=== PATIENT | female | born 1975 | race Caucasian/White ===

== ENCOUNTER 2023-07-29 07:52 | Outpatient (CLI) | payer BC, SELFPAY ==
[2023-08-09 22:24] LABS: PRA 4.77 ng/mL/h (0.25-5.82)
== END 2023-07-29 07:53 | disposition home or self-care (01) ==
LOC: CHSLAB 08:01
DX: I10 Essential (primary) hypertension (principal)
CPT/HCPCS: 36415; 82088; 84244

== ENCOUNTER 2024-01-10 08:45 | Outpatient (CLI) | payer BC, SELFPAY ==
[2024-01-10 09:07] LABS: Immature Reticulocyte Fraction 7.5 % (2.0-16.52); Reticulocyte Hemoglobin Conten 33.1 pg (28.0-35.0); Reticulocyte Percent 1.32 % (0.50-1.50); Reticulocytes Absolute 0.06 M/mm3 (0.02-0.10)
[2024-01-10 10:18] LABS: Ferritin 34 ng/mL (8-252); Iron 173 ug/dL (50-170); Percent Iron Saturation 52 % (12-57)
[2024-01-12 03:44] LABS: Ceruloplasmin 23 mg/dL (14-48)
[2024-01-12 15:28] LABS: Zinc 80 mcg/dL (60-130)
== END 2024-01-10 08:46 | disposition home or self-care (01) ==
LOC: CHSLAB 08:50
DX: R53.82 Chronic fatigue, unspecified (principal); R74.8 Abnormal levels of other serum enzymes; E06.3 Autoimmune thyroiditis
CPT/HCPCS: 36415; 82390; 82525; 82728; 83540; 83550; 84630; 85046

== ENCOUNTER 2024-01-22 10:50 | Outpatient (CLI) | payer BC, SELFPAY ==
[2024-01-22 11:27] LABS: Occult Blood Negative (Negative)
[2024-01-22 11:27] LABS: Occult Blood Negative (Negative)
[2024-01-22 11:27] LABS: Occult Blood Negative (Negative)
--- OUTSIDE RECORDS SUMMARY | 2024-01-26 06:41 | XMS_ITS | Encounter Summary ---
Author Organization [facility] Address [address] [place] [address] Care Team Providers Care Analyst Competitive Intelligence Name Role Phone Bowen Field MD Primary Care Provider Unavail able Reason for Referral * Radiology Services (Routine) - Closed Specialty Diagnoses / Procedures Referred By Franko menjivar Referred To Contact Diagnoses Breast cancer screening Procedures JESSICA SCREENING DIGITAL IMAGE BILATERAL [id number] Juana Gabriel MD RETIRED Referral ID Status Reason Start Date Expiration Date Visits Re quested Visits Authorized [id number] Closed 06/14/2017 12/11/2017 1 1 Reason for Visit * Radiology Services (Routine) - Closed Specialty Diagnoses / Procedures Referred By Franko menjivar Referred To Contact Diagnoses Breast cancer screening Procedures JESSICA SCREENING DIGITAL IMAGE BILATERAL [id number] Juana Gabriel MD RETIRED Referral ID Status Reason Start Date Expiration Date Visits Re quested Visits Authorized [id number] Closed 06/14/2017 12/11/2017 1 1 Encounter Details Date Type Department Care Team (Latest Contact Info) Description 06/14/2017 11:06 AM CDT - 06/14/2017 11:59 PM CDT Hospital Encounter [facility] [address] [place] [address] Juana Gabriel MD RETIRED Discharge Disposition: Home or Self Care Social History Tobacco Use Types Packs/Day Years Used Date Smoking Tobacco: Never Smokeless Tobacco: Never Alcohol Use Standard Drinks/Week Comments No 0 (1 standard drink = 0.6 oz pur e alcohol) Sex and Gender Information Value Date Recorded Sex Assigned at Not on file Gender Identity Not on file Sexual Orientation Not on file documented as of this encounter Functional Status Functional Status Response Date of Assess ment Is person deaf or have serious hearing difficult y? No 05/24/2015 Is person blind or have serious difficulty seein g? No 05/24/2015 Does person have serious dif ficulty walking/climbing stairs? No 05/24/2015 Does person have difficulty dressing/bathing? No 05/24/2015 Does person have difficulty doing errands alone? No 05/24/2015 Cognitive Status Response Date of Assessm ent Does person have difficulty concentrating/remembering/making decisions? No 05/24/2015 documented as of this encounter Medications at Time of Discharge Medication Sig Dispensed Refills Start Date End Date docusate sodium (COLACE) 100 MG capsule Take 1 Cap by mouth 2 times daily 60 Cap 3 05/25/2015 enoxaparin (LOVENOX) injection Inject 40 mg subcutaneously once daily. Continue for at least six weeks 30 Syringe 2 05/12/2014 ibuprofen (MOTRIN) 600 MG tablet Take 1 Tab by mouth every 6 hours as needed for Pain 40 Tab 0 05/25/2015 iron polysaccharides (NIFEREX 150) 150 MG capsule Take 1 Cap by mouth once daily. 30 Cap 3 05/12/2014 lansoprazole (PREVACID) 15 MG capsuleIndications:Gas troesophageal Reflux Disease Take 15 mg by mouth daily before breakfast. Indications: Gastroesophageal Reflux Disease methyldopa (ALDOMET) 500 MG tabletIndications:Hype rtension Take 1 Tab by mouth 2 times daily. Indications: High Blood Pressure 60 Tab 3 05/12/2014 oxyCODONE-acetaminophe n (PERCOCET) 5-325 MG tablet Take 1 Tab by mouth every 6 hours as needed for Pain 50 Tab 0 05/25/2015 Vit-Fe Fumarate-FA ( VITAMIN) 28-0.8 MG tabletIndications:Preg leslie Take 1 Tab by mouth once daily. Indications: documented as of this encounter Plan of Treatment Not on file documented as of this encounter Procedures Procedure Name Priority Date/Time Associated Diagnosis Comments MAMMO BILAT SCREENING Routine 06/14/2017 11:26 AM CDT Breast cancer screening documented in this encounter Results * JESSICA SCREENING DIGITAL IMAGE BILATERAL G0202 (06/14/2017 11:26 AM CDT) Anatomical Region Laterality Modality Breast Bilateral Mammography 06/14/2017 2:33 PM CDT Impressions 06/14/2017 3:17 PM CDT No mammographic evidence of malignancy in either breast. ASSESSMENT: BIRADS Category 1: Negative mammogram. RECOMMENDATION: Annual screening mammography. Thank you for allowing us to participate in the care of your patient. [facility] Breast [facility] utilizes [employer] as a reminder system to notify patients of their next recommended mammogram. Dictated by Anirudh Bartlett M.D. (president celebrity acquistion) I, Alyx Mendy, have personally reviewed the images and I agree with this report. Narrative 06/14/2017 3:17 PM CDT EXAMINATION: Digital screening mammogram on 06/14/2017. Low-dose full-field digital breast tomosynthesis examination was performed with synthetic 2D images and 3D acquisitions. Computer assisted detection was utilized. PRIOR: Previous screening mammogram from 06/08/2016. BREAST PARENCHYMAL DENSITY: There are scattered areas of fibroglandular density. RISK ASSESSMENT CALCULATION: Based on the information provided by your patient, her lifetime risk of breast cancer is intermediate (15-20%). Additional quantitative risk model data and patient history details have been scanned as a document/letter in [facility] electronic medical record (media tab). Please note this information is only as accurate as the data entered by the patient. FINDINGS: No suspicious masses, areas of architectural distortion or microcalcifications are evident on synthetic 2D mammogram or tomosynthesis images. ??There has been no significant interval change since the prior examination. Juana Gabriel MD MAMMO ORDERABLES documented in this encounter Visit Diagnoses Diagnosis Breast cancer screening Breast screening, unspecified documented in this encounter Care Teams Analyst Competitive Intelligence Relationship Specialty Start Date End Date Bowen Field MD PCP - General Internal Medicine 12/22/13 documented as of this encounter
--- OUTSIDE RECORDS SUMMARY | 2024-01-26 06:41 | XMS_ITS | Referral Summary ---
Author Organization [facility] Address [address] [place] [place] [address] Care Team Providers Care Proof Machine Operator Supervisor Name Role Phone Bowen Field MD Primary Care Provider Unavail able Source Comments [facility] and Associated Physician Practices is amultiple site organization consisting of ambulatory clinics and hospital sitesin [place], [place], [place] and [place]. This disclosure is being madepursuant to the Care Everywhere program and may not contain all information available regarding this patient. Last updated 17.[facility] [email or web address] Allergies Active Allergy Reactions Criticality Noted Date Comments Latex Itching,Swelling 12/22/2013 Sulfa Drugs 12/22/2013 Mouth sores Medications * Be aware that medications may not be up to date on this document. Alwaysverify current medications with the patient. Medication Sig Dispensed Refills Start Date End Date Status Vit-Fe Fumarate-FA ( VITAMIN) 28-0.8 MG tabletIndications:Pr egnancy Take 1 Tab by mouth once daily. Indications: Active lansoprazole (PREVACID) 15 MG capsuleIndications:G astroesophageal Reflux Disease Take 15 mg by mouth daily before breakfast. Indications: Gastroesophageal Reflux Disease Active enoxaparin (LOVENOX) injection Inject 40 mg subcutaneously once daily. Continue for at least six weeks 30 Syringe 2 5 Active methyldopa (ALDOMET) 500 MG tabletIndications:Hy pertension Take 1 Tab by mouth 2 times daily. Indications: High Blood Pressure 60 Tab 3 5 Active iron polysaccharides (NIFEREX 150) 150 MG capsule Take 1 Cap by mouth once daily. 30 Cap 3 5 Active oxyCODONE-acetaminop hen (PERCOCET) 5-325 MG tablet Take 1 Tab by mouth every 6 hours as needed for Pain 50 Tab 0 6 Active docusate sodium (COLACE) 100 MG capsule Take 1 Cap by mouth 2 times daily 60 Cap 3 6 Active ibuprofen (MOTRIN) 600 MG tablet Take 1 Tab by mouth every 6 hours as needed for Pain 40 Tab 0 6 Active Active Problems Patient Care Coordination No te Formatting of this note migh t be different from the original. [facility] 2014 Please see care plan in problem list. Problem Noted Date Diagnosed Date Current affected with Down syndrome Prothrombin gene mutation 02/20/2014 Overview (02/20/2014): Heterozygote for prothrombin gene mutation Chronic Hypertension 02/19/2014 Overview (02/19/2014): Patient has been on BP medications since delivery of her first child Has been on Methyldopa, Diovan before Has been on Methyldopa 500 mg BID for G2 H/O Pre-Eclampsia 02/19/2014 Overview (02/19/2014): In G1 with placental abruption and delivery at 34 weeks, was on Magnesium H/O Placental abruption 02/19/2014 Overview (02/19/2014): G1 when she had pre-eclampsia H/O Anxiety 02/19/2014 Overview (02/19/2014): Previously on Zoloft, has been off for several years Factor V Leiden mutation complicating 12/23/2013 Overview (02/20/2014): Currently on Lovenox 40 mg daily No personal history of blood clots Strong family history of blood clots Heterozygote Previous delivery affecting 1 02/22/2013 Family history of autism Abnormal genetic test during Overview (05/13/2015): Borderline value on NIPT ([employer])- suspected T21 Confirmed by amniocentesis Obesity affecting Resolved Problems Problem Noted Date Diagnosed Date Resolved Date abnormality in - Trisomy 21 05/13/2015 05/24/2015 Overview (05/13/2015): Images from the original note were not included. CUSTODIAL PATIENT--PLEASE CALL [phone] IF TRIAGED OR ADMITTED Care Provider: Dr. Bagley- OB; referred from [facility] consultants involved: Maria Victoria KRAUS Diagnosis: Trisomy 21 care needed at : Planned care after delivery: Fence Supervisor: Planned surveillance: Planned delivery location: Planned [place] at delivery: Planned mode of delivery: Placenta Instructions: Autopsy indicated: Genetics note: Medical Oncology Physician Concerns: This care plan is based on evaluation and is subject to change based on assessment. Please see Images or Cardiac under Chart Review for US/ ECHO/ MRI reports. GBS (group B streptococcus) UTI complicating 02/21/2014 05/18/2014 Elevated blood pressure read ing without diagnosis of hypertension 02/20/2014 05/18/2014 Overview (05/09/2016): 24 hour urine on 02/13/14 was 342 mg IMO Update 05/09/2016 Supervision of normal 02/19/2014 05/18/2014 Overview (02/23/2014): Patient of Dr. Gabriel L = 6 wk US (undocumented) A+/I/-/-, HIV NR Pap: normal 09/14/13 GC/CT: neg/neg GCT: 102 GBS: positive Advanced maternal age (AMA) in 02/19/2014 05/18/2014 Overview (02/19/2014): NIPT negative Normal anatomy US Abdominal cramping complicating 12/22/2013 02/19/2014 Clotting disorder 02/19/2014 Overview (02/19/2014): factor 5 Immunizations Name Administration Dates Next Due TDAP (7yrs+) 04/23/2014 Social History Tobacco Use Types Packs/Day Years Used Date Smoking Tobacco: Never Smokeless Tobacco: Never Alcohol Use Standard Drinks/Week Comments No 0 (1 standard drink = 0.6 oz pur e alcohol) Sex and Gender Information Value Date Recorded Sex Assigned at Not on file Gender Identity Not on file Sexual Orientation Not on file Last Filed Vital Signs Vital Sign Reading Time Taken Comments Blood Pressure 136/93 05/25/2015 2:00 PM CDT Pulse 88 05/25/2015 2:00 PM CDT Temperature 36.6 ??C (97.8 ??F) 05/25/2015 2:00 PM CD T Respiratory Rate 18 05/25/2015 2:00 PM CDT Oxygen Saturation 100% 05/12/2014 12:00 AM CDT Inhaled Oxygen Concentration 99% 02/19/2014 8 :11 PM SHUTTLE FITTING SUPERVISOR Weight 99.3 kg (219 lb) 05/24/2015 1:03 PM CDT Height 160 cm (5' 3 ) 05/24/2015 1:03 PM CDT Body Mass Index 38.79 05/24/2015 1:03 PM CDT Functional Status Functional Status Response Date of [...] person have difficulty concentrating/remembering/making decisions? No 05/24/2015 Plan of Treatment Not on file Procedures Procedure Name Priority Date/Time Associated Diagnosis Comments MAMMO BILAT SCREENING Routine 06/14/2017 11:26 AM CDT Breast cancer screening from Last 3 Months or Most Recently Relevant to Health Maintenance Results * JESSICA SCREENING DIGITAL IMAGE BILATERAL G0202 (06/14/2017 11:26 AM CDT) Anatomical Region Laterality Modality Breast Bilateral Mammography 06/14/2017 2:33 PM CDT Impressions 06/14/2017 3:17 PM CDT No mammographic evidence of malignancy in either breast. ASSESSMENT: BIRADS Category 1: Negative mammogram. RECOMMENDATION: Annual screening mammography. Thank you for allowing us to participate in the care of your patient. [facility] Breast Care utilizes [employer] as a reminder system to notify patients of their next recommended mammogram. Dictated by Anirudh Bartlett M.D. (residential support specialist) I, Alyx Brooke, have personally reviewed the images and I [...] have been scanned as a document/letter in [employer] electronic medical record (media tab). Please note this information is only as accurate as the data entered by the patient. FINDINGS: No suspicious masses, areas of architectural distortion or microcalcifications are evident on synthetic 2D mammogram or tomosynthesis images. ??There has been no significant interval change since the prior examination. Juana Gabriel MD MAMMO ORDERABLES from Last 3 Months or Most Recently Relevant to Health Maintenance Advance Directives * Full Code (Latest Code Status on File) Date Activated Date Inactivated Comments 05/24/2015 12:32 PM 05/25/2015 7:05 PM * Full Code Date Activated Date Inactivated Comments 05/09/2014 2:28 PM 05/12/2014 5:52 PM * Full Code Date Activated Date Inactivated Comments 02/19/2014 3:53 PM 02/21/2014 1:23 PM * Full Code Date Activated Date Inactivated Comments 12/22/2013 11:09 PM 12/23/2013 3:54 PM Care Teams Proof Machine Operator Supervisor Relationship Specialty Start Date End Date Bowen Field MD PCP - General Internal Medicine 12/22/13
--- OUTSIDE RECORDS SUMMARY | 2024-01-26 06:41 | XMS_ITS | Clinical Summary ---
Author Organization [facility] Address [address] [place] [address] Care Team Providers Care Obstetric Anaesthetist Name Role Phone Bowen Field MD Primary Care Provider Unavail able Source Comments [facility],non-[facility] Affiliates and Associated Physician Practices is amultiple site organization consisting of ambulatory clinics and hospital sitesin [place], [place], [place] and [place]. This disclosure is being madepursuant to the Care Everywhere program and may not contain all information available regarding this patient. Last updated 17.[facility] [employer] Allergies Active Allergy Reactions Criticality Noted Date [...] migh t be different from the original. [facility] [place] Please see care plan in problem [...] during Overview (05/13/2015): Borderline value on NIPT ([employer])- suspected T21 Confirmed by amniocentesis Obesity affecting Resolved Problems Problem Noted Date Diagnosed Date Resolved Date abnormality in - Trisomy 21 05/13/2015 05/24/2015 Overview (05/13/2015): Images from the original note were not included. ALF PATIENT--PLEASE CALL [phone] IF TRIAGED OR ADMITTED Care Provider: Dr. Bagley- OB; referred from [facility] consultants involved: Maria Victoria KRAUS Diagnosis: Trisomy 21 care needed at : Planned care after delivery: Corridor Redevelopment Manager: Planned surveillance: Planned delivery location: Planned [place] at delivery: Planned mode of delivery: Placenta Instructions: Autopsy indicated: Genetics note: Safety Attendant Concerns: This care plan is based on [...] Administration Dates Next Due TDAP (7yrs+) 04/23/2014 Family History Medical History Relation Name Comments DVT - Deep Vein Thrombosis Brother a fter surgery Diabetes Father Hypertension Father Thyroid Disease Father needed a thy roidectomy Stroke Maternal Grandfather Leukemia Maternal Grandmother DVT - Deep Vein Thrombosis Mother a fter surgery Hypertension Mother Pulmonary Embolism Mother Cancer - Breast Other Great Aunt Cancer - Breast Paternal Aunt Thyroid Disease Paternal Aunt Cancer Paternal Grandmother Some ty pe of blood cancer Heart Failure Paternal Grandmother Relation Name Status Comments Brother Father Maternal Grandfather Maternal Grandmother Mother From PE Other Paternal Aunt Paternal Grandmother Social History Tobacco Use Types Packs/Day Years [...] Oxygen Concentration 99% 02/19/2014 8 :11 PM DOCK BOSS Weight 99.3 kg (219 lb) 05/24/2015 1:03 PM CDT Height 160 cm (5' 3 ) 05/24/2015 1:03 PM CDT Body Mass Index 38.79 05/24/2015 1:03 PM CDT Plan of Treatment Health Maintenance Due Date Last Done Comments COLOGUARD (AGES 45-75) - COL ON CA SCREENING 1976 COLON MONITORING 1976 COLONOSCOPY - COLON CA SCREENING 1976 CT COLONOGRAPHY - COLON CA SCREENING 1976 Colorectal Cancer Screening 1976 FIT - COLON CA SCREENING 1976 FLEX SIG - COLON CA SCREENING 1976 LIPID TESTING 1976 PAP SMEAR 1976 HIV SCREENING 08/09/1991 HEPATITIS C SCREENING 08/04/1994 HEPATITIS B VACCINE (1 of 3 - 19+ 3-dose series) 08/09/1995 MAMMOGRAM 06/15/2019 06/14/2017, 06/08/2016 DEPRESSION SCREENING 02/08/2023 COVID-19 VACCINE (2023-2 5 season) 2023 INFLUENZA VACCINE (#1) 2023 DTAP/TDAP/TD VACCINES (2 - T d or Tdap) 04/23/2024 04/23/2014 ZOSTER VACCINE (1 of 2) 2026 HIB VACCINE Aged Out No longer eligi ble based on patient's age to complete this topic HPV VACCINE Aged Out No longer eligi ble based on patient's age to complete this topic MENINGOCOCCAL VACCINE Aged Out No truong cristóbal eligible based on patient's age to complete this topic PNEUMOCOCCAL VACCINE Aged Out No long er eligible based on patient's age to complete this topic Procedures Procedure Name Priority Date/Time Associated Diagnosis [...] participate in the care of your patient. [facility] Breast Care utilizes [employer] as a reminder system to notify patients of their next recommended mammogram. Dictated by Anirudh Bartlett M.D. (cmo & president) I, Alyx Brooke, have personally reviewed the [...] have been scanned as a document/letter in [employer] electronic medical record (media tab). Please note [...] 11:09 PM 12/23/2013 3:54 PM Care Teams Obstetric Anaesthetist Relationship Specialty Start Date End Date Bowen Field MD PCP - General Internal Medicine 12/22/13
--- OUTSIDE RECORDS SUMMARY | 2024-01-26 06:41 | XMS_ITS | Patient Health Summary ---
Author Organization [facility] Address [address] [place] [address] Care Team Providers Care Project Administrator Name Role Phone Bowen Field MD Primary Care Provider Unavail able Note from [facility],non-owned Affiliates and Associated Physician Practices is amultiple site organization consisting of ambulatory clinics and hospital sitesin [place] and [place]. This disclosure is being madepursuant to the Care Everywhere program and may not contain all information available regarding this patient. Last updated 17.[facility] RateItAll Allergies * Latex(Itching,Swelling) * Sulfa Drugs(Mouth sores) Medications * Be aware that medications may not be up to date on this document. Alwaysverify current medications with the patient. * Vit-Fe Fumarate-FA ( VITAMIN) 28-0.8 MG tablet Take 1 Tab by mouth once daily. Indications: * lansoprazole (PREVACID) 15 MG capsule Take 15 mg by mouth daily before breakfast. Indications: Gastroesophageal Reflux Disease * enoxaparin (LOVENOX) injection(Started 05/12/2014) Inject 40 mg subcutaneously once daily. Continue for at least six weeks 2 refills left * methyldopa (ALDOMET) 500 MG tablet(Started 05/12/2014) Take 1 Tab by mouth 2 times daily. Indications: High Blood Pressure 3 refills left * iron polysaccharides (NIFEREX 150) 150 MG capsule(Started 05/12/2014) Take 1 Cap by mouth once daily. 3 refills left * oxyCODONE-acetaminophen (PERCOCET) 5-325 MG tablet(Started 05/25/2015) Take 1 Tab by mouth every 6 hours as needed for Pain * docusate sodium (COLACE) 100 MG capsule(Started 05/25/2015) Take 1 Cap by mouth 2 times daily 3 refills left * ibuprofen (MOTRIN) 600 MG tablet(Started 05/25/2015) Take 1 Tab by mouth every 6 hours as needed for Pain Active Problems Problem Noted Date Diagnosed Date Current affected with Down syndrome Prothrombin gene mutation 02/20/2014 Chronic Hypertension 02/19/2014 H/O Pre-Eclampsia 02/19/2014 H/O Placental abruption 02/19/2014 H/O Anxiety 02/19/2014 Factor V Leiden mutation complicating 12/23/2013 Previous delivery affecting 1 02/22/2013 Family history of autism Abnormal genetic test during Obesity affecting Resolved Problems Problem Noted Date Diagnosed Date Resolved Date abnormality in - Trisomy 21 05/13/2015 05/24/2015 GBS (group B streptococcus) UTI complicating 02/21/2014 05/18/2014 Elevated blood pressure read ing without diagnosis of hypertension 02/20/2014 05/18/2014 Supervision of normal 02/19/2014 05/18/2014 Advanced maternal age (AMA) in 02/19/2014 05/18/2014 Abdominal cramping complicating 12/22/2013 02/19/2014 Clotting disorder 02/19/2014 Immunizations * TDAP (7yrs+)(Given 04/23/2014) Social History Tobacco Use Types Packs/Day Years [...] Oxygen Concentration 99% 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 Weight 99.3 kg (219 lb) 05/24/2015 1:03 PM CDT Height 160 cm (5' 3 ) 05/24/2015 1:03 PM CDT Body Mass Index 38.79 05/24/2015 1:03 PM CDT Procedures * MAMMO BILAT SCREENING(Performed 06/14/2017) Performed for Breast cancer screening * MAMMO BILAT SCREENING(Performed 06/08/2016) Performed for Visit for screening mammogram * IMAGING/RADIOLOGY/XRAY RESULTS ORDER(Performed 08/19/2015) * LAB RESULTS ORDER(Performed 05/27/2015) * IMAGING/RADIOLOGY/XRAY RESULTS ORDER(Performed 05/27/2015) * PATHOLOGY TISSUE EXAM (STL)(Performed 05/25/2015) * TYPE + SCREEN PANEL(Performed 05/24/2015) Performed for abnormality in , not applicable or unspecified fetus ([facility]) * CBC W AUTO DIFFERENTIAL(Performed 05/24/2015) Performed for abnormality in , not applicable or unspecified fetus ([facility]) * CYTOGENETICS PANEL(Performed 05/07/2015) * ALPHA FETOPROTEIN AMNIO(Performed 05/07/2015) * SONOGRAM - COMPLETE(Performed 05/07/2015) * DNA FRAGILE X PANEL(Performed 04/16/2015) Performed for Family history of autism * SONOGRAM - COMPLETE(Performed 04/16/2015) * LAB RESULTS ORDER(Performed 05/15/2014) * IMAGING/RADIOLOGY/XRAY RESULTS ORDER(Performed 05/14/2014) * CBC W AUTO DIFFERENTIAL(Performed 05/10/2014) * SECTION (EMERGENCY)(Performed 05/09/2014) * PATHOLOGY TISSUE EXAM (STL)(Performed 05/09/2014) Performed for state, incidental [V22.2] * BLOOD GASES CORD ROEL (ISTAT)(Performed 05/09/2014) * BLOOD GASES CORD ART (ISTAT)(Performed 05/09/2014) * NEURAXIAL BLOCK(Performed 05/09/2014) * PT PTT PANEL(Performed 05/09/2014) Performed for Factor V Leiden mutation complicating ([facility]) * TYPE + SCREEN PANEL(Performed 05/09/2014) * CBC W AUTO DIFFERENTIAL(Performed 05/09/2014) Performed for Previous delivery affecting ([facility]) * AMNISURE(Performed 05/09/2014) Performed for Supervision of normal , third trimester * GLUCOSE PROTEIN KETONE URINE - POINT OF CAR(Performed 05/09/2014) * BIOPHYSICAL PROFILE W NST(Performed 05/07/2014) Performed for Factor V Leiden mutation complicating (HCC), Previous delivery affecting (HCC), Supervision of normal , third trimester, Chronic Hypertension, Advanced maternal age (AMA) in , third trimester, Preeclampsia, third trimester (HCC), Placental abruption, third trimester (HCC), H/O Anxiety, Elevated blood pressure, R/O Pre-eclampsia, Prothrombin gene mutation (HCC), GBS (group B streptococcus) UTI complicating , third trimester (HCC) * GLUCOSE PROTEIN KETONE URINE - POINT OF CAR(Performed 05/07/2014) * BIOPHYSICAL PROFILE W NST(Performed 04/30/2014) Performed for Factor V Leiden mutation complicating (HCC), Previous delivery affecting (HCC), Supervision of normal , third trimester, Chronic Hypertension, Advanced maternal age (AMA) in , third trimester, Preeclampsia, third trimester (HCC), Placental abruption, third trimester (HCC), H/O Anxiety, Elevated blood pressure, R/O Pre-eclampsia, Prothrombin gene mutation (HCC), GBS (group B streptococcus) UTI complicating , third trimester (HCC) * DIFFERENTIAL MANUAL(Performed 04/30/2014) * CBC W AUTO DIFFERENTIAL(Performed 04/30/2014) * CULTURE URINE(Performed 04/30/2014) * GLUCOSE PROTEIN KETONE URINE - POINT OF CAR(Performed 04/30/2014) * CBC W AUTO DIFFERENTIAL(Performed 04/26/2014) Performed for Chronic Hypertension * GLUCOSE PROTEIN KETONE URINE - POINT OF CAR(Performed 04/26/2014) * LAB HISTORICAL RESULTS-ONBASE(Performed 04/26/2014) * BIOPHYSICAL PROFILE W NST(Performed 04/23/2014) Performed for Factor V Leiden mutation complicating (HCC), Previous delivery affecting (HCC), Supervision of normal , third trimester, Chronic Hypertension, Advanced maternal age (AMA) in , third trimester, Preeclampsia, third trimester (HCC), Placental abruption, third trimester (HCC), H/O Anxiety, Elevated blood pressure, R/O Pre-eclampsia, Prothrombin gene mutation (HCC), GBS (group B streptococcus) UTI complicating , third trimester (HCC) * GLUCOSE PROTEIN KETONE URINE - POINT OF CAR(Performed 04/23/2014) * BIOPHYSICAL PROFILE W NST(Performed 04/16/2014) Performed for Factor V Leiden mutation complicating ([facility]), Previous delivery affecting ([facility]), Supervision of normal , third trimester, Chronic Hypertension, Advanced maternal age (AMA) in , third trimester, Preeclampsia, third trimester ([facility]), Placental abruption, third trimester ([facility]), H/O Anxiety, Elevated blood pressure, R/O Pre-eclampsia, Prothrombin gene mutation ([facility]), GBS (group B streptococcus) UTI complicating , third trimester ([facility]) * GLUCOSE PROTEIN KETONE URINE - POINT OF CAR(Performed 04/16/2014) * BIOPHYSICAL PROFILE W NST(Performed 04/09/2014) * BIOPHYSICAL PROFILE W NST(Performed 04/02/2014) * SONOGRAM - COMPLETE(Performed 03/21/2014) * LAB RESULTS ORDER(Performed 02/22/2014) * PROTEIN URINE TIMED QUANTITATIVE(Performed 02/20/2014) Performed for Hypertension * PROTEIN CREATININE RATIO URINE TIMED PNL(Performed 02/20/2014) Performed for Hypertension * CREATININE URINE TIMED(Performed 02/20/2014) Performed for Hypertension * CREATININE CLEARANCE URINE TIMED + BLOOD(Performed 02/20/2014) Performed for Hypertension * SONOGRAM - COMPLETE(Performed 02/20/2014) Performed for Hypertension * EKG 12-LEAD(Performed 02/20/2014) Performed for Hypertension * ECHOCARDIOGRAM 2D WITH DOPPLER(Performed 02/20/2014) Performed for Chronic Hypertension, Factor V Leiden mutation complicating ([facility]) * EKG 12-LEAD(Performed 02/19/2014) Performed for Chronic Hypertension * DRUG ABUSE URINE PANEL(Performed 02/19/2014) Performed for Hypertension * URINALYSIS REFLEX MICROSCOPIC REFLEX CULTURE(Performed 02/19/2014) Performed for Hypertension * CULTURE URINE(Performed 02/19/2014) Performed for Hypertension * CULTURE STREP B(Performed 02/19/2014) Performed for Hypertension * TYPE + SCREEN PANEL(Performed 02/19/2014) * PT PTT PANEL(Performed 02/19/2014) * T4 FREE(Performed 02/19/2014) Performed for Fatigue * TSH(Performed 02/19/2014) Performed for Fatigue * URIC ACID BLOOD(Performed 02/19/2014) Performed for Hypertension * LDH BLOOD(Performed 02/19/2014) Performed for Hypertension * COMPREHENSIVE METABOLIC PANEL(Performed 02/19/2014) Performed for Hypertension * CBC W AUTO DIFFERENTIAL(Performed 02/19/2014) Performed for Hypertension * BLOOD TYPE VERIFICATION(Performed 12/23/2013) * TYPE + SCREEN PANEL(Performed 12/22/2013) Performed for Supervision of normal first , second trimester, Abdominal cramping complicating (HCC) * COMPREHENSIVE METABOLIC PANEL(Performed 12/22/2013) Performed for Supervision of normal first , second trimester, Abdominal cramping complicating (HCC) * CBC W AUTO DIFFERENTIAL(Performed 12/22/2013) Performed for Supervision of normal first , second trimester, Abdominal cramping complicating (HCC) * URINALYSIS REFLEX MICROSCOPIC REFLEX CULTURE(Performed 12/22/2013) Performed for Supervision of normal first , second trimester * GROSS + MICRO EXAM(Performed 06/22/2007) Results * JESSICA SCREENING DIGITAL IMAGE BILATERAL G0202 (06/14/2017 11:26 AM CDT) Only the most recent of2 resultswithin the time period is included. Anatomical Region Laterality Modality Breast Bilateral Mammography 06/14/2017 2:33 PM CDT Impressions 06/14/2017 3:17 PM CDT No mammographic evidence of malignancy in either breast. ASSESSMENT: BIRADS Category 1: Negative mammogram. RECOMMENDATION: Annual screening mammography. Thank you for allowing us to participate in the care of your patient. [facility] Breast Care utilizes [employer] as a reminder system to notify patients of their next recommended mammogram. Dictated by Anirudh Bartlett M.D. (residential team leader) I, Alyx Brooke, have personally reviewed the [...] have been scanned as a document/letter in [facility] electronic medical record (media tab). Please note this information is only as accurate as the data entered by the patient. FINDINGS: No suspicious masses, areas of architectural distortion or microcalcifications are evident on synthetic 2D mammogram or tomosynthesis images. ??There has been no significant interval change since the prior examination. Juana Gabriel MD MAMMO ORDERABLES * IMAGING/RADIOLOGY/XRAY RESULTS ORDER (08/19/2015 10:36 PM CDT) Only the most recent of3 resultswithin the time period is included. 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 Scanned Document IMAGING * LAB RESULTS ORDER (05/27/2015 11:28 PM CDT) Only the most recent of3 resultswithin the time period is included. Narrative 05/27/2015 11:28 PM CDT Ordered by an unspecified provider. Scanned Document LAB - THERAPEUTIC DR LÓPEZ MONITORING ORDERABLES * GROSS + MICRO EXAM (STL) (05/25/2015 7:30 AM CDT) Only the most recent of2 resultswithin the time period is included. Case Report Surgical Pathology Report ? Case: [id number] ? Authorizing Provider: ??Juana Gabriel MD ? Collected: ? 05/25/2015 07:30 AM ? Ordering Location: ? [facility] 5 LDR ? Received: ?05/28/2015 06:40 AM ? Pathologist: ? Armani Arce MD ? Specimen: ?Placenta Non 3rd Trimester ? 05/29/2015 3:48 PM CDT [facility] Final Diagnosis 1. Placenta: -- Second trimester placenta, 150 grams -- 3-vessel umbilical cord with acute funisitis and myonecrosis -- Acute chorioamnionitis with increased fibrin deposition -- ?Diffuse acute decidualitis with fibrin deposition CARLOTA/BALWINDER/tere 05/29/2015 3:48 PM CDT [facility] Clinical History The patient is a 39-year-old woman with a history of preeclampsia and placental abruption in her first . She has a history of chronic hypertension, as well as factor V Leiden deficiency. The current was an intrauterine dated by first trimester ultrasound and was a gestational age of 18 weeks and 5 days. The patient experienced an intrauterine demise and had a vaginal delivery with scores of 0/0. The fetus was positive for Down syndrome. 05/29/2015 3:48 PM CDT [facility] Gross Description The specimen is received fixed in formalin in one container, labeled with the patient's name Ama Clayton, and placenta un tri, and contains a tan placenta with an attached portion of umbilical cord and two other fragments of placental tissue. The placenta measures 7.5 x 7.5 and has an average thickness of 1.5 cm. The placental weight with the additional fragments has an aggregate weight of 150 gm. The white-green umbilical cord inserts eccentrically 2 cm from the disc margin. The white-green umbilical cord measures 11 cm in length and averages 0.3 cm in diameter. Cut section reveals a tri vascular cord with no areas of thromboses or other irregularities. The membranes are green and semi-opaque. They insert at the disc margins. The surface is green-knowles and has an unremarkable configuration. The maternal surface is intact. Serial section reveals a pink-green spongy parenchyma. An infarct measuring 1.1 x 0.5 x 0.3 cm is identified. The separate fragments of tissue have a surface that is white-green and nodular. The opposing surface is dark brown-green and smooth. The usual packaging sales representative sections are submitted in cassette A1 to A3. A4 contains packaging sales representative sections of the separate fragments of nodular placental tissue. DH/lv 05/29/2015 3:48 PM CDT [facility] Microscopic Description Microscopic examination of the placenta reviews a three-vessel umbilical cord with acute funisitis and myonecrosis. There is acute chorioamnionitis. The chorionic villi are immature and fibrotic. There is diffuse acute decidualitis with fibrinoid material. 05/29/2015 3:48 PM CDT [facility] Pathology/Cytolo gy ENTIRE PLACENTA / Unknown 05/25/2015 7:30 AM CDT 05/28/2015 6:40 AM CDT Juana Gabriel MD LAB - PATHOLOGY/CYTO LOGY ORDERABLES Performing Organization Address [facility] Co de Phone Number [facility] [address] [place] [address] * TYPE + SCREEN PANEL (05/24/2015 1:26 PM CDT) Only the most recent of4 resultswithin the time period is included. ABO A 05/24/2015 2:11 PM CDT [facility] Rh Type Positive 05/24/2015 2:11 PM CDT [facility] Comment:History check perfor med. No retype required. Antibody Screen Negative 05/24/2015 2:11 PM CDT [facility] B[facility] Miscellaneous samples (specimen) BLOOD SPECIMEN / Unknown Venipuncture / Unknown 05/24/2015 1:26 PM CDT 05/24/2015 1:32 PM CDT Yelitza Herrera MD LAB - BLOOD BANK ORD ERABLES Performing Organization Address [facility] de Phone Number [facility] [address] * (ABNORMAL) CBC W AUTO DIFFERENTIAL (05/24/2015 1:26 PM CDT) Only the most recent of7 resultswithin the time period is included. WBC 8.3 4.4 - 10.7 x10E9/L 05/24/2015 2:01 PM CDT [facility] WBC Corrected x10E9/L 05/24/2015 2:01 PM CDT [facility] RBC 4.95 3.80 - 5.20 x10E12/L 05/24/2015 2:01 PM CDT [facility] Hemoglobin 13.6 12.0 - 15.6 gm/dL 05/24/2015 2:01 PM CDT [facility] Hematocrit 38.5 35.9 - 45.5 % 05/24/2015 [facility] MCV 77.8(L) 80.7 - 98.3 fl 05/24/2015 2:01 PM CDT [facility] MCH 27.5 26.7 - 34.0 pg 05/24/2015 2:01 PM CDT [facility] MCHC 35.3 30.8 - 35.9 gm/dL 05/24/2015 2:01 PM CDT [facility] Platelet Count 303 153 - 416 x10E9/L 05/24/2015 2:01 PM CDT [facility] RDW-CV 13.5 12.1 - 14.9 % 05/24/2015 2:01 PM CDT [facility] MPV 10.2 9.4 - 12.9 fl 05/24/2015 2:01 PM CDT [facility] Neutrophils % 65.6 44.0 - 73.0 % 05/24/2015 2:01 PM CDT [facility] Lymphocytes % 22.7 20.0 - 43.0 % 05/24/2015 2:01 PM CDT [facility] Monocytes % 6.9 5.0 - 13.0 % 05/24/2015 2:01 PM CDT [facility] Eosinophils % 3.7 0.0 - 6.0 % 05/24/2015 2:01 PM CDT [facility] Basophils % 0.5 0.0 - 2.0 % 05/24/2015 2:01 PM CDT [facility] Immature Granulocytes 0.6 0 - 1 % 05/24/2015 2:01 PM CDT [facility] Neutrophil Absolute 5.45 2.01 - 7.14 x10E9/L 05/24/2015 2:01 PM CDT [facility] Lymphocytes Absolute 1.89 1.07 - 3.94 x10E9/L 05/24/2015 2:01 PM CDT [facility] Monocytes Absolute 0.57 0.26 - 1.07 x10E9/L 05/24/2015 2:01 PM CDT [facility] Eosinophils Absolute 0.31 0 - 0.47 x10E9/L 05/24/2015 2:01 PM CDT [facility] Basophils Absolute 0.04 0 - 0.08 x10E9/L 05/24/2015 2:01 PM CDT [facility] Immature Granulocytes Absolute 0.05 0.00 - 0.06 x10E9/L 05/24/2015 2:01 PM CDT [facility] nRBC Auto 0 /100 WBC 05/24/2015 2:01 PM CDT [facility] Blood BLOOD SPECIMEN / Unknown Venipuncture / Unknown 05/24/2015 1:26 PM CDT 05/24/2015 1:32 PM CDT Yelitza Herrera MD LAB - HEMATOLOGY ORD ERABLES Performing Organization Address City/State/[facility] Co de Phone Number [facility] [address] [place] [address] * CYTOGENETICS PANEL (05/07/2015 12:45 PM CDT) Indication for Study Risk of Trisomy 21 FISH ANEUVYSION requested by physician 05/15/2015 8:09 AM CDT [facility]TO[facility]OM[facility] Results Cytogenetics Fluorescence In-Situ Hybridization (FISH): ??Analysis of 50 interphase cells hybridized to X,Y and 18 specific fluorescent labeled probes* and 50 interphase cells hybridized to 13 and 21 specific fluorescent labeled probes* showed the following results: nuc hetal(DXZ1x1,DYZ3x1 ,S51S2s0),(RB1x2, L89I894r2) Abnormal male trisomy 21 === Analysis and count of 5 cells (2 cells karyotyped, GTL-banding) from 2 primaries of amniotic fluid cultures showed the following chromosome pattern: 47,XY,+21 05/15/2015 8:09 AM CDT [facility] CYTOGENOMIC [facility] Interpretation FISH was positive for trisomy 21 showing 3 signals of 21q22.13-q22.2 loci whereas 13q and 18q loci had 2 signals and one signal for each of X and Y probes*. Results implied that there were 3 copies of chromosome 21 in the majority of cells. FISH results should be confirmed by chromosome study which will show if the extra signal of 21 is caused by a numerical gain or by a derivative chromosome, of which recurrence risks vary significantly. Chromosome analysis is in progress. Abnormal male chromosome analysis showing trisomy 21 in all cells examined at 550 band resolution. Results confirmed the FISH findings. Results were called to the genetic counselors on 05/15/2015. 05/15/2015 8:09 AM T [facility] CYTOGENOMIC [facility] Preliminary result electronically signed by Paula García, PhD ABMG on 05/09/2015 at 6:59 AM Disclaimer *This test was developed, and its performance characteristics determined by [facility] as required by CLIA '88 Regulations. It has not been cleared or approved for specific uses by the U.S. Food and Drug Administration. The FDA has determined that such clearance or approval is not necessary. This test is used for clinical purposes. It should not be reported as investigational or for research. 05/15/2015 8:09 AM CDT [facility] CYTOGENOMIC [facility] Client Information [facility] - 05/15/2015 8:09 AM CDT [facility] CYTOGENOMIC [facility] Other AMNIOTIC FLUID SPECIMEN / Unknown 05/07/2015 12:45 PM CDT 05/07/2015 2:55 PM CDT Arielle Harper MD LAB - PATHOLOG Y/CYTOLOGY ORDERABLES [facility] CYTOGENOMIC [facility] [place] [address] * ALPHA FETOPROTEIN AMNIO (05/07/2015 12:45 PM CDT) Alpha-Fetoprotein Amniotic Fluid Comment 05/13/2015 12:10 PM CDT [facility] ([facility]) Alpha-Fetoprotein Value 9.4 ug/mL 05/13/2015 12:10 PM CDT [facility] ([facility]) AFP MoM 0.72 05/13/2015 12:10 PM CDT [facility] ([facility]) Gestational Age 16 05/13/2015 12:10 PM CDT [facility] ([facility]) Interpretation Comment 05/13/2015 12:10 PM CDT [facility] ([facility]) Comment: The amniotic fluid AFP value is NOT ELEVATED for the gestational age provided. Director Comment 05/13/2015 12:10 PM CDT [facility] ([facility]) Comment: Kelsy Benton, Ph.D., [facility] Principal Genetics Bee Tender Fluid specimen (specimen) AMNIOTIC FLUID SPECIMEN / Unknown Collection / Unknown 05/07/2015 12:45 PM CDT 05/07/2015 2:54 PM CDT Narrative [facility] ([facility]) - 05/13/2015 12:10 PM CDT Performed at: ??01 - [facility] [address] [place], [place] ??[id number] Regional Engineer: Lizzie Curry MD, Phone: ??[phone] Arielle Harper MD LAB - BODY FLU ID ORDERABLES [facility] ([facility]) * SONOGRAM - COMPLETE (05/07/2015 12:29 PM CDT) Only the most recent of4 resultswithin the time period is included. Anatomical Region Laterality Modality Other 05/07/2015 12:2 9 PM CDT Narrative 05/07/2015 3:14 PM CDT ? [facility] ? [facility] ?PHONE: ??FAX: Pat. Name: ?AMA CLAYTON. No: ?[id number] Study Date: ?? 05/07/2015 ??12:29pm , Age: ? 1975, 39 Pregnancies: ?? 2, Para 1 Height: ? 63 in Weight: ? 210 lb LMP: ?01/14/2015 GA by LMP: ?16w1d GA by [facility]: ?16w1d GA by US: ? 15w6d GA Selected: ??16w1d (LMP) ALYCE: ?10/21/2015 Referring MD: JUANA GABRIEL MD Signal Integrity Engineer: ??Rylie Ortega [facility] CPT4: ? 43505 Hist/Ind: ? Advanced Maternal Age ?Chronic Hypertension ?Factor V Leiden ?Hx Preeclampsia, Abruption, ? x 2 ?Borderline NIPT risk for Trisomy 21 MEASUREMENTS & AGE ? GROWTH EVALUATION Measurement ??GA ? Range ? Srce %for GA Ratios ----- ---- ------- BPD ??3.3 cm 16w2d (26h9g-56t8i) Hadl BPD 57% FL/BPD 0.59 HC ??11.9 cm 15w6d (85q6c-84i1t) Hadl HC ??43% FL/AC ??0.19 AC ??10.0 cm 16w0d (92l2m-35j6p) Hadl AC ??48% HC/AC ??1.19 (1.09 - 1.28) FL ?? 1.9 cm 15w5d (89v7b-83a2h) Hadl FL ??39% CI ? 0.79 (0.70 - 0.86) HL ?? 1.8 cm 15w1d (72m7o-67h8v) Claus HL ??33% GA for sonogram 15w6d (03o2h-13n2c) ?? Weight Estimate: based on (HL,BPD,HC,AC,FL) Avg ? Weight: 139 gm (119-159) [place] ? : 0lbs, 4oz ? Normal: 150 gm (113-187) Hadlock ? Wt% ? 36% for 16w1d Heart Rate: 145 bpm CLINICAL SUMMARY Study Number: 1 A single fetus is identified in breech presentation. ??The measurements today are consistent with menstrual dates. ??The ALYCE selected is based on her LMP and a prior ultrasound examination. ?? The amniotic fluid volume is within normal limits. ??The placenta is anterior. ??The anatomy was not well visualized due to gestational age and maternal body habitus. ??Moderately echogenic bowel was noted around the bladder. ??No other markers for aneuploidy or major malformations are seen. ??The patient was advised that ultrasound does not allow detection of all structural or chromosomal abnormalities. PROCEDURE: ?? Amniocentesis was performed by Dr Granados under direct ultrasound guidance without complications. ??Two needle insertions were made. ?? The placenta was not traversed, 34cc's of clear fluid were obtained and sent for karyotype determination and FISH for 13,18,21,X,Y studies. ??The heart rate was within normal limits post procedure. ??The maternal Blood type is A+. ??Rhogam was not given. IMPRESSION: Single, live, IUP at 16w1d size consistent with established ALYCE. Moderately echogenic bowel No other sonographic signs of abnormality Incomplete anatomic survey S/P amniocentesis RECOMMEND: ?? Follow up ultrasound in 4 weeks for anatomic survey Thank you for allowing us the opportunity to care for your patient. Arielle Harper MD <Electronic Signature> ??05/07/2015 03:13pm Juana Gabriel MD 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 This result is not associated with fragile X syndrome. COMMENTS: Southern blot analysis is not indicated when PCR results are negative or intermediate and there is no family history of unexplained intellectual disability, ovarian dysfunction or ataxia tremor. ??Routine chromosome analysis is recommended in the diagnostic work-up for other causes of mental retardation. Fragile X syndrome is caused by an expansion of CGG repeat sequences in the FMR1 gene in 99% of cases. ??There are rare FMR1 mutations including missense mutations and gene deletions which cause fragile X syndrome. ??The interpretation is based on the following ranges of repeat sequences: ? Negative: ?? less than 45 repeats ? Intermediate: ?? 45-54 repeats ?Premutation: ?? 55-200 repeats with normal ? methylation pattern ?Full Mutation: ?? greater than 200 repeats with ? abnormal methylation pattern Reported CGG repeat sizes may vary as follows: +/- one for repeats less than 60, and +/- two to four for repeats in the 60-120 range respectively. ??For repeats greater than 120, the accuracy is +/- 10%. This interpretation is based on the clinical and family relationship information provided and the current understanding of the molecular genetics of this condition. Genetic counseling is recommended for any individual seeking additional information regarding interpretation of genetic test results. METHODS/LIMITATIONS: Isolated DNA is tested by the polymerase chain reaction (PCR) to determine the size of the CGG repeats within the FMR1 gene. ??PCR products are generated using a fluorescence labeled primer and sized by capillary gel electrophoresis. If indicated, Southern blot analysis is performed by hybridizing the probe StB12.3 to EcoRI- and Eagl-digested DNA. ??The analytical sensitivity of both Southern blot and PCR analyses is 99% for expansion mutations in the FMR1 gene. False positive or negative results may occur for reasons that include somatic or tissue-specific mosaicism, rare genetic variants, blood transfusions, bone marrow transplantation, or erroneous representation of family history. REFERENCES: 1. ??Eliana Ceballos et al. Eur J Hum Day 2008;166:666-72. 2. ??Jamie S et al. Day Med 2005;7:584-87. 3. ??Chavez MD et al. Fertil Steril 2007;87:456-65. 4. ??Nay Jauregui et al. Eur J Hum Day 2009;1-4. Results Released By: Jewell Dent MS, PhD, Plane Runner Released By: Radha Dent,Director Comment Comment 04/22/2015 3:23 PM CDT [facility] ([facility]) Comment: This test was developed and its performance characteristics determined by [facility]. ??It has not been cleared or approved by the Food and Drug Administration. ??The FDA has determined that such clearance or approval is not necessary. Blood specimen (specimen) BLOOD SPECIMEN / Unknown Venipuncture / Unknown 04/16/2015 12:05 PM VOTING MACHINE REPAIRER 04/16/2015 12:38 PM VOTING MACHINE REPAIRER Narrative [facility] ([facility]) - 04/22/2015 3:23 PM CDT Performed at: ??01 - [address] ??[id number] Regional Engineer: Lizzie Curry MD, Phone: ??[phone] Alyx Eldridge MD LAB - HEMATOLOGY ORD ERABLES [facility] ([facility]) * (ABNORMAL) BLOOD GASES CORD ROEL (ISTAT) (05/09/2014 5:35 PM CDT) pH Cord Venous POCT 7.25(L) 7.28 - 7.40 pH 05/10/2014 4:02 AM CDT [facility] pCO2 Cord Venous POCT 57(H) 35 - 45 mmHg 05/10/2014 4:02 AM CDT [facility] pO2 Cord Venous POCT 18(L) 22 - 33 mmHg 05/10/2014 4:02 AM CDT [facility] HCO3 Cord Arterial POCT 25(H) 22 - 24 mmol/L 05/10/2014 4:02 AM CDT [facility] BE Cord Venous POCT Calc -4 -6 - 2 mmol/L 05/10/2014 4:02 AM [facility] TCO2 Cord Venous POCT 27 22 - 30 mmol/L 05/10/2014 4:02 AM T [facility] O2 Saturation % Cord Venous Calc POCT 20 % 05/10/2014 4:02 AM CDT [facility] Site CORD ROEL 05/10/2014 4:02 AM CDT [facility] Sample iSTAT CORD V 05/10/2014 4:02 AM [facility] Blood CORD BLOOD SPECIMEN / Unknown 05/09/2014 5:35 PM CDT 05/10/2014 4:02 AM CDT Alberto Colindres MD LAB - POINT OF CARE ORDERABLES Performing Organization Address [facility] de Phone Number [facility] [address], [place] [id number] * (ABNORMAL) BLOOD GASES CORD ART (ISTAT) (05/09/2014 5:31 PM CDT) pH Cord Arterial POCT 7.20 7.20 - 7.34 pH 05/10/2014 4:02 AM [facility] pCO2 Cord Arterial POCT 67.5(H) 45 - 55 mmHg 05/10/2014 4:02 AM [facility] pO2 Cord Arterial POCT 9(L) 12 - 25 mmHg 05/10/2014 4:02 AM [facility] HCO3 Cord Arterial POCT 26.6 15 - 29 mmol/L 05/10/2014 4:02 AM [facility] BE Cord Arterial POCT -4(L) -2.9 - 8.3 mmol/L 05/10/2014 4:02 AM [facility] TCO2 Cord Arterial POCT 29 mmol/L 05/10/2014 4:02 AM [facility] O2 Saturation Cord Art % Calc POCT 6 % 05/10/2014 4:02 AM [facility] Site CORD ART 05/10/2014 4:02 AM [facility] Sample iSTAT CORD A 05/10/2014 4:02 AM [facility] Blood CORD BLOOD SPECIMEN / Unknown 05/09/2014 5:31 PM CDT 05/10/2014 4:02 AM CDT Alberto Colindres MD LAB - POINT OF CARE ORDERABLES Performing Organization Address [facility] Co de Phone Number [facility] [address] [place] [phone] * NEURAXIAL BLOCK (05/09/2014 5:08 PM CDT) Narrative Kaushik Micaela AMANAS - 05/09/2014 5:08 PM CDT Micaela FaulknerMANAS ? 05/09/2014 ??5:08 PM NEURAXIAL BLOCK Patient Location: ??OB Pre Procedure Indication: ??surgical anesthesia Anticoagulation /Antithrombosis Status Confirmed: Yes Preanesthetic Checklist: ??patient identified, IV checked, site marked, risks and benefits discussed, surgical consent verified, monitors and equipment checked, pre-op evaluation done, timeout performed, informed consent obtained and questions answered / anesthesia plan accepted Monitors: ??BP and Pulse Ox Patient Condition: ??awake Patient Position: ??sitting Procedure Block Performed: ??spinal Prep: ??Betadine Sterile Field: ??mask, cap/hat, sterile field established and sterile gloves Approach: ??midline Skin Numbed with: ??lidocaine 1% Spinal Needle Type: ??pencil-point Needle Gauge: ??25 G Needle Length: ??3.5 in Placement Site: ??L3-4 Number of Attempts: ??1 CSF: ??free flow, aspiration before injection, aspiration during injection and aspiration after injection Local Anesthetic: ??bupivacaine 0.75% in dextrose 13.5 mg Spinal Additive: ??0.2 mg ?10 mcg ? Events CSF return injection not painful no paresthesia no other event Degree of Difficulty: ??none Position Post Procedure: ??left uterine displacement Vital signs monitored and stable throughout. ??See Anesthesia Intraop record for details. Block Start Time: ??05/09/2014 4:58 PM Block End Time: ??05/09/2014 4:58 PM Block Performed by: ??Whitley faulkner CRNA Notes: ??To OR Monitors applied SB x1 atempt ??Free flow CSF all 4 quadrants Alberto Colindres MD GENERAL ANESTHESIA O [place] * PT PTT PANEL (05/09/2014 2:53 PM CDT) Only the most recent of2 resultswithin the time period is included. PT 9.8 9.5 - 11.6 sec 05/09/2014 3:36 PM CDT [facility] INR 0.9 0.9 - 1.1 05/09/2014 3:36 PM CDT [facility] PTT 22.9 21.0 - 32.0 sec 05/09/2014 3:36 PM CDT [facility] Blood BLOOD SPECIMEN / Unknown Venipuncture / Unknown 05/09/2014 2:53 PM CDT 05/09/2014 3:02 PM CDT Narrative [facility] - 05/09/2014 3:36 PM CDT Conventional Warfarin Anticoagulant Therapy INR Reference Range: ??2.0-3.0 Intensive Warfarin Anticoagulant Therapy INR Reference Range: ? 2.5-3.5 Heparin Therapeutic Range for PTT: 44.4 - 78.3 seconds. Dot Nicholas MD LAB - COAGULATION OR DERABLES Performing Organization Address City/[facility] Co de Phone Number [facility] [address] [place] [address] * (ABNORMAL) AMNISURE (05/09/2014 10:20 AM CDT) Amnisure (PAMG-1) Positive(A ) Negative 05/09/2014 10:37 AM CDT [facility] Amniotic fluid AMNIOTIC FLUID SPECIMEN / Unknown 05/09/2014 10:20 AM CDT 05/09/2014 10:28 AM CDT Narrative [facility] - 05/09/2014 10:37 AM CDT The performance of AmniSure has not been established in the presence of the following contaminants: meconium, anti-fungal creams or suppositories, K-Y Jelly, Monistat, baby powder (starch or talc), replens, or baby oil. In the presence of a significant amount of blood, the test can malfunction and is not recommended. Interrupted leakage with minimal residual fluid can lead to false negative result. Results should be used in conjunction with other clinical information. Test performance in patients without signs of ROM is unknown. Placenta previa and performing digital exams prior to sample collection can lead to inaccurate test results. Failure to detect membrane rupture does not assure the absence of membrane rupture. Ping Sams BOARD TURNER-LINE MAINTAINER LAB - BODY FL UID ORDERABLES Performing Organization Address [facility] Co de Phone Number [facility] [address] [place] [phone] * GLUCOSE PROTEIN KETONE URINE - POINT OF CAR (05/09/2014 8:40 AM CDT) Only the most recent of6 resultswithin the time period is included. Glucose UA neg Negative [facility] Protein UA neg Negative [facility] Ketone UA neg Negative [facility] QC Verified Yes Yes [facility] POC T TESTING Urine specimen (specimen) URINE / Unknown 05/09/2014 8:40 AM CDT Dot Nicholas MD LAB - POINT OF CARE ORDERABLES Performing Organization Address [facility] de Phone Number [facility] [address] [place] [address] * BIOPHYSICAL PROFILE W NST (05/07/2014 10:53 AM CDT) Only the most recent of6 resultswithin the time period is included. Anatomical Region Laterality Modality Other 05/07/2014 10:5 3 AM CDT Narrative 05/07/2014 11:50 AM CDT ? [facility] ?PHONE: ??FAX: Pat. Name: ?AMA CLAYTON. No: ?[id number] Study Date: ?? 05/07/2014 ??10:53am , Age: ? 1975, 38 Pregnancies: ?? 2, Para 1 Height: ? 63 in Weight: ? 202 lb LMP: ?08/13/2013 GA by LMP: ?38w1d GA by 1st: ?38w1d GA by US: ? 37w2d GA Selected: ??38w1d (LMP) ALYCE: ?05/20/2014 Referring MD: JUANA GABRIEL MD Signal Integrity Engineer: ??Sarah Amin BMI: ?35.78 Hist/Ind: ? Advanced Maternal Age ?Chronic Hypertension ?Factor V Leiden ?Hx Preeclampsia, Abruption, ? MEASUREMENTS & AGE ? GROWTH EVALUATION Measurement ??GA ? Range ? Srce %for GA Ratios ----- ---- ------- BPD ??9.0 cm 36w3d (14e6r-99s8w) Hadl BPD 26% FL/BPD 0.77 (0.71 - 0.87) HC ??33.8 cm 38w5d (60s0d-92l7s) Hadl HC ??60% FL/AC ??0.20 (0.20 - 0.24* AC ??34.7 cm 38w4d (49k8e-89v6r) Hadl AC ??58% HC/AC ??0.97 (0.90 - 1.09) FL ?? 6.9 cm 35w2d (31k5w-07y2r) Hadl FL ??8% CI ? 0.73 (0.70 - 0.86) HL ?? 6.1 cm 35w2d (83m2l-75h9a) Claus HL ??<05 GA for sonogram 37w2d (38x6d-34j2q) ?? Weight Estimate: based on (BPD,HC,AC,FL) Avg ?Weight: 3255 gm (1185-5786) Hadlo ? : 7lbs, 2oz ? Normal: 3256 gm (2442- 4070) Hadlo ? Wt% ? 50% for 38w1d Heart Rate: 144 bpm Amniotic Fluid Index: 23.4cm (07.3-23.8) Q1: 3.0cm ??Q2: 6.9cm ??Q3: 6.5cm ??Q4: 7.1cm ?? Biophysical Profile: 11/17 Breathin ?? Tone: 2 ?? NST: 2 Movement: ??2 ?? AFV: ??2 DOPPLER Umbilical - Mid Cord S/D ??2.68(1.55 - 3.35) ? PI ?? 0.98 (0.55 - 1.12) ? CLINICAL SUMMARY Study Number: 8 A single fetus is identified cephalic presentation. ??The measurements today are consistent with appropriate interval growth. The amniotic fluid volume is within normal limits. ??The placenta is posterior. ??No major malformations are seen. ?? IMPRESSION: Single, live, IUP 38w1d, normal growth/LLUVIA Reassuring BPP Normal UA doppler RECOMMEND: ?? Follow up ultrasound as clinically indicated Thank you for allowing us the opportunity to care for your patient. Rani Partida MD <Electronic Signature> ??05/07/2014 11:50am Juana Gabriel MD [facility] ORDERABLES * CULTURE URINE (04/30/2014 9:26 AM CDT) Only the most recent of2 resultswithin the time period is included. Culture <10,000 CFU/mL normal urogenital adair SIXTO 05/02/2014 11:54 AM CDT [facility] Urine URINE SPECIMEN OBTAINED BY CLEAN CATCH PROCEDURE / Unknown Collection / Unknown 04/30/2014 9:26 AM CDT 04/30/2014 10:37 AM CDT Alyx Jay MD LAB - MICROBIO LOGY ORDERABLES [facility] [address] [place] [address], [facility] * (ABNORMAL) DIFFERENTIAL MANUAL (04/30/2014 9:26 AM CDT) WBC Auto 11.2 x10^9/L 04/30/2014 5:15 PM CDT [facility] Neutrophil % Manual 70 44 - 73 % 04/30/2014 5:15 PM CDT [facility] Lymphocytes % Manual 23 20 - 43 % 04/30/2014 5:15 PM CDT [facility] Monocytes % Manual 4(L) 5 - 13 % 04/30/2014 5:15 PM CDT [facility] Basophils % Manual 1 0 - 2 % 04/30/2014 5:15 PM CDT [facility] Band % Manual 2 0 - 11 % 04/30/2014 5:15 PM CDT [facility] Cells Counted 100 # cells 04/30/2014 5:15 PM CDT [facility] Platelet Estimation Normal Normal, Adequate platelets 04/30/2014 5:15 PM CDT [facility] RBC Morphology Normal 04/30/2014 5:15 PM CDT [facility] WBC Morph Normal 04/30/2014 5:15 PM CDT [facility] Blood BLOOD SPECIMEN / Unknown Venipuncture / Unknown 04/30/2014 9:26 AM CDT 04/30/2014 9:29 AM CDT Alyx Acosta MD LAB - HEMATO LOGY ORDERABLES Performing Organization Address City/[facility]/ZIP Co de Phone Number [facility] [address] [place] [address] * LAB HISTORICAL RESULTS-ONBASE (04/26/2014) 04/26/2014 Narrative [facility] - 04/27/2014 9:02 AM CDT Historical Provider LAB - CHEMISTRY O RDERABLES Performing Organization Address City/[facility]/ZIP Co de Phone Number [facility] [address] * PROTEIN CREATININE RATIO URINE TIMED PNL (02/20/2014 4:36 PM VOTING MACHINE REPAIRER) Volume 24 Hour Urine 2,190 mL 02/20/2014 5:38 PM VOTING MACHINE REPAIRER [facility] Collection Time Hours 24 hrs 02/20/2014 5:38 PM VOTING MACHINE REPAIRER [facility] Protein Urine 7.1 mg/dL 02/20/2014 5:38 PM VOTING MACHINE REPAIRER [facility] Creatinine Urine 65.27 mg/dL 02/20/2014 5:38 PM VOTING MACHINE REPAIRER [facility] Protein/Creatin ine Ratio Urine 0.11 02/20/2014 5:38 PM [facility] Urine TIMED URINE SPECIMEN / Unknown Collection / Unknown 02/20/2014 4:36 PM VOTING MACHINE REPAIRER 02/20/2014 5:27 PM VOTING MACHINE REPAIRER Celena Vann MD LAB - URINE CHEMISTR Y ORDERABLES Performing Organization Address [facility] Co de Phone Number [facility] [address] [place] [phone] * PROTEIN URINE TIMED QUANTITATIVE (02/20/2014 4:36 PM VOTING MACHINE REPAIRER) Volume 24 Hour Urine 2,190 mL 02/20/2014 5:38 PM VOTING MACHINE REPAIRER [facility] Collection Time Hours 24 hrs 02/20/2014 5:38 PM VOTING MACHINE REPAIRER [facility] Protein 24 Hour Urine 155 42 - 225 mg/24hr 02/20/2014 5:38 PM VOTING MACHINE REPAIRER [facility] Protein Urine 7.1 mg/dL 02/20/2014 5:38 PM VOTING MACHINE REPAIRER [facility] Urine TIMED URINE SPECIMEN / Unknown Collection / Unknown 02/20/2014 4:36 PM VOTING MACHINE REPAIRER 02/20/2014 5:27 PM VOTING MACHINE REPAIRER Celena Vann MD LAB - URINE CHEMISTR Y ORDERABLES Performing Organization Address [facility] de Phone Number [facility] [address] [place] [phone] * CREATININE URINE TIMED (02/20/2014 4:36 PM VOTING MACHINE REPAIRER) Volume 24 Hour Urine 2,190 mL 02/20/2014 5:38 PM VOTING MACHINE REPAIRER [facility] Collection Time Hours 24 hrs 02/20/2014 5:38 PM [facility] Creatinine Urine 65.27 mg/dL 02/20/2014 5:38 PM VOTING MACHINE REPAIRER [facility] Creatinine 24 Hour Urine 1,429 800 - 1,800 mg/24hr 02/20/2014 5:38 PM [facility] Urine TIMED URINE SPECIMEN / Unknown Collection / Unknown 02/20/2014 4:36 PM VOTING MACHINE REPAIRER 02/20/2014 5:27 PM VOTING MACHINE REPAIRER Celena Vann MD LAB - URINE CHEMISTR Y ORDERABLES Performing Organization Address City/[facility]/ZIP Co de Phone Number [facility] [address] [place] [address] * (ABNORMAL) CREATININE CLEARANCE URINE TIMED (02/20/2014 4:36 PM [facility]) Volume 24 Hour Urine 2,190 mL 02/20/2014 5:38 PM [facility] Collection Time Hours 24 hrs 02/20/2014 5:38 PM [facility] Height Inches 63 inches 02/20/2014 5:38 PM [facility] Weight in Pounds 210 pounds 02/20/2014 5:38 PM [facility] Surface Area 1.98 02/20/2014 5:38 PM [facility] Creatinine 0.25(L) 0.50 - 1.30 mg/dL 02/20/2014 5:38 PM [facility] Creatinine Urine 65.27 mg/dL 02/20/2014 5:38 PM [facility] Creatinine 24 Hour Urine 1,429 800 - 1,800 mg/24hr 02/20/2014 5:38 PM [facility] Creatinine Clearance 347(H) 87 - 107 mL/min/1.73 m2 02/20/2014 5:38 PM [facility] Urine TIMED URINE SPECIMEN / Unknown Collection / Unknown 02/20/2014 4:36 PM VOTING MACHINE REPAIRER 02/20/2014 5:27 PM [facility] Celena Vann MD LAB - URINE CHEMISTR Y ORDERABLES [facility] [address] [place] [address] * EKG 12-LEAD (02/20/2014 9:37 AM [facility]) Only the most recent of2 resultswithin the time period is included. Ventricular Rate 87 BPM [facility] Atrial Rate 87 BPM [facility] P-R Interval 170 ms [facility] QRS Duration ms 92 ms [facility] Q-T Interval ms 368 ms [facility] MUSE QTC Calculation (Bezet) 442 ms [facility] Calculated P [place] 46 degrees [facility] Calculated R [place] 14 degrees [facility] Calculated T [place] 41 degrees [facility] Interpretation EKG NORMAL SINUS RHYTHM WITH SINUS ARRHYTHMIA LEFT VENTRICULAR HYPERTROPHY ABNORMAL ECG Confirmed by MD Herbert, Praveen ([id number]) on 02/21/2014 8:38:29 AM [facility] 02/20/2014 9:37 AM VOTING MACHINE REPAIRER 02/21/2014 8:38 AM VOTING MACHINE REPAIRER Celena Vann MD ECG ORDERABLES [facility] * ECHOCARDIOGRAM 2D WITH DOPPLER (02/20/2014 9:16 AM VOTING MACHINE REPAIRER) 02/20/2014 9:16 AM VOTING MACHINE REPAIRER Narrative [facility] - 02/21/2014 9:19 AM VOTING MACHINE REPAIRER [address] [address] Transthoracic Echocardiogram 2D, M-mode, Doppler, and Color Doppler Patient: AMA JERONIMO MR number: [id number] Height: 63 in Weight: 213.6 lb BSA: 1.99 m?? Study date: 20-Feb-2014 : 1975 Age: 38 years Gender: Female Race: Allergies: LATEX, SULFA DRUGS Referring Physician: ??Juana Gabriel MD Signal Integrity Engineer: ??Maximo Bui [facility] Reading Physician: ??Praveen Godinez MD Summary: - ??Clinical question: - ??CHRONIC HYPERTENSION, - ??Left ventricle: - ??Size was normal. - ??Systolic function was normal. Ejection fraction was estimated to be 65 %. - ??There were no regional wall motion abnormalities. - ??Wall thickness was normal. - ??Left ventricular diastolic function parameters were normal. - ??Pulmonary arteries: - ??Systolic pressure was within the normal range. - ??Right atrium: - ??Estimated central venous pressure: 10 mmHg. Indications: CHRONIC HYPERTENSION, Procedure: The procedure was performed in the echo lab. This was a routine study. The transthoracic approach was used. The study included complete 2D imaging, M-mode, complete spectral Doppler, and color Doppler. Systolic blood pressure was 131 mmHg. Diastolic blood pressure was 86 mmHg. Left ventricle: Size was normal. Systolic function was normal. Ejection fraction was estimated to be 65 %. There were no regional wall motion abnormalities. Wall thickness was normal. Doppler: Left ventricular diastolic function parameters were normal. Aortic valve: The valve was trileaflet. Leaflets exhibited normal thickness and normal cuspal separation. Doppler: There was no stenosis. There was no regurgitation. Aorta: The root exhibited normal size. Mitral valve: Valve structure was normal. There was normal leaflet separation. Doppler: The transmitral velocity was within the normal range. There was no evidence for stenosis. There was no regurgitation. Left atrium: Size was normal. Right ventricle: The size was normal. Systolic function was normal. Wall thickness was normal. Pulmonic valve: Leaflets exhibited normal thickness, no calcification, and normal cuspal separation. Doppler: There was no regurgitation. Pulmonary artery: Doppler: Systolic pressure was within the normal range. Tricuspid valve: There was normal leaflet separation. Doppler: The transtricuspid velocity was within the normal range. There was no evidence for tricuspid stenosis. There was no regurgitation. Right atrium: Size was normal. Pericardium: The pericardium was normal in appearance. Measurement tables Other echo measurements (Reference normals) Estimated CVP ?? 10 mmHg ?? (--) System measurement tables 2D Ao Diam: 2.6 cm LVOT Diam: 2.3 cm LA Diam: 3.1 cm LAAs A2C: 16.6 cm2 LAAs A4C: 17.7 cm2 LAESV A-L A2C: 45.5 ml LAESV A-L A4C: 51.4 ml LAESV Index (A-L): 24.3 ml/m2 LAESV MOD A2C: 43.5 ml LAESV MOD A4C: 49.3 ml LAESV(A-L): 48.4 ml LALs A2C: 5.2 cm IVSd: 0.9 cm LVIDd: 4.9 cm LVIDs: 3 cm LVPWd: 1 cm CW AV VTI: 29.4 cm AV Vmax: 1.6 m/s AV Vmean: 1.2 m/s AV maxP.8 mmHg AV meanP.3 mmHg PV Vmax: 1.1 m/s PV maxP.1 mmHg TR Vmax: 1.8 m/s MM TAPSE: 2.6 cm PW MIKE (VTI): 3.5 cm2 MIKE Vmax: 3.6 cm2 LVOT VTI: 24 cm LVOT Vmax: 1.4 m/s LVOT Vmean: 0.8 m/s LVOT maxP.6 mmHg LVOT meanP.4 mmHg MV E/A Ratio: 1.3 MV PHT: 41.9 ms LATERAL E': 0.1 m/s LATERAL E/E': 6.8 SEPTAL E': 0.1 m/s SEPTAL E/E': 7.7 Prepared and signed by Praveen Godinez MD Signed 21-Feb-2014 09:19:27 Procedure Note Praveen Godinez MD - 02/21/2014 [place] [address] Transthoracic Echocardiogram 2D, M-mode, Doppler, and Color Doppler Patient: AMA JERONIMO MR number: [id number] Height: 63 in Weight: 213.6 lb BSA: 1.99 m?? Study date: 20-Feb-2014 : 1975 Age: 38 years Gender: Female Race: Allergies: LATEX, SULFA DRUGS Referring Physician: Juana Gabriel MD Signal Integrity Engineer: Maximo Bui RDCS Reading Physician: Praveen Godinez MD Summary: - Clinical question: - CHRONIC HYPERTENSION, - Left ventricle: - Size was normal. - Systolic function was normal. Ejection fraction was estimated to be 65 %. - There were no regional wall motion abnormalities. - Wall thickness was normal. - Left ventricular diastolic function parameters were normal. - Pulmonary arteries: - Systolic pressure was within the normal range. - Right atrium: - Estimated central venous pressure: 10 mmHg. Indications: CHRONIC HYPERTENSION, Procedure: The procedure was performed in the echo lab. This was a routine study. The transthoracic approach was used. The study included complete 2D imaging, M-mode, complete spectral Doppler, and color Doppler. Systolic blood pressure was 131 mmHg. Diastolic blood pressure was 86 mmHg. Left ventricle: Size was normal. Systolic function was normal. Ejection fraction was estimated to be 65 %. There were no regional wall motion abnormalities. Wall thickness was normal. Doppler: Left ventricular diastolic function parameters were normal. Aortic valve: The valve was trileaflet. Leaflets exhibited normal thickness and normal cuspal separation. Doppler: There was no stenosis. There was no regurgitation. Aorta: The root exhibited normal size. Mitral valve: Valve structure was normal. There was normal leaflet separation. Doppler: The transmitral velocity was within the normal range. There was no evidence for stenosis. There was no regurgitation. Left atrium: Size was normal. Right ventricle: The size was normal. Systolic function was normal. Wall thickness was normal. Pulmonic valve: Leaflets exhibited normal thickness, no calcification, and normal cuspal separation. Doppler: There was no regurgitation. Pulmonary artery: Doppler: Systolic pressure was within the normal range. Tricuspid valve: There was normal leaflet separation. Doppler: The transtricuspid velocity was within the normal range. There was no evidence for tricuspid stenosis. There was no regurgitation. Right atrium: Size was normal. Pericardium: The pericardium was normal in appearance. Measurement tables Other echo measurements (Reference normals) Estimated CVP 10 mmHg (--) System measurement tables 2D Ao Diam: 2.6 cm LVOT Diam: 2.3 cm LA Diam: 3.1 cm LAAs A2C: 16.6 cm2 LAAs A4C: 17.7 cm2 LAESV A-L A2C: 45.5 ml LAESV A-L A4C: 51.4 ml LAESV Index (A-L): 24.3 ml/m2 LAESV MOD A2C: 43.5 ml LAESV MOD A4C: 49.3 ml LAESV(A-L): 48.4 ml LALs A2C: 5.2 cm IVSd: 0.9 cm LVIDd: 4.9 cm LVIDs: 3 cm LVPWd: 1 cm CW AV VTI: 29.4 cm AV Vmax: 1.6 m/s AV Vmean: 1.2 m/s AV maxP.8 mmHg AV meanP.3 mmHg PV Vmax: 1.1 m/s PV maxP.1 mmHg TR Vmax: 1.8 m/s MM TAPSE: 2.6 cm PW MIKE (VTI): 3.5 cm2 MIKE Vmax: 3.6 cm2 LVOT VTI: 24 cm LVOT Vmax: 1.4 m/s LVOT Vmean: 0.8 m/s LVOT maxP.6 mmHg LVOT meanP.4 mmHg MV E/A Ratio: 1.3 MV PHT: 41.9 ms LATERAL E': 0.1 m/s LATERAL E/E': 6.8 SEPTAL E': 0.1 m/s SEPTAL E/E': 7.7 Prepared and signed by Praveen Godinez MD Signed 21-Feb-2014 09:19:27 Juana Gabriel MD ECHO ORDERABLES [facility] [address] [place] [address] * (ABNORMAL) URINALYSIS ROUTINE W/REFLEX TO CULTURE (02/19/2014 5:13 PM VOTING MACHINE REPAIRER) Only the most recent of2 resultswithin the time period is included. Color UA Yellow Straw, Yellow, Dark Yellow 02/19/2014 5:41 PM [facility] Clarity UA Clear 02/19/2014 5:41 PM [facility] Specific [place] UA <=1.005 1.005 - 1.030 02/19/2014 5:41 PM [facility] pH UA 6.5 5.0 - 8.0 pH 02/19/2014 5:41 PM [facility] Protein UA Negative Negative 02/19/2014 5:41 PM [facility] Blood UA Negative Negative 02/19/2014 5:41 PM [facility] Leukocyte UA Trace(A) Negative 02/19/2014 5:41 PM [facility] Nitrite UA Negative Negative 02/19/2014 5:41 PM [facility] Glucose UA Negative Negative 02/19/2014 5:41 PM [facility] Ketone UA Negative Negative 02/19/2014 5:41 PM [facility] Bilirubin UA Negative Negative 02/19/2014 5:41 PM [facility] Urobilinogen UA 0.2 0.1 - 1.0 EU/dL 02/19/2014 5:41 PM [facility] WBC UA Auto 2-5 0-2, 2-5 #/hpf 02/19/2014 5:41 PM [facility] RBC UA Auto 0-2 0-2, 2-5 #/hpf 02/19/2014 5:41 PM [facility] Epithelial Cell UA Auto 0-2 0-2, 2-5 #/hpf 02/19/2014 5:41 PM [facility] Reflex Status Culture to follow 02/19/2014 5:41 PM [facility] Urine URINE SPECIMEN OBTAINED BY CLEAN CATCH PROCEDURE / Unknown Collection / Unknown 02/19/2014 5:13 PM VOTING MACHINE REPAIRER 02/19/2014 5:26 PM VOTING MACHINE REPAIRER Celena Vann MD LAB - URINALYSIS ORD ERABLES Performing Organization Address [facility] Co de Phone Number [facility] [address] [place] [address] * DRUG ABUSE URINE PANEL (02/19/2014 5:13 PM VOTING MACHINE REPAIRER) [facility] Amphetamines Screen Urine Not Detected Not Detected 02/19/2014 5:58 PM VOTING MACHINE REPAIRER [facility] Barbiturates Screen Urine Not Detected Not Detected 02/19/2014 5:58 PM VOTING MACHINE REPAIRER [facility] Benzodiazepines Screen Urine Not Detected Not Detected 02/19/2014 5:58 PM VOTING MACHINE REPAIRER [facility] Cannabinoids Screen Urine Not Detected Not Detected 02/19/2014 5:58 PM VOTING MACHINE REPAIRER [facility] Cocaine Screen Urine Not Detected Not Detected 02/19/2014 5:58 PM VOTING MACHINE REPAIRER [facility] Opiate Screen Urine Not Detected Not Detected 02/19/2014 5:58 PM [facility] Phencyclidine Screen Urine Not Detected Not Detected 02/19/2014 5:58 PM VOTING MACHINE REPAIRER [facility] Urine URINE / Unknown 02/19/2014 5 :13 PM VOTING MACHINE REPAIRER 02/19/2014 5:26 PM VOTING MACHINE REPAIRER Narrative [facility] - 02/19/2014 5:58 PM VOTING MACHINE REPAIRER This drug screen is designed for MEDICAL purposes only. It is not to be used for legal purposes, including but not limited to worker's comp, police investigations, occupational issues, child custody, etc. ??Any positive result is only presumptive and must be confirmed with a separate confirmatory test ordered by the physician. Drug Screening Test Cutoff Values: AMPHETAMINES ?1000 ng/ml BARBITURATES ? 200 ng/ml BENZODIAZEPINES ??200 ng/ml CANNABINOIDS(THC) 50 ng/ml COCAINE ?300 ng/ml OPIATES ?300 ng/ml PHENCYCLIDINE(PCP)25 ng/ml Celena Vann MD LAB - URINE CHEMISTR Y ORDERABLES [facility] [address] [place], [place] [id number] * (ABNORMAL) CULTURE STREP B (02/19/2014 5:11 PM VOTING MACHINE REPAIRER) [facility] Culture Growth of Streptococcus agalactiae (Group B)(AA) SIXTO 02/22/2014 3:26 PM VOTING MACHINE REPAIRER [facility] Microbiology MISCELLANEOUS SAMPLES / Unknown Collection / Unknown 02/19/2014 5:11 PM VOTING MACHINE REPAIRER 02/19/2014 5:30 PM VOTING MACHINE REPAIRER Narrative [facility] - 02/22/2014 3:26 PM VOTING MACHINE REPAIRER Susceptibility testing of penicillin, other beta-lactam antibiotics, and vancomycin is not necessary for beta-hemolytic streptococci groups A,B,C and G because resistant strains have not been recognized. 02/22/2014 3:25 PM ?? Ekaterina Myrick RN notified. ??Read back and acknowledged and faxed results.Danita Sharma Celena Vann MD LAB - MICROBIOLOGY O RDERABLES Performing Organization Address City/[facility] Co de Phone Number [facility] [address] * URIC ACID BLOOD (02/19/2014 5:05 PM VOTING MACHINE REPAIRER) [facility] Uric Acid 3.0 2.5 - 6.2 mg/dL 02/19/2014 6:14 PM VOTING MACHINE REPAIRER [facility] Comment: Blood BLOOD SPECIMEN / Unknown Venipuncture / Unknown 02/19/2014 5:05 PM VOTING MACHINE REPAIRER 02/19/2014 5:33 PM VOTING MACHINE REPAIRER Celena Vann MD LAB - CHEMISTRY MANAV MORRISON Performing Organization Address City/[facility] Co de Phone Number [facility] [address] [place], [place] [id number] * (ABNORMAL) COMPREHENSIVE METABOLIC PANEL (02/19/2014 5:05 PM VOTING MACHINE REPAIRER) Only the most recent of2 resultswithin the time period is included. [facility] Glucose 89 74 - 106 mg/dL 02/19/2014 6:15 PM VOTING MACHINE REPAIRER [facility] Sodium 135(L) 136 - 145 mmol/L 02/19/2014 6:15 PM [facility] Potassium 3.9 3.5 - 5.1 mmol/L 02/19/2014 6:15 PM [facility] Chloride 103 98 - 107 mmol/L 02/19/2014 6:15 PM [facility] CO2 20(L) 22 - 31 mmol/L 02/19/2014 6:15 PM [facility] Calcium 9.1 8.5 - 10.1 mg/dL 02/19/2014 6:15 PM [facility] Anion Gap 12 5 - 15 mmol/L 02/19/2014 6:15 PM [facility] BUN 6(L) 7 - 21 mg/dL 02/19/2014 6:15 PM [facility] Creatinine 0.25(L) 0.50 - 1.30 mg/dL 02/19/2014 6:15 PM [facility] eGFR by MDRD >60 >60 mL/min/1.7 3m2 02/19/2014 6:15 PM [facility] eGFR by MDRD >60 >60 mL/min/1.7 3m2 02/19/2014 6:15 PM [facility] Alkaline Phosphatase 91 38 - 126 U/L 02/19/2014 6:15 PM [facility] ALT 39 12 - 78 U/L 02/19/2014 6:15 PM [facility] AST 21 5 - 40 U/L 02/19/2014 6:15 PM [facility] Protein Total 6.8 6.4 - 8.2 gm/dL 02/19/2014 6:15 PM [facility] Albumin 3.0(L) 3.4 - 5.0 gm/dL 02/19/2014 6:15 PM [facility] Bilirubin Total 0.6 0.2 - 1.0 mg/dL 02/19/2014 6:15 PM [facility] Blood BLOOD SPECIMEN / Unknown Venipuncture / Unknown 02/19/2014 5:05 PM VOTING MACHINE REPAIRER 02/19/2014 5:33 PM [facility] Celena Vann MD LAB - CHEMISTRY MANAV MORRISON [facility] Organization Address City/State/ZIP Co de Phone Number [facility] [address] [place] [address] * LDH BLOOD (02/19/2014 5:05 PM VOTING MACHINE REPAIRER) [facility] LDH 176 100 - 200 U/L 02/19/2014 6:14 PM VOTING MACHINE REPAIRER [facility] Comment: Blood BLOOD SPECIMEN / Unknown Venipuncture / Unknown 02/19/2014 5:05 PM VOTING MACHINE REPAIRER 02/19/2014 5:33 PM VOTING MACHINE REPAIRER Celena Vann MD LAB - CHEMISTRY MANAV MORRISON Performing Organization Address City/[facility]/ZIP Co de Phone Number [facility] [address] [place], [place] [phone] * TSH (02/19/2014 5:05 PM VOTING MACHINE REPAIRER) [facility] TSH 0.831 0.358 - 3.740 uIU/mL 02/19/2014 6:21 PM VOTING MACHINE REPAIRER [facility] Comment: Blood BLOOD SPECIMEN / Unknown Venipuncture / Unknown 02/19/2014 5:05 PM VOTING MACHINE REPAIRER 02/19/2014 5:32 PM VOTING MACHINE REPAIRER Celena Vann MD LAB - CHEMISTRY MANAV MORRISON Performing Organization Address City/[facility] Co de Phone Number [facility] [address] [place], [place] [phone] * T4 FREE (02/19/2014 5:05 PM VOTING MACHINE REPAIRER) [facility] T4 Free 0.89 0.65 - 1.34 ng/dL 02/19/2014 6:17 PM VOTING MACHINE REPAIRER [facility] Comment: Blood BLOOD SPECIMEN / Unknown Venipuncture / Unknown 02/19/2014 5:05 PM VOTING MACHINE REPAIRER 02/19/2014 5:32 PM VOTING MACHINE REPAIRER Celena Vann MD LAB - CHEMISTRY MANAV MORRISON Performing Organization Address [facility] Co de Phone Number [facility] [address] [place] [phone] * BLOOD TYPE VERIFICATION (12/23/2013 5:38 AM VOTING MACHINE REPAIRER) Pathologist [facility] ABO A 12/23/2013 6:27 AM VOTING MACHINE REPAIRER [facility] Rh Type Positive 12/23/2013 6:27 AM VOTING MACHINE REPAIRER [facility] Miscellaneous samples (specimen) BLOOD SPECIMEN / Unknown Lab Venipuncture / Unknown 12/23/2013 5:38 AM VOTING MACHINE REPAIRER 12/23/2013 5:42 AM VOTING MACHINE REPAIRER Juana Gabriel MD LAB - BLOOD BANK ORD ERABLES [facility] [address] * GROSS + MICRO EXAM (06/22/2007 11:30 AM CDT) Result CASE NUMBER [id number] Comment: ORDERING PHYSICIAN ??JUANA GABRIEL SPECIMEN TYPE ?Placenta Date ? 06/23/2007 Physician ?Janine Gabriel Gross Description ? The specimen is received in Formalin labeled with the patient's name, Ama Agustin, and placenta. ??It consists of a discoid placenta weighing 390 grams, and measuring 14 x 12.5 x 2.3 cm with an eccentrically attached umbilical cord measuring 8.5 cm in length x 1 cm in diameter, and fragments of membranes wrapped around the umbilical cord, which measure 5 x 5 x 2 cm in aggregate. ??The umbilical cord attaches at the margin, has three vessels, and is white opaque. The membranes are thin pink green and transparent. ??The surface of the placenta is blue and shiny. ??The maternal surface of the placenta is intact and red. ??The cut surface of the placenta is uniformly red and soft without focal lesion. ??Cupola Hoist Operator sections of the specimen are taken and submitted as follows Cassette A ?? Umbilical cord and membranes. Cassettes B and C ?? Placenta. DC navarrete Microscopic Exam ? Sections of the placenta reveal a three vessel umbilical cord with no evidence of funisitis or thrombosis. The chorioamniotic membranes reveal no acute inflammation. The chorionic villi are small, well vascularized and mature with foci of progressive maturation and intervillous fibrin deposition. There is no evidence of villitis or infarction. MM/na Diagnosis ? I. ?Placenta -- ?Mature placenta, 390 grams -- ?Three vessel umbilical cord ?with eccentric attachment ?([place] placenta) -- ?Chorioamniotic membranes with ?no pathologic diagnosis -- ?Chorionic villi with progressive ?maturation -- ?Intervillous fibrin deposition, ?focal MM/na Carpentry Teacher ? na Pathologist ?Yoana Breaux M.D. [place]. ?06/24/2007 1206 <1> CPT code ? 77759 MISCELLANEOUS SAMPLES / Unknown 06/22/2007 11:30 AM CDT 06/23/2007 8:22 AM CDT Historical Provider LAB - PATHOLOGY/C YTOLOGY ORDERABLES Care Teams Project Administrator Relationship Specialty Start Date End Date Bowen Field MD PCP - General Internal Medicine 12/22/13
--- OUTSIDE RECORDS SUMMARY | 2024-01-26 06:42 | XMS_ITS | Encounter Summary ---
Author Organization [facility] Address [address] [place] [address] [place] [address] Care Team Providers Care Half Backer Name Role Phone Bowen Field MD Primary Care Provider Unavail able Encounter Details Date Type Department Care Team (Latest Contact Info) Description 03/21/2014 10:01 AM FIELD RESEARCH ASSISTANT - 03/21/2014 11:59 PM FIELD RESEARCH ASSISTANT Hospital Encounter [facility] MATERNAL/ EVALUATION UNIT [facility] [place] [address] Juana Gabriel MD RETIRED Discharge Disposition: Home or Self Care Social History Tobacco Use Types Packs/Day Years Used Date Smoking Tobacco: Never Smokeless Tobacco: Never Alcohol Use Standard Drinks/Week Comments No 0 (1 standard drink = 0.6 oz pur e alcohol) Comments Yes Sex and Gender Information Value Date Recorded Sex Assigned at Not on file Gender Identity Not on file Sexual Orientation Not on file documented as of this encounter Last Filed Vital Signs Vital Sign Reading Time Taken Comments Blood Pressure 112/75 03/21/2014 11:20 AM FIELD RESEARCH ASSISTANT Pulse - - Temperature - - Respiratory Rate - - Oxygen Saturation - - Inhaled Oxygen Concentration - - Weight - - Height - - Body Mass Index - - documented in this encounter Functional Status Functional Status Response Date of Assess ment Is person deaf or have serious hearing difficult y? No 02/19/2014 Is person blind or have serious difficulty seein g? No 02/19/2014 Does person have serious dif ficulty walking/climbing stairs? No 02/19/2014 Does person have difficulty dressing/bathing? No 02/19/2014 Does person have difficulty doing errands alone? No 02/19/2014 Cognitive Status Response Date of Assessm ent Does person have difficulty concentrating/remembering/making decisions? No 02/19/2014 documented as of this encounter Medications at Time of Discharge Medication Sig Dispensed Refills Start Date End Date lansoprazole (PREVACID) 15 MG capsuleIndications:G astroesophageal Reflux Disease Take 15 mg by mouth daily before breakfast. Indications: Gastroesophageal Reflux Disease Vit-Fe Fumarate-FA ( VITAMIN) 28-0.8 MG tabletIndications:Pr egnancy Take 1 Tab by mouth once daily. Indications: amoxicillin (AMOXIL) 500 MG capsule Take 1 Cap by mouth 3 times daily. 21 Cap 0 02/21/2014 04/23/2014 Enoxaparin Sodium (LOVENOX SC) Inject 40 mg subcutaneously once daily. 05/24/2015 methyldopa (ALDOMET) 250 MG tabletIndications:Hy pertension Take 500 mg by mouth 2 times daily. Indications: High Blood Pressure 05/24/2015 documented as of this encounter Plan of Treatment Not on file documented as of this encounter Visit Diagnoses Not on filedocumented in this encounter Care Teams Half Backer Relationship Specialty Start Date End Date Bowen Field MD PCP - General Internal Medicine 12/22/13 documented as of this encounter
--- OUTSIDE RECORDS SUMMARY | 2024-01-26 06:42 | XMS_ITS | Encounter Summary ---
Author Organization [facility] Address [address] [place] [address] [place] [address] Care Team Providers Care Photonics Technician Name Role Phone Bowen Field MD Primary Care Provider Unavail able Encounter Details Date Type Department Care Team (Latest Contact Info) Description 04/02/2014 9:11 AM BUILDING ENGINEER - 04/02/2014 11:59 PM BUILDING ENGINEER Hospital Encounter [facility] MATERNAL/ EVALUATION UNIT [facility]. [address] [place] [address] Juana Gabriel MD RETIRED Discharge Disposition: Home [...] Sign Reading Time Taken Comments Blood Pressure 113/75 04/02/2014 11:25 AM BUILDING ENGINEER Pulse - - Temperature - - Respiratory [...] on filedocumented in this encounter Care Teams Photonics Technician Relationship Specialty Start Date End Date Bowen Field MD PCP - General Internal Medicine 12/22/13 documented as of this encounter
--- OUTSIDE RECORDS SUMMARY | 2024-01-26 06:42 | XMS_ITS | Encounter Summary ---
Author Organization [facility] Health Address [facility] [place] [address] Care Team Providers Care Host/Hostess Head Name Role Phone Bowen Field MD Primary Care Provider Unavail able Reason for Visit * Reason Comments Contractions Diarrhea PROBLEM * Auth/Cert - Closed Specialty Diagnoses / Procedures Referred By Contac t Referred To Contact Referral ID Status Reason Start Date Expiration Date Visits Re quested Visits Authorized [id number] Closed 1 1 Encounter Details Date Type Department Care Team (Latest Contact Info) Description 04/26/2014 9:21 AM CDT - 04/26/2014 11:35 AM CDT Hospital Encounter [facility] [address] [place] [address] [place] [address] [place] [address] [address] [place] [address] Obstetrics Discharge Disposition: Home or Self Care Social [...] Sign Reading Time Taken Comments Blood Pressure 139/79 04/26/2014 11:24 AM CDT Pulse 105 04/26/2014 9:25 AM CDT Temperature 36.6 ??C (97.8 ??F) 04/26/2014 9:25 AM CD T Respiratory Rate 18 04/26/2014 9:25 AM CDT Oxygen Saturation - - Inhaled Oxygen Concentration - - Weight 99.6 kg (219 lb 9.6 oz) 04/26/2014 9:25 A M CDT Height 160 cm (5' 3 ) 04/26/2014 9:25 AM CDT Body Mass Index 38.9 04/26/2014 9:25 AM CDT documented in this encounter Functional Status Functional [...] No 02/19/2014 documented as of this encounter Discharge Instructions * Discharge Instructions* Yue Bajwa RN - 04/26/2014 11:32 AM CDT UNDELIVERED PATIENT DISCHARGE INSTRUCTIONS CALL YOUR DOCTOR (SEE NUMBER BELOW) ?? If you are less than 37 weeks and have move than 5 contractions an hour. ?? Blurring ofvision or spots before your eyes. ?? Ruptured membranes or leakage of vaginal fluid. ?? May be a steady trickle or large gush ?? May be clear, yellow, pink or green ?? Decreased movement--if your baby has stopped movingor is moving less than it normally does. Do Kick Counts as instructed. ?? Vaginal bleeding--bright red bleeding and/or clots needs medical care immediately. ?? Any temperature above 100 degrees. ?? Headache ?? Any burning or painful urination. ?? Increased swelling in your face, hands, or feet. ?? Stomach pains, cramps, nausea,or diarrhea. Important Telephone Number: [facility] [phone] documented in this encounter Medications at Time of Discharge Medication Sig Dispensed Refills Start Date End Date enoxaparin (LOVENOX) injection Inject 40 mg subcutaneously once daily. Continue for at least six weeks 30 Syringe 2 05/12/2014 iron polysaccharides (NIFEREX 150) 150 MG capsule Take 1 Cap by mouth once daily. 30 Cap 3 05/12/2014 lansoprazole (PREVACID) 15 MG capsuleIndications:Ga stroesophageal Reflux Disease Take 15 mg by mouth daily before breakfast. Indications: Gastroesophageal Reflux Disease methyldopa (ALDOMET) 500 MG tabletIndications:Hyp ertension Take 1 Tab by mouth 2 times daily. Indications: High Blood Pressure 60 Tab 3 05/12/2014 Vit-Fe Fumarate-FA ( VITAMIN) 28-0.8 MG tabletIndications:Pre gnancy Take 1 Tab by mouth once daily. Indications: Alcohol Swabs 70 % PADS Use 1 Applicator 2 times daily. 100 Each 1 04/23/2014 05/24/2015 docusate sodium (COLACE) 100 MG capsule Take 1 Cap by mouth 2 times daily. 60 Cap 2 05/12/2014 05/24/2015 Enoxaparin Sodium (LOVENOX SC) Inject 40 mg subcutaneously once daily. 05/24/2015 heparin [id number] UNIT/ML injection Inject 1 mL subcutaneously 2 times daily. 60 Vial 1 04/23/2014 05/24/2015 ibuprofen (MOTRIN) 600 MG tabletIndications:Inf lammation Take 1 Tab by mouth every 6 hours as needed. Indications: Inflammation 60 Tab 2 05/12/2014 05/24/2015 methyldopa (ALDOMET) 250 MG tabletIndications:Hyp ertension Take 500 mg by mouth 2 times daily. Indications: High Blood Pressure 05/24/2015 oxyCODONE-acetaminoph en (PERCOCET) 5-325 MG tablet Take 1-2 Tabs by mouth every 4 hours as needed. 40 Tab 2 05/12/2014 05/24/2015 sertraline (ZOLOFT) 50 MG tablet Take 1 Tab by mouth once daily. 30 Tab 5 05/12/2014 05/24/2015 support hose knee high closed toe (TEDS) support hose Apply 1 Each to affected area as directed. 2 Each 0 04/16/2014 05/24/2015 documented as of this encounter Progress Notes * Phoebe Calvert APRN-CNM - 04/26/2014 12:18 PM CDT Non-Stress Test (NST) Ama Monzon [id number] 04/26/2014 12:18 PM Indication: Threatened PTL at 36w4d Interpretation: Fetus A: Baseline: 120's beats/minute, mod variability, Contractions: irregular, q 3 min Decelerations: none reactive Impression: reassuring well being Recommendation: testing as indicated BETTY Guerrier 04/26/2014 12:18 PM documented in this encounter H&P Notes * Henrik Carrillo MD - 04/26/2014 9:41 AM CDT [facility] Note CC: Sent from [facility] for threatened PTL HPI: 38 y.o. at 36w4d weeks gestation. Dating by: LMP: 08/13/13 c/w 27 week confirmed ultrasound. Estimated Date of Delivery: 05/20/14 care: is with high risk [facility] Patient's is complicated by: Patient Active Problem List Diagnosis Date Noted ??? GBS (group B streptococcus) UTI complicating 02/21/2014 ??? Elevated blood pressure, R/O Pre-eclampsia 02/20/2014 24 hour urine on 02/13/14 was 342 mg ??? Prothrombin gene mutation 02/20/2014 Heterozygote for prothrombin gene mutation ??? Supervision of normal 02/19/[address] Gabriel L = 6 wk US (undocumented) A+/I/-/-, HIV NR Pap: normal 09/14/13 GC/CT: neg/neg GCT: 102 GBS: positive ??? Chronic Hypertension 02/19/2014 Patient has been on BP medications since delivery of her first child Has been on Methyldopa, Diovan before Has been on Methyldopa 500 mg BID for G2 ??? Advanced maternal age (AMA) in 02/19/2014 NIPT negative Normal anatomy US ??? H/O Pre-Eclampsia 02/19/2014 In G1 with placental abruption and delivery at 34 weeks, was on Magnesium ??? H/O Placental abruption 02/19/2014 G1 when she had pre-eclampsia ??? H/O Anxiety 02/19/2014 Previously on Zoloft, has been off for several years ??? Factor V Leiden mutation complicating 12/23/2013 Currently on Lovenox 40 mg daily No personal history of blood clots Strong family history of blood clots Heterozygote ??? Previous delivery affecting 12/23/2013 Patient presents to [facility] per instruction of high risk clinic after telephoning them this morning with concerns as to whether she is in early labor. Contractions started last evening, noted while in the car. Contractions continued throughout the evening accompanied by diarrhea. Denies LOF, Vag bleeding. Appreciates activity and contractions this am. Also w/ periods of vomitting, only able to keep sips of Sprite down at this time. Pt on Lovenox, and antihypertensives and does not wish to take meds if labor is imminent. positive Ctx. negative LOF. negative VB. Movement positive. Obstetrical History: OB History Para Term AB SAB TAB Ectopic Multiple Living 2 1 0 1 0 0 0 0 1 1 # Outcome Date GA Lbr Esdras/2nd Weight Sex Delivery Anes PTL Lv 2A 2B Current 1 06/22/07 34w0d 1928 g (4 lb 4 oz) M , E Spinal N Y Obstetric Comments G1- Pre-eclampsia with placental abruption, was on Magnesium No h/o STDs No abnormal paps Gynecologic History: Pap smears: denies history of abnormal pap smears Cervical procedures: none STIs: denies history of chlamydia/gonorrhea/trichimonas/HSV/HIV/syphillis/hepatitis Medical History: Past Medical History Diagnosis Date ??? Chronic Hypertension 02/19/2014 Patient has been on BP medications since delivery of her first child Has been on Methyldopa, Diovanbefore Has been on Methyldopa 500 mg BID for G2 ??? H/O Pre-Eclampsia 02/19/2014 In G1 with placental abruption and delivery at 34 weeks, was on Magnesium ??? H/O Placental abruption 02/19/2014 G1 when she had pre-eclampsia ??? Factor V Leiden ??? H/O Anxiety 02/19/2014 ??? Prothrombin gene mutation 02/20/2014 She denies history of hypertension, diabetes, asthma or bleeding disorders. Psych History: Denies h/o Depression/ Anxiety/ Bipolar D/O/ Schizophrenia Surgeries: Past Surgical History Procedure Laterality Date ??? section 2007 At 34 weeks, [place] Medications: No current facility-administered medications for this encounter. Allergies: Allergies Allergen Reactions ??? Sulfa Drugs Mouth sores ??? Latex Itching and Swelling No latex allergy Social History: Social History Smoking Status: Never Smoker Smokeless Status: Never Used Alcohol Use: No Drug Use: No Sexual Activity: Not on file Family History: Family History Problem Relation Age of Onset ??? Diabetes Father ??? Hypertension Father ??? Hypertension Mother ??? Stroke Maternal Grandfather ??? Leukemia Maternal Grandmother ??? Cancer Paternal Grandmother Some type of blood cancer ??? Pulmonary Embolism Mother ??? Heart Failure Paternal Grandmother ??? DVT - Deep Vein Thrombosis Brother after surgery ??? DVT - Deep Vein Thrombosis Mother after surgery ??? Thyroid Disease Father needed a thyroidectomy ??? Thyroid Disease Paternal Aunt No history of infants born with defects No history of family members with bleeding disorders or history of blood clots. No history of breast, ovarian, or uterine cancer Review of Symptoms: Denies fevers/chills/nausea/vomitting/diarrhea Denies SOB/CP/calf tenderness Denies SHAIKH/vision changes/RUQ pain Denies dysuria/hematuria/urgency Objective: Vitals: 04/26/14 0925 BP: 135/91 Pulse: 105 Temp: 97.8 ??F Resp: 18 Weight: 219 lb 9.6 oz (99.61 kg) FHT: 120's, mod naina, + accels, no decels, reactive TOCO: q 3 min mild, irregular Physical Exam: General: alert, cooperative, no distress Lungs: clear to auscultation bilaterally Heart: regular rate and rhythm Abdomen: Gravid, NT, Extremities: normal, non-tender bilaterally. Edema Neg B Sterile speculum exam: Bright light exam: Negative Exam for ROM: Pooling: negative, Nitrizine: negative, Fern: negative Wet Prep: Neg Cervical Exam C/25/-3 Unchanged after one hour Current Lab Rewiew: No results found for this visit on 04/26/14. labs reviewed Blood type: A+ Rubella: immune Hep B surface antigen:non-reactive RPR: non-reactive HIV:Negative GCT: 102 GBS: urea Assessment/Plan: 38 y.o. @ 36w4d Threatened labor Cervix unchanged. Labor instructions reviewed Planning repeat c/s scheduled at 39 wks 05/14/14 Next appt on 04/30 < 24 hour n/v: Viral vs food related Resolved at present Feeling better CBC neg for infection Increase fluids, small frequent meals S/P Flu vaccine Chronic Hypertension 1. H/O Pre-eclampsia in G1 2. Currently on Methyldopa 500 mg BID 3. 24 hour urine in 02/20/14 was 155mg 4. Current BPs mild range 5. Asymptomatic 6. EFW 2667gm and 54%ile on 04/16 7. Continue testing with weekly BPP and NST Factor V Leiden and Prothrombin mutation 8. FVL heterozgote, Prothrombin mutation heterozygote 9. Heparin 10,000 units BID, to start today 10. No personal history of blood clots 11. Strong family history of clots- Mother with DVT and PE, brother with DVT, grandfather with clotsH/O Pre-eclampsia and placental abruption 10. G1, delivered at 34 weeks 11. Continue testing 12. BPP 04/23/14 1010 H/O section 13. G1- here at [facility] at 34 weeks- 14. Desires repeat CS at 39 weeks 15. Scheduled today for 05/14 Advanced maternal age 16. Normal NIPT and anatomy US FWB reassuring Discussed with Dr. Carrillo. D/C home with labor precautions, kick counts. Next appt Wednesday, 04/30. Phoebe Calvert APRN-ALBINA 04/26/2014 9:41 AM Maternal- Medicine Note I have reviewed the patient's chart. Furthermore, I agree with the assessment and plan noted. This has been discussed with the resident and/or nurse practitioner and/or fellow. MD Henrik Chandler MD documented in this encounter Plan of Treatment Not on file documented as of this encounter Procedures Procedure Name Priority Date/Time Associated Diagnosis Comments CBC W AUTO DIFFERENTIAL STAT 04/26/2014 10:26 AM CDT Chronic Hypertension GLUCOSE PROTEIN KETONE URINE - POINT OF CAR STAT 04/26/2014 9:30 AM CDT documented in this encounter Results * (ABNORMAL) CBC W AUTO DIFFERENTIAL (04/26/2014 10:26 AM CDT) WBC 12.7(H) 4.4 - 10.7 x10^9/L 04/26/2014 10:50 AM CDT [facility] RBC 4.13 3.80 - 5.20 x10^12/L 04/26/2014 10:[facility] Hemoglobin 11.5(L) 12.0 - 15.6 gm/dL 04/26/2014 10:50 AM [facility] Hematocrit 32.8(L) 35.9 - 45.5 % 04/26/2014 10:50 AM CDT [facility] MCV 79.4(L) 80.7 - 98.3 fl 04/26/2014 10:50 AM CDT [facility] MCH 27.8 26.7 - 34.0 pg 04/26/2014 10:50 AM CDT [facility] MCHC 35.1 30.8 - 35.9 gm/dL 04/26/2014 10:50 AM [facility] Platelet Count 242 153 - 416 x10^9/L 04/26/2014 10:50 AM [facility] RDW-CV 13.1 12.1 - 14.9 % 04/26/2014 10:50 AM CDT [facility] MPV 9.5 9.4 - 12.9 fl 04/26/2014 10:50 AM [facility] Neutrophils % 79.2(H) 44.0 - 73.0 % 04/26/2014 10:50 AM [facility] Lymphocytes % 11.5(L) 20.0 - 43.0 % 04/26/2014 10:50 AM CDT [facility] Monocytes % 6.0 5.0 - 13.0 % 04/26/2014 10:50 AM CDT [facility] Eosinophils % 1.4 0.0 - 6.0 % 04/26/2014 10:50 AM CDT [facility] Basophils % 0.2 0.0 - 2.0 % 04/26/2014 10:50 AM CDT [facility] Immature Granulocytes 1.7(H) 0 - 1 % 04/26/2014 10:50 AM [facility] Neutrophil Absolute 10.07(H) 2.01 - 7.14 x10^9/L 04/26/2014 10:50 AM CDT [facility] Lymphocytes Absolute 1.46 1.07 - 3.94 x10^9/L 04/26/2014 10:50 AM CDT [facility] Monocytes Absolute 0.76 0.26 - 1.07 x10^9/L 04/26/2014 10:50 AM CDT [facility] Eosinophils Absolute 0.18 0 - 0.47 x10^9/L 04/26/2014 10:50 AM CDT [facility] Basophils Absolute 0.02 0 - 0.08 x10^9/L 04/26/2014 10:50 AM CDT [facility] Immature Granulocytes Absolute 0.21(H) 0.00 - 0.06 x10^9/L 04/26/2014 10:50 AM CDT [facility] Blood BLOOD SPECIMEN / Unknown Venipuncture / Unknown 04/26/2014 10:26 AM CDT 04/26/2014 10:30 AM CDT Phoebe [facility] - HEMATOLOG Y ORDERABLES Performing Organization Address City/[facility]/ZIP Co de Phone Number [facility] [address] [place] [address] * GLUCOSE PROTEIN KETONE URINE - POINT OF CAR (04/26/2014 9:30 AM CDT) Glucose UA Negative [facility] Protein UA Negative [facility] Ketone UA Negative [facility] QC Verified Yes [facility] POC T TEST[facility] Urine specimen (specimen) URINE / Unknown 04/26/2014 9:30 AM CDT Phoebe [facility] - POINT OF CARE ORDERABLES Performing Organization Address City/[facility] Co de Phone Number [facility] [address] [place] [address] documented in this encounter Visit Diagnoses Diagnosis Nausea & vomiting- Primary Nausea with vomiting Chronic Hypertension Unspecified essential hypertension documented in this encounter Care Teams Host/Hostess Head Relationship Specialty Start Date End Date Bowen Field MD PCP - General Internal Medicine 12/22/13 documented as of this encounter
--- OUTSIDE RECORDS SUMMARY | 2024-01-26 06:42 | XMS_ITS | Encounter Summary ---
Author Organization [facility] Address [facility] [place] [address] Care Team Providers Care Stud Beef Cattle Farmer Name Role Phone Bowen Field MD Primary Care Provider Unavail able Encounter Details Date Type Department Care Team (Latest Contact Info) Description 04/30/2014 8:17 AM CDT - 04/30/2014 11:59 PM CDT Hospital Encounter [facility] MATERNAL/ EVALUATION UNIT [address] [facility] [place] [address] Juana Gabriel MD RETIRED Discharge Disposition: Home [...] 40 mg subcutaneously once daily. 05/24/2015 heparin [id number] UNIT/ML injection Inject 1 mL subcutaneously 2 [...] 04/16/2014 05/24/2015 documented as of this encounter Plan of Treatment Not on file documented as of this encounter Procedures Procedure Name Priority Date/Time Associated Diagnosis Comments BIOPHYSICAL PROFILE W NST Routine 04/30/2014 11:24 AM CDT Factor V Leiden mutation complicating (HCC) Previous delivery affecting (HCC) Supervision of normal , third trimester Chronic Hypertension Advanced maternal age (AMA) in , third trimester Preeclampsia, third trimester (HCC) Placental abruption, third trimester (HCC) H/O Anxiety Elevated blood pressure, R/O Pre-eclampsia Prothrombin gene mutation (HCC) GBS (group B streptococcus) UTI complicating , third trimester (HCC) documented in this encounter Results * BIOPHYSICAL PROFILE W NST (04/30/2014 11:24 AM CDT) Anatomical Region Laterality Modality Other 04/30/2014 11:2 4 AM CDT Narrative 05/01/2014 8:34 PM CDT ? [facility] ? [facility] ?PHONE: ??FAX: Pat. Name: ?ZA CLAYTON. No: ?[id number] Study Date: ?? 04/30/2014 ??11:24am , Age: ? 1975, 38 Pregnancies: ?? 2, Para 1 Height: ? 63 in Weight: ? 202 lb LMP: ?08/13/2013 GA by LMP: ?37w1d GA by 1st: ?37w1d GA Selected: ??37w1d (From First S) ALYCE: ?05/20/2014 Referring MD: JUANA GABRIEL MD Tumbler Operator: ??Tiesha Marinelli RDMS BMI: ?35.78 Hist/Ind: ? Advanced Maternal Age ?Chronic Hypertension ?Factor V Sheryl ?Hx Preeclampsia, Abruption, ? Heart Rate: 125 bpm Amniotic Fluid Index: 17.9cm (07.5-24.3) Q1: 3.7cm ??Q2: 4.3cm ??Q3: 5.3cm ??Q4: 4.6cm ?? Biophysical Profile: 11/17 Breathin ?? Tone: 2 ?? NST: 2 Movement: ??2 ?? AFV: ??2 DOPPLER Umbilical - Mid Cord S/D ??2.43(1.58 - 3.42) ? PI ?? 0.89 (0.56 - 1.14) ? CLINICAL SUMMARY Study Number: 7 A tan fetus is identified in cephalic presentation. ??The placenta is posterior. ??The amniotic fluid volume is within normal limits. ?? IMPRESSION: ?? Single, live, IUP at 37w1d, normal LLUVIA Reassuring BPP Normal umbilical artery doppler RECOMMEND: ?? Follow up ultrasound continue weekly testing. Thank you for allowing us the opportunity to care for your patient Rani Partida MD <Electronic Signature> ??05/01/2014 08:34pm Juana Gabriel MD [facility] ORDERABLES documented in this encounter Visit Diagnoses Diagnosis Factor V Leiden mutation complicating (HCC) Other current maternal conditions classifiable elsewhere, complicating , childbirth, or the puerperium, unspecified as to episode of care Previous delivery affecting (HCC) Previous delivery, unspecified as to episode of care or not applicable Supervision of normal , third trimester (HCC) Chronic Hypertension Unspecified essential hypertension Advanced maternal age (AMA) in , third trimester (HCC) Preeclampsia, third trimester (HCC) Placental abruption, third trimester (HCC) H/O Anxiety Anxiety state, unspecified Elevated blood pressure, R/O Pre-eclampsia Elevated blood pressure reading without diagnosis of hypertension Prothrombin gene mutation (HCC) Primary hypercoagulable state GBS (group b Streptococcus) UTI complicating , third trimester (HCC) documented in this encounter Care Teams Stud Beef Cattle Farmer Relationship Specialty Start Date End Date Bowen Field MD PCP - General Internal Medicine 12/22/13 documented as of this encounter
--- OUTSIDE RECORDS SUMMARY | 2024-01-26 06:42 | XMS_ITS | Encounter Summary ---
Author Organization [facility] Address [facility] [place] [address] Care Team Providers Care Septic Technician Name Role Phone Bowen Field MD Primary Care Provider Unavail able Encounter Details Date Type Department Care Team (Latest Contact Info) Description 04/16/2014 9:35 AM CDT - 04/16/2014 11:59 PM CDT Hospital Encounter [facility] MATERNAL/ EVALUATION UNIT [address] [facility] [place] [address] Juana Gabriel MD RETIRED Discharge Disposition: Home [...] times daily. Indications: High Blood Pressure 05/24/2015 support hose knee high closed toe (TEDS) support hose Apply 1 Each to affected area as directed. 2 Each 0 04/16/2014 05/24/2015 documented as of this encounter Plan of Treatment Not on file documented as of this encounter Visit Diagnoses Not on filedocumented in this encounter Care Teams Septic Technician Relationship Specialty Start Date End Date Bowen Field MD PCP - General Internal Medicine 12/22/13 documented as of this encounter
--- OUTSIDE RECORDS SUMMARY | 2024-01-26 06:42 | XMS_ITS | Encounter Summary ---
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 02/21/2014 6:22 AM STER RESPONSE DIRECTOR * Celena Osorio MD - 02/20/2014 11:14 AM CSTProcedure(s): NON-STRESS TEST NST: 02/20/14 Start: 1032 End: 1104 Non-Stress Test (NST) Ama Jeronimo [id number] 02/20/2014 2:54 PM Indications: Chronic hypertension, R/O Pre-eclampsia Interpretation: Fetus A: Baseline: 130 beats/minute mod variability reactive Contractions: none Decelerations: none Impression: Reassuring Recommend: continue testing as scheduled Celena Osorio MD 02/20/2014 2:54 PM ' STER RESPONSE DIRECTOR * Xenia Bryant RDMS - 02/20/2014 10:40 AM CST Ultrasound completed-02/20/2014 Position- Breech LLUVIA- 15.3 cm EFW- 1071 g UMB- 3.1 S/D 1.1 PI Heart rate- 137 bpm Comments- Ultrasound Completed by as STER RESPONSE DIRECTOR * Aristeo Ayala MD - 02/19/2014 10:49 PM CST R4 Bedside Obstetric Ultrasound Report Ama Jeronimo [id number] 02/19/2014 10:49 PM Patient's last menstrual period was 08/13/2013. Estimated Date of Delivery: 05/20/14 by: last menstrual period (LMP) and ultrasound (US) 27w1d Indications: Elevated BPs Method: abdominal ?? Number: 1 of 1 ?? Position: cephalic ?? Placental Location: fundal, posterior ?? Amniotic Fluid: normal LLUVIA: 9.9 ?? Cardiac activity: Present ?? Comments: Good FM noted, S/D 4.1 Recommendations: Formal u/s in the AM Primary Real Estate Lawyer: Dr. Gabriel. Aristeo Ayala MD STER RESPONSE DIRECTOR * Celena Osorio MD - 02/19/2014 6:58 PM CSTProcedure(s): NONSTRESS TEST Non-Stress Test Date: 02/19/14 Start: 1643 Stop: 1826 Non-Stress Test (NST) Ama Jeronimo [id number] 02/20/2014 6:21 AM Indications: CHTN, R/P siPreE Interpretation: Fetus A: Baseline: 130 beats/minute mod variability reactive Contractions: none Decelerations: none Impression: Reassuring Recommend: continue testing as scheduled Celena Osorio MD 02/20/2014 6:21 AM STER RESPONSE DIRECTOR documented in this encounter Consult Notes * Aristeo Ayala MD - 02/19/2014 9:41 PM CSTAssociated Order(s): IP CONSULT TO MATERNAL MEDICINE R4 History and Physical No chief complaint on file. Ama Jeronimo is a 38 y.o. , at 27w1d weeks gestation for an EDC of Estimated Date of Delivery: 05/20/14 by LMP c/w 6wk u/s. PNC with Dr. Gabriel. Her current is significant for: Patient Active Problem List Diagnosis ??? Factor V Leiden mutation complicating ??? Previous delivery affecting ??? Supervision of normal ??? Chronic Hypertension ??? Advanced maternal age (AMA) in ??? H/O Pre-Eclampsia ??? H/O Placental abruption ??? H/O Anxiety Patient presents as a direct admit for elevated BPs. She has had BPs in the 150s/90s recently and in the office. She had normal labs prior. She currently is asymptomatic with no KANG, vision changes, RUQ pain. Does have occassional SOB and feeling of tachycardia that is different from her anxiety. She also has FVL and is on lovenox. positive FM. negative Ctx. negative LOF. negative VB. Obstetrical history: OB History Para Term AB SAB TAB [...] Magnesium No h/o STDs No abnormal paps Gynelogical history: STDs: No history of Chlamydia/ Gonorrhea/ Hepatitis/ Trichomonas/ Syphillis/ HIV/ HSV Paps: No history of of abnormal paps. Normal this . Medical History: Past Medical History Diagnosis Date [...] Factor V Leiden ??? H/O Anxiety 02/19/2014 No history of diabetes, hypertension, asthma, migraines, sickle cell disease Surgeries: Past Surgical History Procedure Laterality Date ??? section 2007 At 34 weeks, [place]'s Allergies: Allergies Allergen Reactions ??? Sulfa Drugs Mouth sores ??? Latex Itching and Swelling No latex allergy Curent Medications: No current facility-administered medications on file prior to encounter. Current Outpatient Prescriptions on File Prior to Encounter Medication Sig Dispense Refill ??? Enoxaparin Sodium (LOVENOX SC) Inject 40 mg subcutaneously once daily. ??? methyldopa (ALDOMET) 250 MG tablet Take 500 mg by mouth 2 times daily. Indications: High Blood Pressure Family History: Family History Problem Relation Age [...] history of family members with bleeding disorders No history of breast, ovarian, or uterine cancer Social History: Social History Smoking Status: Never Smoker Smokeless Status: Never Used Alcohol Use: No Drug Use: No Sexual Activity: Not on file Psych History: No history of Depression/ Bipolar D/O/ Schizophrenia Review of Systems: No KANG/vision change/RUQ pain No SOB/CP/CT No nausea/ vomitting/ fevers/ chills/ diarrhea No dysuria/ hematuria/ urinary urgency/ irritation Physical Exam: BP 131/86 Pulse 91 Temp(Src) 97.6 ??F Resp 20 Wt 210 lb 12.8 oz (95.618 kg) BMI 37.35 kg/m2 General: alert, cooperative, no distress Lungs: clear to auscultation bilaterally Heart: regular rate and rhythm, S1, S2 normal, Extremities: normal, non-tender bilaterally Abdomen: gravid, soft, NT, ND, BS+ evaluation: Baseline FHR: 130 per minute. moderate, 10x10s and some Reactive Decelerations None [place]: No contractions Ultrasound at Bedside: LLUVIA: 9.9 Vtx S/D 4.1 Formal u/s pending Results for orders placed during the hospital encounter of 02/19/14 URINALYSIS ROUTINE W/REFLEX TO CULTURE Result Value Range Color UA Yellow Straw, Yellow, Dark Yellow Clarity UA Clear Specific [place] UA <=1.005 1.005-1.030 pH UA 6.5 5.0-8.0 pH Protein UA Negative Negative Blood UA Negative Negative Leukocyte UA Trace (*) Negative Nitrite UA Negative Negative Glucose UA Negative Negative Ketone UA Negative Negative Bili UA Negative Negative Urobilinogen UA 0.2 0.1-1.0 EU/dL WBC UA Auto 2-5 0-2, 2-5 #/hpf RBC UA Auto 0-2 0-2, 2-5 #/hpf Epithelial Cell UA Auto 0-2 0-2, 2-5 #/hpf Reflex Status Culture to follow CBC W AUTO DIFFERENTIAL Result Value Range WBC 12.3 (*) 4.4-10.7 x10^9/L RBC 4.16 3.80-5.20 x10^12/L Hgb 12.2 12.0-15.6 gm/dL HCT 33.8 (*) 35.9-45.5 % MCV 81.3 80.7-98.3 fl MCH 29.3 26.7-34.0 pg MCHC 36.1 (*) 30.8-35.9 gm/dL Plt Ct 250 153-416 x10^9/L RDW-CV 12.9 12.1-14.9 % MPV 9.5 9.4-12.9 fl Neutro 74.8 (*) 44.0-73.0 % Lymph 16.3 (*) 20.0-43.0 % [place] 6.0 5.0-13.0 % Eos 1.0 0.0-6.0 % Baso 0.2 0.0-2.0 % Immature Grans 1.7 (*) 0-1 % Neutro Abs 9.22 (*) 2.01-7.14 x10^9/L Lymph Abs 2.01 1.07-3.94 x10^9/L [place] Abs 0.74 0.26-1.07 x10^9/L Eosin Abs 0.12 0-0.47 x10^9/L Baso Abs 0.02 0-0.08 x10^9/L Immature Grans Abs 0.21 (*) 0.00-0.06 x10^9/L COMPREHENSIVE METABOLIC PANEL Result Value Range Glucose 89 74-106 mg/dL Sodium 135 (*) 136-145 mmol/L Potassium 3.9 3.5-5.1 mmol/L Chloride 103 98-107 mmol/L CO2 20 (*) 22-31 mmol/L Calcium 9.1 8.5-10.1 mg/dL Anion Gap 12 5-15 mmol/L BUN 6 (*) 7-21 mg/dL Creatinine 0.25 (*) 0.50-1.30 mg/dL eGFR MDRD >60 >60 mL/min/1.73m2 eGFR MDRD AFR AMR >60 >60 mL/min/1.73m2 Alk Phos 91 38-126 U/L ALT/SGPT 39 12-78 U/L AST/SGOT 21 5-40 U/L Protein Total 6.8 6.4-8.2 gm/dL Albumin 3.0 (*) 3.4-5.0 gm/dL Bili Total 0.6 0.2-1.0 mg/dL DRUG ABUSE URINE PANEL Result Value Range Amphetamines Screen Urine Not Detected Not Detected Barbiturates Screen Urine Not Detected Not Detected Benzodiazepines Screen Urine Not Detected Not Detected Cannabinoids Screen Urine Not Detected Not Detected Cocaine Screen Urine Not Detected Not Detected Opiates Screen Urine Not Detected Not Detected Phencyclidine Screen Urine Not Detected Not Detected LDH BLOOD Result Value Range LDH 176 100-200 U/L URIC ACID BLOOD Result Value Range Uric Acid 3.0 2.5-6.2 mg/dL TSH Result Value Range TSH 0.831 0.358-3.740 uIU/mL T4 FREE Result Value Range T4 Free 0.89 0.65-1.34 ng/dL PT PTT PANEL Result Value Range PT 9.9 9.5-11.6 sec INR 0.92 0.9-1.1 PTT 23.1 21.0-32.0 sec TYPE + SCREEN PANEL Result Value Range ABO Patient Type A Rh Patient Type Positive Antibody Screen Negative Assessment/Plan: 38 y.o. G 2 P 1 A 0 at 27w1d weeks gestation by L/6wk u/s. Patient Active Problem List Diagnosis Date Noted ??? Supervision of normal 02/19/[address] Gabriel L = 6 wk US (undocumented) A+/I/-/-, HIV NR Pap: normal 09/14/13 GC/CT: neg/neg GCT: 102 GBS: pend ??? Chronic Hypertension 02/19/2014 Patient has been [...] clots Strong family history of blood clots ??? Previous delivery affecting 12/23/2013 1. cHTN with SI preE 1. With worsening BPs but none >160/110 1. [address] Gabriel's office 2. During admission of 130s/80s-90s 3. Asymptomatic 4. Can consider outpatient management after steroids and 24 hour urine 2. Continue Aldomet 500mg BID 3. Agree with repeat 24 hour urine 4. Obtain prior records 5. Due to diagnosis of preE <34wk would administer ANCS (ordered) 6. Does not need Mag as no evidence of severe features 7. Due to history of preE <34 would offer 81mg ASA in late first trimester/early 2nd 8. S/D of 4.1 which is WNL 9. LLUVIA normal 2. SOB/tachy 1. Echo ordered by Dr. Gabriel 2. EKG formal read pending, appears normal 3. Thyroid WNL 4. UDS negative 5. Likely related and possibly some anxiety component 3. FVL 1. Continue with lovenox 40mg daily for ppx 2. Strong family history of clotting 3. No history of DVTs and no evidence on exam 4. AMA 1. NIPT WNL 5. Anxiety 1. Reports stable 2. Previously on Zoloft 6. History of C/S 1. Would request op note 7. FWB- Reassuring Will discuss with Drs. Jens Ayala MD 02/19/2014 9:41 PM STER RESPONSE DIRECTOR documented in this encounter Plan of Treatment Not on file documented as of this encounter Procedures Procedure Name Priority Date/Time Associated Diagnosis Comments IMAGING/RADIOLOGY/XRAY RESULTS ORDER 08/19/2015 10:36 PM CDT LAB RESULTS ORDER 02/22/2014 8:2 9 PM DISASTER RESPONSE DIRECTOR PROTEIN CREATININE RATIO URINE TIMED PNL STAT 02/20/2014 4:36 PM DISASTER RESPONSE DIRECTOR Hypertension PROTEIN URINE TIMED QUANTITATIVE Routine 02/20/2014 4:36 PM DISASTER RESPONSE DIRECTOR Hypertension CREATININE URINE TIMED Routine 5 4:36 PM DISASTER RESPONSE DIRECTOR Hypertension CREATININE CLEARANCE URINE TIMED + BLOOD Routine 02/20/2014 4:36 PM DISASTER RESPONSE DIRECTOR Hypertension SONOGRAM - COMPLETE Routine 02/20/2014 1 0:02 AM DISASTER RESPONSE DIRECTOR Hypertension EKG 12-LEAD Routine 02/20/2014 9:37 AM DISASTER RESPONSE DIRECTOR Hypertension ECHOCARDIOGRAM 2D WITH DOPPLER Routine 02/20/2014 9:16 AM DISASTER RESPONSE DIRECTOR Chronic Hypertension Factor V Leiden mutation complicating (HCC) EKG 12-LEAD STAT 02/19/2014 5:13 PM DISASTER RESPONSE DIRECTOR Chronic Hypertension URINALYSIS REFLEX MICROSCOPIC REFLEX CULTURE STAT 02/19/2014 5:13 PM DISASTER RESPONSE DIRECTOR Hypertension CULTURE URINE Routine 02/19/2014 5:13 PM DISASTER RESPONSE DIRECTOR Hypertension DRUG ABUSE URINE PANEL STAT 5 5:13 PM DISASTER RESPONSE DIRECTOR Hypertension CULTURE STREP B STAT 02/19/2014 5:11 PM DISASTER RESPONSE DIRECTOR Hypertension URIC ACID BLOOD Routine 02/19/2014 5:05 PM DISASTER RESPONSE DIRECTOR Hypertension TYPE + SCREEN PANEL Routine 02/19/2014 5 :05 PM DISASTER RESPONSE DIRECTOR PT PTT PANEL Routine 02/19/2014 5:05 PM DISASTER RESPONSE DIRECTOR CBC W AUTO DIFFERENTIAL STAT 02/19/2014 5:05 PM DISASTER RESPONSE DIRECTOR Hypertension COMPREHENSIVE METABOLIC PANEL STAT 02/19/2014 5:05 PM DISASTER RESPONSE DIRECTOR Hypertension LDH BLOOD Routine 02/19/2014 5:05 PM DISASTER RESPONSE DIRECTOR Hypertension TSH Routine 02/19/2014 5:05 PM DISASTER RESPONSE DIRECTOR Fatigue T4 FREE Routine 02/19/2014 5:05 PM DISASTER RESPONSE DIRECTOR Fatigue documented in this encounter Results * IMAGING/RADIOLOGY/XRAY RESULTS ORDER (08/19/2015 10:36 PM CDT) Anatomical Region Laterality Modality Other Narrative 02/22/2014 8:29 PM DISASTER RESPONSE DIRECTOR Ordered by an unspecified provider. Scanned Document IMAGING * LAB RESULTS ORDER (02/22/2014 8:29 PM DISASTER RESPONSE DIRECTOR) Narrative 02/22/2014 8:29 PM DISASTER RESPONSE DIRECTOR Ordered by an unspecified provider. Scanned Document LAB - THERAPEUTIC DR MARIBEL MONITORING ORDERABLES * PROTEIN URINE TIMED QUANTITATIVE (02/20/2014 4:36 PM DISASTER RESPONSE DIRECTOR) Volume 24 Hour Urine 2,190 mL 02/20/2014 5:38 PM DISASTER RESPONSE DIRECTOR [facility] Collection Time Hours 24 hrs 02/20/2014 5:38 PM DISASTER RESPONSE DIRECTOR [facility] Protein 24 Hour Urine 155 42 - 225 mg/24hr 02/20/2014 5:38 PM DISASTER RESPONSE DIRECTOR [facility] Protein Urine 7.1 mg/dL 02/20/2014 5:38 PM DISASTER RESPONSE DIRECTOR [facility] Urine TIMED URINE SPECIMEN / Unknown Collection / Unknown 02/20/2014 4:36 PM DISASTER RESPONSE DIRECTOR 02/20/2014 5:27 PM DISASTER RESPONSE DIRECTOR Celena Vann MD LAB - URINE CHEMISTR Y ORDERABLES [facility] [address] [place] [address] * PROTEIN CREATININE RATIO URINE TIMED PNL (02/20/2014 4:36 PM DISASTER RESPONSE DIRECTOR) Volume 24 Hour Urine 2,190 mL 02/20/2014 5:38 PM [facility] Collection Time Hours 24 hrs 02/20/2014 5:38 PM [facility] Protein Urine 7.1 mg/dL 02/20/2014 5:38 PM [facility] Creatinine Urine 65.27 mg/dL 02/20/2014 5:38 PM [facility] Protein/Creatin ine Ratio Urine 0.11 02/20/2014 5:38 PM [facility] Urine TIMED URINE SPECIMEN / Unknown Collection / Unknown 02/20/2014 4:36 PM DISASTER RESPONSE DIRECTOR 02/20/2014 5:27 PM DISASTER RESPONSE DIRECTOR Celena Vann MD LAB - URINE CHEMISTR Y ORDERABLES Performing Organization Address City/[facility] Co de Phone Number [facility] [address] [place] [phone] * CREATININE URINE TIMED (02/20/2014 4:36 PM [facility]) Volume 24 Hour Urine 2,190 mL 02/20/2014 5:38 PM [facility] Collection Time Hours 24 hrs 02/20/2014 5:38 PM [facility] Creatinine Urine 65.27 mg/dL 02/20/2014 5:38 PM [facility] Creatinine 24 Hour Urine 1,429 800 - 1,800 mg/24hr 02/20/2014 5:38 PM [facility] Urine TIMED URINE SPECIMEN / Unknown Collection / Unknown 02/20/2014 4:36 PM DISASTER RESPONSE DIRECTOR 02/20/2014 5:27 PM DISASTER RESPONSE DIRECTOR Celena Vann MD LAB - URINE CHEMISTR Y ORDERABLES Performing Organization Address City/[facility] Co de Phone Number [facility] [address] [place] [phone] * (ABNORMAL) CREATININE CLEARANCE URINE TIMED (02/20/2014 4:36 PM DISASTER RESPONSE DIRECTOR) Volume 24 Hour Urine 2,190 mL 02/20/2014 5:38 PM [facility] Collection Time Hours 24 hrs 02/20/2014 5:38 PM [facility] Height Inches 63 inches 02/20/2014 5:38 PM [facility] Weight in Pounds 210 pounds 02/20/2014 5:38 PM [facility] Surface Area 1.98 02/20/2014 5:38 PM [facility] Creatinine 0.25(L) 0.50 - 1.30 mg/dL 02/20/2014 5:38 PM [facility] Creatinine Urine 65.27 mg/dL 02/20/2014 5:38 PM [facility] Creatinine 24 Hour Urine 1,429 800 - 1,800 mg/24hr 02/20/2014 5:38 PM [facility] Creatinine Clearance 347(H) 87 - 107 mL/min/1.73 m2 02/20/2014 5:38 PM [facility] Urine TIMED URINE SPECIMEN / Unknown Collection / Unknown 02/20/2014 4:36 PM DISASTER RESPONSE DIRECTOR 02/20/2014 5:27 PM DISASTER RESPONSE DIRECTOR Celena Vann MD LAB - URINE CHEMISTR Y ORDERABLES Performing Organization Address City/State/[facility] Co de Phone Number [facility] [address], [place] [phone] * SONOGRAM - COMPLETE (02/20/2014 10:02 AM DISASTER RESPONSE DIRECTOR) Anatomical Region Laterality Modality Other 02/20/2014 10:0 2 AM DISASTER RESPONSE DIRECTOR Narrative 02/20/2014 1:23 PM DISASTER RESPONSE DIRECTOR ? [facility] ? [facility] ?PHONE: ??FAX: Pat. Name: ?BEST, AMA Echevarria No: ?[id number] Study Date: ?? 02/20/2014 ??10:02am , Age: ? 1975, 38 Pregnancies: ?? 2, Para 1 Height: ? 63 in Weight: ? 202 lb LMP: ?08/13/2013 GA by LMP: ?27w2d GA by US: ? 27w0d GA Selected: ??27w2d (LMP) ALYCE: ?05/20/2014 Referring MD: JUANA GABRIEL MD Plate Preparer: ??Xenia Bryant [facility] CPT4: ? 85275 BMI: ?35.78 Hist/Ind: ? Advanced Maternal Age ?Chronic Hypertension ?Factor V Leiden ?Hx Preeclampsia, Abruption, ? MEASUREMENTS & AGE ? GROWTH EVALUATION Measurement ??GA ? Range ? Srce %for GA Ratios ----- ---- ------- BPD ??6.6 cm 26w5d (05e1q-01c5r) Hadl BPD 39% FL/BPD 0.75 (0.71 - 0.87) HC ??24.4 cm 26w4d (51h5o-39s9y) Hadl HC ??34% FL/AC ??0.21 (0.20 - 0.24) AC ??23.6 cm 27w6d (87l3b-71k7i) Hadl AC ??62% HC/AC ??1.04 (1.00 - 1.18) FL ?? 5.0 cm 26w6d (88g8d-98f7i) Hadl FL ??40% CI ? 0.75 (0.70 - 0.86) GA for sonogram 27w0d (19o9m-65n9r) ?? Weight Estimate: based on (BPD,HC,AC,FL) Avg ?Weight: 1058 gm (903-1212) [place] ? : 2lbs, 5oz ? Normal: 1102 gm (826-1377) [place] ? Wt% ? 42% for 27w2d Heart Rate: 137 bpm Amniotic Fluid Index: 15.3cm (09.5-22.7) Q1: 5.0cm ??Q2: 3.4cm ??Q3: 4.2cm ??Q4: 2.9cm ?? DOPPLER Umbilical - Mid Cord S/D ??3.10 PI ?? 1.10 CLINICAL SUMMARY Study Number: 1 A single fetus is identified breech presentation. ??The measurements today are consistent with menstrual dates. ?? The amniotic fluid volume is within normal limits. ??The placenta is posterior. ??The anatomic survey is incomplete due to position however no major malformations are demonstrated. DOPPLER STUDIES: ?? The umbilical artery Doppler S/D ratio is 3.1, which is within normal limits for gestational age. ?? The umbilical artery PI ratio is 1.1 , which is within normal limits for gestational age. IMPRESSION: Single, live, IUP 27w2d, AGA fetus, normal AFV Limited anatomic survey is unremarkable Normal umbilical artery dopplers RECOMMEND: ?? Follow up ultrasound as clinically indicated. Thank you for allowing us the opportunity to care for your patient. cc: ??Inpatient at time of study ? Rani Partida MD ?<Electronic Signature> ??02/20/2014 01:23pm Celena Vann MD [facility] ORDERABLES * EKG 12-LEAD (02/20/2014 9:37 AM DISASTER RESPONSE DIRECTOR) Ventricular Rate 87 BPM [facility] Atrial Rate 87 BPM [facility] P-R Interval 170 ms [facility] QRS Duration ms 92 ms [facility] Q-T Interval ms 368 ms [facility] QTC Calculation (Bezet) 442 ms [facility] Calculated P [place] 46 degrees [facility] Calculated R [place] 14 degrees [facility] Calculated T [place] 41 degrees [facility] Interpretation EKG NORMAL SINUS RHYTHM WITH SINUS ARRHYTHMIA LEFT VENTRICULAR HYPERTROPHY ABNORMAL ECG Confirmed by MD Herbert, Praveen ([id number]) on 02/21/2014 8:38:29 AM [facility]USE 02/20/2014 9:37 AM DISASTER RESPONSE DIRECTOR 02/21/2014 8:38 AM DISASTER RESPONSE DIRECTOR Celena Vann MD ECG ORDERABLES [facility] * ECHOCARDIOGRAM 2D WITH DOPPLER (02/20/2014 9:16 AM DISASTER RESPONSE DIRECTOR) 02/20/2014 9:16 AM DISASTER RESPONSE DIRECTOR Narrative [facility] - 02/21/2014 9:19 AM DISASTER RESPONSE DIRECTOR [address] [address] Transthoracic Echocardiogram 2D, M-mode, Doppler, and Color Doppler Patient: AMA JERONIMO MR number: [id number] Height: 63 in Weight: 213.6 lb BSA: 1.99 m?? Study date: 20-Feb-2014 : 1975 Age: 38 years Gender: Female Race: Allergies: LATEX, SULFA DRUGS Referring Physician: ??Juana Gabriel MD Plate Preparer: ??Maximo Bui RDCS Reading Physician: ??Praveen Godinez MD Summary: - [...] Procedure Note Praveen Godinez MD - 02/21/2014 [place] [id number] Transthoracic Echocardiogram 2D, M-mode, Doppler, and Color Doppler Patient: AMA JERONIMO MR number: [id number] Height: 63 in Weight: 213.6 lb BSA: 1.99 m?? Study date: 20-Feb-2014 : 1975 Age: 38 years Gender: Female Race: Allergies: LATEX, SULFA DRUGS Referring Physician: Juana Gabriel MD Plate Preparer: Maximo Bui RDCS Reading Physician: Praveen Godinez [...] 21-Feb-2014 09:19:27 Juana Gabriel MD ECHO ORDERABLES Performing Organization Address [facility] Co de Phone Number [facility] [address] [place] [address] * EKG 12-LEAD (02/19/2014 5:13 PM DISASTER RESPONSE DIRECTOR) Ventricular Rate 91 BPM [facility] Atrial Rate 91 BPM [facility] MUSE P-R Interval 196 ms [facility] QRS Duration ms 86 ms [facility] Q-T Interval ms 370 ms [facility]USE QTC Calculation (Bezet) 455 ms [facility]USE Calculated P [place] 52 degrees [facility] Calculated R [place] -3 degrees [facility] Calculated T [place] 18 degrees [facility] MUSE Interpretation EKG NORMAL SINUS RHYTHM VOLTAGE CRITERIA FOR LEFT VENTRICULAR HYPERTROPHY ABNORMAL ECG NO PREVIOUS ECGS AVAILABLE Confirmed by Gisela Rubi ([id number]) on 02/22/2014 8:40:21 AM [facility] 02/19/2014 5:13 PM DISASTER RESPONSE DIRECTOR 02/22/2014 8:40 AM DISASTER RESPONSE DIRECTOR Celena Vann MD ECG ORDERABLES Performing Organization Address [facility] de Phone Number [facility] * (ABNORMAL) CULTURE URINE (02/19/2014 5:13 PM DISASTER RESPONSE DIRECTOR) Pathologist [facility] Culture 10,000-50,000 CFU/mL Streptococcus agalactiae (Group B)(A) SIXTO 02/21/2014 4:23 AM DISASTER RESPONSE DIRECTOR [facility] Urine URINE SPECIMEN OBTAINED BY CLEAN CATCH PROCEDURE / Unknown Collection / Unknown 02/19/2014 5:13 PM DISASTER RESPONSE DIRECTOR 02/19/2014 5:26 PM DISASTER RESPONSE DIRECTOR Narrative [facility] - 02/21/2014 4:23 AM DISASTER RESPONSE DIRECTOR Susceptibility testing of penicillin, other beta-lactam antibiotics, and vancomycin is not necessary for beta-hemolytic streptococci groups A,B,C and G because resistant strains have not been recognized. Celena Vann MD LAB - MICROBIOLOGY O RDERABLES Performing Organization Address [facility] Co de Phone Number [facility] [address] [place] [address] * DRUG ABUSE URINE PANEL (02/19/2014 5:13 PM DISASTER RESPONSE DIRECTOR) Pathologist [facility] Amphetamines Screen Urine Not Detected Not Detected 02/19/2014 5:58 PM [facility] Barbiturates Screen Urine Not Detected Not Detected 02/19/2014 5:58 PM [facility] Benzodiazepines Screen Urine Not Detected Not Detected 02/19/2014 5:58 PM [facility] Cannabinoids Screen Urine Not Detected Not Detected 02/19/2014 5:58 PM [facility] Cocaine Screen Urine Not Detected Not Detected 02/19/2014 5:58 PM [facility] Opiate Screen Urine Not Detected Not Detected 02/19/2014 5:58 PM [facility] Phencyclidine Screen Urine Not Detected Not Detected 02/19/2014 5:58 PM [facility] Urine URINE / Unknown 02/19/2014 5 :13 PM DISASTER RESPONSE DIRECTOR 02/19/2014 5:26 PM [facility] - 02/19/2014 5:58 PM [facility] This drug screen is designed for MEDICAL [...] MD LAB - URINE CHEMISTR Y ORDERABLES [facility] [address] [place] [address] * (ABNORMAL) URINALYSIS ROUTINE W/REFLEX TO CULTURE (02/19/2014 5:13 PM [facility]) Pathologist [facility] Color UA Yellow Straw, Yellow, Dark Yellow 02/19/2014 5:41 PM [facility] Clarity UA Clear 02/19/2014 5:41 PM [facility] Specific [place] UA <=1.005 1.005 - 1.030 02/19/2014 5:41 PM [facility] pH UA 6.5 5.0 - 8.0 pH 02/19/2014 5:41 PM [facility] Protein UA Negative Negative 02/19/2014 5:41 PM [facility] Blood UA Negative Negative 02/19/2014 5:41 PM [facility] [facility] Leukocyte UA Trace(A) Negative 02/19/2014 5:41 PM [facility] Nitrite UA Negative Negative 02/19/2014 5:41 PM [facility] Glucose UA Negative Negative 02/19/2014 5:41 PM [facility] Ketone UA Negative Negative 02/19/2014 5:41 PM [facility] Bilirubin UA Negative Negative 02/19/2014 5:41 PM [facility] Urobilinogen UA 0.2 0.1 - 1.0 EU/dL 02/19/2014 5:41 PM [facility] WBC UA Auto 2-5 0-2, 2-5 #/hpf 02/19/2014 5:41 PM [facility] RBC UA Auto 0-2 0-2, 2-5 #/hpf 02/19/2014 5:41 PM [facility] Epithelial Cell UA Auto 0-2 0-2, 2-5 #/hpf 02/19/2014 5:41 PM [facility] Reflex Status Culture to follow 02/19/2014 5:41 PM [facility] Urine URINE SPECIMEN OBTAINED BY CLEAN CATCH PROCEDURE / Unknown Collection / Unknown 02/19/2014 5:13 PM DISASTER RESPONSE DIRECTOR 02/19/2014 5:26 PM [facility] Celena Vann MD LAB - URINALYSIS ORD ERABLES [facility] [address] [place] [address] * (ABNORMAL) CULTURE STREP B (02/19/2014 5:11 PM DISASTER RESPONSE DIRECTOR) Culture Growth of Streptococcus agalactiae (Group B)(AA) SIXTO 02/22/2014 3:26 PM DISASTER RESPONSE DIRECTOR [facility] MICROBIOLOGY Microbiology MISCELLANEOUS SAMPLES / Unknown Collection / Unknown 02/19/2014 5:11 PM DISASTER RESPONSE DIRECTOR 02/19/2014 5:30 PM DISASTER RESPONSE DIRECTOR Narrative [facility] MICROBIOLOGY - 02/22/2014 3:26 PM DISASTER RESPONSE DIRECTOR Susceptibility testing of penicillin, other beta-lactam antibiotics, and vancomycin is not necessary for beta-hemolytic streptococci groups A,B,C and G because resistant strains have not been recognized. 02/22/2014 3:25 PM ?? Ekaterina Myrick RN notified. ??Read back and acknowledged and faxed results.Danita Sharma Celena Vann MD LAB - MICROBIOLOGY O RDERABLES Performing Organization Address [facility] Co de Phone Number [facility] MICROBIOLOGY [address] [place] [address], [facility] * PT PTT PANEL (02/19/2014 5:05 PM DISASTER RESPONSE DIRECTOR) PT 9.9 9.5 - 11.6 sec 02/19/2014 6:00 PM [facility] INR 0.92 0.9 - 1.1 02/19/2014 6:00 PM [facility] PTT 23.1 21.0 - 32.0 sec 02/19/2014 6:00 PM [facility] Blood BLOOD SPECIMEN / Unknown Venipuncture / Unknown 02/19/2014 5:05 PM DISASTER RESPONSE DIRECTOR 02/19/2014 5:30 PM DISASTER RESPONSE DIRECTOR Narrative [facility] - 02/19/2014 6:00 PM DISASTER RESPONSE DIRECTOR Conventional Anticoagulant Therapy INR Reference Ranges: ??2.0-3.0 Intensive Anticoagulant Therapy INR Reference Ranges: ? 2.5-3.5 Therapeutic Range for PTT: ??44.4 - 78.3 seconds. Celena Vann MD LAB - COAGULATION OR DERABLES Performing Organization Address [facility] Co de Phone Number [facility] [address] [place] [address] * TYPE + SCREEN PANEL (02/19/2014 5:05 PM DISASTER RESPONSE DIRECTOR) ABO A 02/19/2014 6:05 PM [facility] Rh Type Positive 02/19/2014 6:05 PM [facility] Comment:History check perfor med. No retype required. Antibody Screen Negative 02/19/2014 6:05 PM DISASTER RESPONSE DIRECTOR [facility] Miscellaneous samples (specimen) BLOOD SPECIMEN / Unknown Venipuncture / Unknown 02/19/2014 5:05 PM DISASTER RESPONSE DIRECTOR 02/19/2014 5:32 PM DISASTER RESPONSE DIRECTOR Celena Vann MD LAB - BLOOD BANK ORD ERABLES Performing Organization Address City/[facility]/ZIP Co de Phone Number [facility] [address] [place] [address] * T4 FREE (02/19/2014 5:05 PM DISASTER RESPONSE DIRECTOR) T4 Free 0.89 0.65 - 1.34 ng/dL 02/19/2014 6:17 PM DISASTER RESPONSE DIRECTOR [facility] Comment: Blood BLOOD SPECIMEN / Unknown Venipuncture / Unknown 02/19/2014 5:05 PM DISASTER RESPONSE DIRECTOR 02/19/2014 5:32 PM DISASTER RESPONSE DIRECTOR Celena Vann MD LAB - CHEMISTRY MANAV MORRISON Performing Organization Address [facility] Co de Phone Number [facility] [address] [place] [address] * TSH (02/19/2014 5:05 PM DISASTER RESPONSE DIRECTOR) Pathologist [facility] TSH 0.831 0.358 - 3.740 uIU/mL 02/19/2014 6:21 PM DISASTER RESPONSE DIRECTOR [facility] Comment: Blood BLOOD SPECIMEN / Unknown Venipuncture / Unknown 02/19/2014 5:05 PM DISASTER RESPONSE DIRECTOR 02/19/2014 5:32 PM DISASTER RESPONSE DIRECTOR Celena Vann MD LAB - CHEMISTRY MANAV MORRISON Performing Organization Address City/[facility] Co de Phone Number [facility] [address] [place] [address] * URIC ACID BLOOD (02/19/2014 5:05 PM DISASTER RESPONSE DIRECTOR) Pathologist [facility] Uric Acid 3.0 2.5 - 6.2 mg/dL 02/19/2014 6:14 PM DISASTER RESPONSE DIRECTOR [facility] Comment: Blood BLOOD SPECIMEN / Unknown Venipuncture / Unknown 02/19/2014 5:05 PM DISASTER RESPONSE DIRECTOR 02/19/2014 5:33 PM DISASTER RESPONSE DIRECTOR Celena Vann MD LAB - CHEMISTRY ORDArline BOORASHAD Performing Organization Address City/[facility]/ZIP Co de Phone Number [facility] [address] [place] [address] [phone] * LDH BLOOD (02/19/2014 5:05 PM DISASTER RESPONSE DIRECTOR) LDH 176 100 - 200 U/L 02/19/2014 6:14 PM [facility] Comment: Blood BLOOD SPECIMEN / Unknown Venipuncture / Unknown 02/19/2014 5:05 PM DISASTER RESPONSE DIRECTOR 02/19/2014 5:33 PM DISASTER RESPONSE DIRECTOR Celena Vann MD LAB - CHEMISTRY ORDArline BOORASHAD Performing Organization Address [facility] Co de Phone Number [facility] [address] [place] [phone] * (ABNORMAL) COMPREHENSIVE METABOLIC PANEL (02/19/2014 5:05 PM DISASTER RESPONSE DIRECTOR) Pathologist [facility] Glucose 89 74 - 106 mg/dL 02/19/2014 6:15 PM [facility] Sodium 135(L) 136 - 145 mmol/L 02/19/2014 6:15 PM [facility] Potassium 3.9 3.5 - 5.1 mmol/L 02/19/2014 6:15 PM [facility] Chloride 103 98 - 107 mmol/L 02/19/2014 6:15 PM [facility] CO2 20(L) 22 - 31 mmol/L 02/19/2014 6:15 PM [facility] Calcium 9.1 8.5 - 10.1 mg/dL 02/19/2014 6:15 PM [facility] Anion Gap 12 5 - 15 mmol/L 02/19/2014 6:15 PM [facility] BUN 6(L) 7 - 21 mg/dL 02/19/2014 6:15 PM [facility] Creatinine 0.25(L) 0.50 - 1.30 mg/dL 02/19/2014 6:15 PM [facility] eGFR by MDRD >60 >60 mL/min/1.7 3m2 02/19/2014 6:15 PM [facility] eGFR by MDRD >60 >60 mL/min/1.7 3m2 02/19/2014 6:15 PM [facility] Alkaline Phosphatase 91 38 - 126 U/L 02/19/2014 6:15 PM [facility] ALT 39 12 - 78 U/L 02/19/2014 6:15 PM [facility] AST 21 5 - 40 U/L 02/19/2014 6:15 PM [facility] Protein Total 6.8 6.4 - 8.2 gm/dL 02/19/2014 6:15 PM [facility] Albumin 3.0(L) 3.4 - 5.0 gm/dL 02/19/2014 6:15 PM [facility] Bilirubin Total 0.6 0.2 - 1.0 mg/dL 02/19/2014 6:15 PM [facility] Blood BLOOD SPECIMEN / Unknown Venipuncture / Unknown 02/19/2014 5:05 PM DISASTER RESPONSE DIRECTOR 02/19/2014 5:33 PM [facility] Celena Vann MD LAB - CHEMISTRY MANAV [facility] Organization Address City/State/ZIP Co de Phone Number [facility] [address] [place] [address] * (ABNORMAL) CBC W AUTO DIFFERENTIAL (02/19/2014 5:05 PM DISASTER RESPONSE DIRECTOR) WBC 12.3(H) 4.4 - 10.7 x10^9/L 02/19/2014 5:49 PM [facility] RBC 4.16 3.80 - 5.20 x10^12/L 02/19/2014 5:49 PM [facility] Hemoglobin 12.2 12.0 - 15.6 gm/dL 02/19/2014 5:49 PM [facility] Hematocrit 33.8(L) 35.9 - 45.5 % 02/19/2014 5:49 PM [facility] MCV 81.3 80.7 - 98.3 fl 02/19/2014 5:49 PM [facility] MCH 29.3 26.7 - 34.0 pg 02/19/2014 5:49 PM [facility] MCHC 36.1(H) 30.8 - 35.9 gm/dL 02/19/2014 5:49 PM [facility] Platelet Count 250 153 - 416 x10^9/L 02/19/2014 5:49 PM [facility] RDW-CV 12.9 12.1 - 14.9 % 02/19/2014 5:49 PM [facility] MPV 9.5 9.4 - 12.9 fl 02/19/2014 5:49 PM [facility] Neutrophils % 74.8(H) 44.0 - 73.0 % 02/19/2014 5:49 PM [facility] Lymphocytes % 16.3(L) 20.0 - 43.0 % 02/19/2014 5:49 PM [facility] Monocytes % 6.0 5.0 - 13.0 % 02/19/2014 5:49 PM [facility] Eosinophils % 1.0 0.0 - 6.0 % 02/19/2014 5:49 PM [facility] Basophils % 0.2 0.0 - 2.0 % 02/19/2014 5:49 PM [facility] Immature Granulocytes 1.7(H) 0 - 1 % 02/19/2014 5:49 PM [facility] Neutrophil Absolute 9.22(H) 2.01 - 7.14 x10^9/L 02/19/2014 5:49 PM [facility] Lymphocytes Absolute 2.01 1.07 - 3.94 x10^9/L 02/19/2014 5:49 PM [facility] Monocytes Absolute 0.74 0.26 - 1.07 x10^9/L 02/19/2014 5:49 PM [facility] Eosinophils Absolute 0.12 0 - 0.47 x10^9/L 02/19/2014 5:49 PM [facility] Basophils Absolute 0.02 0 - 0.08 x10^9/L 02/19/2014 5:49 PM [facility] Immature Granulocytes Absolute 0.21(H) 0.00 - 0.06 x10^9/L 02/19/2014 5:49 PM [facility] Blood BLOOD SPECIMEN / Unknown Venipuncture / Unknown 02/19/2014 5:05 PM DISASTER RESPONSE DIRECTOR 02/19/2014 5:33 PM DISASTER RESPONSE DIRECTOR Celena Vann MD LAB - HEMATOLOGY ORD ERABLES [facility] [address] [place] [address] documented in this encounter Visit Diagnoses Diagnosis Chronic Hypertension- Primary Unspecified essential hypertension Chronic Hypertension Unspecified essential hypertension Fatigue Other malaise and fatigue Factor V Leiden mutation complicating (HCC) Other current maternal conditions classifiable elsewhere, complicating , childbirth, or the puerperium, unspecified as to episode of care Clotting disorder ([facility]) Other and unspecified coagulation defects Supervision of normal (HCC) Supervision of other normal Advanced maternal age (AMA) in H/O Pre-Eclampsia Mild or unspecified pre-eclampsia, unspecified as to episode of care H/O Placental abruption Premature separation of placenta, unspecified as to episode of care H/O Anxiety Anxiety state, unspecified Elevated blood pressure, R/O Pre-eclampsia Elevated blood pressure reading without diagnosis of hypertension Prothrombin gene mutation ([facility]) Primary hypercoagulable state GBS (group B streptococcus) UTI complicating ([facility]) Infections of genitourinary tract in , unspecified as to episode of care documented in this encounter Administered Medications Inactive Administered Medications - up to 3 most recent administrations Medication Order MAR Action Action Date Dose Rate Site 0.9% NaCl injection 10 mL 10 mL, Intracatheter, EVERY 8 HOURS, First dose on Wed02/19/14 at 1630, Until Discontinued, LATEX FREE PRODUCT $ Given 02/21/2014 5:39 AM DISASTER RESPONSE DIRECTOR 10 mL $ Given 02/20/2014 8:55 PM DISASTER RESPONSE DIRECTOR 10 mL $ Given 02/20/2014 4:11 PM DISASTER RESPONSE DIRECTOR 10 mL amoxicillin (AMOXIL) capsule 500 mg 500 mg, Oral, 3 TIMES DAILY, 7 doses, First dose on Wed02/21/14 at 0715, Last dose on Wed02/23/14 at 0900 $ Given 02/21/2014 8:33 AM DISASTER RESPONSE DIRECTOR 500 mg betamethasone acet & sod phos (CELESTONE) injection 12 mg 12 mg, Intramuscular, EVERY 24 HOURS, 2 doses, First dose on Wed02/19/14 at 2330, Last dose on Wed02/20/14 at 2330, Protect from light. LATEX FREE PRODUCT $ Given 02/21/2014 12:33 AM DISASTER RESPONSE DIRECTOR 12 mg Right Dorsogluteal $ Given 02/20/2014 12:45 AM DISASTER RESPONSE DIRECTOR 12 mg L eft Dorsogluteal docusate sodium (COLACE) capsule 100 mg 100 mg, Oral, 2 TIMES DAILY, First dose on Wed02/19/14 at 2100, Until Discontinued $ Given 02/21/2014 8:33 AM DISASTER RESPONSE DIRECTOR 100 mg $ Given 02/20/2014 8:53 PM DISASTER RESPONSE DIRECTOR 100 mg $ Given 02/20/2014 8:39 AM DISASTER RESPONSE DIRECTOR 100 mg enoxaparin (LOVENOX) injection 40 mg 40 mg, Subcutaneous, DAILY, First dose on Wed02/20/14 at 0900, Until Discontinued, LATEX FREE PRODUCT ; (for prefilled syringes) do not expel air bubble from the syringe prior to the injection Remind Patient to not rub injection site. Could cause hematoma. $ Patient/Family Admin 02/21/2014 8:33 AM DISASTER RESPONSE DIRECTOR 40 mg Abdominal Tissue $ Given 02/20/2014 8:39 AM DISASTER RESPONSE DIRECTOR 40 mg Ab dominal Tissue famotidine (PEPCID) tablet 20 mg 20 mg, Oral, 2 TIMES DAILY, First dose on Wed02/20/14 at 1315, Until Discontinued $ Given 02/21/2014 8:33 AM DISASTER RESPONSE DIRECTOR 20 m g $ Given 02/20/2014 8:53 PM DISASTER RESPONSE DIRECTOR 20 mg $ Given 02/20/2014 12:50 PM DISASTER RESPONSE DIRECTOR 20 mg methyldopa (ALDOMET) tablet 500 mg 500 mg, Oral, 2 TIMES DAILY, First dose on Wed02/19/14 at 2100, Until Discontinued $ Given 02/21/2014 8:33 AM DISASTER RESPONSE DIRECTOR 500 mg $ Given 02/20/2014 8:54 PM DISASTER RESPONSE DIRECTOR 500 mg $ Given 02/20/2014 8:39 AM DISASTER RESPONSE DIRECTOR 500 mg vitamin with iron tablet 1 Tab 1 tablet, Oral, DAILY, First dose on Wed02/19/14 at 1630, Until Discontinued $ Given 02/21/2014 8:33 AM DISASTER RESPONSE DIRECTOR 1 tablet $ Given 02/20/2014 8:39 AM DISASTER RESPONSE DIRECTOR 1 tablet documented in this encounter Active and Recently Administered Medications Times are shown in DISASTER RESPONSE DIRECTOR. Scheduled Medication Order 02/19/2014 02/20/2014 02/21/2014 0.9% NaCl injection 10 mL (CANCELED)(Linked Group 1) 10 mL, Intracatheter, EVERY 8 HOURS, First dose on Wed02/19/14 at 1630, Until Discontinued, LATEX FREE PRODUCT 191 ($ Given - Provider: Jesse Fraire RN)2200 (Not Administered - Provider: Nolan Santiago RN - Reason: Documented on duplicate row) 0548 ($ Given - Provider: Nolan Santiago RN)161 ($ Given - Provider: Otilia Nolan, EFRA)2054 ($ Given - Provider: Rani Kc, RN) 0539 ($ Given - Provider: Rani Kc, RN) amoxicillin (AMOXIL) capsule 500 mg 500 mg, Oral, 3 TIMES DAILY, 7 doses, First dose on Wed02/21/14 at 0715, Last dose on Wed02/23/14 at 0900 0833 ($ Given - Provider: Arlette Barraza, EFRA) betamethasone acet & sod phos (CELESTONE) injection 12 mg (COMPLETED) 12 mg, Intramuscular, EVERY 24 HOURS, 2 doses, First dose on Wed02/19/14 at 2330, Last dose on Wed02/20/14 at 2330, Protect from light. LATEX FREE PRODUCT 0045 ($ Given - Provider: Nolan Santiago RN - Comment: med not available) 0033 ($ Given - Provider: Rani Kc, RN) docusate sodium (COLACE) capsule 100 mg (CANCELED) 100 mg, Oral, 2 TIMES DAILY, First dose on Wed02/19/14 at 2100, Until Discontinued 2010 ($ Given - Provider: Nolan Santiago RN) 0839 ($ Given - Provider: Otilia Nolan, EFRA)2052 ($ Given - Provider: Rani cK, RN) 0833 ($ Given - Provider: Arlette Barraza, EFRA) enoxaparin (LOVENOX) injection 40 mg (CANCELED) 40 mg, Subcutaneous, DAILY, First dose on Wed02/20/14 at 0900, Until Discontinued, LATEX FREE PRODUCT ; (for prefilled syringes) do not expel air bubble from the syringe prior to the injection Remind Patient to not rub injection site. Could cause hematoma. 0839 ($ Given - Provider: Otilia Nolan RN) 0833 ($ Patient/Family Admin - Provider: Arlette Barraza, EFRA) famotidine (PEPCID) tablet 20 mg (CANCELED) 20 mg, Oral, 2 TIMES DAILY, First dose on Wed02/20/14 at 1315, Until Discontinued 1250 ($ Given - Provider: Otilia Nolan, RN)2052 ($ Given - Provider: Rani Kc, RN) 0833 ($ Given - Provider: Arlette Barraza, RN) methyldopa (ALDOMET) tablet 500 mg (CANCELED) 500 mg, Oral, 2 TIMES DAILY, First dose on Wed02/19/14 at 2100, Until Discontinued 2010 ($ Given - Provider: Nolan Santiago RN) 0839 ($ Given - Provider: Otilia Nolan, EFRA)2053 ($ Given - Provider: Rani Kc, RN) 0833 ($ Given - Provider: Arlette Barraza, RN) vitamin with iron tablet 1 Tab (CANCELED) 1 tablet, Oral, DAILY, First dose on Wed02/19/14 at 1630, Until Discontinued 1630 (Not Administered - Provider: Jesse Fraire RN - Reason: Refused-Patient - Comment: pt took hers this am.) 0839 ($ Given - Provider: Otilia Nolan RN) 0833 ($ Given - Provider: Arlette Barraza, RN) Linked Groups Order Group 1: SALINE LOCK, INSERT AND MAINTAIN (CANCELED) Routine, CONTINUOUS, Starting on Wed02/19/14 at 1600, Until Specified, New collection And 0.9% NaCl injection 10 mL (CANCELED)Jump to med 10 mL, Intracatheter, EVERY 8 HOURS, First dose on Wed02/19/14 at 1630, Until Discontinued, LATEX FREE PRODUCT And 0.9% NaCl injection 10 mL (CANCELED) 10 mL, Intracatheter, PRN, Other, peripheral line flush, Starting on Wed02/19/14 at 1546, Until Wed02/21/14 at 1323, Flush after each use and blood draws. LATEX FREE PRODUCT documented in this encounter Care Teams Color Finisher Relationship Specialty Start Date End Date Bowen Field MD PCP - General Internal Medicine 12/22/13 documented as of this encounter
--- OUTSIDE RECORDS SUMMARY | 2024-01-26 06:42 | XMS_ITS | Encounter Summary ---
Author Organization [facility] Health Address [facility] [place] [address] Care Team Providers Care Shrimp Peeling Machine Operator Name Role Phone Bowen Field MD Primary Care Provider Unavail able Reason for Visit * Reason Onset Date Comments Concerns 04/26/2014 Encounter Details Date Type Department Care Team (Late st Contact Info) Description 04/26/2014 Telephone [facility] MATERNAL/ EVALUATION UNIT [facility] [facility] [place] [address] Vanessa Lara MD [address] [place] [address] Concerns Social History Tobacco Use Types Packs/Day Years [...] No 02/19/2014 documented as of this encounter Miscellaneous Notes * Telephone Encounter - Otilia Gan RN - 04/26/2014 7:56 AM CDT 04/26/14 Received a call from Ms Monzon with concerns as to whether she is in early labor. Contractions started last evening, noted while in the car. Contractions continued throughout the evening accompanied by diarrhea. Denies LOF, Vag bleeding. Appreciates activity and contractions this am. Also w/ periods of vomitting, only able to keep sips of Sprite down at this time.Pt on Lovenox, and antihypertensives and does not wish to take meds if labor is imminent. Pt advised that safest plan would be to have an evaluation in [facility] to determine whether labor or perhaps viral illness, dehydration. Pt is agreeable with this plan. documented in this encounter Plan of Treatment Not on file documented as of this encounter Visit Diagnoses Not on filedocumented in this encounter Care Teams Shrimp Peeling Machine Operator Relationship Specialty Start Date End Date Bowen Field MD PCP - General Internal Medicine 12/22/13 documented as of this encounter
--- OUTSIDE RECORDS SUMMARY | 2024-01-26 06:42 | XMS_ITS | Encounter Summary ---
Author Organization [facility] Health Address [facility] [place] [address] Care Team Providers Care Circus Laborer Name Role Phone Bowen Field MD Primary Care Provider Unavail able Reason for Visit * Reason Onset Date Comments Reschedule Appointment 05/16/2014 provider unavailable Encounter Details Date Type Department Care Team (Late st Contact Info) Description 05/16/2014 Telephone [facility] MATERNAL/ EVALUATION UNIT [address] [place] [address] Xenia Gomez, INSIDE ACCOUNT EXECUTIVE-ELECTRIC MOTORS SALESPERSON [address] [place] [address] Reschedule Appointment (provider unavailable) Social History Tobacco Use Types Packs/Day Years [...] or have serious hearing difficult y? No 05/09/2014 Is person blind or have serious difficulty seein g? No 05/09/2014 Does person have serious dif ficulty walking/climbing stairs? No 05/09/2014 Does person have difficulty dressing/bathing? No 05/09/2014 Does person have difficulty doing errands alone? No 05/09/2014 Cognitive Status Response Date of Assessm ent Does person have difficulty concentrating/remembering/making decisions? No 05/09/2014 documented as of this encounter Miscellaneous Notes * Telephone Encounter - Daja Jones - 05/16/2014 11:51 AM CDT I spoke with this patient and she wanted an appointment on the day her is off. We have her down for 05/21/2014 at 815am documented in this encounter Plan of Treatment Not on file documented as of this encounter Visit Diagnoses Not on filedocumented in this encounter Care Teams Circus Laborer Relationship Specialty Start Date End Date Bowen Field MD PCP - General Internal Medicine 12/22/13 documented as of this encounter
--- OUTSIDE RECORDS SUMMARY | 2024-01-26 06:42 | XMS_ITS | Encounter Summary ---
Author Organization [facility] Address [facility] [place] [address] Care Team Providers Care Fundraising Manager Name Role Phone Bowen Field MD Primary Care Provider Unavail able Reason for Visit * Reason Comments Rupture of Membranes * Auth/Cert - Closed Specialty Diagnoses / Procedures Referred By Contac t Referred To Contact Procedures SECTION Referral ID Status Reason Start Date Expiration Date Visits Re quested Visits Authorized [id number] Closed 1 1 Encounter Details Date Type Department Care Team (Latest Contact Info) Description 05/09/2014 8:35 AM CDT - 05/12/2014 4:52 PM CDT Hospital Encounter [facility] 6W MOTHER/BABY [address] [place] [address] Alberto Colindres MD [address] [place] [address] Obstetrics Discharge Disposition: Home or Self Care [...] Sign Reading Time Taken Comments Blood Pressure 150/90 05/12/2014 3:55 PM CDT Pulse 93 05/12/2014 3:55 PM CDT Temperature 36.4 ??C (97.6 ??F) 05/12/2014 9:40 AM CD T Respiratory Rate 20 05/12/2014 9:40 AM CDT Oxygen Saturation 100% 05/12/2014 12:00 AM CDT Inhaled Oxygen Concentration - - Weight 101.6 kg (224 lb) 05/09/2014 9:02 AM CDT Height 160 cm (5' 3 ) 05/09/2014 9:02 AM CDT Body Mass Index 39.68 05/09/2014 9:02 AM CDT documented in this encounter Functional [...] No 05/09/2014 documented as of this encounter Discharge Summaries * Yelitza Herrera MD - 05/28/2014 4:14 PM CDT combination presser Discharge Summary 05/28/2014, 4:15 PM Date of Admission: 05/09/2014 Date of Discharge: 05/12/2014 Admission Diagnosis: 38 y.o. at 38 weeks 3 days gestation with prior section, cHTN, AMA, Factor V Leiden and prothrombin mutation Discharge Diagnosis: s/p Section Service: Maternal Medicine Consults: HPI: Ama Monzon is a 38 y.o. at 38 weeks 3 days was admitted with Estimated Date of Delivery:05/20/14. Her Care was with [employer]. She presented for membrane rupture. was complicated by: Patient Active Problem List Diagnosis Date Noted ??? Prothrombin gene mutation 02/20/2014 Heterozygote for prothrombin gene mutation ??? Chronic Hypertension 02/19/2014 Patient has been [...] clots Heterozygote ??? Previous delivery affecting 12/23/2013 Hospital Course: Ms. Monzon presented on 05/09 with the complaint of ruptured membranes. She was found to be ruptured at 38w3d. She had had a prior delivery and she desired to have a repeat delivery. She had been on heparin for factor V leiden deficiency, and had taken it last the night before. Her blood pressure was stable on methyldopa. Delivery: For full details of delivery, please refer to operative note or delivery summary. Delivery Type: Section Estimated Blood Loss: 200 mL Anesthesia/Analgesia: spinal with duramorph Information for the patient's : Rosalie Monzon [[id number]] Date of 05/09/2014 Time of : 5:27 PM Sex: Female Weight: 3230 g (7 lb 1.9 oz) (1 min): 8 (5 min): 9 (10 min): Course: Her course was uncomplicated except for asymptomatic anemia. Patient is breast feeding. She desires natural family planning for contraception. Results: No results for input(s): ABORH in the last 43140 hours. Recent Labs Component Name 05/10/14 0521 05/09/14 1217 04/30/14 0926 WBC 15.9* 11.4* 11.2* HGB 9.9* 10.9* 11.3* HCT 28.3* 31.4* 32.4* PLTCOUNT 189 256 248 Discharge Vitals: BP 150/90 Pulse 93 Temp(Src) 97.6 ??F Resp 20 Wt 224 lb (101.606 kg) BMI 39.69 kg/m2 Discharge Diagnosis: Term delivery. Dispostion: Home on day # 3. Followup: with high risk [facility]. Continue these medications at home: Discharge Medication List As of 05/14/2014 5:52 AM START taking these medications Instructions Authorizing Provider docusate sodium 100 MG capsule Commonly known as: COLACE Take 1 Cap by mouth 2 times daily. Yelitza Abramsanchi ibuprofen 600 MG tablet Commonly known as: MOTRIN Take 1 Tab by mouth every 6 hours as needed. Indications: Inflammation Yelitza Gannoni iron polysaccharides 150 MG capsule Commonly known as: NIFEREX 150 Take 1 Cap by mouth once daily. Yelitza Abramsanchi oxyCODONE-acetaminophen 5-325 MG tablet Commonly known as: PERCOCET Take 1-2 Tabs by mouth every 4 hours as needed. Yelitza Abramsanchi sertraline 50 MG tablet Commonly known as: ZOLOFT Take 1 Tab by mouth once daily. Yolis Padilla CHANGE how you take these medications Instructions Authorizing Provider * LOVENOX SC What changed: Another medication with the same name was added. Make sure you understand how and when to take each. Inject 40 mg subcutaneously once daily. * enoxaparin injection What changed: You were already taking a medication with the same name, and this prescription was added. Make sure you understand how and when to take each. Commonly known as: LOVENOX Inject 40 mg subcutaneously once daily. Continue for at least six weeks Yelitza Gannoni * methyldopa 250 MG tablet What changed: Another medication with the same name was added. Make sure you understand how and when to take each. Commonly known as: ALDOMET Take 500 mg by mouth 2 times daily. Indications: High Blood Pressure * methyldopa 500 MG tablet What changed: You were already taking a medication with the same name, and this prescription was added. Make sure you understand how and when to take each. Commonly known as: ALDOMET Take 1 Tab by mouth 2 times daily. Indications: High Blood Pressure Yelitza Herrera * Notice: This list has 4 medication(s) that are the same as other medications prescribed for you. Read the directions carefully, and ask your doctor or other care provider to review them with you. CONTINUE taking these medications Instructions Authorizing Provider Alcohol Swabs 70 % Pads Use 1 Applicator 2 times daily. Vanessa Lara heparin [id number] UNIT/ML injection Inject 1 mL subcutaneously 2 times daily. Vanessa Lara lansoprazole 15 MG capsule Commonly known as: PREVACID Take 15 mg by mouth daily before breakfast. Indications: Gastroesophageal Reflux Disease vitamin 28-0.8 MG tablet Take 1 Tab by mouth once daily. Indications: support hose knee high closed toe support hose Commonly known as: TEDS Apply 1 Each to affected area as directed. Vanessa Lara Discharge Instructions: Discharge Procedure Orders Why you were hospitalized Order Specific Question Answer Comments Your discharge diagnosis is delivery delivered [[id number]] No special diet needed Resume your normal home diet as tolerated. Eat well-balanced meals that include foods from all of the food groups. Drink plenty of fluids It is important that you stay well hydrated. You should drink at least eight to ten 8-ounce glassesof water per day. Nothing per vagina For six week(s) Light activity For 6 week(s) Do not drive For 2 week(s) and while taking percocet No heavy lifting Do not lift anything over 10 pounds For 6 week(s). Do not carry anything up the stairs, just yourself. Contact your provider Call your Asbestos Removal Worker if you have questions or concerns, or for any of the following issues: -- for a temperature higher than 100.4 F -- for pain that gets worse or does not get better after taking your pain medication(s) as directed -- if you see a lot of bleeding from your incision -- if your incision looks infected (red, swollen, warm to the touch, or non- clear, foul-smelling drainage) -- if you have severe cramping or increased vaginal bleeding Shower and bathing instructions May shower now. May bathe 2 weeks from today. Follow up with provider Order Specific Question Answer Comments Follow Up Instructions: follow up with [facility] in one week and again in six weeks Yelitza Herrera MD 05/28/2014 4:15 PM documented in this encounter Discharge Instructions * Discharge Instructions* Arlette Armstrong RN - 05/12/2014 2:47 PM CDT DELIVERED MOTHER DISCHARGE INSTRUCTIONS Refer to the Booklet given during your stay for more information. Please contact your commercial airplane pilot for the followin. Any burning or itching when urinating. . 2. Any significant increase or change in color or odor of vaginal discharge and/or any pus drainingfrom your abdominal incision (). 3. Any significant increase in pain, tenderness, or redness in your abdominal incision (). 4. Any increased vaginal bleeding that may contain clots. 5. Temperature greater than 101 degrees or as instructed by your care provider. 6. Any pus or blood draining from nipples. Remember to collect all your belongings kept at the bedside, for example: your cell phone and cell phone freight booker. PLEASE REMEMBER: 1. Always place your on his/her back to sleep. 2. Always use a car safety seat when transporting your child. documented in this encounter Medications at Time [...] 40 mg subcutaneously once daily. 05/24/2015 heparin [id number] UNIT/ML injection Inject 1 mL subcutaneously 2 [...] of this encounter Progress Notes * Arlette Armstrong RN - 05/12/2014 4:22 PM CDT Vss, afebrile, pain well controlled. Pt verbalized understanding of all meds, dc instructions and follow up appointments. * Yolis Padilla MD - 05/12/2014 2:23 PM CDT TC from 6W nurse with concerns re mother. Weepy, tearful frequently today. Having issues with infant latching and flat nipples which automotive service consultant has tried to address. Requested that I come talk to patient about above issues. Met with patient and . Patient sitting up eating. Normal affect and behavior, mildly tearfulwhen discussing issues but able to control easily. Reports does have h/o anxiety/situational depression following divorce in grad school. 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 Did have some mild depression after 8 year old born. Was and in NICU for 1 week, had /latching issues with him also and breastfed from [place] August then. She does report that she feels weepy, emotional now. Unsure how much related to fatigue, milk coming in/engorgement, etc but is open to trial of SSRI. Patient was paying self-pay for care with Dr. Gabriel and is hoping to f/u with her but has not arranged or checked with her yet. Lengthy discussion re issues. Patient has been resistant to using the nipple martinez.Advised that if latching not going well, will be worse as she gets more engorged. May need to use hand pump, then electric pump once able to obtain after the hol. May also need to use formula-filled syringes. seems supportive and helpful. Advised adequate resting/not overdoing it once home. Agree tocall or come in if struggling emotionally. Patient agreeable. Aware I will call her Wednesday 05/17 to checkin and see about f/u plans. Yolis Padilla MD * Yelitza Herrera MD - 05/12/2014 7:50 AM CDT R1 OB Post- Note Subjective: No acute events overnight. Patient is doing well. Pain controlled. Lochia is small amount. She reports taking full diet without nausea or vomiting. She denies headache, fever, chest pain, shortness of breath, and leg pain. She has ambulated and denies lightheadedness. Frias is absent, patient is voiding without difficulty. She is breast feeding. Objective: Temp (36hrs) Max:98.4 ??F Vitals: 05/11/14 0825 05/11/14 1600 05/11/14 2050 05/12/14 0000 BP: 134/90 125/80 135/90 133/93 Pulse: 97 90 94 Temp: 98.1 ??F 98.4 ??F 98 ??F Resp: 18 18 18 Weight: SpO2: 98% 100% No intake or output data in the 24 hours ending 05/12/14 0750 No data found. PE: General: alert, cooperative in no acute distress Lungs: Clear to auscultation bilaterally Heart: regular rate and rhythm Abdomen: Soft/ appropriately tender; fundus firm below umbilicus Incision: clean/dry/intact Extremities: no calf tenderness Data: Recent Labs Component Name 05/10/14 0521 05/09/14 1217 04/30/14 0926 WBC 15.9* 11.4* 11.2* HGB 9.9* 10.9* 11.3* HCT 28.3* 31.4* 32.4* PLTCOUNT 189 256 248 Assessment/Plan: 38 y.o. , s/p without labor, PPD# 3 1. Problems: 1. None acute, is doing well. 2. FVL heterozygote, prothrombin heterozygote: lovenox for ppx, continue until 6 wks PP. No hx of blood clots 3. cHTN: BPs wnl, continue aldomet 2. AFVSS 3. : voiding spontaneously 4. GI: hai reg diet 5. Br/Nomi/Contraception: The patient is breast feeding and desires NFP for contraception. 6. Hematologic-9.9 Asymptomatic anemia, cont iron supplementation 7. A+/I/-/-. HIV NR 8. Baby girl doing well. 9. Anticipate discharge today Yelitza Herrera MD 05/12/2014 7:50 AM Associated attestation - Alberto Colindres MD - 05/12/2014 9:07 AM CDT MFM Attending I have seen, evaluated and examined the patient. I agree with the above assessment, exams and plans. Exam: BP 133/93 Pulse 94 Temp(Src) 98 ??F Resp 18 Wt 224 lb (101.606 kg) BMI 39.69 kg/m2 Gen - NAD Abd - NT Ext - NT, no edema I have the following to add to the plan: concur with above. Stable for DC home. Cont lovenox as above, pt understands Reviewed DC and F/U instructions. Alberto Colindres MD [facility] * Richelle Blancas RN - 05/12/2014 5:47 AM CDT Shift summary: VSS. Pain controlled with motrin and percocet. Up ad khurram. Walks halls. Voiding without difficulty. Incision WDL. Breast feeding independently, encouraged to call for assistance as needed. Bonding well with baby. Richelle Blancas RN 05/12/2014 5:47 AM * Roxi Mendes MD - 05/11/2014 4:01 PM CDT R2 OB Post- Note 05/11/2014, 4:01 PM Subjective: No acute events overnight. Patient is doing well. Pain controlled. Lochia is small amount. She reports taking regular diet without nausea or vomiting. She denies headache, fever, chest pain, shortness of breath, and leg pain. She has ambulated and denies lightheadedness. Frias isabsent, patient is voiding without difficulty. She is breast feeding. Objective: Temp (36hrs) Max:98.1 ??F Vitals: 05/10/14 2100 05/11/14 0020 05/11/14 0400 05/11/14 0825 BP: 123/67 115/78 112/76 134/90 Pulse: 108 103 97 Temp: 98 ??F 97.9 ??F 98 ??F 98.1 ??F Resp: 18 18 16 18 Weight: SpO2: 98% Intake/Output Summary (Last 24 hours) at 05/11/14 1601 Last data filed at 05/11/14 0729 Gross per 24 hour Intake 780 ml Output 2000 ml Net -1220 ml No data found. PE: General: alert, cooperative in no acute distress Lungs: Clear to auscultation bilaterally Heart: regular rate and rhythm Abdomen:BS+/ Soft/ appropriately tender; fundus firm below umbilicus, Incision: clean/dry/intact Extremities: no calf tenderness Data: Recent Labs Component Name 05/10/14 0521 05/09/14 1217 04/30/14 0926 WBC 15.9* 11.4* 11.2* HGB 9.9* 10.9* 11.3* HCT 28.3* 31.4* 32.4* PLTCOUNT 189 256 248 Assessment/Plan: 38 y.o.yo , s/p repeat section for SROM, PPD# 1 1. Problems 1. Prothrombin heterozygote 2. FVL heterozygote 1. No PHx of clots, but strong FHx 2. Started on heparin 10,000U BID 04/26-now on lovenox 40 daily 3. cHTN 1. BPs 110-130s/70-90s 2. Asymptomatic 3. Cont methyldopa 500 BID (held overnight) 4. Anxiety-stable, no issues. S/p zoloft 2. AFVSS 3. : Urinary output is adequate. 4. GI: hai CL diet, positive flatus. 5. Br/Nomi/Contraception: The patient is breast feeding and desires nothing for contraception. 6. Hematologic-9.9 Asymptomatic anemia. 7. A+/I/-/-. HIV NR 8. Baby girl doing well. 9. Anticipate discharge POD#3-4. CPM Roxi Mendes MD 05/11/2014 4:01 PM * Minnie Freeman RN - 05/10/2014 10:16 PM CDT Problem: Potential for Infection Goal: Infection of urinary catheter avoided. Outcome: Goal Met Date Met: 05/10/14 * Otilia Gan RN - 05/10/2014 10:34 AM CDT 05/10/14 Spoke w/Dr Gabriel's office with an update on Ms Monzon whose care had been transferred to [facility]. Pt underwent a repeat c.section on 05/09/14 after SROM. Baby Girl weighed 3230 gm,s with 's of 8/9 and is residing in the Nursery @ [facility]. VSS, BP wnl therefore aldomet is currently being held. Continue present management. Will forward records at the time of discharge. * Seema Ma RN - 05/10/2014 7:29 AM CDT Vss. Blood pressures on the lower side, aldomet held per orders. Patient has been up to dangle. Frias/pericare complete. Frias draining bartolome colored urine. Lochia small, no clots. Passed flatus. D51/2ns infusing. Pain controlled with toradol and morphine. Breast feeding . * Roxi Mendes MD - 05/10/2014 6:13 AM CDT R2 OB Post- Note 05/10/2014, 6:13 AM Subjective: No acute events overnight. Patient is doing well. Pain controlled. Lochia is small amount. She reports taking liquids without nausea or vomiting. She denies headache, fever, chest pain, shortness of breath, and leg pain. She has not yet ambulated and denies lightheadedness. Firas is present, patient is voiding without difficulty. She is breast feeding. Objective: Temp (36hrs) Max:98.1 ??F Vitals: 05/09/14 2019 05/09/14 2040 05/09/14 2150 05/10/14 0130 BP: 121/80 118/78 117/79 Pulse: 92 91 90 92 Temp: 97.3 ??F 97.1 ??F 98.1 ??F Resp: 14 20 20 20 Weight: SpO2: 96% Intake/Output Summary (Last 24 hours) at 05/10/14 0613 Last data filed at 05/10/14 0440 Gross per 24 hour Intake 2174.54 ml Output 1150 ml Net 1024.54 ml No data found. PE: General: alert, cooperative in no acute distress Lungs: Clear to auscultation bilaterally Heart: regular rate and rhythm Abdomen:BS+/ Soft/ appropriately tender; fundus firm below umbilicus, Incision: clean/dry/intact Extremities: no calf tenderness Data: Recent Labs Component Name 05/10/14 0521 05/09/14 1217 04/30/14 0926 WBC 15.9* 11.4* 11.2* HGB 9.9* 10.9* 11.3* HCT 28.3* 31.4* 32.4* PLTCOUNT 189 256 248 Assessment/Plan: 38 y.o.yo , s/p repeat section for SROM, PPD# 1 1. Problems 1. Prothrombin heterozygote 2. FVL heterozygote 1. No PHx of clots, but strong FHx 2. Started on heparin 10,000U BID 04/26-now on lovenox 40 daily 3. cHTN 1. BPs 90-120s/50-80s 2. Asymptomatic 3. Cont methyldopa 500 BID (held overnight) 4. Anxiety-stable, no issues. S/p zoloft 2. AFVSS 3. : Urinary output is adequate. 4. GI: hai CL diet, positive flatus. 5. Br/Nomi/Contraception: The patient is breast feeding and desires nothing for contraception. 6. Hematologic-9.9 Asymptomatic anemia. 7. A+/I/-/-. HIV NR 8. Baby girl doing well. 9. Anticipate discharge POD#3-4. CPM Roxi Mendes MD 05/10/2014 6:13 AM Associated attestation - Alberto Colindres MD - 05/10/2014 6:36 PM CDT MFM I have reviewed Ama Noe Monzon with Dr. Mendes. I agree with the above assessment, findings, and plans. I have the following additions: No additions Alberto Colindres MD * Cristina Gutierrez RN - 05/09/2014 8:47 PM CDT Patient transferred via bed to 635 s/p c/s with delivery of a viable baby girl at 1727. Patient resting, at bedside. VSS, afebrile. Fundus firm at U-1, lochia moderate. Dressing clean, dry and intact. Frias draining clear yellow urine. Patient tolerating ice chips. Medications per MAR. Report given to Eric Ma RN, all questions answered, care relinquished at this time. * Saima Giraldo RN - 05/09/2014 6:29 PM CDT Problem: Recovery Phase Goal: Tolerates PO fluids Outcome: Ongoing Ama will try ice chips in recovery and will continue to advance her diet as tolerated. Discussed the need for anitemetics as needed Goal: Incision with dressing intact, dry and without oozing/bleeding Outcome: Ongoing Discussed the importance of frequent fundal and dressing checks during the first hours . Ama reports her pain level is adequate at this time documented in this encounter H&P Notes * Dot Nicholas MD - 05/09/2014 10:20 AM CDT PGY-1 Obstetric H&P CC: Leakage of fluid HPI: 38 y.o. at 38w3d weeks gestation. Dating by:by Last Menstrual Period and confirmatory scan at 27 weeks.. Ultrasound confirmed Estimated Date of Delivery: 05/20/14 care: is with. high risk [facility] Patient's is complicated by: Patient Active [...] clots Heterozygote ??? Previous delivery affecting 12/23/2013 Currently, patient presents with leakage of fluid at 6:30 am this morning. positive Ctx. positive LOF. negative VB. Movement positive. Review of Symptoms: No SHAIKH/vision change/RUQ pain No SOB/CP/CT No nausea/ vomitting/ [...] Gynecologic History: Abnormal pap smears: No Cervical procedures no STDs: No Denies history of gonorrhea, chlamydia, trichomonas, herpes, [...] Anxiety 02/19/2014 ??? Prothrombin gene mutation 02/20/2014 ??? Clotting disorder ??? History of hypertension ??? History of UTI Psych History: Denies Surgeries: Past Surgical History Procedure [facility] Date ?[facility]: Prior to Admission medications Medication Sig Start Date End Date Taking? Authorizing Provider heparin [id number] UNIT/ML injection Inject 1 mL subcutaneously 2 times daily. 04/23/14 Yes Vanessa Lara MD Vit-Fe Fumarate-FA ( VITAMIN) 28-0.8 MG tablet Take 1 Tab by mouth once daily. Indications: Yes Historical Provider, lansoprazole (PREVACID) 15 MG capsule Take 15 mg by mouth daily before breakfast. Indications: Gastroesophageal Reflux Disease Yes Historical Provider, methyldopa (ALDOMET) 250 MG tablet Take 500 mg by mouth 2 times daily. Indications: High Blood Pressure Yes Historical Provider, Alcohol Swabs 70 % PADS Use 1 Applicator 2 times daily. 04/23/14 Vanessa Lara MD support hose knee high closed toe (TEDS) support hose Apply 1 Each to affected area as directed. 04/16/14 Vanessa Lara MD Enoxaparin Sodium (LOVENOX SC) Inject 40 mg subcutaneously once daily. Historical Provider, Allergies: Allergies Allergen Reactions ??? [...] history of breast, ovarian, or uterine cancer Objective: Vitals: 05/09/14 0846 05/09/14 0856 05/09/14 0902 BP: 130/89 130/89 Pulse: 102 Temp: 98.1 ??F Resp: 18 18 Weight: 224 lb (101.606 kg) 224 lb (101.606 kg) non-stress test (tan): baseline rate 135, deceleration none, reactive, reassuring [place]: irregular contractions Physical Exam: General: alert, cooperative, no distress Lungs: clear to auscultation bilaterally Heart: regular rate and rhythm Abdomen: Gravid. soft without mass, non-tender, with normal bowel sounds Female Genitalia: external genitalia and intoitus normal; vagina and cervix normal by visualization Extremities: normal, non-tender bilaterally. Edema absent Leopolds: # Sterile speculum exam: Exam for ROM: Pooling: negative, Nitrizine: positive, Fern: negative Cervical Exam 0.5/0/-3 Pelvimetry: Diagonal conjugate reached: No Ischial Spines prominent: No Suprapubic arch, narrow: NoPelvic sidewalls divergent: Yes Gynecoid pelvis: Yes Bedside ultrasound: Presentation: vertex Placenta: anterior Amniotic fluid index 12.69, Current Lab Rewiew: Results for orders placed during the hospital encounter of 05/09/14 GLUCOSE PROTEIN KETONE URINE - POINT OF CAR Result Value Ref Range Glucose UA neg Negative Protein UA neg Negative Ketone UA neg Negative QC Verified Yes Yes labs reviewed Blood type: A+ Rh status: Positive Ab screen:Negative Rubella: immune Hep B surface antigen:Negative RPR: Negative HIV:Negative GCT: 102 GBS: Positive Assessment/Plan: 38 y.o. @ 38w3d 1. SROM 1. At 6:30 AM 2. Prior Delivery 1. Patient desires repeat 2. Will admit to L&D for repeat section The section has been fully reviewed with the patient/family and written informed consent has been obtained. Risks including, but not limited to, hemorrhage, need for blood transfusion (and its inherent risks of acquiring HIV, Hep B/C, CMV and other infections), failure of the procedure, infection, injury to surrounding structures(bowel/bladder/ureters), risk of injury to pt/fetus have been explained. The patient wishes to proceed. All questions were answered. 3. Factor V Leiden Deficiency 1. Last took heparin at 10:30 last night 2. Will resume lovenox after delivery 4. Hypertension 1. On methyldopa 2. Pressures currently stable 5. FWB reassuring 6. Dispo Admit to L&D for repeat delivery Discussed with Dr. Dave Nicholas MD 05/09/2014 10:21 AM Associated attestation - Alyx Acosta MD - 05/09/2014 2:18 PM CDT R3 Obstetric H&P 05/09/2014, 2:13 PM I have discussed this patient's case with Dr. Nicholas. Please see her note for details. CC: my water broke HPI: 38 y.o. at 38w3d weeks gestation. Presents for SROM this morning at approximately 0630. Occasional contractions, no change from her baseline; no VB and normal FM. Dating by: LMP=27w Estimated Date of Delivery: 05/20/14 care: is with high risk [facility] Patient's is complicated by: Patient Active [...] clots Heterozygote ??? Previous delivery affecting 12/23/2013 Obstetrical History: OB History Para Term AB [...] history of abnormal pap smears Cervical procedures: no STIs: denies history of chlamydia/gonorrhea/trichomonas/HSV/HIV/syphilis/hepatitis Medical History: Past Medical History Diagnosis Date [...] Anxiety 02/19/2014 ??? Prothrombin gene mutation 02/20/2014 ??? Clotting disorder ??? History of hypertension ??? History of UTI She denies history of diabetes, asthma or bleeding disorders. Surgeries: Past Surgical History Procedure Laterality Date ??? section 2007 At 34 weeks, [place]' Current Medications: No current facility-administered medications for this encounter. Home Meds: heparin last 2229; methyldopa Allergies: Allergies Allergen Reactions ??? Sulfa Drugs [...] a thyroidectomy ??? Thyroid Disease Paternal Aunt Review of Symptoms: Denies fevers/chills/nausea/vomiting/diarrhea Denies SOB/CP/calf tenderness Denies SHAIKH/vision changes/RUQ pain Denies dysuria/hematuria/urgency Objective: Vitals: 05/09/14 0846 05/09/14 0856 05/09/14 0902 BP: 130/89 130/89 Pulse: 102 Temp: 98.1 ??F Resp: 18 18 Weight: 224 lb (101.606 kg) 224 lb (101.606 kg) FHT: 130 bpm, mod, reactive, no decels TOCO: irregular Physical Exam: General: alert, cooperative, no distress Lungs: clear to auscultation bilaterally Heart: regular rate and rhythm Abdomen: Gravid, NT, +BS, Deng's: 7#4oz Extremities: normal, non-tender bilaterally. Edema trace Current Lab Review: Results for orders placed during the hospital encounter of 05/09/14 AMNISURE Result Value Ref Range Amnisure (PAMG-1) Positive (*) Negative CBC W AUTO DIFFERENTIAL Result Value Ref Range WBC 11.4 (*) 4.4-10.7 x10^9/L RBC 3.98 3.80-5.20 x10^12/L Hgb 10.9 (*) 12.0-15.6 gm/dL HCT 31.4 (*) 35.9-45.5 % MCV 78.9 (*) 80.7-98.3 fl MCH 27.4 26.7-34.0 pg MCHC 34.7 30.8-35.9 gm/dL Plt Ct 256 153-416 x10^9/L RDW-CV 13.3 12.1-14.9 % MPV 9.6 9.4-12.9 fl Neutro 73.9 (*) 44.0-73.0 % Lymph 15.2 (*) 20.0-43.0 % Clarke 6.7 5.0-13.0 % Eos 1.5 0.0-6.0 % Baso 0.4 0.0-2.0 % Immature Grans 2.3 (*) 0-1 % Neutro Abs 8.42 (*) 2.01-7.14 x10^9/L Lymph Abs 1.73 1.07-3.94 x10^9/L Clarke Abs 0.76 0.26-1.07 x10^9/L Eosin Abs 0.17 0-0.47 x10^9/L Baso Abs 0.04 0-0.08 x10^9/L Immature Grans Abs 0.26 (*) 0.00-0.06 x10^9/L GLUCOSE PROTEIN KETONE URINE - POINT OF CAR Result Value Ref Range Glucose UA neg Negative Protein UA neg Negative Ketone UA neg Negative QC Verified Yes Yes TYPE + SCREEN PANEL Result Value Ref Range ABO Patient Type A Rh Patient Type Positive Antibody Screen Negative Blood type: A+ Rh status: Positive Ab screen:Negative Rubella: immune Hep B surface antigen:Negative RPR: Negative HIV:Negative GCT: 102 GBS: Positive Assessment/Plan: 38 y.o. @ 38w3d 1. SROM 1. At 6:30 AM 2. Prior Delivery 1. Patient desires repeat 2. Will admit to L&D for repeat section 2. Consented on admission 3. Factor V Leiden Deficiency 1. Last took heparin at 10:30 last night 2. Will resume lovenox after delivery 3. Per chart review also prothrombin gene heterozygote however patient denies this 4. No personal history of blood clot 4. Hypertension 1. On methyldopa 2. Pressures currently stable 5. AMA - NIPT no increased risk, normal anatomy scan 6. H/o pre-eclampsia in G1 delivered 34 weeks by after placental abruption 1. BPs stable currently without symptoms 7. FWB reassuring 8. Dispo: admit to L&D for repeat delivery Discussed with Dr. Jens Acosta MD 05/09/2014 2:13 PM documented in this encounter Nursing Notes * Yuliana Woodruff RN - 05/12/2014 3:36 PM CDT Ama has continued to exclusively breastmilk feed baby, but has had trouble getting her to latch today. States she has been expressing colostrum and putting in baby's mouth. She is tearful about thedifficulty she is having with the . Reassured her that she has done everything right, and has put in maximum effort at the . Discussed options of pumping to establish her supply, as she did with her last child. She no longer has a breastpump at home, but knows she can get one from her WIC office on Wednesday. Informed her that she may be able to get a personal breastpump through her insurance. She will look into this option. Gave her a manual breastpump to use until she can get an electric one. Reviewed how to establish a milk supply with a breastpump, and the importance of pumping at least 8 times every 24 hours, including at least one time at night. Also discussed continuing to attempt . Gave her breast shells to wear in her bra, to help displace edema and pull nipples out. Discussed using the manual pump to help laurie her nipples just before a feeding, and encouraged to use nipple shield if needed. Discussed that her milk volume will be increasing soon, and baby may respond to the flow by nursing more effectively once latched. Gave her a diaperdiary and reviewed expected/necessary feeding frequency and duration, as well as expected/necessaryurine and stool output from baby in the first week. She verbalizes understanding of all and denies any further questions. She has phone number for office to call for questionsor assistance as needed. Yuliana Woodruff RN, MSN, IBCLC * Ryan Borrego RN - 05/11/2014 4:06 PM CDT Consult. Ama has improved with latching baby over night. Her breasts are heavy/large and nipples are short and right side is flat. . Her left side is easier for him to grasp, and I did observe him feeding well after about 10 minutes of trying-swallows noted. I set her up with a pump to use on her right nipple for a few minutes before latching. Encouraged to put a bra on for the edema in her breast. Has my number to call for assistance. Ryan Borrego RN, IBCLC * Yuilana Woodruff RN - 05/10/2014 3:45 PM CDT This is Ama's second baby. Her first was born early and started out in NICU. She pumped milk for him but never breastfed. She states this baby has been latching on, but now she is having difficulty. She has large breasts with flat nipples, and inelastic areola. During my visit baby was rooting vigorously, but was not able to maintain a latch. Digital suck assessment reveals baby keeping tongue humped in back and frequently thrusting tongue forward, but not extending beyond the bottom gum line. We tried both medium and small nipple shield, but baby was not able to draw either deeply enough in her mouth to maintain a latch. Attempted some suck training, but baby just gagged. After nearly thirty minutes, we stopped due to baby's frustration. Encouraged mom to hold her skin to skin and willtry again later. Yuliana Woodruff RN, MSN, IBCLC documented in this encounter OR Notes * Operative - Roxi Mendes MD - 05/09/2014 6:06 PM CDT 05/09/2014 6:06 PM Section Procedure Note Indications: spontaneous rupture of membranes with a history of previous section Pre-operative Diagnosis: intrauterine at 38w3d, chronic hypertension, GBSuria, prothrombin gene mutation, Factor V Leiden mutation, advanced maternal age, anxiety, previous section Post-operative Diagnosis: same Procedure: repeat low transverse section Surgeon: Dr. Stephan Harris Assistants: Alyx Acosta MD and Roxi Mendes MD Anesthesia: Spinal with Duramorph Complications:none Findings: Information for the patient's : Roderick Monzon Girl Ama [[id number]] Date of 05/09/2014 Time of : 5:27 PM Sex: Female Weight: 3230 g (7 lb 1.9 oz) (1 min): 8 (5 min): 9 (10 min): Normal appearing gravid uterus, tubes and ovaries. No significant adhesive disease Estimated Blood Loss: 200mls Drains: Frias catheter Total IV Fluids: 1000mls UOP: 150mls Ancef 2g IV given prior to procedure. Procedure: The patient was taken to the operating room after informed consent was given. heart tones were doppled prior to the procedure. The patient was identified as Ama Monzon and the procedure verified as Delivery. A Time Out was held and the above information confirmed. After induction of spinal anesthesia, the patient was prepped and draped in the usual sterile manner. Adequacy of anesthesia was confirmed. A Pfannenstiel incision was made and carried down through the subcutaneous tissue to the fascia. Fascial incision was made and extended transversely with the Sutherland scissors. Kochers were used to grasp the anterior aspect of the incision which was tented upwardand the underlying rectus muscles dissected off sharply. Attention was then turned to the inferior aspect of the incision which in a similar fashion was tented upward and the underlying rectus muscles dissected off sharply. Midline of the rectus muscles were identified and the peritoneum entered bluntly and the muscles laterally manually. The peritoneum was identified and entered. Peritoneal incision was extended longitudinally. The bladder blade was inserted and the lower uterine segment identified. Peon clamp used to grasp the vesicouterine peritoneum which was incised with Metzembaum scissors and the bladder flap bluntly freed from the lower uterine segment. Bladder blade was then reinserted. A low transverse uterine incision was made. A 3230 gram delivered from a vertex presentation with scores of 8 at one minute and 9 at five minutes. After the umbilical cordwas clamped and cut cord blood was obtained for evaluation. The placenta was removed intact and appe ared normal. The uterus was exteriorized and cleaned of all clots and debris. The uterine outline, tubes and ovaries appeared normal. The uterine incision was closed with running locked sutures of 0-monocryl. The uterus was internalized. Hemostasis was observed. The fascia was then reapproximated with running sutures of looped 0-PDS. The subcutaneous layer was closed with 2-0 plain gut. Irrigation performed. The skin was reapproximated with 4-0 vicryl on a Dimas. Instrument, sponge, and needle counts were correct prior the abdominal closure and at the conclusion of the case. The patient's fundus was expressed of remaining clots after the procedure. Patient was taken to the recovery room in a stable condition. Roxi Mendes MD 05/09/2014 6:06 PM Associated attestation - Stephan Harris MD - 05/09/2014 9:57 PM CDT I was present and scrubbed for the entire procedure. Stephan Harris MD 05/09/2014 9:57 PM documented in this encounter Miscellaneous Notes * Delivery Summary - Saima Giraldo RN - 05/09/2014 6:21 PM CDT Delivery Summary Post Delivery /Para: OB History Para Term AB TAB SAB Ectopic Multiple Living 2 2 1 1 0 0 0 0 1 2 Obstetric Comments G1- Pre-eclampsia with placental abruption, was on Magnesium No h/o STDs No abnormal paps Estimated Due Date: Estimated Date of Delivery: 05/20/14 Estimated Gestational Age: 38w3d Conditions: Hypertension Chronic Other (See History) GBS: Unknown Number of Antibiotic Doses: 1 Transcribed Labs: Blood Type (Manually Reproduced): A RH (Manually Reproduced): Positive Syphilis Serology (Manually Reproduced): Negative HIV (Manually Reproduced): Negative Hepatitis B Surface Antigen (Manually Reproduced): Negative Rubella Status ( Manually Reproduced): Immune Steroids Received: Delivery Data Mother: Labor Events Augmentation Method: None Induction Method: None Intrapartum Events Anesthesia/Analgesia: Spinal Labor Complications: None Prior Uterine Surgery: Time of Decision for C/S: Indications: Repeat Delivery Episiotomy: None Lacerations: None Repair Suture: None Estimated Blood Loss: Delivery Data: Information for the patient's : Roderick Monzon [[id number]] Estimated Gestational Age: Gestational Age: 38w3d Delivery Details Date of 05/09/2014 Time of : 5:27 PM Delivery Type: , Repeat Delivering Clinician: STEPHAN HARRIS Presentation Delivery Presentation: Vertex Membranes Membrane Status: Spontaneous Rupture Date: 05/09/2014 Rupture Time: 6:30 AM Fluid Description: Clear Placenta Data Placenta Delivery Date and Time: 05/09/2014 5:26 PM Placenta Appearance/Removal: Intact Sent to Pathology Cord Data Cord Vessels: 3 Vessels Cord Complications: Nuchal x1 Cord Blood Disposition: Discard Gases Sent: Yes Venous Arterial Stabilization Suction Method: Bulb Suction Trap Secretions: Airway Support: Intubation: Tube Size Performed by: Placement Validated by: , Tube Secured by: Tube Secured at: Number of Attempts: Tolerance: Thermoregulation Support: Cap Overhead Warmer More Interventions Needed: No Description of Baby: Assessment (1 min): 8 (5 min): 9 Delivery Outcome Living: Yes Labor? Steroids Given: Sex: Female Measurements Weight: 3230 g (7 lb 1.9 oz) Length: 19.29 inches Head Circumference: 13.78 inches Mother's Initial Feeding Choice Human Milk [16] Present at Delivery: Pt's was present for delivery. documented in this encounter Plan of Treatment Scheduled Orders Name Type Priority Associated Diagnoses Orde r Schedule GLUCOSE PROTEIN KETONE URINE - POINT OF CAR Point of Care Testing Routine ONCE for 1 Occurrences starting 05/09/2014 until 05/09/2014 documented as of this encounter Procedures Procedure Name Priority Date/Time Associated Diagnosis Comments LAB RESULTS ORDER 05/15/2014 5:1 7 AM CDT IMAGING/RADIOLOGY/XRA Y RESULTS ORDER 05/14/2014 6:06 PM CDT CBC W AUTO DIFFERENTIAL AM Draw 05/10/2014 5:21 AM CDT SECTION (EMERGENCY) 05/09/2014 8:18 PM CDT PATHOLOGY TISSUE EXAM (STL) Routine 05/09/2014 5:38 PM CDT state, incidental [V22.2] BLOOD GASES CORD ROEL (ISTAT) Routine 05/09/2014 5:35 PM CDT BLOOD GASES CORD ART (ISTAT) Routine 05/09/2014 5:31 PM CDT PT PTT PANEL STAT 05/09/2014 2:53 PM CDT Factor V Leiden mutation complicating (HCC) TYPE + SCREEN PANEL STAT 05/09/2014 1 2:17 PM CDT CBC W AUTO DIFFERENTIAL STAT 05/09/2014 12:17 PM CDT Previous delivery affecting (HCC) AMNISURE STAT 05/09/2014 10:20 AM CDT Supervision of normal , third trimester GLUCOSE PROTEIN KETONE URINE - POINT OF CAR STAT 05/09/2014 8:40 AM CDT documented in this encounter Results * LAB RESULTS ORDER (05/15/2014 5:17 AM CDT) Narrative 05/15/2014 5:17 AM CDT Ordered by an unspecified provider. Scanned Document LAB - THERAPEUTIC DR LÓPEZ MONITORING ORDERABLES * IMAGING/RADIOLOGY/XRAY RESULTS ORDER (05/14/2014 6:06 PM CDT) Anatomical Region Laterality Modality Other Narrative 05/14/2014 6:06 PM CDT Ordered by an unspecified provider. Scanned Document IMAGING * (ABNORMAL) CBC W AUTO DIFFERENTIAL (05/10/2014 5:21 AM CDT) WBC 15.9(H) 4.4 - 10.7 x10^9/L 05/10/2014 5:[address] [facility] RBC 3.58(L) 3.80 - 5.20 x10^12/L 05/10/2014 5:[address] [facility] Hemoglobin 9.9(L) 12.0 - 15.6 gm/dL 05/10/2014 5:[address] [facility] Hematocrit 28.3(L) 35.9 - 45.5 % 05/10/2014 5:[address] [facility] MCV 79.1(L) 80.7 - 98.3 fl 05/10/2014 5:[address] [facility] MCH 27.7 26.7 - 34.0 pg 05/10/2014 5:[address] [facility] MCHC 35.0 30.8 - 35.9 gm/dL 05/10/2014 5:[address] [facility] Platelet Count 189 153 - 416 x10^9/L 05/10/2014 5:[address] [facility] RDW-CV 13.3 12.1 - 14.9 % 05/10/2014 5:[address] [facility] MPV 9.7 9.4 - 12.9 fl 05/10/2014 5:[address] [facility] Neutrophils % 84.4(H) 44.0 - 73.0 % 05/10/2014 5:[address] [facility] Lymphocytes % 7.2(L) 20.0 - 43.0 % 05/10/2014 5:[address] [facility] Monocytes % 6.4 5.0 - 13.0 % 05/10/2014 5:[address] [facility] Eosinophils % 1.0 0.0 - 6.0 % 05/10/2014 5:[address] [facility] Basophils % 0.1 0.0 - 2.0 % 05/10/2014 5:[address] [facility] Immature Granulocytes 0.9 0 - 1 % 05/10/2014 5:[address] [facility] Neutrophil Absolute 13.44(H) 2.01 - 7.14 x10^9/L 05/10/2014 5:[address] [facility] Lymphocytes Absolute 1.14 1.07 - 3.94 x10^9/L 05/10/2014 5:[address] [facility] Monocytes Absolute 1.02 0.26 - 1.07 x10^9/L 05/10/2014 5:[address] [facility] Eosinophils Absolute 0.16 0 - 0.47 x10^9/L 05/10/2014 5:[address] [facility] Basophils Absolute 0.02 0 - 0.08 x10^9/L 05/10/2014 5:[address] [facility] Immature Granulocytes Absolute 0.14(H) 0.00 - 0.06 x10^9/L 05/10/2014 5:[address] [facility] Blood BLOOD SPECIMEN / Unknown Lab Venipuncture / Unknown 05/10/2014 5:21 AM CDT 05/10/2014 5:40 AM CDT Alyx Acosta MD LAB - HEMATO LOGY ORDERABLES Performing Organization Address [facility]/State/[facility] Co de Phone Number [facility] [address] [place] [address] * GROSS + MICRO EXAM (STL) (05/09/2014 5:38 PM CDT) Case Report Surgical Pathology Report ? Case: [id number] ? Authorizing Provider: ??Stephan Harris MD ?Collected: ? 05/09/2014 05:38 PM ? Ordering Location: ? [facility] ? Received: ?05/10/2014 09:26 AM ? Pathologist: ? Laquita Breaux MD ? Specimen: ?Placenta ? 05/11/2014 3:53 PM CDT [facility] Final Diagnosis 1. ??Placenta: -- ??Third trimester placenta, 805 grams -- ??Three-vessel umbilical cord with no pathologic diagnosis -- ??Chorioamniotic membranes with no pathologic diagnosis MM/vr 05/11/2014 3:53 PM CDT [facility] Gross Description Received in formalin in a container labeled Ama Monzon, placenta. ??The container holds an 805 gram, 16.3 x 15.5 x 4.6 cm tan disc placenta with attached membranes and umbilical cord. The membranes rupture marginally and are green, semitransparent. ??The umbilical cord inserts eccentrically 5 cm from the placental disc margin and measures 16.5 cm in length and up to 1.5 cm in diameter. ??The umbilical cord contains three vessels. ??The surface is purple-green. The vessels arise in a normal pattern and are unremarkable. The maternal surface has well developed intact lobular cotyledons. Serial sections show red-brown parenchyma. There are no lesions or masses grossly identified. Dump Attendant sections are submitted as follows: A1 - Membranes and umbilical cord A2 - surface A3 - Maternal surface DYT/dak 05/11/2014 3:[address] [facility] Microscopic Description Sections of the placenta reveal a three-vessel umbilical cord with no evidence of funisitis or thrombosis. The chorioamniotic membranes reveal no acute inflammation. The chorionic villi are small, well vascularized and mature with no evidence of villitis or infarction. MM/vr 05/11/2014 3:[address] [facility] Pathology/Cytolo gy ENTIRE PLACENTA / Unknown 05/09/2014 5:38 PM CDT 05/10/2014 9:26 AM CDT Comment:[id number] Stephan Harris MD LAB - PATHOLOGY/CYT OLOGY ORDERABLES [facility] [address] [place] [address] * (ABNORMAL) BLOOD GASES CORD ROEL (ISTAT) (05/09/2014 5:35 PM CDT) pH Cord Venous POCT 7.25(L) 7.28 - 7.40 pH 05/10/2014 4:02 AM [facility] pCO2 Cord Venous POCT 57(H) 35 - 45 mmHg 05/10/2014 4:02 AM [facility] pO2 Cord Venous POCT 18(L) 22 - 33 mmHg 05/10/2014 4:02 AM [facility] HCO3 Cord Arterial POCT 25(H) 22 - 24 mmol/L 05/10/2014 4:02 AM [facility] BE Cord Venous POCT Calc -4 -6 - 2 mmol/L 05/10/2014 4:02 AM [facility] TCO2 Cord Venous POCT 27 22 - 30 mmol/L 05/10/2014 4:02 AM [facility] O2 Saturation % Cord Venous Calc POCT 20 % 05/10/2014 4:02 AM [facility] Site CORD ROEL 05/10/2014 4:02 AM [facility] Sample iSTAT CORD V 05/10/2014 4:02 AM [facility] Blood CORD BLOOD SPECIMEN / Unknown 05/09/2014 5:35 PM CDT 05/10/2014 4:02 AM CDT Alberto Colindres MD LAB - POINT OF CARE ORDERABLES Performing Organization Address [facility] Co de Phone Number [facility] [address] [place], [place] [id number] * (ABNORMAL) BLOOD GASES CORD ART (ISTAT) (05/09/2014 5:31 PM CDT) pH Cord Arterial POCT 7.20 7.20 - 7.34 pH 05/10/2014 4:[address] [facility] pCO2 Cord Arterial POCT 67.5(H) 45 - 55 mmHg 05/10/2014 4:[address] [facility] pO2 Cord Arterial POCT 9(L) 12 - 25 mmHg 05/10/2014 4:[address] [facility] HCO3 Cord Arterial POCT 26.6 15 - 29 mmol/L 05/10/2014 4:[address] [facility] BE Cord Arterial POCT -4(L) -2.9 - 8.3 mmol/L 05/10/2014 4:[address] [facility] TCO2 Cord Arterial POCT 29 mmol/L 05/10/2014 4:02 AM [facility] O2 Saturation Cord Art % Calc POCT 6 % 05/10/2014 4:[address] [facility] Site CORD ART 05/10/2014 4:[address] [facility] Sample iSTAT CORD A 05/10/2014 4:[address] [facility] Blood CORD BLOOD SPECIMEN / Unknown 05/09/2014 5:31 PM CDT 05/10/2014 4:02 AM CDT Alberto Colindres MD LAB - POINT OF CARE ORDERABLES [facility] [address] [place] [phone] * PT PTT PANEL (05/09/2014 2:53 PM CDT) PT 9.8 9.5 - 11.6 sec 05/09/2014 3:[address] [facility] INR 0.9 0.9 - 1.1 05/09/2014 3:[address] [facility] PTT 22.9 21.0 - 32.0 sec 05/09/2014 3:[address] [facility] Blood BLOOD SPECIMEN / Unknown Venipuncture / Unknown 05/09/2014 2:53 PM CDT 05/09/2014 3:[address] [facility] - 05/09/2014 3:36 PM CDT Conventional Warfarin Anticoagulant Therapy INR Reference Range: ??2.0-3.0 Intensive Warfarin Anticoagulant Therapy INR Reference Range: ? 2.5-3.5 Heparin Therapeutic Range for PTT: 44.4 - 78.3 seconds. Dot Nicholas MD LAB - COAGULATION OR DERABLES Performing Organization Address [facility] Co de Phone Number [facility] [address] [place] [address] * TYPE + SCREEN PANEL (05/09/2014 12:17 PM CDT) Pathologist [facility] ABO A 05/09/2014 1:[address] [facility] Rh Type Positive 05/09/2014 1:[address] [facility] Comment:History check perfor med. No retype required. Antibody Screen Negative 05/09/2014 1:[address] [facility] Miscellaneous samples (specimen) BLOOD SPECIMEN / Unknown Venipuncture / Unknown 05/09/2014 12:17 PM CDT 05/09/2014 12:23 PM CDT Dot Nicholas MD LAB - BLOOD BANK ORD ERABLES Performing Organization Address City/State/[facility] Co de Phone Number [facility] [address] [place] [address] * (ABNORMAL) CBC W AUTO DIFFERENTIAL (05/09/2014 12:17 PM CDT) Pathologist [facility] WBC 11.4(H) 4.4 - 10.7 x10^9/L 05/09/2014 12:[address] [facility] RBC 3.98 3.80 - 5.20 x10^12/L 05/09/2014 12:[address] [facility] Hemoglobin 10.9(L) 12.0 - 15.6 gm/dL 05/09/2014 12:38 PM [facility] Hematocrit 31.4(L) 35.9 - 45.5 % 05/09/2014 12:38 PM [facility] MCV 78.9(L) 80.7 - 98.3 fl 05/09/2014 12:38 PM [facility] MCH 27.4 26.7 - 34.0 pg 05/09/2014 12:38 PM [facility] MCHC 34.7 30.8 - 35.9 gm/dL 05/09/2014 12:38 PM [facility] Platelet Count 256 153 - 416 x10^9/L 05/09/2014 12:38 PM [facility] RDW-CV 13.3 12.1 - 14.9 % 05/09/2014 12:38 PM [facility] MPV 9.6 9.4 - 12.9 fl 05/09/2014 12:38 PM [facility] Neutrophils % 73.9(H) 44.0 - 73.0 % 05/09/2014 12:38 PM [facility] Lymphocytes % 15.2(L) 20.0 - 43.0 % 05/09/2014 12:38 PM [facility] Monocytes % 6.7 5.0 - 13.0 % 05/09/2014 12:38 PM [facility] LABORATORY Eosinophils % 1.5 0.0 - 6.0 % 05/09/2014 12:38 PM [facility] Basophils % 0.4 0.0 - 2.0 % 05/09/2014 12:38 PM [facility] Immature Granulocytes 2.3(H) 0 - 1 % 05/09/2014 12:38 PM [facility] Neutrophil Absolute 8.42(H) 2.01 - 7.14 x10^9/L 05/09/2014 12:38 PM [facility] Lymphocytes Absolute 1.73 1.07 - 3.94 x10^9/L 05/09/2014 12:38 PM [facility] Monocytes Absolute 0.76 0.26 - 1.07 x10^9/L 05/09/2014 12:38 PM [facility] Eosinophils Absolute 0.17 0 - 0.47 x10^9/L 05/09/2014 12:[address] [facility] Basophils Absolute 0.04 0 - 0.08 x10^9/L 05/09/2014 12:[address] [facility] Immature Granulocytes Absolute 0.26(H) 0.00 - 0.06 x10^9/L 05/09/2014 12:[address] [facility] Blood BLOOD SPECIMEN / Unknown Venipuncture / Unknown 05/09/2014 12:17 PM CDT 05/09/2014 12:23 PM CDT Dot Nicholas MD LAB - HEMATOLOGY ORD ERABLES Performing Organization Address [facility] de Phone Number [facility] [address] [place] [address] [phone] * (ABNORMAL) AMNISURE (05/09/2014 10:20 AM CDT) Amnisure (PAMG-1) Positive(A ) Negative 05/09/2014 10:[address] [facility] Amniotic fluid AMNIOTIC FLUID SPECIMEN / Unknown 05/09/2014 10:20 AM CDT 05/09/2014 10:[address] [facility] - 05/09/2014 10:37 AM CDT [...] the absence of membrane rupture. Ping Sams KNOCKOUT MACHINE OPERATOR-LACE WEAVER LAB - BODY FL UID ORDERABLES Performing Organization Address [facility] Co de Phone Number [facility] [address] [place] [phone] * GLUCOSE PROTEIN KETONE URINE - POINT OF CAR (05/09/2014 8:40 AM CDT) Glucose UA neg Negative [facility] Protein UA neg Negative [facility] Ketone UA neg Negative [facility] QC Verified Yes Yes [facility] POC T TESTING Urine specimen (specimen) URINE / Unknown 05/09/2014 8:40 AM CDT Dot Nicholas MD LAB - POINT OF CARE ORDERABLES [facility] [address] [phone] documented in this encounter Visit Diagnoses Diagnosis Supervision of normal , third trimester (HCC) Previous delivery affecting (HCC) Previous delivery, unspecified as to episode of care or not applicable Factor V Leiden mutation complicating (HCC) Other current maternal conditions classifiable elsewhere, complicating , childbirth, or the puerperium, unspecified as to episode of care state, incidental [V22.2] state, incidental documented in this encounter Administered Medications Inactive Administered Medications - up to 3 most recent administrations Medication Order MAR Action Action Date Dose Rate Site ceFAZolin (ANCEF) IVPB 2 g 2 g, at 100 mL/hr, Intravenous, INTRA-OP ONCE, 1 dose, On Wed05/09/14 at 1428, Initiate within 60 minutes prior to surgical incision., Intra-op $ Given 05/09/2014 4:46 PM CDT 2 g 100 mL/hr citric acid-sodium citrate (BICITRA) solution 30 mL 30 mL, Oral, PRE-OP ONCE, 1 dose, On Wed05/09/14 at 1428, 10 minutes prior to transfer to OR or at the time decision is made for section., Pre-op $ Given 05/09/2014 3:53 PM CDT 30 mL dextrose 5 % and 0.45% NaCl infusion at 125 mL/hr, Intravenous, CONTINUOUS, Starting on Wed05/09/14 at 1845, Until 05/12/14 at 1752, May discontinue IV when taking PO and afebrile. LATEX FREE PRODUCT, $ New Bag/Syringe 05/10/2014 4:39 AM CDT 125 mL/hr $ New Bag/Syringe 05/09/2014 8:04 PM CDT 125 mL /hr docusate sodium (COLACE) capsule 100 mg 100 mg, Oral, 2 TIMES DAILY, First dose on Wed05/09/14 at 2100, Until Discontinued, $ Given 05/12/2014 9:42 AM CDT 100 mg $ Given 05/11/2014 8:51 PM CDT 100 mg $ Given 05/11/2014 8:35 AM CDT 100 mg enoxaparin (LOVENOX) injection 40 mg 40 mg, Subcutaneous, DAILY AT 0600, First dose on Wed05/10/14 at 0600, Until Discontinued, LATEX FREE PRODUCT Remind Patient to not rub injection site. Could cause hematoma. $ Given 05/12/2014 5:42 AM CDT 40 mg Ab dominal Tissue $ Given 05/11/2014 7:27 AM CDT 40 mg Ab dominal Tissue $ Given 05/10/2014 6:08 AM CDT 40 mg Ab dominal Tissue ibuprofen (MOTRIN) tablet 600 mg 600 mg, Oral, EVERY 6 HOURS PRN, Mild Pain, Starting on Wed05/11/14 at 1400, Until 05/12/14 at 1752, Maximum allowable amount = 3200 mg / 24 hours. $ Given 05/12/2014 3:56 PM CDT 600 mg $ Given 05/12/2014 9:42 AM CDT 600 mg $ Given 05/12/2014 5:42 AM CDT 600 mg iron polysaccharides (NIFEREX 150) capsule 150 mg 150 mg, Oral, DAILY, First dose on Wed05/09/14 at 2100, Until Discontinued, $ Given 05/12/2014 3:56 PM CDT 150 mg $ Given 05/11/2014 8:36 AM CDT 150 mg ketorolac (TORADOL) injection 30 mg 30 mg, Intravenous, EVERY 6 HOURS, 4 doses, First dose on Wed05/09/14 at 1900, Last dose on Wed05/10/14 at 1300, LATEX FREE PRODUCT, $ Given 05/10/2014 12:52 PM CDT 30 mg $ Given 05/10/2014 7:37 AM CDT 30 mg $ Given 05/10/2014 1:25 AM CDT 30 mg lactated ringers infusion ADS Med 1 dose, Starting on Wed05/09/14 at 1437, Until Wed05/09/14 at 1506, Saima Giraldo : cabinet override $ Bolus New Bag 05/09/2014 3:06 PM CDT 1,000 mL lanolin (LANOLIN) ointment Topical, PRN, Sore or cracked nipples., Starting on Wed05/09/14 at 2048, Until 05/12/14 at 1752, Apply purified Lanolin to sore or cracked nipples, if needed. May keep at bedside., $ Given 05/11/2014 1:33 PM CDT methyldopa (ALDOMET) tablet 500 mg 500 mg, Oral, 2 TIMES DAILY, First dose on Wed05/09/14 at 2100, Until Discontinued, Please hold for BP <130 systolic or <70 diastolic $ Given 05/12/2014 4:00 PM CDT 500 mg $ Given 05/11/2014 8:51 PM CDT 500 mg $ Given 05/11/2014 8:35 AM CDT 500 mg metoclopramide (REGLAN) injection 10 mg 10 mg, Intravenous, PRE-OP ONCE, 1 dose, On Wed05/09/14 at 1428, Slow IV push over 10 minutes prior to transfer to OR or at the time decision is made for section. Do not give metoclopramide if allergy or previous adverse reaction., Pre-op $ Given 05/09/2014 4:43 PM CDT 10 mg morphine injection 2 mg 2 mg, Intravenous, EVERY 4 HOURS PRN, Severe Pain, Starting on Wed05/09/14 at 2048, Until 05/12/14 at 1752, LATEX FREE PRODUCT, $ Given 05/09/2014 9:13 PM CDT 2 mg oxyCODONE-acetaminophen (PERCOCET) 5-325 MG tablet 1-2 Tab 1-2 tablet, Oral, EVERY 4 HOURS PRN, Moderate Pain, Starting on Wed05/09/14 at 2048, Until 05/12/14 at 1752, $ Given 05/12/2014 4:01 PM CDT 2 tablets $ Given 05/12/2014 9:43 AM CDT 2 tablets $ Given 05/11/2014 6:10 PM CDT 1 tablet vitamin with iron tablet 1 Tab 1 tablet, Oral, DAILY, First dose on Wed05/09/14 at 2100, Until Discontinued, $ Given 05/12/2014 3:56 PM CDT 1 tablet $ Given 05/11/2014 8:35 AM CDT 1 tablet documented in this encounter Active and Recently Administered Medications Times are shown in CDT. Scheduled Medication Order 05/10/2014 05/11/2014 05/12/2014 docusate sodium (COLACE) capsule 100 mg 100 mg, Oral, 2 TIMES DAILY, First dose on Wed05/09/14 at 2100, Until Discontinued, 1200 (Not Administered - Provider: Genesis Rasmussen RN - Reason: See Comments - Comment: not on solids)2221 ($ Given - Provider: Minnie Freeman RN) 0835 ($ Given - Provider: Jolly Patel RN)2051 ($ Given - Provider: Richelle Blancas, RN) 0942 ($ Given - Provider: Arlette Armstrong, EFRA) enoxaparin (LOVENOX) injection 40 mg 40 mg, Subcutaneous, DAILY AT 0600, First dose on Wed05/10/14 at 0600, Until Discontinued, LATEX FREE PRODUCT Remind Patient to not rub injection site. Could cause hematoma. 0608 ($ Given - Provider: Seema Ma RN) 0727 ($ Given - Provider: Minnie Freeman RN) 0542 ($ Given - Provider: Richelle Blancas, EFRA) iron polysaccharides (NIFEREX 150) capsule 150 mg 150 mg, Oral, DAILY, First dose on Wed05/09/14 at 2100, Until Discontinued, 1200 (Not Administered - Provider: Genesis Rasmussen RN - Reason: See Comments - Comment: pt not on solids) 0836 ($ Given - Provider: Jolly Patel, EFRA) 1556 ($ Given - Provider: Arlette Armstrong, EFRA) ketorolac (TORADOL) injection 30 mg (COMPLETED) 30 mg, Intravenous, EVERY 6 HOURS, 4 doses, First dose on Wed05/09/14 at 1900, Last dose on Wed05/10/14 at 1300, LATEX FREE PRODUCT, 0125 ($ Given - Provider: Seema Ma RN)0737 ($ Given - Provider: Genesis Rasmussen RN)1252 ($ Given - Provider: Genesis Rasmussen RN) methyldopa (ALDOMET) tablet 500 mg 500 mg, Oral, 2 TIMES DAILY, First dose on Wed05/09/14 at 2100, Until Discontinued, Please hold for BP <130 systolic or <70 diastolic 0927 ($ Given - Provider: Genesis Rasmussen RN)2100 (Due) 0835 ($ Given - Provider: Jolly Patel, EFRA)2051 ($ Given - Provider: Richelle Blancas, EFRA) 1600 ($ Given - Provider: Arlette Armstrong, EFRA) vitamin with iron tablet 1 Tab (CANCELED) 1 tablet, Oral, DAILY, First dose on Wed05/09/14 at 2100, Until Discontinued, 1200 (Not Administered - Provider: Genesis Rasmussen RN - Reason: See Comments - Comment: pt not on solids) 0835 ($ Given - Provider: Jolly Patel RN) 1556 ($ Given - Provider: Arlette Armstrong RN) Continuous Medication Order 05/10/2014 05/11/2014 05/12/2014 dextrose 5 % and 0.45% NaCl infusion (CANCELED) at 125 mL/hr, Intravenous, CONTINUOUS, Starting on Wed05/09/14 at 1845, Until 05/12/14 at 1752, May discontinue IV when taking PO and afebrile. LATEX FREE PRODUCT, 0439 ($ New Bag/Syringe - Provider: Seema Ma RN) PRN Medication Order 05/10/2014 05/11/2014 05/12/2014 ibuprofen (MOTRIN) tablet 600 mg 600 mg, Oral, EVERY 6 HOURS PRN, Mild Pain, Starting on Wed05/11/14 at 1400, Until 05/12/14 at 1752, Maximum allowable amount = 3200 mg / 24 hours. 1809 ($ Given - Provider: Farzaneh Jarquin RN) 0002 ($ Given - Provider: Richelle Blancas, RN)0542 ($ Given - Provider: Richelle Blancas, RN)0942 ($ Given - Provider: Arlette Armstrong, EFRA)1556 ($ Given - Provider: Arlette Armstrong, EFRA) lanolin (LANOLIN) ointment (CANCELED) Topical, PRN, Sore or cracked nipples., Starting on Wed05/09/14 at 204, Until 05/12/14 at 1752, Apply purified Lanolin to sore or cracked nipples, if needed. May keep at bedside., 1333 ($ Given - Provider: Jolly Patel, EFRA) oxyCODONE-acetaminophe n (PERCOCET) 5-325 MG tablet 1-2 Tab 1-2 tablet, Oral, EVERY 4 HOURS PRN, Moderate Pain, Starting on Wed05/09/14 at 2048, Until 05/12/14 at 1752, 1853 ($ Given - Provider: Karolina Burris RN) 0018 ($ Given - Provider: Minnie Freeman RN)0803 ($ Given - Provider: Jolly Patel RN)0809 ($ Given - Provider: Jolly Patel RN)1333 ($ Given - Provider: Jolly Patel RN)1810 ($ Given - Provider: Farzaneh Jarquin RN) 0943 ($ Given - Provider: Arlette Armstrong, EFRA)1601 ($ Given - Provider: Arlette Armstrong, EFRA) documented in this encounter Care Teams Fundraising Manager Relationship Specialty Start Date End Date Bowen Field MD PCP - General Internal Medicine 12/22/13 documented as of this encounter
--- OUTSIDE RECORDS SUMMARY | 2024-01-26 06:42 | XMS_ITS | Encounter Summary ---
Author Organization [facility] Health Address [address] [place] [address] Care Team Providers Care Sausage Stuffer Name Role Phone Bowen Field MD Primary Care Provider Unavail able Encounter Details Date Type Department Care Team (Latest Contact Info) Description 05/07/2014 8:45 AM CDT Hospital Encounter [facility] [address] [place] [address] Alberto Colindres MD [address] [place] [address] Xenia Gomez, NIGHT CLERK [facility] [address] [place] [address] Discharge Disposition: Home or Self Care Social [...] 40 mg subcutaneously once daily. 05/24/2015 heparin 80249 UNIT/ML injection Inject 1 mL subcutaneously 2 [...] as of this encounter Progress Notes * Xenia Gomez, NIGHT CLERK AUDITOR-LOOM WINDER TENDER - 05/07/2014 9:[address] [facility] High Risk Clinic Return Visit 05/07/2014 S: Ama Monzon is a 38 y.o. @ 38w1d Today she notes she is doing okay. Continues to have [place] contractions. She has no s/s of preeclampsia. She endorses good movement. She denies chest pain, visual changes, RUQ pain orheadaches. She is taking the heparin without complications. Continues Methyldopa 500mg PO BID. Denies LOF, VB; +FM. She verbalized understanding of on 05/14/14 at 1030. She will continues testing as scheduled. Her is c/b: Patient Active Problem List Diagnosis Date Noted [...] clots Heterozygote ??? Previous delivery affecting 12/23/2013 O: Vitals: 05/07/14 0910 BP: 122/84 Pulse: 118 Resp: 20 Weight: 225 lb (102.059 kg) FHT per NST/US today Extremities; WNL, equal size and shape bilaterally SVE: /-3 Recent Labs Component Name 05/07/14 0904 PROTEINUA neg GLUCOSEUA neg KETONEUA neg A/P: Ama Monzon is a 38 y.o. at 38w1d 1. Chronic Hypertension 1. H/O Pre-eclampsia in G1 2. Currently on Methyldopa 500 mg BID 3. 24 hour urine in 02/20/14 was 155mg 4. Current BP 122/84 5. Asymptomatic 6. EFW 2667gm and 54%ile on 04/16 7. Continue testing with weekly BPP and NST 2. 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 Heparin 10,000 units BID started Wednesday, CBC WNL: 11.3/32.4/248 3. No personal history of blood clots 4. Strong family history of clots- Mother with DVT and PE, brother with DVT, grandfather with clots 3. H/o preeclampsia and placental abruption 1. In G1, delivered at 34 weeks 2. Continue testing 3. Precautions given to patient 4. H/O section 1. G1- here at [facility] at 34 weeks- could not find operative note 2. Desires repeat CS at 39 weeks 3. Scheduled for 05/14 @ 1030, needs hibiclens at next appt 5. Advanced maternal age- Normal NIPT and anatomy US 6. H/O Anxiety 1. Was previously on Zoloft, but has been off for several years 2. Mood currently stable and no SI/HI 7. GBS UTI early in 1. Urine culture positive from 02/19/14, negative on 04/30/14 8. Supervision of 1. Dating: L = 18 wk US 2. A+/I/-/-, HIV NR 3. GCT: 102 4. S/P Flu vaccine 5. GBS + 6. SVE: /-3 9. FWB reassuring 10. Discussed PreE precautions,labor precautions and kick counts again today 11. RTC: Scheduled on 05/14/14, continue testing as scheduled MICAH Fischer 05/07/2014 9:46 AM documented in this encounter Plan of Treatment Not on file documented as of this encounter Procedures Procedure Name Priority Date/Time Associated Diagnosis Comments GLUCOSE PROTEIN KETONE URINE - POINT OF CAR Routine 05/07/2014 9:04 AM CDT documented in this encounter Results * GLUCOSE PROTEIN KETONE URINE - POINT OF CAR (05/07/2014 9:04 AM CDT) Glucose UA neg Negative [facility] Protein UA neg Negative [facility] Ketone UA neg Negative [facility] QC Verified Yes Yes [facility] POC T TESTING Urine specimen (specimen) URINE / Unknown 05/07/2014 9:04 AM CDT Xenia OBRIEN LAB - POINT O F CARE ORDERABLES [facility] [address] [phone] documented in this encounter Visit Diagnoses Diagnosis GBS (group b Streptococcus) UTI complicating , third trimester (HCC)- Primary Elevated blood pressure (not hypertension) Elevated blood pressure reading without diagnosis of hypertension Supervision of normal , third trimester (HCC) Advanced maternal age (AMA) in , third trimester (HCC) Supervision of other high-risk , third trimester (HCC) Other pre-existing hypertension, antepartum (HCC) Other pre-existing hypertension, antepartum Previous delivery, antepartum condition or complication (HCC) Previous delivery, antepartum condition or complication Elderly multigravida with antepartum condition or complication, third trimester (HCC) documented in this encounter Care Teams Sausage Stuffer Relationship Specialty Start Date End Date Bowen Field MD PCP - General Internal Medicine 12/22/13 documented as of this encounter
--- OUTSIDE RECORDS SUMMARY | 2024-01-26 06:42 | XMS_ITS | Encounter Summary ---
Author Organization [facility] Address [address] [place] [address] Care Team Providers Care Extruder Tender Name Role Phone Bowen Field MD Primary Care Provider Unavail able Reason for Referral * Radiology Services (Routine) - Closed Specialty Diagnoses / Procedures Referred By Contac t Referred To Contact Diagnoses Visit for screening mammogram Procedures JESSICA SCREENING DIGITAL IMAGE BILATERAL [id number] Juana Gabriel MD RETIRED Referral ID Status Reason Start Date Expiration Date Visits Re quested Visits Authorized [id number] Closed 06/08/2016 12/05/2016 1 1 Reason for Visit * Radiology Services (Routine) - Closed Specialty Diagnoses / Procedures Referred By Contac t Referred To Contact Diagnoses Visit for screening mammogram Procedures JESSICA SCREENING DIGITAL IMAGE BILATERAL [id number] Juana Gabriel MD RETIRED Referral ID Status Reason Start Date Expiration Date Visits Re quested Visits Authorized [id number] Closed 06/08/2016 12/05/2016 1 1 Encounter Details Date Type Department Care Team (Latest Contact Info) Description 06/08/2016 11:45 AM CDT - 06/08/2016 11:59 PM CDT Hospital Encounter [facility] [address] [place] [id number] Juana Gabriel MD RETIRED Discharge Disposition: Home [...] Associated Diagnosis Comments MAMMO BILAT SCREENING Routine 06/08/2016 12:18 PM CDT Visit for screening mammogram documented in this encounter Results * JESSICA SCREENING DIGITAL IMAGE BILATERAL [id number] (06/08/2016 12:18 PM CDT) Anatomical Region Laterality Modality Breast Bilateral Mammography 06/08/2016 1:41 PM CDT Impressions 06/08/2016 3:45 PM CDT No mammographic evidence of malignancy in either breast. ASSESSMENT: BIRADS Category 1: Negative mammogram. RECOMMENDATION: Bilateral screening mammogram in one year. Thank you for allowing us to participate in the care of your patient. [facility] [place] utilizes [employer] as a reminder system to notify patients of their next recommended mammogram. I, Letitia Olivares, have personally reviewed the images and I agree with this report. Narrative 06/08/2016 3:45 PM CDT EXAMINATION: Digital screening mammogram on 06/08/2016. Low-dose full-field digital breast tomosynthesis examination was performed with 3D acquisitions. Computer assisted detection was utilized. PRIOR: This is the patient's baseline mammogram. ??No previous breast imaging studies are available for comparison.. HISTORY: Screening mammogram. BREAST PARENCHYMAL DENSITY: There are scattered areas of fibroglandular density. RISK ASSESSMENT CALCULATION: Based on the information provided by your patient, her lifetime risk of breast cancer is intermediate (15-20%) (calculated at 12% by the BRCAPRO model, 16% by the Tyrer-Cuzick v6 model, and 15% by the Ivelisse model). Please note this information is only as accurate as the data entered by the patient. FINDINGS: No suspicious masses, areas of architectural distortion or microcalcifications are evident on tomosynthesis images. Juana Gabriel MD MAMMO ORDERABLES documented in this encounter Visit Diagnoses Diagnosis Visit for screening mammogram Other screening mammogram documented in this encounter Care Teams Extruder Tender Relationship Specialty Start Date End Date Bowen Field MD PCP - General Internal Medicine 12/22/13 documented as of this encounter
--- OUTSIDE RECORDS SUMMARY | 2024-01-26 06:42 | XMS_ITS | Encounter Summary ---
Author Organization [facility] Address [facility] [place] [address] Care Team Providers Care Social Insurance Adviser Name Role Phone Bowen Field MD Primary Care Provider Unavail able Reason for Visit * Auth/Cert - Closed Specialty Diagnoses / Procedures Referred By Contac t Referred To Contact Procedures SECTION Referral ID Status Reason Start Date Expiration Date Visits Re quested Visits Authorized [id number] Closed 1 1 Encounter Details Date Type Department Care Team (Late st Contact Info) Description 05/09/2014 4:52 PM CDT Anesthesia Event [facility] [address] [place] [address] Nolan Shabazz, DO [address] [facility] [place] [address] Micaela Faulkner, PARASITOLOGY TEACHER-OCC MED PHYSICIAN [address] [facility] [place] [address] Anesthesia Record Procedure Summary Procedure Name Responsible Anesthesiologist Anesthesia Start Time Anesthesia Stop Time SECTION Nolna Shabazz DO 05/09/14 1652 02/22 1809 Events Date Time Event Comment 05/09/2014 1633 1652 An Start 1652 An Start Data 1652 PT Reassessment Patient and Vital Signs reassessed prior to induction. 1658 Spinal Completed 1725 Uterine Incision 1727 Baby Delivered 1801 an stop data 1801 Elect Sign The providers l isted as staff are the responsible providers for the case. 1809 An Stop Meds Name Total fentaNYL (SUBLIMAZE) 0.05 mg/ml injectio n 100 mcg morphine PF (DURAMORPH) 0.5 mg/mL inject ion 5 mg bupivacaine (spinal) (SENSORCAINE) 0.75% IT injection 13.5 mg phenylephrine 100 mcg/ml solution 300 mc g ondansetron (ZOFRAN) 2 mg/ml injection 4 mg lactated ringers infusion 500 mL oxytocin (PITOCIN) 30 units/500 ml infus ion (60 godfrey-units/ml) 500 mL * Agents Name Insp. N2O O2 * Blood No blood administrations on file. Lines, Drains, and Airways Type Details Placement Removal Peripheral IV Date: 05/09/14; Time: 1215; Orientation: Right; Placed By: EFRA [place]; Tolerance: Well 05/09/14 1215 by Rosita Murphy RN 05/11/14 0300 by Minnie Freeman RN Urethral Catheter 05/09/14; 1700; Yoana Parks RN; 16; Well; 05/10/14; 1307; whitley radford rn 05/09/14 1700 by Saima Paniagua RN 05/10/14 1307 by Genesis Radford RN RETIRED Procedural Site 05/09/14; 1718; Lower, Midline; Abdomen; 05/12/14; 2252 05/09/14 1718 by Saima Paniagua RN 05/12/14 2252 by Generic, Auto Release documented in this encounter Social History Tobacco Use Types Packs/Day Years [...] No 05/09/2014 documented as of this encounter Progress Notes * Cindy Caceres, PARASITOLOGY TEACHER-OCC MED PHYSICIAN - 05/10/2014 8:13 AM CDT ANESTHESIA POSTPROCEDURE EVALUATION Ama Monzon is a 38 y.o. female Temp: 36.3 ??C Pulse: 92 Resp: 18 BP: 128/84 mmHg SpO2: 96 % Pain Rating Score #1: 5 Anesthesia Type: spinal Mental status: sufficiently recovered from acute administration of anesthesia to participate in theevaluation and neurologic status has returned to preoperative level. Level of consciousness: awake No numbness, tingling or visual disturbances present. General appearance: well-appearing Respiratory function: natural airway. Cardiac: stable Pain: comfortable/acceptable PONV: None Postop hydration: adequate. Patient may be released from anesthesia care. A postop evaluation was performed on this patient with the following assessment: no apparent anesthesia complications documented in this encounter Procedure Notes * Micaela Faulkner, PARASITOLOGY TEACHER-OCC MED PHYSICIAN - 05/09/2014 5:07 PM CDTAssociated Order(s): NEURAXIAL BLOCK NEURAXIAL BLOCK Patient Location: OB Pre Procedure Indication: surgical anesthesia Anticoagulation /Antithrombosis Status Confirmed: Yes Preanesthetic Checklist: patient identified, IV checked, site marked, risks and benefits discussed,surgical consent verified, monitors and equipment checked, pre-op evaluation done, timeout performed, informed consent obtained and questions answered / anesthesia plan accepted Monitors: BP and Pulse Ox Patient Condition: awake Patient Position: sitting Procedure Block Performed: spinal Prep: Betadine Sterile Field: mask, cap/hat, sterile field established and sterile gloves Approach: midline Skin Numbed with: lidocaine 1% Spinal Needle Type: pencil-point Needle Gauge: 25 G Needle Length: 3.5 in Placement Site: L3-4 Number of Attempts: 1 CSF: free flow, aspiration before injection, aspiration during injection and aspiration after injection Local Anesthetic: bupivacaine 0.75% in dextrose 13.5 mg Spinal Additive: 0.2 mg 10 mcg Events CSF return injection not painful no paresthesia no other event Degree of Difficulty: none Position Post Procedure: left uterine displacement Vital signs monitored and stable throughout. See Anesthesia Intraop record for details. Block Start Time: 05/09/2014 4:58 PM Block End Time: 05/09/2014 4:58 PM Block Performed by: Whitley faulkner CRNA Notes: To OR Monitors applied SB x1 atempt Free flow CSF all 4 quadrants documented in this encounter Consult Notes * Micaela Faulkner APRN-CRNA - 05/09/2014 4:32 PM CDT Pre-anesthesia Evaluation Procedure(s) (LRB): SECTION (N/A) Recent Labs Component Name 05/09/14 1217 ABO A RHTYPE Positive Recent Labs Component Name 05/09/14 1217 04/30/14 0926 04/26/14 1026 WBC 11.4* 11.2* 12.7* HGB 10.9* 11.3* 11.5* HCT 31.4* 32.4* 32.8* PLTCOUNT 256 248 242 Vital Signs: Temp: 36.7 ??C (05/09 1545) Pulse: 102 (05/09 0902) Resp: 18 (05/09 0902) BP: 128/84 mmHg (05/09 1412) BMI: Estimated body mass index is 39.69 kg/(m^2) as calculated from the following: Height as of this encounter: 5' 3 (1.6 m). Weight as of this encounter: 224 lb (101.606 kg). History: Past Medical History Diagnosis Date ??? [...] History of hypertension ??? History of UTI Past Surgical History Procedure Laterality Date ??? section 2008 At [address] [facility] reports that she has never smoked. She has never used smokeless tobacco. She reports that she does not drink alcohol or use illicit drugs. Allergies: is allergic to sulfa drugs and latex. Medications: Prescriptions prior to admission Medication Sig Dispense Refill ??? heparin 20979 UNIT/ML injection Inject 1 mL subcutaneously 2 times daily. 60 Vial 1 ??? Vit-Fe Fumarate-FA ( VITAMIN) 28-0.8 MG tablet Take 1 Tab by mouth once daily.Indications: ??? lansoprazole (PREVACID) 15 MG capsule Take 15 mg by mouth daily before breakfast. Indications: Gastroesophageal Reflux Disease ??? methyldopa (ALDOMET) 250 MG tablet Take 500 mg by mouth 2 times daily. Indications: High Blood Pressure ??? Alcohol Swabs 70 % PADS Use 1 Applicator 2 times daily. 100 Each 1 ??? support hose knee high closed toe (TEDS) support hose Apply 1 Each to affected area as directed. 2 Each 0 ??? Enoxaparin Sodium (LOVENOX SC) Inject 40 mg subcutaneously once daily. No current facility-administered medications on file prior to encounter. Current Outpatient Prescriptions on File Prior to Encounter Medication Sig Dispense Refill ??? heparin [id number] UNIT/ML injection Inject 1 mL subcutaneously 2 times daily. 60 Vial 1 ??? Vit-Fe Fumarate-FA ( VITAMIN) 28-0.8 MG tablet Take 1 Tab by mouth once daily.Indications: ??? lansoprazole (PREVACID) 15 MG capsule Take 15 mg by mouth daily before breakfast. Indications: Gastroesophageal Reflux Disease ??? methyldopa (ALDOMET) 250 MG tablet Take 500 mg by mouth 2 times daily. Indications: High Blood Pressure ??? Alcohol Swabs 70 % PADS Use 1 Applicator 2 times daily. 100 Each 1 ??? support hose knee high closed toe (TEDS) support hose Apply 1 Each to affected area as directed. 2 Each 0 ??? Enoxaparin Sodium (LOVENOX SC) Inject 40 mg subcutaneously once daily. Physical Exam: ANE Preop Eval - NPO Status: ate breakfast. Oriented to person, place and time Airway: II Neck ROM: full Dental exam findings: normal/ok Pulmonary exam: breath sounds CTA Heart sounds: S1 S2 Spinal Alignment: symmetrical (poor land kumar) Plan for Anesthesia: ASA Score: 3. Anesthesia plan: general / ETT and spinal Planned postop destination: OB Anesthesia plan, risks and benefits discussed with patient Anesthesia consent: obtained Plan accepted yes Discussed anesthesia plan with: anesthesiologist. documented in this encounter Plan of Treatment Not on file documented as of this encounter Procedures Procedure Name Priority Date/Time Associated Diagnosis Comments NEURAXIAL BLOCK Routine 05/09/2014 5:08 PM CDT documented in this encounter Results * NEURAXIAL BLOCK (05/09/2014 5:08 PM CDT) Narrative Micaela Faulkner APRN-CRNA - 05/09/2014 5:08 PM CDT MANAS Serrano ? 05/09/2014 ??5:08 PM NEURAXIAL BLOCK Patient [...] Alberto Colindres MD GENERAL ANESTHESIA [facility] [place] documented in this encounter Visit Diagnoses Not on filedocumented in this encounter Administered Medications Inactive Administered Medications - up to 3 most recent administrations Medication Order MAR Action Action Date Dose Rate Site bupivacaine 0.75 % in dextrose (SENSORCAINE) injection PRN, Starting on Wed05/09/14 at 1658, Until Wed05/09/14 at 1812, Anesthesia Intra-op $ Given 05/09/2014 4:58 PM CDT 13.5 mg fentaNYL (SUBLIMAZE) injection PRN, Starting on Wed05/09/14 at 1658, Until Wed05/09/14 at 1812, Anesthesia Intra-op $ Given 05/09/2014 5:39 PM CDT 90 mcg $ Given 05/09/2014 4:58 PM CDT 10 mcg lactated ringers infusion CONTINUOUS PRN, Starting on Wed05/09/14 at 1652, Until Wed05/09/14 at 1812, Anesthesia Intra-op $ New Bag/Syringe 05/09/2014 4:52 PM CDT morphine PF (DURAMORPH) injection PRN, Starting on Wed05/09/14 at 1658, Until Wed05/09/14 at 1812, Anesthesia Intra-op $ Given 05/09/2014 5:46 PM CDT 4.8 mg $ Given 05/09/2014 4:58 PM CDT 0.2 mg ondansetron (ZOFRAN) injection PRN, Nausea/Vomiting, Starting on Wed05/09/14 at 1752, Until Wed05/09/14 at 1812, Anesthesia Intra-op $ Given 05/09/2014 5:52 PM CDT 4 mg oxytocin (PITOCIN) 30 units in 500 ml normal saline IV solution CONTINUOUS PRN, Starting on Wed05/09/14 at 1727, Until Wed05/09/14 at 1812, Anesthesia Intra-op $ New Bag/Syringe 05/09/2014 5:53 PM CDT $ New Bag/Syringe 05/09/2014 5:27 PM CDT phenylephrine 100 mcg/ml injection PRN, Starting on Wed05/09/14 at 1702, Until Wed05/09/14 at 1812, Anesthesia Intra-op $ Given 05/09/2014 5:22 PM CDT 100 mcg $ Given 05/09/2014 5:02 PM CDT 200 mcg documented in this encounter Care Teams Social Insurance Adviser Relationship Specialty Start Date End Date Bowen Field MD PCP - General Internal Medicine 12/22/13 documented as of this encounter
--- OUTSIDE RECORDS SUMMARY | 2024-01-26 06:42 | XMS_ITS | Encounter Summary ---
Author Organization [facility] Address [facility] [place] [address] Care Team Providers Care Saw Boss Name Role Phone Bowen Field MD Primary Care Provider Unavail able Reason for Visit * Reason Onset Date Comments Appointment 05/14/2014 called patient a nd given appointment for 1wk check 05/17/14 @11:50am Encounter Details Date Type Department Care Team (Late st Contact Info) Description 05/14/2014 Telephone [facility] MATERNAL/ EVALUATION UNIT [address] [place] [address] Amanda Espinal Appointment (called patient and given appointment for 1wk check 05/17/14 @11:50am) Social History Tobacco Use Types Packs/Day Years [...] encounter Miscellaneous Notes * Telephone Encounter - Amanda Espinal - 05/14/2014 11:14 AM CDT Appointment made for patient and called with date and time. 05/17/14 @11:50am documented in this encounter Plan of Treatment Not on file documented as of this encounter Visit Diagnoses Not on filedocumented in this encounter Care Teams Saw Boss Relationship Specialty Start Date End Date Bowen Field MD PCP - General Internal Medicine 12/22/13 documented as of this encounter
--- OUTSIDE RECORDS SUMMARY | 2024-01-26 06:42 | XMS_ITS | Encounter Summary ---
Author Organization [facility] Address [address] [place] [address] Care Team Providers Care Pricing Specialist Name Role Phone Bowen Field MD Primary Care Provider Unavail able Encounter Details Date Type Department Care Team (Latest Contact Info) Description 04/23/2014 8:47 AM CDT Hospital Encounter [facility] MATERNAL/ EVALUATION UNIT [address] [place] [address] Alberto Colindres MD [address] [place] [address] Discharge Disposition: Home or Self Care Social [...] 1 Tab by mouth once daily. Indications: Enoxaparin Sodium (LOVENOX SC) Inject 40 mg subcutaneously once daily. 05/24/2015 methyldopa (ALDOMET) 250 MG tabletIndications:Hy pertension Take 500 mg by mouth 2 times daily. Indications: High Blood Pressure 05/24/2015 support hose knee high closed toe (TEDS) support hose Apply 1 Each to affected area as directed. 2 Each 0 04/16/2014 05/24/2015 documented as of this encounter Progress Notes * Anne Marie Castillo, PharmD - 04/24/2014 1:49 PM CDT Ama Monzon 1975 date 04/23/14 Time 1100 Referred by [facility] for heparin education. Prescribed Heparin 10,000 units/mL 1mL SQ BID. Vaccines: received influenza this year. Denies receiving tdap vaccine this PG. Current Medications (Pharmacy [facility] [phone]) PNV Qday Lansoprazole 15mg Qdayac Methyldopa 500mg BID Lovenox 40mg Qday APAP 500mg 2tab q6h prn pain (used x1) Tums 2tab TID prn indigestion (uses 1-2x/wk) Educated pt on purpose/proper use/potential ADR, storage, expiration, needle disposal, when to go to ER/contact office. Pt demonstrated proper technique. Administer Tdap today. F/U [facility] as scheduled.F/U pharmacy prn. D/W Dr Jane Castillo, Pharm.D. Addendum: PC from pharmacy. States the heparin requires a prior authorization and they will fax us the prior auth information and rejection information. Received 04/24/14. Completed prior auth form [place] (media tab[place] Should receive response in 24-48h. Attempted to reach pt to notify of status and to check with pharmacy in 1-2 days but no answer. Left message to call office. Anne Marie Castillo, Pharm.D. * Vanessa Lara MD - 04/23/2014 11:20 AM CDT R4 Clinic Return Visit- OB 04/23/2014 S: Ama Monzon is a 38 y.o. @ 36w1d Today she notes that she is doing well. She denies SHAIKH, vision changes and RUQ pain. Denies contractions, LOF and vaginal bleeding. Positive movement. She states her mood is good and she denies anxiety Her is c/b: Patient Active Problem List [...] ??? Previous delivery affecting 12/23/2013 O: Vitals: 04/23/14 1015 BP: 129/75 Pulse: 90 Resp: 20 Weight: 223 lb (101.152 kg) FH 37cm FHT See NST and US Urine dipstick shows: Recent Labs Component Name 04/23/14 1020 PROTEINUA neg GLUCOSEUA neg KETONEUA neg A/P: Ama Monzon is a 38 y.o. at 36w1d c/b: 1. Chronic Hypertension 1. H/O Pre-eclampsia in G1 2. Currently on Methyldopa 500 mg BID 3. 24 hour urine in 02/20/14 was 155mg 4. Current BP 129/75 5. Asymptomatic 6. EFW 2667gm and 54%ile on 04/16 7. Continue testing with weekly BPP and NST 2. 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 Will switch to Heparin 10,000 units BID today- s/p pharm today 3. Will need CBC next week 4. No personal history of blood clots 5. Strong family history of clots- Mother with DVT and PE, brother with DVT, grandfather with clots 6. H/O Pre-eclampsia and placental abruption 3. In G1, delivered at 34 weeks 1. Continue testing 2. Precautions given to patient again today 4. H/O section 1. G1- here at [facility] at 34 weeks- could not find operative note 2. Desires repeat CS at 39 weeks 3. Scheduled today for 05/14 5. Advanced maternal age 1. Normal NIPT and anatomy US 6. H/O Anxiety 1. Was previously on Zoloft, but has been off for several years 2. Mood currently stable and no SI/HI 7. GBS UTI early in 1. Urine culture positive from 02/19/14 8. Supervision of 1. Dating: L = 18 wk US 2. A+/I/-/-, HIV NR 3. GCT: 102 4. S/P Flu vaccine 9. FWB reassuring 10. Discussed PreE precautions, PTL precautions and kick counts again today 11. RTC in one week Vanessa Lara MD 04/23/2014 11:21 AM D/W Dr. Colindres Associated attestation - Alberto Colindres MD - 04/23/2014 11:36 AM CDT MFM Attending I have seen, evaluated and examined the patient with Dr. Lara. I agree with the above assessment,exams and plans. Exam: BP 129/75 Pulse 90 Resp 20 Wt 223 lb (101.152 kg) BMI 39.51 kg/m2 Gen - NAD Abd - NT Ext - NT, no edema FHTs - + per testing I have the following to add to the plan: as above, doing well No signs of preecl at this time We reviewed kick counts (BID), as well as labor and preeclampsia signs and symptoms. Alberto Colindres MD [facility] documented in this encounter Plan of Treatment Not on file documented as of this encounter Procedures Procedure Name Priority Date/Time Associated Diagnosis Comments GLUCOSE PROTEIN KETONE URINE - POINT OF CAR Routine 04/23/2014 10:20 AM CDT documented in this encounter Results * GLUCOSE PROTEIN KETONE URINE - POINT OF CAR (04/23/2014 10:20 AM CDT) Glucose UA neg Negative [facility] POCT TESTING Protein UA neg Negative [facility] PO[facility] TEST[facility] Ketone UA neg Negative [facility] POCT TEST[facility] QC Verified Yes Yes [facility] POC T TESTING Urine specimen (specimen) URINE / Unknown 04/23/2014 10:20 AM CDT Alyx Acosta MD LAB - POINT OF CARE ORDERABLES [facility] POCT TESTING [address] [place] [address] documented in this encounter Visit Diagnoses Not on filedocumented in this encounter Care Teams Pricing Specialist Relationship Specialty Start Date End Date Bowen Field MD PCP - General Internal Medicine 12/22/13 documented as of this encounter
--- OUTSIDE RECORDS SUMMARY | 2024-01-26 06:42 | XMS_ITS | Encounter Summary ---
Author Organization [facility] Health Address [address] [facility] [place] [address] Care Team Providers Care Risk Compliance Manager Name Role Phone Bowen Field MD Primary Care Provider Unavail able Reason for Visit * Reason Onset Date Comments Hospital Follow-up 05/16/2014 nursing and m ood issues at discharge 05/12/14 - told her I wuold f/u by phone this week Encounter Details Date Type Department Care Team (Late st Contact Info) Description 05/16/2014 Telephone [facility] PHYS OB [address] [place] [address] Yolis Padilla MD [address] [address] Hospital Follow-up (nursing and mood issues at discharge 05/12/14 - told her I wuold f/u by phone this week) Social History Tobacco Use Types Packs/Day Years [...] encounter Miscellaneous Notes * Telephone Encounter - Yolis Padilla MD - 05/16/2014 3:29 PM CDT Patient rounded on and discharged when I was vehicle sales professional 05/12/14. s/p C/S having issues with baby not latching and flat nipples. Very emotional and tearful to nurse. Met with her and she planned to try pumping instead and agreed to start sertraline as h/o situational depression in the past requiring anti depressant and worried about PP depression. Patient reports doing much better since discharge. Pumping exclusively now and infant had appt yesterday and gaining weight now, much less fussy. Patient says mood is stable, only tearful when very fatigued. Has clinic appt Thursday 05/18 for incision check. Sounded good on the phone. Encouraged to call if any concerns or issues before appt. Patient agreeable and appreciative. Yolis Padilla MD documented in this encounter Plan of Treatment Not on file documented as of this encounter Visit Diagnoses Not on filedocumented in this encounter Care Teams Risk Compliance Manager Relationship Specialty Start Date End Date Bowen Field MD PCP - General Internal Medicine 12/22/13 documented as of this encounter
--- OUTSIDE RECORDS SUMMARY | 2024-01-26 06:42 | XMS_ITS | Encounter Summary ---
Author Organization [facility] Health Address [address] [place] [place] [address] Care Team Providers Care Tomato Pulper Operator Name Role Phone Bowen Field MD Primary Care Provider Unavail able Reason for Visit * Reason Comments Care 05/09/[address] Feeding C Section Encounter Details Date Type Department Care Team (Late st Contact Info) Description 05/18/2014 2:15 PM CDT - 05/18/2014 11:59 PM CDT Hospital Encounter [facility] MATERNAL/ EVALUATION UNIT [address] [place] [address] María Velásquez MD [address] [facility] [place] [address] Discharge Disposition: Home or Self Care Social [...] Sign Reading Time Taken Comments Blood Pressure 122/83 05/18/2014 2:20 PM CDT Pulse 91 05/18/2014 2:20 PM CDT Temperature - - Respiratory Rate 20 05/18/2014 2:20 PM CDT Oxygen Saturation - - Inhaled Oxygen Concentration - - Weight 94 kg (207 lb 3.2 oz) 05/18/2014 2:20 PM CDT Height 160 cm (5' 3 ) 05/18/2014 2:20 PM CDT Body Mass Index 36.7 05/18/2014 2:20 PM CDT documented in this encounter Functional Status [...] No 05/09/2014 documented as of this encounter Medications at [...] 40 mg subcutaneously once daily. 05/24/2015 heparin 53812 UNIT/ML injection Inject 1 mL subcutaneously 2 [...] as of this encounter Progress Notes * María Velásquez MD - 05/18/2014 2:37 PM CDT R2 Post Clinic Note Subjective: Patient without complaints today. She states that her mood has been stable and denies SI/HI. Lochia is light. She is breast feeding. Baby doing well. Plans NFP/condoms for contraception. Her was complicated by: Patient Active Problem List [...] clots Heterozygote ??? Previous delivery affecting 12/23/2013 Objective: BP 122/83 Pulse 91 Resp 20 Wt 207 lb 3.2 oz (93.985 kg) BMI 36.71 kg/m2 Overall: Alert and oriented x3 with no apparent signs of distress Heart: RRR, S1, S2 Lungs: Clear to auscultation bilaterally Abdomen: Soft and non tender, + bowel sounds Incision: Clean dry and intact with edges well approximated. There are no signs of infection, no drainage noted, no erythema, no edema noted. Pelvic: deferred Extremities: WNL, no edema, normal size & shape. Negative Viktoriya's sign Assessment/Plan: Ama Monzon is a s/p repeat CS, week # 1 1. Incision 1. Healing well; c/d/i 2. Depression 1. Well controlled with Zoloft: no SI/HI 3. Contraception 1. Plans NFP, condoms 4. Dispo: follow up 5 weeks for routine 6 week PP visit and pelvic exam. Otilia Weinberg MD Patient reviewed with Dr. Kohli. In summary, she is a 38 y.o. here for a check. Doing well as above. Follow up for 6 week pp visit. María Velásquez MD documented in this encounter Plan of Treatment Not on file documented as of this encounter Visit Diagnoses Not on filedocumented in this encounter Care Teams Tomato Pulper Operator Relationship Specialty Start Date End Date Bowen Field MD PCP - General Internal Medicine 12/22/13 documented as of this encounter
--- OUTSIDE RECORDS SUMMARY | 2024-01-26 06:42 | XMS_ITS | Encounter Summary ---
Author Organization [facility] Health Address [facility] [facility] [place] [address] Care Team Providers Care Slubber Tender Name Role Phone Bowen Field MD Primary Care Provider Unavail able Encounter Details Date Type Department Care Team (Latest Contact Info) Description 04/09/2014 9:03 AM SEWING MACHINE OPERATOR ZIPPER Hospital Encounter [facility] MATERNAL/ EVALUATION UNIT [address] [place] [address]. [address] [place] [address] Juana Gabriel MD RETIRED Discharge Disposition: Home [...] on filedocumented in this encounter Care Teams Slubber Tender Relationship Specialty Start Date End Date Bowen Field MD PCP - General Internal Medicine 12/22/13 documented as of this encounter
--- OUTSIDE RECORDS SUMMARY | 2024-01-26 06:42 | XMS_ITS | Encounter Summary ---
Author Organization [facility] Address [facility]3 [place] [address] Care Team Providers Care Statistical Analyst Name Role Phone Bowen Field MD Primary Care Provider Unavail able Encounter Details Date Type Department Care Team (Latest Contact Info) Description 04/23/2014 8:48 AM CDT - 04/23/2014 11:59 PM CDT Hospital Encounter [facility] MATERNAL/ EVALUATION UNIT [address] [place] [address] Juana Gabriel MD RETIRED Alberto Colindres MD [address] [facility] [address] [place] [address] Discharge Disposition: Home or Self Care Social [...] Date End Date lansoprazole (PREVACID) 15 MG capsuleIndications: Gastroesophageal Reflux Disease Take 15 mg by mouth daily before breakfast. Indications: Gastroesophageal Reflux Disease Vit-Fe Fumarate-FA ( VITAMIN) 28-0.8 MG tabletIndications:P regnancy Take 1 Tab by mouth once daily. Indications: Alcohol Swabs 70 % PADS Use 1 Applicator 2 times daily. 100 Each 1 04/23/2014 05/24/2015 Enoxaparin Sodium (LOVENOX SC) Inject 40 mg subcutaneously once daily. 05/24/2015 heparin [id number] UNIT/ML injection Inject 1 mL subcutaneously 2 times daily. 60 Vial 1 04/23/2014 05/24/2015 methyldopa (ALDOMET) 250 MG tabletIndications:H ypertension Take 500 mg by mouth 2 times [...] Diagnosis Comments BIOPHYSICAL PROFILE W NST Routine 04/23/2014 10:23 AM CDT Factor V Leiden mutation complicating [...] encounter Results * BIOPHYSICAL PROFILE W NST (04/23/2014 10:23 AM CDT) Anatomical Region Laterality Modality Other 04/23/2014 10:2 3 AM CDT Narrative 04/23/2014 12:39 PM CDT ? [facility] ? Maternal & Care Center ?PHONE: ??FAX: Pat. Name: ?ZA CLAYTON Pat. No: ?[id number] Study Date: ?? 04/23/2014 ??10:23am , Age: ? 1975, 38 Pregnancies: ?? 2, Para 1 Height: ? 63 in Weight: ? 202 lb LMP: ?08/13/2013 GA by LMP: ?36w1d GA by 1st: ?36w1d GA Selected: ??36w1d (From First S) ALYCE: ?05/20/2014 Referring MD: JUANA GABRIEL MD Paper Supervisor: ??Mirella Ramirez RDMS Hist/Ind: ? Advanced Maternal Age ?Chronic Hypertension ?Factor V Sheryl ?Hx Preeclampsia, Abruption, ? Heart Rate: 131 bpm Amniotic Fluid Index: 20.7cm (07.7-24.8) Q1: 6.4cm ??Q2: 3.4cm ??Q3: 6.8cm ??Q4: 4.1cm ?? Biophysical Profile: 11/17 Breathin ?? Tone: 2 ?? NST: 2 Movement: ??2 ?? AFV: ??2 DOPPLER Umbilical - Mid Cord S/D ??2.69(1.63 - 3.50) ? PI ?? 1.05 (0.58 - 1.16) ? CLINICAL SUMMARY Study Number: ??6 A tan fetus is identified in breech presentation. ??The amniotic fluid volume is within normal limits. ??The placenta is posterior. IMPRESSION: ?? 1) Tan gestation, 36w1d 2) Reassuring biophysical profile 3) Umbilical Dopplers reveal no evidence of increased arterial resistance NOTE: The patient was advised that ultrasound does not allow detection of all structural or chromosomal abnormalities. ?? RECOMMEND: ?? Continue testing as clinically indicated Thank you for allowing us the opportunity to care for your patient. Lulu Guido MD <Electronic Signature> ??04/23/2014 12:39pm Juana Gabriel MD [facility] ORDERABLES documented in this encounter Visit Diagnoses [...] (HCC) documented in this encounter Care Teams Statistical Analyst Relationship Specialty Start Date End Date Bowen Field MD PCP - General Internal Medicine 12/22/13 documented as of this encounter
--- OUTSIDE RECORDS SUMMARY | 2024-01-26 06:42 | XMS_ITS | Encounter Summary ---
Author Organization [facility] Address [facility]3 [facility] [place] [address] Care Team Providers Care Manager Garage Name Role Phone Bowen Field MD Primary Care Provider Unavail able Encounter Details Date Type Department Care Team (Latest Contact Info) Description 04/16/2014 9:30 AM CDT - 04/16/2014 9:33 AM CDT Hospital Encounter [facility] MATERNAL/ EVALUATION UNIT [address] [facility] [address] [place] [address] Juana Gabriel MD RETIRED Discharge Disposition: Home [...] as of this encounter Progress Notes * Jeffrey Jeronimo MD - 04/16/2014 1:01 PM CDT [facility] Clinic Return Visit- OB 04/16/2014 S: Ama Monzon is a 38 y.o. @ 35w1d Today she notes that she is doing well. She has rare contractions. Denies SHAIKH, vision changes and RUQ pain. Denies vaginal bleeding and LOF. Positive movement. She states her mood is stable and denies SI/HI. She is feeling well. She takes her lovenox every day and she is looking forward to having a CS Her is c/b: Patient Active Problem List [...] ??? Previous delivery affecting 12/23/2013 O: Vitals: 04/16/14 1000 04/16/14 1106 BP: 128/84 128/84 Pulse: 106 Resp: 18 Weight: 220 lb (99.791 kg) FH 36cm FHT 126 by US Urine dipstick shows: Recent Labs Component Name 04/16/14 1002 PROTEINUA neg GLUCOSEUA neg KETONEUA neg A/P: Ama Monzon is a 38 y.o. at 35w1d c/b: 1. Chronic Hypertension 1. H/O Pre-eclampsia in G1 2. Currently on Methyldopa 500 mg BID 3. 24 hour urine in 02/20/14 was 155mg 4. Current BP 126/84 5. Asymptomatic 6. EFW today 2698gm 7. Continue testing with weekly BPP and NST 2. 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 Continue Lovenox 40 mg daily- switch to Heparin next week at 36 weeks 3. No personal history of blood clots 4. Strong family history of clots- Mother with DVT and PE, brother with DVT, grandfather with clots 5. No evidence of DVT on exam today 3. H/O Pre-eclampsia and placental abruption 1. In G1, delivered at 34 weeks 2. Continue testing 4. Precautions given to patient again today 1. H/O section 2. G1- here at [facility] at 34 weeks- could not find operative note- will request today 5. Desires repeat CS at 39 weeks 1. Advanced maternal age 2. Normal NIPT and anatomy US 6. H/O [...] PreE precautions, PTL precautions and kick counts 11. RTC in one week Vanessa Lara MD 04/16/2014 1:01 PM D/W Dr Jeronimo Late Entry MFM Attending Note I saw and examined the patient and reviewed history and physical exam with Dr. Lara at the time of the visit. Patient is 38w3d The patient presents with Patient Active Problem List Diagnosis ??? Factor V Leiden mutation complicating ??? Previous delivery affecting ??? Chronic Hypertension ??? H/O Pre-Eclampsia ??? H/O Placental abruption ??? H/O Anxiety ??? Prothrombin gene mutation . Exam and assessment show Vitals: 04/16/14 1000 04/16/14 1106 BP: 128/84 128/84 Pulse: 106 Resp: 18 Weight: 220 lb (99.791 kg) Body mass index is 38.98 kg/(m^2). and ABD and UT are soft and NT Her meds are Current Outpatient Prescriptions on File Prior to Encounter Medication Sig Dispense Refill ??? Vit-Fe Fumarate-FA ( VITAMIN) 28-0.8 MG tablet Take 1 Tab by mouth once daily.Indications: ??? lansoprazole (PREVACID) 15 MG capsule Take 15 mg by mouth daily before breakfast. Indications: Gastroesophageal Reflux Disease ??? Enoxaparin Sodium (LOVENOX SC) Inject 40 mg subcutaneously once daily. ??? methyldopa (ALDOMET) 250 MG tablet Take 500 mg by mouth 2 times daily. Indications: High Blood Pressure No current facility-administered medications on file prior to encounter. I agree with diagnosis as documented in the resident/fellow note. Documented plan of care is appropriate and I agree with the following revisions: None u/s or testing as indicated above. Jeffrey Jeronimo MD documented in this encounter Plan of Treatment Not on file documented as of this encounter Procedures Procedure Name Priority Date/Time Associated Diagnosis Comments GLUCOSE PROTEIN KETONE URINE - POINT OF CAR Routine 04/16/2014 10:02 AM CDT documented in this encounter Results * GLUCOSE PROTEIN KETONE URINE - POINT OF CAR (04/16/2014 10:02 AM CDT) Glucose UA neg Negative [facility] POCT TEST[facility] Protein UA neg Negative [facility] TEST[facility] Ketone UA neg Negative [facility] PO[facility] TEST[facility] QC Verified Yes Yes [facility] POC T TESTING Urine specimen (specimen) URINE / Unknown 04/16/2014 10:02 AM CDT Xenia Gomez FIG [facility] [facility] - POINT O F CARE ORDERABLES [facility] POCT TEST[facility] [address] [phone] documented in this encounter Visit Diagnoses Not on filedocumented in this encounter Care Teams Manager Garage Relationship Specialty Start Date End Date Bowen Field MD PCP - General Internal Medicine 12/22/13 documented as of this encounter
--- OUTSIDE RECORDS SUMMARY | 2024-01-26 06:42 | XMS_ITS | Encounter Summary ---
Author Organization [facility] Address [facility]3 [facility] [place] [address] Care Team Providers Care Emt B Name Role Phone Bowen Field MD Primary Care Provider Unavail able Reason for Visit * Reason Onset Date Comments Medication Issue 04/23/2014 Heparin not cov ered by insurance Encounter Details Date Type Department Care Team (Late st Contact Info) Description 04/23/2014 Telephone [facility] MATERNAL/ EVALUATION UNIT [facility] [facility] [place] [address] Lilliam River RN Medication Issue (Heparin not covered by insurance) Social History Tobacco Use Types Packs/Day Years [...] encounter Miscellaneous Notes * Telephone Encounter - Lilliam River RN - 04/23/2014 3:16 PM CDT Call from pharmacy [phone] stated Heparin not covered by insurance. Spoke with Dr. Lara and is aware and states pt can't be on Lovenox @ this time 36w1d and must be on heparin. Call to student life coordinator and they will call for poss pre auth for Lovenox. documented in this encounter Plan of Treatment Not on file documented as of this encounter Visit Diagnoses Not on filedocumented in this encounter Care Teams Emt B Relationship Specialty Start Date End Date Bowen Field MD PCP - General Internal Medicine 12/22/13 documented as of this encounter
--- OUTSIDE RECORDS SUMMARY | 2024-01-26 06:42 | XMS_ITS | Encounter Summary ---
Author Organization [facility] Address [facility]3 [place] [address] Care Team Providers Care Addiction Professional Name Role Phone Bowen Field MD Primary Care Provider Unavail able Reason for Visit * Reason Comments Ultrasound Encounter Details Date Type Department Care Team (Latest Contact Info) Description 05/07/2015 11:00 AM CDT - 05/07/2015 11:59 PM T Hospital Encounter [facility] MATERNAL/ EVALUATION UNIT [address] [place] [address] Juana Gabriel MD RETIRED Discharge Disposition: Home [...] 40 mg subcutaneously once daily. 05/24/2015 heparin [id number] UNIT/ML injection Inject 1 mL subcutaneously 2 [...] Procedure Name Priority Date/Time Associated Diagnosis Comments CYTOGENETICS PANEL STAT 05/07/2015 12:45 PM CDT ALPHA FETOPROTEIN AMNIO STAT 05/07/2015 12:45 PM CDT SONOGRAM - COMPLETE Routine 05/07/2015 1 2:29 PM CDT documented in this encounter Results * ALPHA FETOPROTEIN AMNIO (05/07/2015 12:45 PM CDT) Alpha-Fetoprotein Amniotic Fluid Comment 05/13/2015 12:10 PM CDT [facility] ([facility]) Alpha-Fetoprotein Value 9.4 ug/mL 05/13/2015 12:10 PM CDT [facility] ([facility]) AFP MoM 0.72 05/13/2015 12:10 PM CDT [facility] ([facility]) Gestational Age 16 05/13/2015 12:10 PM CDT [facility] ([facility]) Interpretation Comment 05/13/2015 12:10 PM CDT [facility] ([facility]) Comment: The amniotic fluid AFP value is NOT ELEVATED for the gestational age provided. Director Comment 05/13/2015 12:10 PM CDT [facility] ([facility]) Comment: Kelsy Benton, Ph.D., [facility] Principal Genetics Gas Meter Mechanic Fluid specimen (specimen) AMNIOTIC FLUID SPECIMEN / Unknown Collection / Unknown 05/07/2015 12:45 PM CDT 05/07/2015 2:54 PM CDT Narrative [facility] ([facility]) - 05/13/2015 12:10 PM CDT Performed at: ??01 - [facility] [address] ??[id number] Flavorings Compounder: Lizzie Curry MD, Phone: ??[phone] Arielle Harper MD LAB - BODY FLU ID ORDERABLES [facility] ([facility]) * CYTOGENETICS PANEL (05/07/2015 12:45 PM CDT) Indication for Study Risk of Trisomy 21 FISH ANEUVYSION requested by physician 05/15/2015 8:09 AM CDT [facility] CYTO[facility]OMIC [facility] Results Cytogenetics Fluorescence In-Situ Hybridization (FISH): ??Analysis of 50 interphase cells hybridized to X,Y and 18 specific fluorescent labeled probes* and 50 interphase cells hybridized to 13 and 21 specific fluorescent labeled probes* showed the following results: nuc hetal(DXZ1x1,DYZ3x1 ,B01T8g1),(RB1x2, C08N054r9) Abnormal male trisomy 21 === Analysis and count of 5 cells (2 cells karyotyped, GTL-banding) from 2 primaries of amniotic fluid cultures showed the following chromosome pattern: 47,XY,+21 05/15/2015 8:09 AM [facility] CYTOGENOMIC [facility] Interpretation FISH was positive [...] genetic counselors on 05/15/2015. 05/15/2015 8:09 AM [facility] CYTOGENOMIC [facility] Preliminary result electronically signed by Paula García, PhD ABM[facility] on 05/09/2015 at 6:59 AM Disclaimer *This test was developed, and its performance characteristics determined by [facility] as required by CLIA '88 Regulations. It has not been cleared or approved for specific uses by the U.S. Food and Drug Administration. The FDA has determined that such clearance or approval is not necessary. This test is used for clinical purposes. It should not be reported as investigational or for research. 05/15/2015 8:09 AM [facility] CYTOGENOMIC [facility] Client Information [facility] - 05/15/2015 8:09 AM CDT [facility] CYTO[facility]OM[facility] Other AMNIOTIC FLUID SPECIMEN / Unknown 05/07/2015 12:45 PM CDT 05/07/2015 2:55 PM CDT Arielle Claus Harper MD LAB - PATHOLOG Y/CYTOLOGY ORDERABLES [facility] CYTOGENOMIC [facility] [place] [address] * SONOGRAM - COMPLETE (05/07/2015 12:29 PM CDT) Anatomical Region Laterality Modality Other 05/07/2015 12:2 9 PM CDT Narrative 05/07/2015 3:14 PM CDT ? [facility] ? Maternal & Care Center ?PHONE: ??FAX: Pat. Name: ?ZA CLAYTON. No: ?[id number] Study Date: ?? 05/07/2015 ??12:29pm , Age: ? 1975, 39 Pregnancies: ?? 2, Para 1 Height: ? 63 in Weight: ? 210 lb LMP: ?01/14/2015 GA by LMP: ?16w1d GA by 1st: ?16w1d GA by US: ? 15w6d GA Selected: ??16w1d (LMP) ALYCE: ?10/21/2015 Referring MD: JUANA GABRIEL MD Outsole Splicer: ??Rylie Ortega [facility] CPT4: ? [id number] Hist/Ind: ? Advanced Maternal Age ?Chronic Hypertension ?Factor V Leiden ?Hx Preeclampsia, Abruption, ? x 2 ?Borderline NIPT risk for Trisomy 21 MEASUREMENTS & AGE ? GROWTH EVALUATION Measurement ??GA ? Range ? Srce %for GA Ratios ----- ---- ------- BPD ??3.3 cm 16w2d (71i5p-65j1h) Hadl BPD 57% FL/BPD 0.59 HC ??11.9 cm 15w6d (32v5j-55f0t) Hadl HC ??43% FL/AC ??0.19 AC ??10.0 cm 16w0d (62k1i-80g3f) Hadl AC ??48% HC/AC ??1.19 (1.09 - 1.28) FL ?? 1.9 cm 15w5d (06h9x-73m8z) Hadl FL ??39% CI ? 0.79 (0.70 - 0.86) HL ?? 1.8 cm 15w1d (77p5c-18d0r) Claus HL ??33% GA for sonogram 15w6d (78l5m-55v5n) ?? Weight Estimate: based on (HL,BPD,HC,AC,FL) Avg [...] <Electronic Signature> ??05/07/2015 03:13pm Juana Gabriel MD [facility] ORDERABLES documented in this encounter Visit Diagnoses Diagnosis Abnormal genetic test during - Primary Factor V Leiden mutation complicating (HCC) Other current maternal conditions classifiable elsewhere, complicating , childbirth, or the puerperium, unspecified as to episode of care Previous delivery affecting (HCC) Previous delivery, unspecified as to episode of care or not applicable Obesity affecting (HCC) Prothrombin gene mutation (HCC) Primary hypercoagulable state documented in this encounter Care Teams Addiction Professional Relationship Specialty Start Date End Date Bowen Field MD PCP - General Internal Medicine 12/22/13 documented as of this encounter
--- OUTSIDE RECORDS SUMMARY | 2024-01-26 06:42 | XMS_ITS | Encounter Summary ---
Author Organization [facility] Address [facility]3 [place] [address] Care Team Providers Care Security Support Analyst Name Role Phone Bowen Field MD Primary Care Provider Unavail able Encounter Details Date Type Department Care Team (Latest Contact Info) Description 04/23/2014 8:48 AM CDT - 04/23/2014 11:59 PM CDT Hospital Encounter [facility] MATERNAL/ EVALUATION UNIT [address] [place] [address] Juana Gabriel MD RETIRED Alberto Colindres MD [address] [facility] [address] [place] [address] Discharge Disposition: Home or Self Care Social [...] Sign Reading Time Taken Comments Blood Pressure 129/75 04/23/2014 9:00 AM CDT Pulse - - Temperature - - Respiratory [...] 40 mg subcutaneously once daily. 05/24/2015 heparin [id number] UNIT/ML injection Inject 1 mL subcutaneously 2 [...] on filedocumented in this encounter Care Teams Security Support Analyst Relationship Specialty Start Date End Date Bowen Field MD PCP - General Internal Medicine 12/22/13 documented as of this encounter
--- OUTSIDE RECORDS SUMMARY | 2024-01-26 06:42 | XMS_ITS | Encounter Summary ---
Author Organization [facility] Address [facility] [place] [address] Care Team Providers Care Piler Name Role Phone Bowen Field MD Primary Care Provider Unavail able Reason for Visit * Reason Comments Rupture of Membranes * Auth/Cert - Closed Specialty Diagnoses / Procedures Referred By Contac t Referred To Contact Procedures SECTION Referral ID Status Reason Start Date Expiration Date Visits Re quested Visits Authorized [id number] Closed 1 1 Encounter Details Date Type Department Care Team (Late st Contact Info) Description 05/09/2014 4:10 PM CDT - 05/09/2014 6:30 PM CDT Surgery [facility] 5 L[address] [place] [address] Shimon Youssef MD [address] [place] [address] SECTION EMERGENCY Surgery Details Date/Time Status Location OR Service Patient Class Case Class Case Type Trauma Case? 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 Her Care was with [facility]. She presented for membrane rupture. was complicated [...] Information for the patient's : Rosalie Monzon [[id number]] Date of 05/09/2014 Time of : 5:27 PM Sex: Female Weight: 3230 g (7 lb 1.9 oz) (1 min): 8 (5 min): 9 (10 min): Course: Her course was uncomplicated except for asymptomatic anemia. Patient is breast feeding. She desires natural family planning for contraception. Results: No results for input(s): ABORH in the last 72554 hours. Recent Labs Component Name 05/10/14 0521 05/09/14 1217 04/30/14 0926 WBC 15.9* 11.4* 11.2* HGB 9.9* 10.9* 11.3* HCT 28.3* 31.4* 32.4* PLTCOUNT 189 256 248 Discharge Vitals: BP 150/90 Pulse 93 Temp(Src) 97.6 ??F Resp 20 Wt 224 lb (101.606 kg) BMI 39.69 kg/m2 Discharge Diagnosis: Term delivery. Dispostion: Home on day # 3. Followup: with high risk [facility]. Continue these medications at home: Discharge Medication List As of 05/14/2014 5:52 AM START taking these medications Instructions Authorizing Provider docusate sodium 100 MG capsule Commonly known as: COLACE Take 1 Cap by mouth 2 times daily. Yelitza Herrera ibuprofen 600 MG tablet Commonly known as: MOTRIN Take 1 Tab by mouth every 6 hours as needed. Indications: Inflammation Yelitza Herrera iron polysaccharides 150 MG capsule Commonly known as: NIFEREX 150 Take 1 Cap by mouth once daily. Yelitza Herrera oxyCODONE-acetaminophen 5-325 MG tablet Commonly known as: PERCOCET Take 1-2 Tabs by mouth every 4 hours as needed. Yelitza Herrera sertraline 50 MG tablet Commonly known as: [...] Continue for at least six weeks Yelitza Herrera * methyldopa 250 MG tablet What changed: [...] Applicator 2 times daily. Vanessa Lara heparin 40285 UNIT/ML injection Inject 1 mL subcutaneously 2 [...] Comments Your discharge diagnosis is delivery delivered [[id number]] No special diet needed Resume your normal [...] just yourself. Contact your provider Call your Commercial Pest Control Representative if you have questions or concerns, or [...] Comments Follow Up Instructions: follow up with [facility] in one week and again in six weeks Yelitza Herrera MD 05/28/2014 4:15 PM documented in this encounter Discharge Instructions * Discharge Instructions* Arlette Armstrong RN - 05/12/2014 2:47 PM CDT DELIVERED MOTHER DISCHARGE INSTRUCTIONS Refer to the Booklet given during your stay for more information. Please contact your business support coordinator for the followin. Any burning or itching [...] example: your cell phone and cell phone drafting layout man. PLEASE REMEMBER: 1. Always place your infant on his/her back to sleep. 2. Always [...] 40 mg subcutaneously once daily. 05/24/2015 heparin 48282 UNIT/ML injection Inject 1 mL subcutaneously 2 [...] Weepy, tearful frequently today. Having issues with latching and flat nipples which marketing operations consultant has tried to address. Requested that I come talk to patient about above issues. Met with patient and . Patient sitting up eating. Normal affect and behavior, mildly tearfulwhen discussing issues but able to control easily. Reports does have h/o anxiety/situational depression following divorce in grad school. Was on medication then but not jail. Did have some mild depression after 8 year old born. Was and in NICU for 1 week, had /latching issues with him also and breastfed from [facility] then. She does report that she feels [...] pump once able to obtain after the . May also need to use formula-filled syringes. [...] DC and F/U instructions. Alberto Colindres MD [facility] * Richelle Blancas RN - 05/12/2014 5:47 [...] Monzon whose care had been transferred to [facility]. Pt underwent a repeat c.section on 05/09/14 after SROM. Baby Girl weighed 3230 gm,s with 's of 8/9 and is residing in the Nursery @ [facility]. VSS, BP wnl therefore aldomet is currently [...] controlled with toradol and morphine. Breast feeding infant. * Roxi Mendes MD - 05/10/2014 6:13 AM CDT R2 OB Post- Note 05/10/2014, 6:13 AM Subjective: No acute events overnight. Patient is doing well. Pain controlled. Lochia is small amount. She reports taking liquids without nausea or vomiting. She denies headache, fever, chest pain, shortness of breath, and leg pain. She has not yet ambulated and denies lightheadedness. Frias is present, patient is voiding without difficulty. [...] Colindres MD - 05/10/2014 6:36 PM CDT M I have reviewed Ama Monzon with Dr. Mendes. I agree with the above assessment, findings, and plans. I have the following additions: No additions Alberto Colindres MD * Cristina Gutierrez, EFRA - 05/09/2014 8:47 PM CDT Patient transferred via bed to [facility] s/p c/s with delivery of a viable [...] Delivery: 05/20/14 care: is with. high risk [facility] Patient's is complicated by: Patient Active Problem [...] Date End Date Taking? Authorizing Provider heparin 45604 UNIT/ML injection Inject 1 mL subcutaneously 2 [...] baseline rate 135, deceleration none, reactive, reassuring Peterman: irregular contractions Physical Exam: General: alert, cooperative, [...] 102 GBS: Positive Assessment/Plan: 38 [facility] 1. SROM 1. At 6:30 AM 2. [...] Delivery: 05/20/14 care: is with high risk [facility] Patient's is complicated by: Patient Active Problem [...] Date ??? section 2008 At 34 weeks, [facility] Current Medications: No current facility-administered medications for [...] Symptoms: Denies fevers/chills/nausea/vomiting/diarrhea Denies SOB/CP/calf tenderness Denies SHIAKH/vision changes/RUQ pain Denies dysuria/hematuria/urgency Objective: Vitals: 05/09/14 [...] 44.0-73.0 % Lymph 15.2 (*) 20.0-43.0 % [place] 6.7 5.0-13.0 % Eos 1.5 0.0-6.0 % Baso 0.4 0.0-2.0 % Immature Grans 2.3 (*) 0-1 % Neutro Abs 8.42 (*) 2.01-7.14 x10^9/L Lymph Abs 1.73 1.07-3.94 x10^9/L [place] Abs 0.76 0.26-1.07 x10^9/L Eosin Abs 0.17 [...] for assistance. Ryan Borrego RN, IBCLC * Yuliana Woodruff RN - 05/10/2014 3:45 PM CDT [...] Information for the patient's : Roderick Monzon [[id number]] Date of 05/09/2014 Time of : 5:27 [...] Information for the patient's : Roderick Monzon [[id number]] Estimated Gestational Age: Gestational Age: 38w3d Delivery [...] provider. Scanned Document LAB - THERAPEUTIC DR UG MONITORING ORDERABLES * IMAGING/RADIOLOGY/XRAY RESULTS ORDER (05/14/2014 6:06 PM CDT) Anatomical Region Laterality Modality Other Narrative 05/14/2014 6:06 PM CDT Ordered by an unspecified provider. Scanned Document IMAGING * (ABNORMAL) CBC W AUTO DIFFERENTIAL (05/10/2014 5:21 AM CDT) WBC 15.9(H) 4.4 - 10.7 x10^9/L 05/10/2014 5:43 AM CDT [facility] RBC 3.58(L) 3.80 - 5.20 x10^12/L 05/10/2014 5:43 AM CDT [facility] Hemoglobin 9.9(L) 12.0 - 15.6 gm/dL 05/10/2014 5:43 AM CDT [facility] Hematocrit 28.3(L) 35.9 - 45.5 % 05/10/2014 5:43 AM CDT [facility] MCV 79.1(L) 80.7 - 98.3 fl 05/10/2014 5:43 AM CDT [facility] MCH 27.7 26.7 - 34.0 pg 05/10/2014 5:43 AM CDT [facility] MCHC 35.0 30.8 - 35.9 gm/dL 05/10/2014 5:43 AM CDT [facility] Platelet Count 189 153 - 416 x10^9/L 05/10/2014 5:43 AM CDT [facility] RDW-CV 13.3 12.1 - 14.9 % 05/10/2014 5:43 AM CDT [facility] MPV 9.7 9.4 - 12.9 fl 05/10/2014 5:43 AM CDT [facility] Neutrophils % 84.4(H) 44.0 - 73.0 % 05/10/2014 5:43 AM CDT [facility] Lymphocytes % 7.2(L) 20.0 - 43.0 % 05/10/2014 5:43 AM CDT [facility] Monocytes % 6.4 5.0 - 13.0 % 05/10/2014 5:43 AM CDT [facility] Eosinophils % 1.0 0.0 - 6.0 % 05/10/2014 5:43 AM CDT [facility] Basophils % 0.1 0.0 - 2.0 % 05/10/2014 5:43 AM CDT [facility] Immature Granulocytes 0.9 0 - 1 % 05/10/2014 5:43 AM CDT [facility] Neutrophil Absolute 13.44(H) 2.01 - 7.14 x10^9/L 05/10/2014 5:43 AM CDT [facility] Lymphocytes Absolute 1.14 1.07 - 3.94 x10^9/L 05/10/2014 5:43 AM CDT [facility] Monocytes Absolute 1.02 0.26 - 1.07 x10^9/L 05/10/2014 5:43 AM CDT [facility] Eosinophils Absolute 0.16 0 - 0.47 x10^9/L 05/10/2014 5:43 AM CDT [facility] Basophils Absolute 0.02 0 - 0.08 x10^9/L 05/10/2014 5:43 AM CDT [facility] Immature Granulocytes Absolute 0.14(H) 0.00 - 0.06 x10^9/L 05/10/2014 5:43 AM CDT [facility] Blood BLOOD SPECIMEN / Unknown Lab Venipuncture / Unknown 05/10/2014 5:21 AM CDT 05/10/2014 5:40 AM CDT Alyx Acosta MD LAB - HEMATO LOGY ORDERABLES [facility] [address] [place] [address] * GROSS + MICRO EXAM (STL) (05/09/2014 5:38 PM CDT) Pathologist [facility] Case Report Surgical Pathology Report ? Case: [id number] ? Authorizing Provider: ??Stephan Harris MD ?Collected: ? 05/09/2014 05:38 PM ? Ordering Location: ? [facility] 5 LDR ? Received: ?05/10/2014 09:26 AM ? Pathologist: ? Laquita Breaux MD ? Specimen: ?Placenta ? 05/11/2014 3:53 PM CDT [facility] Final Diagnosis 1. ??Placenta: -- ??Third trimester placenta, 805 grams -- ??Three-vessel umbilical cord with no pathologic diagnosis -- ??Chorioamniotic membranes with no pathologic diagnosis MM/vr 05/11/2014 3:53 PM CDT [facility] Gross Description Received in formalin in [...] are no lesions or masses grossly identified. Turn Down Man sections are submitted as follows: A1 - Membranes and umbilical cord A2 - surface A3 - Maternal surface DYT/dak 05/11/2014 3:53 PM CDT [facility] Microscopic Description Sections of the placenta reveal a three-vessel umbilical cord with no evidence of funisitis or thrombosis. The chorioamniotic membranes reveal no acute inflammation. The chorionic villi are small, well vascularized and mature with no evidence of villitis or infarction. MM/vr 05/11/2014 3:53 PM T [facility] Pathology/Cytolo gy ENTIRE PLACENTA / Unknown 05/09/2014 5:38 PM CDT 05/10/2014 9:26 AM CDT Comment:[id number] Stephan Harris MD LAB - PATHOLOGY/CYT OLOGY ORDERABLES [facility] [address] [place] [address] * (ABNORMAL) BLOOD GASES CORD ROEL (ISTAT) (05/09/2014 5:35 PM CDT) pH Cord Venous POCT 7.25(L) 7.28 - 7.40 pH 05/10/2014 4:02 AM T [facility] pCO2 Cord Venous POCT 57(H) 35 - 45 mmHg 05/10/2014 4:02 AM [facility] pO2 Cord Venous POCT 18(L) 22 - 33 mmHg 05/10/2014 4:02 AM [facility] HCO3 Cord Arterial POCT 25(H) 22 - 24 mmol/L 05/10/2014 4:02 AM T [facility] BE Cord Venous POCT Calc -4 -6 - 2 mmol/L 05/10/2014 4:02 AM [facility] TCO2 Cord Venous POCT 27 22 - 30 mmol/L 05/10/2014 4:02 AM [facility] O2 Saturation % Cord Venous Calc POCT 20 % 05/10/2014 4:02 AM T [facility] Site CORD ROEL 05/10/2014 4:02 AM T [facility] Sample iSTAT CORD V 05/10/2014 4:02 AM T [facility] Blood CORD BLOOD SPECIMEN / Unknown 05/09/2014 5:35 PM CDT 05/10/2014 4:02 AM CDT Alberto Colindres MD LAB - POINT OF CARE ORDERABLES [facility] [address] [place], [place] [id number] * (ABNORMAL) BLOOD GASES CORD ART (ISTAT) (05/09/2014 5:31 PM CDT) pH Cord Arterial POCT 7.20 7.20 - 7.34 pH 05/10/2014 4:02 AM [facility] pCO2 Cord Arterial POCT 67.5(H) 45 - 55 mmHg 05/10/2014 4:02 AM [facility] pO2 Cord Arterial POCT 9(L) 12 - 25 mmHg 05/10/2014 4:02 AM [facility] HCO3 Cord Arterial POCT 26.6 15 - 29 mmol/L 05/10/2014 4:02 AM [facility] BE Cord Arterial POCT -4(L) -2.9 - 8.3 mmol/L 05/10/2014 4:02 AM [facility] TCO2 Cord Arterial POCT 29 mmol/L 05/10/2014 4:02 AM [facility] O2 Saturation Cord Art % Calc POCT 6 % 05/10/2014 4:02 AM T [facility] Site CORD ART 05/10/2014 4:02 AM [facility] Sample iSTAT CORD A 05/10/2014 4:02 AM [facility] Blood CORD BLOOD SPECIMEN / Unknown 05/09/2014 5:31 PM CDT 05/10/2014 4:02 AM CDT Alberto Colindres MD LAB - POINT OF CARE ORDERABLES Performing Organization Address [facility] de Phone Number [facility] [address] [place] [address] * PT PTT PANEL (05/09/2014 2:53 PM CDT) PT 9.8 9.5 - 11.6 sec 05/09/2014 3:36 PM CDT [facility] INR 0.9 0.9 - 1.1 05/09/2014 3:36 PM CDT [facility] PTT 22.9 21.0 - 32.0 sec 05/09/2014 3:36 PM CDT [facility] Blood BLOOD SPECIMEN / Unknown Venipuncture / Unknown 05/09/2014 2:53 PM CDT 05/09/2014 3:02 PM CDT Narrative [facility] - 05/09/2014 3:36 PM CDT Conventional Warfarin Anticoagulant Therapy INR Reference Range: ??2.0-3.0 Intensive Warfarin Anticoagulant Therapy INR Reference Range: ? 2.5-3.5 Heparin Therapeutic Range for PTT: 44.4 - 78.3 seconds. Dot Nicholas MD LAB - COAGULATION OR DERABLES Performing Organization Address [facility] de Phone Number [facility] [address] [place] [address] * TYPE + SCREEN PANEL (05/09/2014 12:17 PM CDT) ABO A 05/09/2014 1:41 PM CDT [facility] Rh Type Positive 05/09/2014 1:41 PM CDT [facility] Comment:History check perfor med. No retype required. Antibody Screen Negative 05/09/2014 1:41 PM CDT [facility] Miscellaneous samples (specimen) BLOOD SPECIMEN / Unknown Venipuncture / Unknown 05/09/2014 12:17 PM CDT 05/09/2014 12:23 PM CDT Dot Nicholas MD LAB - BLOOD BANK ORD ERABLES Performing Organization Address [facility] Co de Phone Number [facility] [address] [place] [address], [facility] * (ABNORMAL) CBC W AUTO DIFFERENTIAL (05/09/2014 12:17 PM CDT) [facility] Signature WBC 11.4(H) 4.4 - 10.7 x10^9/L 05/09/2014 12:38 PM CDT [facility] RBC 3.98 3.80 - 5.20 x10^12/L 05/09/2014 12:38 PM CDT [facility] Hemoglobin 10.9(L) 12.0 - 15.6 gm/dL 05/09/2014 12:38 PM CDT [facility] Hematocrit 31.4(L) 35.9 - 45.5 % 05/09/2014 12:38 PM CDT [facility] MCV 78.9(L) 80.7 - 98.3 fl 05/09/2014 12:38 PM CDT [facility] MCH 27.4 26.7 - 34.0 pg 05/09/2014 12:38 PM CDT [facility] MCHC 34.7 30.8 - 35.9 gm/dL 05/09/2014 12:38 PM CDT [facility] Platelet Count 256 153 - 416 x10^9/L 05/09/2014 12:38 PM CDT [facility] RDW-CV 13.3 12.1 - 14.9 % 05/09/2014 12:38 PM CDT [facility] MPV 9.6 9.4 - 12.9 fl 05/09/2014 12:38 PM CDT [facility] Neutrophils % 73.9(H) 44.0 - 73.0 % 05/09/2014 12:38 PM CDT [facility] Lymphocytes % 15.2(L) 20.0 - 43.0 % 05/09/2014 12:38 PM CDT [facility] Monocytes % 6.7 5.0 - 13.0 % 05/09/2014 12:38 PM CDT [facility] Eosinophils % 1.5 0.0 - 6.0 % 05/09/2014 12:38 PM CDT [facility] Basophils % 0.4 0.0 - 2.0 % 05/09/2014 12:38 PM CDT [facility] Immature Granulocytes 2.3(H) 0 - 1 % 05/09/2014 12:38 PM CDT [facility] Neutrophil Absolute 8.42(H) 2.01 - 7.14 x10^9/L 05/09/2014 12:38 PM CDT [facility] Lymphocytes Absolute 1.73 1.07 - 3.94 x10^9/L 05/09/2014 12:38 PM CDT [facility] Monocytes Absolute 0.76 0.26 - 1.07 x10^9/L 05/09/2014 12:38 PM CDT [facility] Eosinophils Absolute 0.17 0 - 0.47 x10^9/L 05/09/2014 12:38 PM CDT [facility] Basophils Absolute 0.04 0 - 0.08 x10^9/L 05/09/2014 12:38 PM CDT [facility] Immature Granulocytes Absolute 0.26(H) 0.00 - 0.06 x10^9/L 05/09/2014 12:38 PM CDT [facility] Blood BLOOD SPECIMEN / Unknown Venipuncture / Unknown 05/09/2014 12:17 PM CDT 05/09/2014 12:23 PM CDT Dot Nicholas MD LAB - HEMATOLOGY ORD ERABLES Performing Organization Address City/State/[facility] Co de Phone Number [facility] [address] [place], [place] [id number] * (ABNORMAL) AMNISURE (05/09/2014 10:20 AM CDT) Amnisure (PAMG-1) Positive(A ) Negative 05/09/2014 10:37 AM CDT [facility] Amniotic fluid AMNIOTIC FLUID SPECIMEN / Unknown 05/09/2014 10:20 AM CDT 05/09/2014 10:28 AM CDT Narrative [facility] - 05/09/2014 10:37 AM CDT The [...] the absence of membrane rupture. Ping [employer] STEAM SHOVEL OPERATING ENGINEER-SURGERY MANAGER LAB - BODY FL UID ORDERABLES Performing Organization Address City/[facility]/ZIP Co de Phone Number [facility] [address] [place] [address] * GLUCOSE PROTEIN KETONE URINE - POINT [...] POINT OF CARE ORDERABLES Performing Organization Address [facility] Co de Phone Number [facility] POCT TESTING [address] [place] [address] documented in this encounter Visit Diagnoses Not on filedocumented in this encounter Active and Recently Administered [...] 0835 ($ Given - Provider: Jolly Patel RN)205 ($ Given - Provider: Richelle Blancas RN) 0942 ($ Given - Provider: Arlette Armstrong RN) enoxaparin (LOVENOX) injection 40 mg 40 mg, [...] solids) 0836 ($ Given - Provider: Jolly Patel RN) 1556 ($ Given - Provider: Arlette Armstrong RN) ketorolac (TORADOL) injection 30 mg (COMPLETED) 30 mg, Intravenous, EVERY 6 HOURS, 4 doses, First dose on Wed05/09/14 at 1900, Last dose on Wed05/10/14 at 1300, LATEX FREE PRODUCT, 0125 ($ Given - Provider: Seeam Ma RN)0737 ($ Given - Provider: Genesis Rasmussen RN)1252 ($ Given - Provider: Genesis Rasmussen RN) methyldopa (ALDOMET) tablet 500 mg 500 mg, Oral, 2 TIMES DAILY, First dose on Wed05/09/14 at 2100, Until Discontinued, Please hold for BP <130 systolic or <70 diastolic 0927 ($ Given - Provider: Genesis Rasmussen RN)2100 (Due) 0835 ($ Given - Provider: Jolly Patel RN)2051 ($ Given - Provider: Richelle Blancas, EFRA) [...] RN) 0002 ($ Given - Provider: Richelle Blancas RN)0542 ($ Given - Provider: Richelle Blancas, EFRA)0942 ($ Given - Provider: Arlette Armstrong, EFRA)1556 ($ Given - Provider: Arlette Armstrong RN) lanolin (LANOLIN) ointment (CANCELED) Topical, PRN, Sore or cracked nipples., Starting on Wed05/09/14 at 2049, Until 05/12/14 at 1752, Apply purified Lanolin to sore or cracked nipples, if needed. May keep at bedside., 1333 ($ Given - Provider: Jolly Patel, EFRA) oxyCODONE-acetaminophe n (PERCOCET) 5-325 MG tablet 1-2 Tab 1-2 tablet, Oral, EVERY 4 HOURS PRN, Moderate Pain, Starting on Wed05/09/14 at 2049, Until 05/12/14 at 1752, 1853 ($ Given - Provider: Karolina Burris, EFRA) 0018 ($ Given - Provider: Minnie Freeman RN)0803 ($ Given - Provider: Jolly Patel, EFRA)0809 ($ Given - Provider: Jolly Patel RN)1333 ($ Given - Provider: Jolly Patel, EFRA)1810 ($ Given - Provider: Farzaneh Jarquin RN) 0943 ($ Given - Provider: Arlette Armstrong RN)1601 ($ Given - Provider: Arlette Armstrong RN) documented in this encounter Care Teams Piler Relationship Specialty Start Date End Date Bowen Field MD PCP - General Internal Medicine 12/22/13 documented as of this encounter
--- OUTSIDE RECORDS SUMMARY | 2024-01-26 06:42 | XMS_ITS | Encounter Summary ---
Author Organization [facility] Address [facility] [facility] [place] [address] Care Team Providers Care Blade Boner Name Role Phone Bowen Field MD Primary Care Provider Unavail able Encounter Details Date Type Department Care Team (Latest Contact Info) Description 04/02/2014 9:00 AM GENERAL TECHNICIAN - 04/02/2014 9:10 AM GENERAL TECHNICIAN Hospital Encounter [facility] MATERNAL/ EVALUATION UNIT [facility]. [address] [place] [address] Juana Gabriel MD RETIRED Discharge Disposition: Home [...] Diagnosis Comments BIOPHYSICAL PROFILE W NST Routine 04/02/2014 9:33 AM GENERAL TECHNICIAN documented in this encounter Results * BIOPHYSICAL PROFILE W NST (04/02/2014 9:33 AM GENERAL TECHNICIAN) Anatomical Region Laterality Modality Other 04/02/2014 9:33 AM GENERAL TECHNICIAN Narrative 04/02/2014 12:25 PM GENERAL TECHNICIAN ? [facility] ? Maternal & Care Center ?PHONE: ??FAX: Pat. Name: ?ZA CLAYTON. No: ?[id number] Study Date: ?? 04/02/2014 ??9:33am , Age: ? 1975, 38 Pregnancies: ?? 2, Para 1 Height: ? 63 in Weight: ? 202 lb LMP: ?08/13/2013 GA by LMP: ?33w1d GA by 1st: ?33w1d GA Selected: ??33w1d (From First S) ALYCE: ?05/20/2014 Referring MD: JUANA GABRIEL MD Immigration Lawyer: ??Jessica Callahan RDMS BMI: ?35.78 Hist/Ind: ? Advanced Maternal Age ?Chronic Hypertension ?Factor V Leiden ?Hx Preeclampsia, Abruption, ? Heart Rate: 132 bpm Amniotic Fluid Index: 19.7cm (08.3-24.5) Q1: 4.8cm ??Q2: 5.9cm ??Q3: 4.8cm ??Q4: 4.2cm ?? Biophysical Profile: 11/17 Breathin ?? Tone: 2 ?? NST: 2 Movement: ??2 ?? AFV: ??2 DOPPLER Umbilical - Mid Cord S/D ??3.30(1.78 - 3.76) ? PI ?? 1.20 (0.64 - 1.22) ? CLINICAL SUMMARY Study Number: 3 A tan fetus is identified in cephalic presentation. ??The placenta is posterior. ??The amniotic fluid volume is within normal limitswithin normal limits. ?? IMPRESSION: ?? Single, live, IUP at 33w1d, normal LLUVIA ' Reassuring BPP Normal umbilical artery dopplers RECOMMEND: ?? Follow up ultrasound as clinically indicated. Thank you for allowing us the opportunity to care for your patient. Rani Partida MD <Electronic Signature> ??04/02/2014 12:25pm Juana Gabriel MD [facility] ORDERABLES documented in this encounter Visit Diagnoses Not on filedocumented in this encounter Care Teams Blade Boner Relationship Specialty Start Date End Date Bowen Field MD PCP - General Internal Medicine 12/22/13 documented as of this encounter
--- OUTSIDE RECORDS SUMMARY | 2024-01-26 06:42 | XMS_ITS | Encounter Summary ---
Author Organization [facility] Address [facility] [place] [address] Care Team Providers Care Blasting Contract Man Name Role Phone Bowen Field MD Primary Care Provider Unavail able Encounter Details Date Type Department Care Team (Latest Contact Info) Description 04/16/2014 9:34 AM CDT Hospital Encounter [facility] MATERNAL/ EVALUATION UNIT [address] [place] [address]. [address] [place] [address] Juana Gabriel MD RETIRED Discharge Disposition: Home [...] Diagnosis Comments BIOPHYSICAL PROFILE W NST Routine 04/16/2014 11:06 AM CDT Factor V Leiden mutation complicating [...] encounter Results * BIOPHYSICAL PROFILE W NST (04/16/2014 11:06 AM CDT) Anatomical Region Laterality Modality Other 04/16/2014 11:0 6 AM CDT Narrative 04/17/2014 10:54 AM CDT ? [facility] ? [facility] Care Center ?PHONE: ??FAX: Pat. Name: ?ZA CLAYTON Pat. No: ?[id number] Study Date: ?? 04/16/2014 ??11:06am , Age: ? 1975, 38 Pregnancies: ?? 2, Para 1 Height: ? 63 in Weight: ? 202 lb LMP: ?08/13/2013 GA by LMP: ?35w1d GA by 1st: ?35w1d GA by US: ? 35w0d GA Selected: ??35w1d (LMP) ALYCE: ?05/20/2014 Referring MD: JUANA GABRIEL MD Heavy Equipment Rental Manager: ??Mirella Ramirez RDMS BMI: ?35.78 Hist/Ind: ? Advanced Maternal Age ?Chronic Hypertension ?Factor V Leiden ?Hx Preeclampsia, Abruption, ? MEASUREMENTS & AGE ? GROWTH EVALUATION Measurement ??GA ? Range ? Srce %for GA Ratios ----- ---- ------- BPD ??8.6 cm 34w5d (16p6p-97a9f) Hadl BPD 45% FL/BPD 0.81 (0.71 - 0.87) HC ??30.7 cm 34w1d (24e5w-78b5z) Hadl HC ??36% FL/AC ??0.22 (0.20 - 0.24) AC ??31.6 cm 35w4d (83d2x-06l1d) Hadl AC ??57% HC/AC ??0.97 (0.93 - 1.12) FL ?? 7.0 cm 35w6d (17l3o-33l5e) Hadl FL ??61% CI ? 0.80 (0.70 - 0.86) HL ?? 6.0 cm 34w4d (50i1l-44n2m) Claus HL ??41% GA for sonogram 35w0d (62s4c-55k3g) ?? Weight Estimate: based on (HL,BPD,HC,AC,FL) Avg ? Weight: 2667 gm (5841-9912) Hadlo ? : 5lbs, 14oz ? Normal: 2617 gm (1962- 3271) Hadlo ? Wt% ? 54% for 35w1d Heart Rate: 126 bpm Amniotic Fluid Index: 21.5cm (07.9-24.9) Q1: 7.3cm ??Q2: 5.5cm ??Q3: 4.5cm ??Q4: 4.2cm ?? Biophysical Profile: 09/17 Breathin ?? Tone: 2 ?? NST: 0 Movement: ??2 ?? AFV: ??2 DOPPLER Umbilical - Mid Cord S/D ??3.21(1.68 - 3.58) ? PI ?? 1.24 (0.60 - 1.18) * ?? CLINICAL SUMMARY Study Number: 5 A single fetus is identified cephalic presentation. ??The measurements today are consistent with appropriate growth. The amniotic fluid volume is within normal limits. ??The placenta is posterior. ??No major malformations are seen. IMPRESSION: Single, live, IUP 35w1d, normal growth/LLUVIA Reassuring BPP (NST reassuring but did not meet criteria) Top normal UA PI with normal S/D ratio RECOMMEND: ?? kick counting was encouraged, f/u one week. Thank you for allowing us the opportunity to care for your patient. Rani Partida MD <Electronic Signature> ??04/17/2014 10:54am Juana Gabriel MD [facility] ORDERABLES documented in this encounter Visit [...] (HCC) documented in this encounter Care Teams Blasting Contract Man Relationship Specialty Start Date End Date Bowen Field MD PCP - General Internal Medicine 12/22/13 documented as of this encounter
--- OUTSIDE RECORDS SUMMARY | 2024-01-26 06:42 | XMS_ITS | Encounter Summary ---
Author Organization [facility] Health Address [address] [facility] [place] [address] Care Team Providers Care Outside Rigger Name Role Phone Unavailable Primary Care Provider Unavailabl e Encounter Details Date Type Department Care Team (Late st Contact Info) Description 06/22/2007 Orders Only [facility] [address] [place] [address] ProviderKatiana MD Social History Tobacco Use Types Packs/Day Years Used Date Smoking Tobacco: Never Assessed Sex and Gender Information Value Date Recorded Sex Assigned at Not on file Gender Identity Not on file Sexual Orientation Not on file documented as of this encounter Plan of Treatment Not on file documented as of this encounter Procedures Procedure Name Priority Date/Time Associated Diagnosis Comments GROSS + MICRO EXAM [facility] 06/22/2007 11 :30 AM CDT documented in this encounter Results * GROSS + MICRO EXAM (06/22/2007 11:30 AM CDT) Result CASE NUMBER [id number] Comment: ORDERING PHYSICIAN ??SHELBIE GABRIEL SPECIMEN TYPE ?Placenta Date ? 06/23/2007 Physician ?Janine Gabriel Description ? The specimen is received in [...] uniformly red and soft without focal lesion. ??Mushroom Packer sections of the specimen are taken and [...] ?maturation -- ?Intervillous fibrin deposition, ?focal MM/na Aerospace Engineer ? na Pathologist ?Yoana Breaux M.D. [place]. ?06/24/2007 1206 <1> CPT code ? 31363 MISCELLANEOUS SAMPLES / Unknown 06/22/2007 11:30 AM CDT 06/23/2007 8:22 AM CDT Historical Provider LAB - PATHOLOGY/C YTOLOGY ORDERABLES documented in this encounter Visit Diagnoses Not on filedocumented in this encounter
--- OUTSIDE RECORDS SUMMARY | 2024-01-26 06:42 | XMS_ITS | Encounter Summary ---
Author Organization [facility] Health Address [address] [place] [address] Care Team Providers Care Data Entry Associate Name Role Phone Bowen Field MD Primary Care Provider Unavail able Reason for Visit * Reason Comments Care 05/09/2014 Girl C Se ction Breast Feeding Encounter Details Date Type Department Care Team (Latest Contact Info) Description 06/25/2014 9:30 AM CDT - 06/25/2014 11:59 PM CDT Hospital Encounter [facility] MATERNAL/ EVALUATION UNIT [address] [place] [id number] Jeffrey Jeronimo MD [address] [facility] [address] [place] [address] Discharge Disposition: Home or Self Care Social [...] Sign Reading Time Taken Comments Blood Pressure 117/82 06/25/2014 10:20 AM CDT Pulse 89 06/25/2014 10:20 AM CDT Temperature - - Respiratory Rate 20 06/25/2014 10:20 AM CDT Oxygen Saturation - - Inhaled Oxygen Concentration - - Weight 94.9 kg (209 lb 3.2 oz) 06/25/2014 10:20 AM CDT Height 160 cm (5' 3 ) 06/25/2014 10:20 AM CDT Body Mass Index 37.06 06/25/2014 10:20 AM CDT documented in this encounter Functional [...] 40 mg subcutaneously once daily. 05/24/2015 heparin [id number] UNIT/ML injection Inject 1 mL subcutaneously 2 [...] as of this encounter Progress Notes * Adenike Fuentes, DEGREASING WHEEL OPERATOR-VEGETABLE LOADER MACHINE OPERATOR - 06/25/2014 11:04 AM CDT SEMICONDUCTOR EQUIPMENT TECHNICIAN Post Clinic Note Subjective: Patient without complaints today. She states that her mood has been stable and denies SI/HI, she continues to take Zoloft 50 mg daily. Lochia has stopped, has not resumed menses. She is pumping and bottle feeding. Baby doing well. Plans NFP/condoms for contraception. Has not resumed sexual activity. Denies chest pain, SOB, or leg pain. Denies lightheadedness or dizziness. Continues totake Methyldopa 500mg BID. She has not taken Lovenox 40 mg daily for the past few days. Has not yetmade an appt with her PCP. Her was complicated by: Patient Active Problem [...] ??? Previous delivery affecting 12/23/2013 Objective: BP 117/82 mmHg Pulse 89 Resp 20 Wt 209 lb 3.2 oz (94.892 kg) BMI 37.07 kg/m2 Overall: Alert and oriented x3 with no apparent signs of distress Heart: RRR, S1, S2 Lungs: Clear to auscultation bilaterally Abdomen: Soft and non tender, + bowel sounds Incision: Clean dry and intact with edges well approximated. There are no signs of infection, no drainage noted, no erythema, no edema noted. Pelvic: Uterus/cervix involuted. Adnexa without masses. Vagina wnl. Episiotomy/laceration healed. Extremities: WNL, no edema, normal size & shape. Negative Viktoriya's sign Assessment/Plan: Ama Monzon is a s/p c/s 05/09/2014, week # 6 1. PP week 6 follow up 1. Mood: Stable, denies SI/HI 2. Baby: Doing well 3. Breast feeding via pumping 4. Bleeding: Stopped, has not resumed menses 5. Urine test not done 6. Pap reviewed: not on file, completed with Dr Gabriel last year 7. Contraception: Desires NFP/condoms 8. Has not resumed intercourse. 2. cHTN 1. bp 117/82 2. Continue Methyldopa 500 mg BID 3. To make appt for follow up with radiation physicist 3. Depression 1. Reports stable mood, denies SI/HI 2. Continue Zoloft 50 mg daily 4. Factor V Leiden and Prothrombin 1. FVL heterozgote, Prothrombin mutation heterozygote 2. No personal history of blood clot, strong family history 3. D/c Lovenox 4. Can restart baby aspirin if recommended by radiation physicist 5. RTC PRN 6. Education: Signs and symptoms of PP depression, infection, care of the incision, and when to return to clinic. MICAH Hansen 06/25/2014 11:04 AM documented in this encounter Plan of Treatment Not on file documented as of this encounter Visit Diagnoses Diagnosis Anxiety- Primary Anxiety state, unspecified Factor V Leiden mutation complicating (HCC) Other current maternal conditions classifiable elsewhere, complicating , childbirth, or the puerperium, unspecified as to episode of care Hypertension Unspecified essential hypertension Placental abruption, third trimester (HCC) documented in this encounter Care Teams Data Entry Associate Relationship Specialty Start Date End Date Bowen Field MD PCP - General Internal Medicine 12/22/13 documented as of this encounter
--- OUTSIDE RECORDS SUMMARY | 2024-01-26 06:42 | XMS_ITS | Encounter Summary ---
Author Organization [facility] Address [address] [place] [address] [place] [address] Care Team Providers Care Project Administrative Assistant Name Role Phone Bowen Field MD Primary Care Provider Unavail able Encounter Details Date Type Department Care Team (Latest Contact Info) Description 04/30/2014 8:17 AM CDT - 04/30/2014 11:59 PM CDT Hospital Encounter [facility] MATERNAL/ EVALUATION UNIT [address] [facility] [place] [address] Juana Gabriel MD RETIRED Discharge Disposition: Home [...] Sign Reading Time Taken Comments Blood Pressure 146/93 04/30/2014 9:58 AM CDT Pulse - - Temperature - [...] 40 mg subcutaneously once daily. 05/24/2015 heparin [id number] UNIT/ML injection Inject 1 mL subcutaneously 2 [...] on filedocumented in this encounter Care Teams Project Administrative Assistant Relationship Specialty Start Date End Date Bowen Field MD PCP - General Internal Medicine 12/22/13 documented as of this encounter
--- OUTSIDE RECORDS SUMMARY | 2024-01-26 06:42 | XMS_ITS | Encounter Summary ---
Author Organization [facility] Address [facility] [facility] [place] [address] Care Team Providers Care Regulatory Lead Name Role Phone Bowen Field MD Primary Care Provider Unavail able Encounter Details Date Type Department Care Team (Latest Contact Info) Description 04/30/2014 8:14 AM CDT - 04/30/2014 8:16 AM CDT Hospital Encounter [facility] MATERNAL/ EVALUATION UNIT [address] [facility] [place] [address] Alberto Colindres MD [address] [facility] [address] [place] [address] Discharge Disposition: Home or Self Care Social [...] Sign Reading Time Taken Comments Blood Pressure 134/82 04/30/2014 8:00 AM CDT Pulse - - Temperature - - Respiratory Rate - - Oxygen Saturation - - Inhaled Oxygen Concentration - - Weight 103 kg (227 lb) 04/30/2014 8:00 AM CDT Height - - Body Mass Index 40.21 04/26/2014 9:25 AM CDT documented in this [...] 40 mg subcutaneously once daily. 05/24/2015 heparin [id number] UNIT/ML injection Inject 1 mL subcutaneously 2 [...] Progress Notes * Jeffrey Jeronimo MD - 04/30/2014 9:06 AM CDT [facility] Return Visit 04/30/2014 S: Ama Monzon is a 38 y.o. @ 37w1d Today she notes she is doing okay. Continues to have Smith Triplett contractions. She went to triage in the past week and was told she wasn't dilating. She also had diarrhea and nausea at that time,and now her has these symptoms as well. She has no s/s of preeclampsia. She endorses good movement. She occasionally feels shortness of breath that she associates with the contractions.She denies chest pain, visual changes, RUQ pain or headaches. She is taking the heparin without complications. Denies LOF, VB; +FM Her is c/b: Patient Active Problem List [...] ??? Previous delivery affecting 12/23/2013 O: Vitals: 04/30/14 0800 BP: 134/82 Weight: 227 lb (102.967 kg) FHT per NST/US today Recent Labs Component Name 04/30/14 0828 PROTEINUA neg GLUCOSEUA neg\ KETONEUA neg A/P: Ama Monzon is a 38 y.o. at 37w1d 1. Chronic Hypertension 1. H/O Pre-eclampsia in G1 2. Currently on Methyldopa 500 mg BID 3. 24 hour urine in 02/20/14 was 155mg 4. Current BP 134/82 5. Asymptomatic 6. EFW 2667gm and 54%ile on 04/16 7. Continue testing with weekly BPP and NST 2. 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 Heparin 10,000 units BID started Wednesday, will obtain CBC today 3. No personal history of blood clots 4. Strong family history of clots- Mother with DVT and PE, brother with DVT, grandfather with clots 3. H/o preeclampsia and placental abruption 1. In G1, delivered at 34 weeks 2. Continue testing 3. Precautions given to patient 4. H/O section 1. G1- here at [facility] at 34 weeks- could not find operative [...] in 1. Urine culture positive from 02/19/14, no REINIER sent. Will send today 8. Supervision of 1. Dating: L = 18 wk US 2. A+/I/-/-, HIV NR 3. GCT: 102 4. S/P Flu vaccine 9. FWB reassuring 10. Discussed PreE precautions,labor precautions and kick counts again today 11. RTC in one week D/W Dr Phani Harding MD 04/30/2014 9:06 AM MFM Attending Note I saw and examined the patient and reviewed history and physical exam with Dr. Harding at the timeof the visit. Patient is 37w1d The patient presents with Patient Active Problem List Diagnosis ??? Factor V Leiden mutation complicating ??? Previous delivery affecting ??? Supervision of normal ??? Chronic Hypertension ??? Advanced maternal age (AMA) in ??? H/O Pre-Eclampsia ??? H/O Placental abruption ??? H/O Anxiety ??? Elevated blood pressure, R/O Pre-eclampsia ??? Prothrombin gene mutation ??? GBS (group B streptococcus) UTI complicating . Exam and assessment show Vitals: 04/30/14 0800 BP: 134/82 Weight: 227 lb (102.967 kg) Body mass index is 40.22 kg/(m^2). and ABD and UT are soft and NT Her meds are Current Outpatient Prescriptions on File Prior to Encounter Medication Sig Dispense Refill ??? heparin 18967 UNIT/ML injection Inject 1 mL subcutaneously 2 times daily. 60 Vial 1 ??? Alcohol Swabs 70 % PADS Use 1 Applicator 2 times daily. 100 Each 1 ??? support hose knee high closed toe (TEDS) support hose Apply 1 Each to affected area as directed. 2 Each 0 ??? Vit-Fe Fumarate-FA ( VITAMIN) 28-0.8 MG [...] Procedure Name Priority Date/Time Associated Diagnosis Comments CULTURE URINE Routine 04/30/2014 9:26 AM CDT DIFFERENTIAL MANUAL Routine 04/30/2014 9 :26 AM CDT CBC W AUTO DIFFERENTIAL Routine 04/30/2014 9:26 AM CDT GLUCOSE PROTEIN KETONE URINE - POINT OF CAR Routine 04/30/2014 8:28 AM CDT documented in this encounter Results * (ABNORMAL) DIFFERENTIAL MANUAL (04/30/2014 9:26 AM CDT) WBC Auto 11.2 x10^9/L 04/30/2014 5:15 PM CDT [facility] Neutrophil % Manual 70 44 - 73 % 04/30/2014 5:15 PM CDT [facility] Lymphocytes % Manual 23 20 - 43 % 04/30/2014 5:15 PM CDT [facility] Monocytes % Manual 4(L) 5 - 13 % 04/30/2014 5:15 PM CDT [facility] Basophils % Manual 1 0 - 2 % 04/30/2014 5:15 PM CDT [facility] Band % Manual 2 0 - 11 % 04/30/2014 5:15 PM CDT [facility] Cells Counted 100 # cells 04/30/2014 5:15 PM CDT [facility] Platelet Estimation Normal Normal, Adequate platelets 04/30/2014 5:15 PM CDT [facility] RBC Morphology Normal 04/30/2014 5:15 PM CDT [facility] WBC Morph Normal 04/30/2014 5:15 PM CDT [facility] Blood BLOOD SPECIMEN / Unknown Venipuncture / Unknown 04/30/2014 9:26 AM CDT 04/30/2014 9:29 AM CDT Alyx Acosta MD LAB - HEMATO LOGY ORDERABLES [facility] [address] [place], [place] [id number] * (ABNORMAL) CBC W AUTO DIFFERENTIAL (04/30/2014 9:26 AM CDT) Pathologist [facility] WBC 11.2(H) 4.4 - 10.7 x10^9/L 04/30/2014 9:44 AM CDT [facility] RBC 4.06 3.80 - 5.20 x10^12/L 04/30/2014 9:44 AM CDT [facility] Hemoglobin 11.3(L) 12.0 - 15.6 gm/dL 04/30/2014 9:44 AM CDT [facility] Hematocrit 32.4(L) 35.9 - 45.5 % 04/30/2014 9:44 AM CDT [facility] MCV 79.8(L) 80.7 - 98.3 fl 04/30/2014 9:44 AM CDT [facility] MCH 27.8 26.7 - 34.0 pg 04/30/2014 9:44 AM CDT [facility] MCHC 34.9 30.8 - 35.9 gm/dL 04/30/2014 9:44 AM CDT [facility] Platelet Count 248 153 - 416 x10^9/L 04/30/2014 9:44 AM CDT [facility] RDW-CV 13.3 12.1 - 14.9 % 04/30/2014 9:44 AM CDT [facility] MPV 9.4 9.4 - 12.9 fl 04/30/2014 9:44 AM CDT [facility] Blood BLOOD SPECIMEN / Unknown Venipuncture / Unknown 04/30/2014 9:26 AM CDT 04/30/2014 9:29 AM CDT Alyx Acosta MD LAB - HEMATO LOGY ORDERABLES [facility] [address] [place], [place] [id number] * CULTURE URINE (04/30/2014 9:26 AM CDT) [facility] Culture <10,000 CFU/mL normal urogenital adair SIXTO 05/02/2014 11:54 AM CDT [facility] MICROBIOLOGY Urine URINE SPECIMEN OBTAINED BY CLEAN CATCH PROCEDURE / Unknown Collection / Unknown 04/30/2014 9:26 AM CDT 04/30/2014 10:37 AM CDT Alyx Jay MD LAB - MICROBIO LOGY ORDERABLES Performing Organization Address City/[facility]/ZIP Co de Phone Number [facility] MICROBIOLOGY [address] * GLUCOSE PROTEIN KETONE URINE - POINT OF CAR (04/30/2014 8:28 AM CDT) Glucose UA neg\ Negative [facility] POCT TESTING Protein UA neg Negative [facility] POCT TESTING Ketone UA neg Negative [facility] POCT TESTING QC Verified Yes Yes [facility] POC T TESTING Urine specimen (specimen) URINE / Unknown 04/30/2014 8:28 AM CDT Alyx Acosta MD LAB - POINT OF CARE ORDERABLES Performing Organization Address City/[facility]/ZIP Co de Phone Number [facility] POCT TESTING [address] [phone] documented in this encounter Visit Diagnoses Diagnosis GBS (group b Streptococcus) UTI complicating , third trimester (HCC)- Primary Elevated blood pressure (not hypertension) Elevated blood pressure reading without diagnosis of hypertension Supervision of normal , third trimester (HCC) Advanced maternal age (AMA) in , third trimester (HCC) documented in this encounter Care Teams Regulatory Lead Relationship Specialty Start Date End Date Bowen Field MD PCP - General Internal Medicine 12/22/13 documented as of this encounter
--- OUTSIDE RECORDS SUMMARY | 2024-01-26 06:42 | XMS_ITS | Encounter Summary ---
Author Organization [facility] Address [facility] [place] [address] Care Team Providers Care Tour Manager Name Role Phone Bowen Field MD Primary Care Provider Unavail able Reason for Visit * Reason Comments Induction demise * Auth/Cert Specialty Diagnoses / Procedures Referred By Contac t Referred To Contact Obstetrics and Gynecology [facility] 5e Ante/Mom Baby [address] [place] [address] Referral ID Status Reason Start Date Expiration Date Visits Re quested Visits Authorized [id number] 05/27/2015 11/23/2015 1 Encounter Details Date Type Department Care Team (Latest Contact Info) Description 05/24/2015 12:22 PM CDT - 05/25/2015 6:05 PM CDT Hospital Encounter [facility] 5E ANTEPARTUM/MOTHER BABY [address] [place] [address] Jauna Gabriel MD RETIRED Obstetrics Discharge Disposition: Home or Self Care [...] 18 05/25/2015 2:00 PM CDT Oxygen Saturation - - Inhaled Oxygen Concentration - - Weight 99.3 kg (219 lb) 05/24/2015 1:03 PM CDT Height 160 cm (5' 3 ) 05/24/2015 1:03 PM CDT Body Mass Index 38.79 05/24/2015 1:03 PM CDT documented in this encounter Functional [...] daily. Indications: documented as of this encounter Progress Notes * Jayda Pan MD - 05/30/2015 3:41 PM CDT Final Progress Note. Late Entry from 06/01/2015 at 1600 Patient requested discharged prior to 24 hours after delivery. Per report, Dr. Gabriel was okay withdischarge if patient stable. On my interview and exam, patient with light bleeding which was decreasing over time. She was voiding with no issues. Ambulating without dizziness. Still requesting discharge. VS reviewed, stable. D/c orders were placed with instructions to followup with Dr. Gabriel within the week for mood check. Jayda Pan MD 05/30/2015 3:43 PM * Phyllis Ward RN - 05/25/2015 6:04 PM CDT Discharge instructions and education reviewed with pt, she verbalized understanding all, taken from room per mothers request. Pt discharged to home. (Dr. Pan gave verbal ok for pt to leave now.) * Yue Guerrero RN - 05/25/2015 2:05 PM CDT Pt requesting to leave this evening if stable; Dr. Gabriel aware of request; Dr. Gabriel ordering or other resident to assess before d/c this evening. * Yue Guerrero RN - 05/25/2015 2:00 PM CDT Patient settled into bed in room 577, at BS. Patient ambulating without difficulty, having ambulated to bathroom several times since delivery. Moderate lochia, no clots, fundus firm, pt reporting mild painless cramping. Education regarding normal PP bleeding given. Baby at bedside. All paperwork complete. Patient given memory book and extra photos left in Share mailbox. * Yue Guerrero RN - 05/25/2015 9:[address] Govea called to BS w/US d/t patient bleeding and expulsion of placental fragments from uterus. Orders to keep patient on labor and delivery until bleeding stable. * Yelitza Herrera MD - 05/25/2015 2:32 AM CDT Placing 200 mcg bucally, she has been comfortable and sleeping w aid of trazodone after last placement of 200 mcg per vagina. Yelitza Herrera MD 05/25/2015 2:32 AM * Yelitza Herrera MD - 05/24/2015 10:58 PM CDT In to see patient for assessment and placement of cytotec. Cervix still closed but feels more effaced Feels some cramping, not very intense Placed another 200 mcg of cytotec per vagina. eYlitza Herrera MD 05/24/2015 11:00 PM * Samira España RN - 05/24/2015 3:27 PM CDT Problem: Labor Goal: Maternal Status Throughout the Labor and Delivery Process is Maintained Within Expected Range Outcome: Ongoing Ama verbalizes understanding of the plan for her induction of labor. She appears nervous and asksmany questions which RN answers. She declines any further questions at this time. RN assures her that questions are perfectly normal and she is welcome to ask about anything she would like. Problem: Emotional Well Being Goal: Verbalizes understanding of labor plan Outcome: Ongoing Ama's is present at the bedside for emotional support. They would like to arrange privateburial for Moises. RN provided grief support and share pamphlets and explained paperwork. Problem: Spiritual Needs Goal: Spiritual support given Outcome: Ongoing Parents would like pastoral care to provide Moises with a blessing when he is born. Goal: Ability to function at adequate level Outcome: Ongoing Ama is tearful at times, appears to be grieving expectedly. * Juana Gabriel MD - 05/24/2015 2:36 PM CDT OB Labor Progress Note Subjective: Called to see patient for: placement of cytotec Objective: Vitals: 05/24/15 1226 05/24/15 1303 BP: 134/85 Resp: 20 Weight: 219 lb (99.338 kg) Physical Exam: Cervix: Dilation: Closed non-stress test (tan): n/a demise Assessment: 3, Para 2, 0, Estimated Date of Delivery: 10/21/15 Gestational Age 18w4d Not in labor. Plan: vaginal/cervical Prostin documented in this encounter H&P Notes * Juana Gabriel MD - 05/24/2015 2:51 PM CDT OB History & Physical 05/24/2015 2:51 PM Ama Monzon Chief Complaint / History of Present Illness: Ama Monzon is a 39 y.o. who reports no bleeding and no cramping. Ultrasound with no heart tones. PMH: Past Medical History Diagnosis Date ??? Chronic [...] History of hypertension ??? History of UTI PSH: Past Surgical History Procedure Laterality Date ??? section 2008 At 34 weeks, [place] ??? section N/A 05/09/2014 N/A; SECTION EMERGENCY SOC: History Social History ??? Marital Status: Spouse Name: N/A Number of Children: N/A ??? Years of Education: N/A Occupational History ??? Not on file. Social History Main Topics ??? Smoking status: Never Smoker ??? Smokeless tobacco: Never Used ??? Alcohol Use: No ??? Drug Use: No ??? Sexual Activity: Not on file Other Topics Concern ??? Not on file Social History Narrative Allergies Allergen Reactions ??? Sulfa Drugs Mouth sores ??? Latex Itching and Swelling Current Facility-Administered Medications Medication Dose Route Frequency Provider Last Rate Last Dose ??? lactated ringers infusion Intravenous Continuous Yelitza Herrera MD 125 mL/hr at 05/24/15 1445 ??? ondansetron (ZOFRAN) injection 4 mg 4 mg Intravenous q6h PRN Yelitza Herrera MD Or ??? metoclopramide (REGLAN) injection 10 mg 10 mg Intravenous q6h PRN Yelitza Herrera MD Or ??? prochlorperazine (COMPAZINE) suppository 25 mg 25 mg Rectal q12h PRN Yelitza Herrera MD ??? misoprostol (CYTOTEC) tablet 200 mcg 200 mcg Vaginal q4h Juana Gabriel MD Exam: Vitals: 05/24/15 1226 05/24/15 1303 BP: 134/85 Resp: 20 Weight: 219 lb (99.338 kg) General: alert, cooperative, no distress Heart: normal rate, regular rhythm, normal S1, S2, no murmurs, rubs, clicks or gallops. Chest: clear to auscultation, no wheezes, rales or rhonchi, symmetric air entry. Abdominal exam: soft, nontender, nondistended, no masses or organomegaly. Pelvic exam: normal external genitalia, vulva, vagina, cervix, uterus and adnexa. Extremities: normal, non-tender bilaterally Assessment: 1) 39 yo with demise at 18 weeks. Fetus positive for down's syndrome Plan: Cytotec for induction The risks, reasons, and benefits of induction were explained to the patient. Patients understands and will proceed with unduction. Consent signed. Juana Gabriel MD documented in this encounter Consult Notes * Karely Campos - 05/25/2015 9:20 AM CDT Pastoral Care Consult. [employer] V[employer] Worker expressed condolences to Ama and Sherman and did grief work. At their request, I prayed commendation blessing for Moises Pena. I gave them a certificate and they have a pamphlet to help their 8-yr-old daughter with grief. Pastoral Care will send them a condolence card and remain available if needed. Sr. JENNY Jewell * Enriqueta Kohli - 05/24/2015 7:17 PM CDTAssociated Order(s): IP CONSULT TO PASTORAL CARE The patient miscarried at 18w4d. [employer] Worker support the the patient was requested/provided. The baby's father, Sherman Sanabria, was at the patient's bedside. I offered my presence and support, and PastoralCare remains available for follow up as needed/requested. The patient stated that she would like tohave a director of convention services offer a baby blessing after she delivers. I passed this information on to EFRA Hogan,who will make the incoming RNs aware of the patient's desire. Candelario??e JENNY Kohli/Pastoral care documented in this encounter Miscellaneous Notes * Delivery Summary - Yue Guerrero, EFRA - 05/25/2015 8:30 AM CDT DELIVERY SUMMARY Mother's Post Delivery /Para: OB History Para Term AB TAB SAB Ectopic Multiple Living 3 3 1 1 0 0 0 0 1 2 Obstetric Comments G1- Pre-eclampsia with placental abruption, was on Magnesium No h/o STDs No abnormal paps Estimated Date of Delivery: 10/21/15 Temp (48hrs) Max:99.1 ??F Estimated Blood Loss 05/24/2015 1920 - 05/25/2015 1653 Mom's I/O Activity Estimated Blood Loss Hospital Encounter 50 mL Total 50 Mother's Information Patient Information Patient Name Sex Ama Myers ([id number]) Female 1975 OB History Para Term AB SAB TAB Ectopic Multiple Living 3 3 1 1 0 0 0 0 1 2 # Outcome Date GA Labor/2nd Weight Sex Delivery Anes PTL Lv Name A1 A5 Location MD 3 Para 05/25/15 18w5d 56 g (2 oz) M VAGINAL IV Narcotic Demise 0 0 [facility] Karolina Cerda MD 2A 2B Term 05/09/14 38w3d 3230 g (7 lb 1.9 oz) F , R Spinal Y 8 9 [facility] Moises Harris MD 1 06/22/07 34w0d 1928 g (4 lb 4 oz) M , E Spinal N Y Complications: Preeclampsia Obstetric Comments G1- Pre-eclampsia with placental abruption, was on Magnesium No h/o STDs No abnormal paps Transcribed Labs 05/24/15 1532 RH (Manually Reproduced) Positive Blood Type (Manually Reproduced) A Syphilis Serology (Manually Reproduced) Negative HIV (Manually Reproduced) Negative Hepatitis B Surface Antigen (Manually Reproduced) Negative Rubella Status ( Manually Reproduced) Immune Nicolás Pending FD [[id number]] Patient Information Patient Name Sex SOLO Monzon Pending FD ([id number]) Male 05/25/2015 Group Beta Strep Status/Number of Antibiotic Doses GBS Status: Unknown Antibiotic: None Number of Antibiotic Doses: 0 Membranes/Fluid Membrane Status: Spontaneous Rupture Date: 05/25/15 Rupture Time: 7:00 AM Fluid Description: Meconium Amniotic Fluid Volume: Moderate Anesthesia/Analgesia Anesthesia/Analgesia: IV Narcotic Intrapartum Events Induction Method: Misoprostol Augmentation Method: None Conditions: CHTN, Factor V Labor and Delivery Complications: IUFD Delivery Type/ Presentation Delivery Type: Presentation: Vertex Placenta Date and time: 05/25/2015 7:36 AM Appearance/Removal/Tests: Intact, Spontaneous, Sent to Pathology Episiotomy/Laceration/Repair with Sponge and Sharp Counts Episiotomy: None Lacerations: None Repair Suture: None Vaginal Delivery Counts Vaginal Delivery Counts Final Count Sponges Correct Sharps Correct Sponge Count Comments: precip pack Sharps Count Comments: precip pack Delivery Outcome Live ?: Demise If : Antepartum Baby Vital Statistics Date: 05/25/15 Time: 719 Weight: 56 g Length: 5.5 1 Minute 1 Minute: Skin Color: 0 Grimace: 0 Breathin Heart Rate: 0 Muscle Tone: 0 Total: 0 5 Minute 5 Minute: Skin Color: 0 Grimace: 0 Breathin Heart Rate: 0 Muscle Tone: 0 Total: 0 10 Minute 10 Minute: Skin Color: 0 Grimace: 0 Breathin Heart Rate: 0 Muscle Tone: 0 Total: 0 Cord/Gases Vessels: Unknown Complications: None Cord Blood Disposition: Unable to Obtain Gases Sent: Unable to Obtain Delivering Clinician Delivering Clinician: KAROLINA CERDA Specifics Length Weight Gestational Age Delivery Method 5.5 (14 cm) 56 g (2 oz) 18 5/7 weeks 1 minute 5 minutes 10 minutes 0 0 0 * Delivery Summary - Alyx Acosta MD - 05/25/2015 7:30 AM CDT Physician Delivery Note 05/25/2015 7:30 AM 3, Para 2, 0, Estimated Date of Delivery: 10/21/15 Gestational Age 18w5d Complication: in utero, factor V Leiden Labor: induced Anesthesia: none Episiotomy/Laceration/Repair: none Delivery: spontaneous Position: cephalic Placenta: spontaneous EBL: 50 ml Complications: none Comments: Prashant Abraham present for precipitous delivery of [address] fetus[address] Dr[address] Gabriel notified. Alyx Acosta MD 05/25/2015 7:38 AM documented in this encounter Plan of Treatment Not on file documented as of this encounter Procedures Procedure Name Priority Date/Time Associated Diagnosis Comments LAB RESULTS ORDER 05/27/2015 11: 28 PM CDT IMAGING/RADIOLOGY/XRA Y RESULTS ORDER 05/27/2015 11:28 PM CDT PATHOLOGY TISSUE EXAM (STL) Routine 05/25/2015 7:30 AM CDT TYPE + SCREEN PANEL STAT 05/24/2015 1 :26 PM CDT abnormality in , not applicable or unspecified fetus (HCC) CBC W AUTO DIFFERENTIAL STAT 05/24/2015 1:26 PM CDT abnormality in , not applicable or unspecified fetus (HCC) documented in this encounter Results * LAB RESULTS ORDER (05/27/2015 11:28 PM CDT) Narrative 05/27/2015 11:28 PM CDT Ordered by an unspecified provider. Scanned Document LAB - THERAPEUTIC DR UG MONITORING ORDERABLES * IMAGING/RADIOLOGY/XRAY RESULTS ORDER (05/27/2015 11:28 PM CDT) Anatomical Region Laterality Modality Other Narrative 05/27/2015 11:28 PM CDT Ordered by an unspecified provider. Scanned Document IMAGING * GROSS + MICRO EXAM (STL) (05/25/2015 7:30 AM CDT) Case Report Surgical Pathology Report ? Case: [id number] ? Authorizing Provider: ??Juana Gabriel MD ? Collected: ? 05/25/2015 07:30 AM ? Ordering Location: ? [facility] 5 LDR ? Received: ?05/28/2015 06:40 AM ? Pathologist: ? Armani Arce MD ? Specimen: ?Placenta Non 3rd Trimester ? 05/29/2015 3:48 PM CDT [facility] Final Diagnosis 1. Placenta: -- Second trimester placenta, 150 grams -- 3-vessel umbilical cord with acute funisitis and myonecrosis -- Acute chorioamnionitis with increased fibrin deposition -- ?Diffuse acute decidualitis with fibrin deposition CARLOTA/GC/tere 05/29/2015 3:48 PM CDT [facility] Clinical History The patient is a [...] for Down syndrome. 05/29/2015 3:48 PM CDT [facility] Gross Description The specimen is received fixed in formalin in one container, labeled with the patient's name Ama Monzon, and placenta un tri, and contains a [...] is dark brown-green and smooth. The usual medicare sales representative sections are submitted in cassette A1 to A3. A4 contains medicare sales representative sections of the separate fragments of nodular placental tissue. CARLOTA/gennaro 05/29/2015 3:48 PM CDT [facility] Microscopic Description Microscopic examination of the placenta reviews a three-vessel umbilical cord with acute funisitis and myonecrosis. There is acute chorioamnionitis. The chorionic villi are immature and fibrotic. There is diffuse acute decidualitis with fibrinoid material. 05/29/2015 3:48 PM CDT [facility] Pathology/Cytolo gy ENTIRE PLACENTA / Unknown 05/25/2015 7:30 AM CDT 05/28/2015 6:40 AM CDT Juana Gabriel MD LAB - PATHOLOGY/CYTO LOGY ORDERABLES Performing Organization Address City/State/[facility] Co de Phone Number [facility] [address] [place], [place] [id number] * TYPE + SCREEN PANEL (05/24/2015 1:26 PM CDT) ABO A 05/24/2015 2:11 PM CDT [facility] BLOOD [facility] LAB Rh Type Positive 05/24/2015 2:11 PM CDT [facility] B[facility] LAB Comment:History check perfor med. No retype required. Antibody Screen Negative 05/24/2015 2:11 PM CDT [facility] BLOOD [facility] LAB Miscellaneous samples (specimen) BLOOD SPECIMEN / Unknown Venipuncture / Unknown 05/24/2015 1:26 PM CDT 05/24/2015 1:32 PM CDT Yelitza Herrera MD LAB - BLOOD BANK ORD ERABLES [facility] BLOOD B[facility] LAB [address] * (ABNORMAL) CBC W AUTO DIFFERENTIAL (05/24/2015 1:26 PM CDT) WBC 8.3 4.4 - 10.7 x10E9/L 05/24/2015 2:01 PM CDT [facility] WBC Corrected x10E9/L 05/24/2015 2:01 PM CDT [facility] RBC 4.95 3.80 - 5.20 x10E12/L 05/24/2015 2:01 PM CDT [facility] Hemoglobin 13.6 12.0 - 15.6 gm/dL 05/24/2015 2:01 PM CDT [facility] Hematocrit 38.5 35.9 - 45.5 % 05/24/2015 2:01 PM CDT [facility] MCV 77.8(L) 80.7 - 98.3 fl 05/24/2015 2:01 PM CDT [facility] MCH 27.5 26.7 - 34.0 pg 05/24/2015 2:01 PM CDT [facility] MCHC 35.3 30.8 - 35.9 gm/dL 05/24/2015 2:01 PM CDT [facility] Platelet Count 303 153 - 416 x10E9/L 05/24/2015 2:01 PM CDT [facility] RDW-CV 13.5 12.1 - 14.9 % 05/24/2015 2:01 PM CDT [facility] MPV 10.2 9.4 - 12.9 fl 05/24/2015 2:01 PM CDT [facility] Neutrophils % 65.6 44.0 - 73.0 % 05/24/2015 2:01 PM CDT [facility] Lymphocytes % 22.7 20.0 - 43.0 % 05/24/2015 2:01 PM CDT [facility] Monocytes % 6.9 5.0 - 13.0 % 05/24/2015 2:01 PM CDT [facility] Eosinophils % 3.7 0.0 - 6.0 % 05/24/2015 2:01 PM CDT [facility] Basophils % 0.5 0.0 - 2.0 % 05/24/2015 2:01 PM CDT [facility] Immature Granulocytes 0.6 0 - 1 % 05/24/2015 2:01 PM CDT [facility] Neutrophil Absolute 5.45 2.01 - 7.14 x10E9/L 05/24/2015 2:01 PM CDT [facility] Lymphocytes Absolute 1.89 1.07 - 3.94 x10E9/L 05/24/2015 2:01 PM CDT [facility] Monocytes Absolute 0.57 0.26 - 1.07 x10E9/L 05/24/2015 2:01 PM CDT [facility] Eosinophils Absolute 0.31 0 - 0.47 x10E9/L 05/24/2015 2:01 PM CDT [facility] Basophils Absolute 0.04 0 - 0.08 x10E9/L 05/24/2015 2:01 PM CDT [facility] Immature Granulocytes Absolute 0.05 0.00 - 0.06 x10E9/L 05/24/2015 2:01 PM CDT [facility] nRBC Auto 0 /100 WBC 05/24/2015 2:01 PM CDT [facility] Blood BLOOD SPECIMEN / Unknown Venipuncture / Unknown 05/24/2015 1:26 PM CDT 05/24/2015 1:32 PM CDT Yelitza Herrera MD LAB - HEMATOLOGY ORD ERABLES [facility] Organization Address City/State/[facility] Co de Phone Number [facility] [address] [place] [address] documented in this encounter Visit Diagnoses Diagnosis abnormality in , not applicable or unspecified fetus (HCC)- Primary documented in this encounter Administered Medications Inactive Administered Medications - up to 3 most recent administrations Medication Order MAR Action Action Date Dose Rate Site 0.9% NaCl injection 3 mL 3 mL, Intracatheter, EVERY 8 HOURS, First dose on 05/25/15 at 1415, Until Discontinued, $ Given 05/25/2015 2:17 PM CDT 3 mL acetaminophen (TYLENOL) tablet 1,000 mg 1,000 mg, Oral, ONCE, 1 dose, On Wed05/24/15 at 2045 $ Given 05/24/2015 8:24 PM CDT 1,000 mg butorphanol (STADOL) injection 2 mg 2 mg, Intravenous, ONCE, 1 dose, On Wed05/25/15 at 0630 $ Given 05/25/2015 6:30 AM CDT 2 mg ibuprofen (MOTRIN) tablet 600 mg 600 mg, Oral, EVERY 6 HOURS, First dose on Wed05/25/15 at 1415, Until Discontinued, Maximum allowable amount = 3200 mg / 24 hours., $ Given 05/25/2015 2:22 PM CDT 600 mg lactated ringers infusion at 125 mL/hr, Intravenous, CONTINUOUS, Starting on Wed05/24/15 at 1315, Until Wed05/25/15 at 1402, Start IV with 18 gauge angiocath. $ New Bag/Syringe 05/24/2015 10:41 PM CDT 125 mL/hr $ New Bag/Syringe 05/24/2015 2:45 PM CDT 125 mL /hr methyldopa (ALDOMET) tablet 500 mg 500 mg, Oral, 2 TIMES DAILY, First dose on Wed05/24/15 at 2100, Until Discontinued $ Given 05/25/2015 10:59 AM CDT 500 mg $ Given 05/24/2015 8:55 PM CDT 500 mg misoprostol (CYTOTEC) tablet 200 mcg 200 mcg, Vaginal, ONCE, 1 dose, On Wed05/24/15 at 1445 $ Admin. by Other Provider 05/24/2015 2:33 PM CDT 200 mcg misoprostol (CYTOTEC) tablet 200 mcg 200 mcg, Vaginal, EVERY 4 HOURS, First dose on Wed05/24/15 at 1530, Until Discontinued $ Given 05/24/2015 10:41 PM CDT 200 mcg $ Given 05/24/2015 6:53 PM CDT 200 mcg misoprostol (CYTOTEC) tablet 200 mcg 200 mcg, Oral, ONCE, 1 dose, On Wed05/25/15 at 0300, Place buccally for 30 min and allow to dissolve, swallow remaining $ Given 05/25/2015 3:06 AM CDT 200 mcg misoprostol (CYTOTEC) tablet 400 mcg 400 mcg, Oral, ONCE, 1 dose, On Wed05/25/15 at 0730 $ Given 05/25/2015 7:30 AM CDT 400 mcg misoprostol (CYTOTEC) tablet ADS Med 1 dose, Starting on Wed05/24/15 at 1429, Until Wed05/24/15 at 1433, Prem Españaah : cabinet override morphine injection 4 mg 4 mg, Intravenous, EVERY 2 HOURS PRN, Moderate Pain, Severe Pain, Starting on 05/25/15 at 0302, Until 05/25/15 at 1402 $ Given 05/25/2015 3:29 AM CDT 4 mg traZODone (DESYREL) tablet 50 mg 50 mg, Oral, AT BEDTIME, First dose on Wed05/24/15 at 2330, Until Discontinued $ Given 05/24/2015 11:14 PM CDT 50 mg documented in this encounter Active and Recently Administered Medications Times are shown in CDT. Scheduled Medication Order 05/23/2015 05/24/2015 05/25/2015 0.9% NaCl injection 3 mL (CANCELED) 3 mL, Intracatheter, EVERY 8 HOURS, First dose on 05/25/15 at 1415, Until Discontinued, 1417 ($ Given - Provider: Phyllis Ward RN) acetaminophen (TYLENOL) tablet 1,000 mg (COMPLETED) 1,000 mg, Oral, ONCE, 1 dose, On Wed05/24/15 at 2045 2023 ($ Given - Provider: Daja Alvarado RN) butorphanol (STADOL) injection 2 mg (COMPLETED) 2 mg, Intravenous, ONCE, 1 dose, On 05/25/15 at 0630 0630 ($ Given - Provider: Lane Gutiérrez RN) ibuprofen (MOTRIN) tablet 600 mg (CANCELED) 600 mg, Oral, EVERY 6 HOURS, First dose on 05/25/15 at 1415, Until Discontinued, Maximum allowable amount = 3200 mg / 24 hours., 1422 ($ Given - Provider: Phyllis Ward RN) methyldopa (ALDOMET) tablet 500 mg (CANCELED) 500 mg, Oral, 2 TIMES DAILY, First dose on Wed05/24/15 at 2100, Until Discontinued 2054 ($ Given - Provider: Daja Alvarado RN) 1059 ($ Given - Provider: Yue Guerrero RN) misoprostol (CYTOTEC) tablet 200 mcg (COMPLETED) 200 mcg, Vaginal, ONCE, 1 dose, On Wed05/24/15 at 1445 1433 ($ Admin. by Other Provider - Provider: Samira España RN) misoprostol (CYTOTEC) tablet 200 mcg (CANCELED) 200 mcg, Vaginal, EVERY 4 HOURS, First dose on Wed05/24/15 at 1530, Until Discontinued 1530 (Not Administered - Provider: Samira España RN - Reason: Documented on duplicate row)1600 (Not Administered - Provider: Samira España RN - Reason: Documented on duplicate row)1853 ($ Given - Provider: Samira España RN)2241 ($ Given - Provider: Daja Alvarado RN) 0400 (Not Administered - Provider: Daja Alvarado RN - Reason: Patient Condition)0800 (Not Administered - Provider: Yue Guerrero RN - Reason: Discontinued by physician)1200 (Not Administered - Provider: Yue Guerrero RN - Reason: Discontinued by physician) misoprostol (CYTOTEC) tablet 200 mcg (COMPLETED) 200 mcg, Oral, ONCE, 1 dose, On 05/25/15 at 0300, Place buccally for 30 min and allow to dissolve, swallow remaining 0306 ($ Given - Provider: Daja Alvarado RN) misoprostol (CYTOTEC) tablet 400 mcg (COMPLETED) 400 mcg, Oral, ONCE, 1 dose, On 05/25/15 at 0730 0730 ($ Given - Provider: Yue Guerrero RN) traZODone (DESYREL) tablet 50 mg (CANCELED) 50 mg, Oral, AT BEDTIME, First dose on Wed05/24/15 at 2330, Until Discontinued 2314 ($ Given - Provider: Daja Alvarado RN) Continuous Medication Order 05/23/2015 05/24/2015 05/25/2015 lactated ringers infusion (CANCELED) at 125 mL/hr, Intravenous, CONTINUOUS, Starting on Wed05/24/15 at 1315, Until 05/25/15 at 1402, Start IV with 18 gauge angiocath. 1445 ($ New Bag/Syringe - Provider: Samira España RN)3481 ($ New Bag/Syringe - Provider: Daja Alvarado, EFRA) PRN Medication Order 05/23/2015 05/24/2015 05/25/2015 morphine injection 4 mg (CANCELED) 4 mg, Intravenous, EVERY 2 HOURS PRN, Moderate Pain, Severe Pain, Starting on 05/25/15 at 0302, Until 05/25/15 at 1402 0316 (Not Administer ed - Provider: Daja Alvarado RN - Reason: Documented on duplicate row)0329 ($ Given - Provider: Daja Alvarado, EFRA) documented in this encounter Care Teams Tour Manager Relationship Specialty Start Date End Date Bowen Field MD PCP - General Internal Medicine 12/22/13 documented as of this encounter
--- OUTSIDE RECORDS SUMMARY | 2024-01-26 06:42 | XMS_ITS | Encounter Summary ---
Author Organization [facility] Address [facility] [facility] [place] [address] Care Team Providers Care Sample Coordinator Name Role Phone Bowen Field MD Primary Care Provider Unavail able Encounter Details Date Type Department Care Team (Latest Contact Info) Description 04/09/2014 9:04 AM AVIATION PROGRAM MANAGER - 04/09/2014 11:59 PM AVIATION PROGRAM MANAGER Hospital Encounter [facility] MATERNAL/ EVALUATION UNIT [address] [place] [address] Juana Gabriel MD RETIRED Discharge Disposition: Home [...] Diagnosis Comments BIOPHYSICAL PROFILE W NST Routine 04/09/2014 10:31 AM AVIATION PROGRAM MANAGER documented in this encounter Results * BIOPHYSICAL PROFILE W NST (04/09/2014 10:31 AM AVIATION PROGRAM MANAGER) Anatomical Region Laterality Modality Other 04/09/2014 10:3 1 AM AVIATION PROGRAM MANAGER Narrative 04/09/2014 11:33 AM AVIATION PROGRAM MANAGER ? [facility] ? [facility] & Care Center ?PHONE: ??FAX: Pat. Name: ?ZA CLAYTON. No: ?[id number] Study Date: ?? 04/09/2014 ??10:31am , Age: ? 1975, 38 Pregnancies: ?? 2, Para 1 Height: ? 63 in Weight: ? 202 lb LMP: ?08/13/2013 GA by LMP: ?34w1d GA by 1st: ?34w1d GA Selected: ??34w1d (From First S) ALYCE: ?05/20/2014 Referring MD: JUANA GABRIEL MD Wrap Checker: ??Xenia Bryant RDMS BMI: ?35.78 Hist/Ind: ? Advanced Maternal Age ?Chronic Hypertension ?Factor V Leiden ?Hx Preeclampsia, Abruption, ? Heart Rate: 161 bpm Amniotic Fluid Index: 19.9cm (08.1-24.8) Q1: 8.5cm ??Q2: 4.5cm ??Q3: 1.6cm ??Q4: 5.3cm ?? Biophysical Profile: 11/17 Breathin ?? Tone: 2 ?? NST: 2 Movement: ??2 ?? AFV: ??2 DOPPLER Umbilical - Mid Cord S/D ??3.04(1.72 - 3.67) ? PI ?? 1.08 (0.62 - 1.20) ? CLINICAL SUMMARY Study Number: 4 A tan fetus is identified in cephalic presentation. ??The placenta is posterior. ??The amniotic fluid volume within normal limits. IMPRESSION: ?? Single, live, IUP at 34w1d, normal LLUVIA Reassuring BPP Normal umbilical artery doppler RECOMMEND: ?? Follow up ultrasound as clinically indicated. Thank you for allowing us the opportunity to care for your patient. Rani Partida MD <Electronic Signature> ??04/09/2014 11:33am Juana Gabriel MD [facility] ORDERABLES documented in this encounter Visit Diagnoses Not on filedocumented in this encounter Care Teams Sample Coordinator Relationship Specialty Start Date End Date Bowen Field MD PCP - General Internal Medicine 12/22/13 documented as of this encounter
--- OUTSIDE RECORDS SUMMARY | 2024-01-26 06:42 | XMS_ITS | Encounter Summary ---
Author Organization [facility] Address [facility]3 [facility] [place] [address] Care Team Providers Care Certified Income Tax Preparer Name Role Phone Bowen Field MD Primary Care Provider Unavail able Encounter Details Date Type Department Care Team (Latest Contact Info) Description 05/07/2014 8:46 AM CDT - 05/07/2014 11:59 PM CDT Hospital Encounter [facility] MATERNAL/ EVALUATION UNIT [address] [place] [address] Juana Gabriel MD RETIRED Xenia Gomez, STRATEGIES ANALYST-INBOUND CUSTOMER SERVICE AGENT [address] [place] [address] Discharge Disposition: Home or Self Care Social [...] 40 mg subcutaneously once daily. 05/24/2015 heparin [id number] UNIT/ML injection Inject 1 mL subcutaneously 2 [...] Diagnosis Comments BIOPHYSICAL PROFILE W NST Routine 05/07/2014 10:53 AM CDT Factor V Leiden mutation complicating [...] encounter Results * BIOPHYSICAL PROFILE W NST (05/07/2014 10:53 AM CDT) Anatomical Region Laterality Modality Other 05/07/2014 10:5 3 AM CDT Narrative 05/07/2014 11:50 AM CDT ? [facility] ? Maternal & Care Center ?PHONE: ??FAX: Pat. Name: ?ZA CLAYTON. No: ?[id number] Study Date: ?? 05/07/2014 ??10:53am , Age: ? 1975, 38 Pregnancies: ?? 2, Para 1 Height: ? 63 in Weight: ? 202 lb LMP: ?08/13/2013 GA by LMP: ?38w1d GA by 1st: ?38w1d GA by US: ? 37w2d GA Selected: ??38w1d (LMP) ALYCE: ?05/20/2014 Referring MD: JUANA GABRIEL MD Dietitian Teaching: ??Sarah Amin RDMS BMI: ?35.78 Hist/Ind: ? Advanced Maternal Age ?Chronic Hypertension ?Factor V Leiden ?Hx Preeclampsia, Abruption, ? MEASUREMENTS & AGE ? GROWTH EVALUATION Measurement ??GA ? Range ? Srce %for GA Ratios ----- ---- ------- BPD ??9.0 cm 36w3d (98i7c-44w7j) Hadl BPD 26% FL/BPD 0.77 (0.71 - 0.87) HC ??33.8 cm 38w5d (15t9x-91y8n) Hadl HC ??60% FL/AC ??0.20 (0.20 - 0.24* AC ??34.7 cm 38w4d (80p8c-25q9b) Hadl AC ??58% HC/AC ??0.97 (0.90 - 1.09) FL ?? 6.9 cm 35w2d (78z8a-01s3b) Hadl FL ??8% CI ? 0.73 (0.70 - 0.86) HL ?? 6.1 cm 35w2d (75l6t-33f5y) Claus HL ??<05 GA for sonogram 37w2d (92a3r-33b4p) ?? Weight Estimate: based on (BPD,HC,AC,FL) Avg ?Weight: 3255 gm (0001-8189) Hadlo ? : 7lbs, 2oz ? Normal: [...] <Electronic Signature> ??05/07/2014 11:50am Juana Gabriel MD [facility] ORDERABLES documented in this encounter Visit [...] (HCC) documented in this encounter Care Teams Certified Income Tax Preparer Relationship Specialty Start Date End Date Bowen Field MD PCP - General Internal Medicine 12/22/13 documented as of this encounter
--- OUTSIDE RECORDS SUMMARY | 2024-01-26 06:42 | XMS_ITS | Encounter Summary ---
Author Organization [facility] Address [facility] [facility] [place] [address] Care Team Providers Care Attendant Lodging Facilities Name Role Phone Bowen Field MD Primary Care Provider Unavail able Reason for Visit * Reason Onset Date Comments Abnormal Results Follow Up 05/09/2015 FISH positive for DS Encounter Details Date Type Department Care Team (Late Contact Info) Description 05/09/2015 Telephone [facility] MATERNAL/ EVALUATION UNIT [address] [place] [address] Richelle Fuentes, [address] [place] [address] Abnormal Results Follow Up (FISH positive for DS) Social History Tobacco Use Types Packs/Day Years [...] encounter Miscellaneous Notes * Telephone Encounter - Richelle Fuentes GC - 05/13/2015 1:34 PM CDT I spoke with Ama and her , Sherman, regarding the FISH results from her amniocentesis on 05/06. 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 Fetus is male, as has been predicted by NIPT and u/s. They are aware final karyotype is pending and will be called to them when available. They plan on continuing the . They requested some informational resources therefore I mailed them a new parent packet from the [facility]. I informed them that we recommend avisit to the [facility] [place] [facility] around 26-28 weeks for ultrasound, echo, and pediatric specialist consults. Otherwise, they should continue routine OB care with Dr. Gabriel. Richelle Fuentes, MS, [facility] documented in this encounter Plan of Treatment Not on file documented as of this encounter Visit Diagnoses Not on filedocumented in this encounter Care Teams Attendant Lodging Facilities Relationship Specialty Start Date End Date Bowen Field MD PCP - General Internal Medicine 12/22/13 documented as of this encounter
--- OUTSIDE RECORDS SUMMARY | 2024-01-26 06:42 | XMS_ITS | Encounter Summary ---
Author Organization [facility] Address [facility] [place] [address] Care Team Providers Care Director Of Neurology Name Role Phone Bowen Field MD Primary Care Provider Unavail able Reason for Visit * Reason Comments Results Normal Fragile X car rier testing Encounter Details Date Type Department Care Team (Late st Contact Info) Description 04/26/2015 Telephone [facility] MATERNAL/ EVALUATION UNIT [address] [place] [address] Richelle Fuentes, [address] [place], [place] [id number] Results (Normal Fragile X carrier testing) Social History Tobacco Use Types Packs/Day Years [...] Telephone Encounter - Richelle Fuentes GC - 04/26/2015 11:42 AM CDT Spoke with patient via phone on 04/26/2015 to review Fragile X results. The Fragile X carrier results showed two fragile X alleles with repeats in the normal range (25 and 30). Based on these results,Ama is not a Fragile X carrier. documented in this encounter Plan of Treatment Not on file documented as of this encounter Visit Diagnoses Not on filedocumented in this encounter Care Teams Director Of Neurology Relationship Specialty Start Date End Date Bowen Field MD PCP - General Internal Medicine 12/22/13 documented as of this encounter
--- OUTSIDE RECORDS SUMMARY | 2024-01-26 06:42 | XMS_ITS | Encounter Summary ---
Author Organization [facility] Address [facility]3 [facility] [place] [address] Care Team Providers Care Credit Collection Specialist Name Role Phone Bowen Field MD Primary Care Provider Unavail able Encounter Details Date Type Department Care Team (Latest Contact Info) Description 04/16/2015 9:49 AM VALANCE CUTTER - 04/16/2015 11:59 PM VALANCE CUTTER Hospital Encounter [facility] MATERNAL/ EVALUATION UNIT [address] [place] [address] Juana Gabriel MD RETIRED Discharge Disposition: Home [...] 40 mg subcutaneously once daily. 05/24/2015 heparin [id number] UNIT/ML injection Inject 1 mL subcutaneously 2 [...] Procedure Name Priority Date/Time Associated Diagnosis Comments DNA FRAGILE X PANEL Routine 04/16/2015 1 2:05 PM VALANCE CUTTER Family history of autism SONOGRAM - COMPLETE Routine 04/16/2015 1 1:12 AM VALANCE CUTTER documented in this encounter Results * DNA FRAGILE X PANEL (04/16/2015 12:05 PM VALANCE CUTTER) [facility] Fragile X DNA Comment: 04/22/2015 3:23 PM CDT [facility] ([facility]) Comment: RESULTS: PCR: 25 and 30 CGG [...] et al. Day Med 2005;7:584-87. 3. ??Chavez MOORE et al. Fertil Steril 2007;87:456-65. 4. ??Rob-Fabien Jauregui et al. Eur J Hum Day 2009;1-4. Results Released By: Jewell Dent MS, PhD, Instructor Knitting Released By: Radha Dent,Director Comment Comment 04/22/2015 3:23 PM CDT [facility] ([facility]) Comment: This test was developed and its performance characteristics determined by [facility]. ??It has not been cleared or approved by the Food and Drug Administration. ??The FDA has determined that such clearance or approval is not necessary. Blood specimen (specimen) BLOOD SPECIMEN / Unknown Venipuncture / Unknown 04/16/2015 12:05 PM VALANCE CUTTER 04/16/2015 12:38 PM VALANCE CUTTER [facility]ative [facility] - 04/22/2015 3:23 PM CDT Performed at: ??01 - [address] ??[id number] Production Control Supervisor: Lizzie Curry MD, Phone: ??[phone] Alyx Eldridge MD [facility] Organization Address City/State/ZIP Co de Phone Number [facility] ([facility]) * SONOGRAM - COMPLETE (04/16/2015 11:12 AM VALANCE CUTTER) Anatomical Region Laterality Modality Other 04/16/2015 11:1 2 AM VALANCE CUTTER Narrative 04/16/2015 12:30 PM VALANCE CUTTER ? [facility] ? Maternal & Care Center ?PHONE: ??FAX: Pat. Name: ?AMA CLAYTON Pat. No: ?[id number] Study Date: ?? 04/16/2015 ??11:12am , Age: ? 1975, 39 Pregnancies: ?? 2, Para 1 Height: ? 63 in Weight: ? 210 lb LMP: ?01/14/2015 GA by LMP: ?13w1d GA by US: ? 13w4d GA Selected: ??13w1d (LMP) ALYCE: ?10/21/2015 Referring MD: JUANA GABRIEL MD Mri Special Procedures Technologist: ??Alize Magana RDMS BMI: ?37.2 Hist/Ind: ? Advanced Maternal Age ?Chronic Hypertension ?Factor V Leiden ?Hx Preeclampsia, Abruption, ? x 2 ?Borderline NIPTrisk for Trisomy 21 MEASUREMENTS & AGE ? GROWTH EVALUATION Measurement ??GA ? Range ? Srce %for GA Ratios ----- ---- ------- CRL ??7.5 cm 13w4d (91u9y-77i0n) Hadl CRL 70% GA for sonogram 13w4d (83l1x-57g8i) based on (CRL) Avg ? Heart Rate: 146 bpm CLINICAL SUMMARY Study Number: ??1 A single intrauterine gestational sac is seen. ??The gestational sac contains a pole. ??There is normal heart motion. ??The right ovary was seen and appears normal. ??The left ovary was seen and contains a simple cyst. ??There is no free fluid in the cul de sac. IMPRESSION: Single, live IUP at 13w1d Normal nuchal translucency measurement of 1.5 mm. No abnormalities identified on early scan. RECOMMEND: ?? Follow up ultrasound as previously scheduled for amniocentesis. Thank you for allowing us the opportunity to care for your patient. Alyx Eldridge MD <Electronic Signature> ??04/16/2015 12:29pm Juana Gabriel MD [facility] ORDERABLES documented in this encounter Visit Diagnoses Diagnosis Family history of autism- Primary Family history of psychiatric condition Abnormal genetic test during documented in this encounter Care Teams Credit Collection Specialist Relationship Specialty Start Date End Date Bowen Field MD PCP - General Internal Medicine 12/22/13 documented as of this encounter
--- OUTSIDE RECORDS SUMMARY | 2024-01-26 06:42 | XMS_ITS | Encounter Summary ---
Author Organization [facility] Address [facility] [place] [address] Care Team Providers Care Seed Technician Name Role Phone Bowen Field MD Primary Care Provider Unavail able Encounter Details Date Type Department Care Team (Latest Contact Info) Description 03/21/2014 9:45 AM CHEMICAL ANALYST - 03/21/2014 10:00 AM CHEMICAL ANALYST Hospital Encounter [facility] MATERNAL/ EVALUATION UNIT [facility] [place] [facility] [place] [address] Juana Gabriel MD RETIRED Discharge Disposition: Home [...] Procedure Name Priority Date/Time Associated Diagnosis Comments SONOGRAM - COMPLETE Routine 03/21/2014 1 0:53 AM CHEMICAL ANALYST documented in this encounter Results * SONOGRAM - COMPLETE (03/21/2014 10:53 AM CHEMICAL ANALYST) Anatomical Region Laterality Modality Other 03/21/2014 10:5 3 AM CHEMICAL ANALYST Narrative 03/21/2014 1:09 PM CHEMICAL ANALYST ? [facility] ? Maternal & Care Center ?PHONE: ??FAX: Pat. Name: ?ZA CLAYTON. No: ?[id number] Study Date: ?? 03/21/2014 ??10:53am , Age: ? 1975, 38 Pregnancies: ?? 2, Para 1 Height: ? 63 in Weight: ? 202 lb LMP: ?08/13/2013 GA by LMP: ?31w3d GA by 1st: ?31w3d GA by US: ? 31w0d GA Selected: ??31w3d (LMP) ALYCE: ?05/20/2014 Referring MD: JUANA GABRIEL MD Pipe Coremaker: ??Laisha Hill RDMS BMI: ?35.78 Hist/Ind: ? Advanced Maternal Age ?Chronic Hypertension ?Factor V Leiden ?Hx Preeclampsia, Abruption, ? MEASUREMENTS & AGE ? GROWTH EVALUATION Measurement ??GA ? Range ? Srce %for GA Ratios ----- ---- ------- BPD ??7.6 cm 30w4d (64c4s-19s6p) Hadl BPD 38% FL/BPD 0.80 (0.71 - 0.87) HC ??28.6 cm 31w3d (94p4x-63n2b) Hadl HC ??50% FL/AC ??0.23 (0.20 - 0.24) AC ??26.2 cm 30w3d (26e7h-82g9j) Hadl AC ??34% HC/AC ??1.09 (0.96 - 1.15) FL ?? 6.1 cm 31w5d (78w2p-56b5x) Hadl FL ??54% CI ? 0.75 (0.70 - 0.86) HL ?? 5.2 cm 30w2d (83u9c-73o6a) Claus HL ??31% GA for sonogram 31w0d (50l5k-86w4e) ?? Weight Estimate: based on (BPD,HC,AC,FL) Avg ?Weight: 1661 gm (4810-2475) Hadlo ? : 3lbs, 10oz ? Normal: 1832 gm (1374- 2290) Hadlo ? Wt% ? 32% for 31w3d Heart Rate: 136 bpm Amniotic Fluid Index: 18.7cm (08.7-24.0) Q1: 3.8cm ??Q2: 6.0cm ??Q3: 4.9cm ??Q4: 3.9cm ?? Biophysical Profile: 11/17 Breathin ?? Tone: 2 ?? NST: 2 Movement: ??2 ?? AFV: ??2 CLINICAL SUMMARY Study Number: 2 A single fetus is identified breech presentation. ??The measurements today are consistent with appropriate growth compared to the ALYCE provided. ??The ALYCE selected is based on her LMP and a prior ultrasound examination. ??The amniotic fluid volume is within normal limits. ??The placenta is posterior. ??No major malformations are seen. ??The patient was advised that ultrasound does not allow detection of all structural or chromosomal abnormalities. IMPRESSION: Single, live, IUP 31w3d AGA fetus with adequate interval growth. AFV adequate. No gross anomalies noted within the limitations of today's ultrasound. RVOT and intracranial anatomy still not well visualized. Posterior placenta. testing is reassuring. RECOMMEND: ?? Follow up ultrasound for growth in 4 weeks. Continue current testing. Encourage daily kick counts. Thank you for allowing us the opportunity to care for your patient. Kaci Kohli MD <Electronic Signature> ??03/21/2014 01:09pm Juana Gabriel MD [facility] ORDERABLES documented in this encounter Visit Diagnoses Not on filedocumented in this encounter Care Teams Seed Technician Relationship Specialty Start Date End Date Bowen Field MD PCP - General Internal Medicine 12/22/13 documented as of this encounter
--- OUTSIDE RECORDS SUMMARY | 2024-01-26 06:42 | XMS_ITS | Encounter Summary ---
Author Organization [facility] Address [facility]3 [facility] [place] [address] Care Team Providers Care Fire Pot Operator Name Role Phone Bowen Field MD Primary Care Provider Unavail able Encounter Details Date Type Department Care Team (Latest Contact Info) Description 05/07/2014 8:00 AM CDT - 05/07/2014 8:44 AM CDT Hospital Encounter [facility] MATERNAL/ EVALUATION UNIT [address] [place] [address] Juana Gabriel MD RETIRED Discharge Disposition: Home [...] 40 mg subcutaneously once daily. 05/24/2015 heparin [id number] UNIT/ML injection Inject 1 mL subcutaneously 2 [...] on filedocumented in this encounter Care Teams Fire Pot Operator Relationship Specialty Start Date End Date Bowen Field MD PCP - General Internal Medicine 12/22/13 documented as of this encounter
--- OUTSIDE RECORDS SUMMARY | 2024-01-26 06:42 | XMS_ITS | Encounter Summary ---
Author Organization [facility] Address [facility]3 [facility] [place] [address] Care Team Providers Care Lime Filter Operator Name Role Phone Bowen Field MD Primary Care Provider Unavail able Encounter Details Date Type Department Care Team (Latest Contact Info) Description 04/16/2015 9:00 AM POWERHOUSE ATTENDANT - 04/16/2015 9:48 AM POWERHOUSE ATTENDANT Hospital Encounter [facility] MATERNAL/ EVALUATION UNIT [address] [place] [address] Juana Gabriel MD RETIRED Discharge Disposition: Home [...] 40 mg subcutaneously once daily. 05/24/2015 heparin [id number] UNIT/ML injection Inject 1 mL subcutaneously 2 [...] as of this encounter Progress Notes * Richelle Fuentes GC - 04/16/2015 2:17 PM CST Patient seen for genetic counseling due to abnormal NIPT results and AMA. Patient had NIPT through Dr. Gabriel's office and the results show a borderline value for Trisomy 21 meaning aneuploidy is suspected . This is not a typical result and the performing lab ([facility]) does not have clear information about what this results mean nor do they provide a PPV for suspected aneuploidy . After reviewing the results in detail, [facility] was declined but the patient expressed interest in amniocentesis. She is scheduled 05/06 at 11am for the amnio. Patient reported taking Lovenox, therefore she was advised NOT to take Lovenox on 05/05 through 05/07. Patient's son has autism, therefore Fragile X carrier testing was offered and performed. Total time face to face 40 minutes. See Letters for additional details. Richelle Fuentes MS, [facility] R[facility]SE ATTENDANT documented in this encounter Plan of Treatment Not on file documented as of this encounter Visit Diagnoses Diagnosis Abnormal genetic test during - Primary Family history of autism Family history of psychiatric condition documented in this encounter Care Teams Lime Filter Operator Relationship Specialty Start Date End Date Bowen Field MD PCP - General Internal Medicine 12/22/13 documented as of this encounter
--- OUTSIDE RECORDS SUMMARY | 2024-01-26 06:42 | XMS_ITS | Encounter Summary ---
Author Organization [facility] Address [facility]3 [place] [address] Care Team Providers Care Wireless Operator Name Role Phone Bowen Field MD Primary Care Provider Unavail able Encounter Details Date Type Department Care Team (Late st Contact Info) Description 05/25/2015 7:14 AM CDT Anesthesia Event [facility] [address] [place] [address] Brii Martin, SALES ENGINEERING MANAGER-INSPECTOR [employer] [address] [facility] [place] [id number] Anesthesia Record Procedure Summary Procedure Name Responsible Anesthesiologist Anesthesia Start Time Anesthesia Stop Time EPIDURAL BLOCK Events Date Time Event Comment 05/25/2015 0718 AN Not Meds * Agents No agents on file. * Blood No blood administrations on file. Lines, Drains, and Airways No LDAs on file. documented in this encounter Social History Tobacco [...] No 05/24/2015 documented as of this encounter Plan of Treatment Not on file documented as of this encounter Visit Diagnoses Not on filedocumented in this encounter Care Teams Wireless Operator Relationship Specialty Start Date End Date Bowen Field MD PCP - General Internal Medicine 12/22/13 documented as of this encounter
--- OUTSIDE RECORDS SUMMARY | 2024-01-26 06:42 | XMS_ITS | Encounter Summary ---
Author Organization [facility] Address [facility] [place] [address] Care Team Providers Care Manager Technology Name Role Phone Bowen Field MD Primary Care Provider Unavail able Reason for Visit * Reason Comments Pain Abdominal * Auth/Cert - Closed Specialty Diagnoses / Procedures Referred By Contac t Referred To Contact Obstetrics and Gynecology [facility] 5e Ante/Mom Baby [address] [place] [id number] Referral ID Status Reason Start Date Expiration Date Visits Re quested Visits Authorized [id number] Closed 12/25/2013 06/23/2014 1 Encounter Details Date Type Department Care Team (Latest Contact Info) Description 12/22/2013 9:33 PM [employer] REPAIRER - 12/23/2013 2:54 PM [employer] REPAIRER Hospital Encounter [facility] 5E ANTEPARTUM/MOTHER BABY [address] [place] [address] Juana Gabriel MD RETIRED Obstetrics Discharge Disposition: Home or Self Care Social History Tobacco Use Types Packs/Day Years Used Date Smoking Tobacco: Never Alcohol Use Standard Drinks/Week Comments No 0 (1 standard drink = 0.6 oz pur e alcohol) Comments Yes Sex and Gender Information Value Date Recorded Sex Assigned at Not on file Gender Identity Not on file Sexual Orientation Not on file documented as of this encounter Last Filed Vital Signs Vital Sign Reading Time Taken Comments Blood Pressure 125/81 12/23/2013 1:18 PM [employer] REPAIRER Pulse 87 12/23/2013 1:18 PM [employer] REPAIRER Temperature 36.9 ??C (98.5 ??F) 12/23/2013 1:18 PM CS T Respiratory Rate 20 12/23/2013 1:18 PM [employer] REPAIRER Oxygen Saturation 99% 12/23/2013 7:30 AM [employer] REPAIRER Inhaled Oxygen Concentration - - Weight 91.6 kg (202 lb) 12/22/2013 9:54 PM [employer] REPAIRER Height 160 cm (5' 3 ) 12/22/2013 9:54 PM [employer] REPAIRER Body Mass Index 35.78 12/22/2013 9:54 PM [employer] REPAIRER documented in this encounter Functional Status Functional Status Response Date of Assess ment Is person deaf or have serious hearing difficult y? No 12/23/2013 Is person blind or have serious difficulty seein g? No 12/23/2013 Does person have serious dif ficulty walking/climbing stairs? No 12/23/2013 Does person have difficulty dressing/bathing? No 12/23/2013 Does person have difficulty doing errands alone? No 12/23/2013 Cognitive Status Response Date of Assessm ent Does person have difficulty concentrating/remembering/making decisions? No 12/23/2013 documented as of this encounter Discharge Summaries * Juana Gabriel MD - 12/27/2013 3:33 PM CST Obstetric Discharge Note Date: 12/27/2013 Hospital Day: 5 Subjective: Admission for observation, abdominal pain Ama A Best is a 38 y.o. G 2 P 1 A 0 female at 19w3d weeks gestation. Patient reports no bleeding, cramping/contractions or leaking of fluid. Movement: normal. Objective: No data recorded. BP 125/81 Pulse 87 Temp(Src) 98.5 ??F Resp 20 Wt 202 lb (91.627 kg) BMI 35.79 kg/m2 No intake or output data in the 24 hours ending 12/27/13 1534 Physical Exam: Cervix: Not performed heart tones: 140's BPM. doppler Assessment: 2, Para 1, 0, Estimated Date of Delivery: 05/20/14 Gestational Age 19w3d patient improving Plan: D/C to home return if pain reoccurs [employer] REPAIRER documented in this encounter Discharge Instructions * Discharge Instructions* Otilia Nolan RN - 12/23/2013 1:08 PM [employer] REPAIRER SYMPTOMS/PROBLEMS TO REPORT TO DOCTOR: 1. Contractions--more than 5 hr., including backache, pelvic/ rectal pressure, cramping. (Contractions should be timed from the beginning of one contraction to beginning of the next contraction.) 2. Ruptured membranes or leakage of vaginal fluid-- a. may be a steady trickle or large gush b. may be clear, yellow, pink, or green in color 3. Vaginal bleeding--bright red bleeding and/or clots needs medical attention immediately. 4. Decreased activity--if your baby has stopped moving or is moving less than it normally does, do Kick Counts as instructed. (Normal is 8 movements in 2 hours.) 5. Other symptoms to report: persistent headache; upper abdominal pain; swelling of hands, face, legs and feet; visual disturbances; persistent nausea and vomiting; decreased urinary output; significant increase or decrease in weight; constipation or diarrhea; temperature 100.5 degrees or above. 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 05/24/2015 methyldopa (ALDOMET) 250 MG tabletIndications:Hyp ertension Take 500 mg by mouth 2 times daily. Indications: High Blood Pressure 05/24/2015 documented as of this encounter Progress Notes * Otilia Nolan RN - 12/23/2013 3:41 PM CST Discharge summary: Patient received discharge instructions, states hs no questions, states positivefor movement, denies contractions, vaginal bleeding, leakage of fluid or abdominal cramping, vital signs are stable and is afebrile, ambulated to car, no signs of distress noted. [employer] REPAIRER * Otilia Nolan RN - 12/23/2013 1:31 PM CST Problem: Anxiety Goal: Decreased Anxiety R/T Fear of Unknown Outcome Outcome: Goal Met Date Met: 12/23/13 Problem: Knowledge Deficit Goal: Pt. Able to Describe Risk Factors and Signs/Symptoms of PTL Patient is able to describe risk factors and signs and symptoms of pre-term labor. Outcome: Goal Met Date Met: 12/23/13 ER [employer] REPAIRER * Roxi Mendes MD - 12/23/2013 7:06 AM CST R2 Antepartum Progress Note Date: 12/23/2013 Hospital Day: 1 Subjective: Ama Lyon is a 38 y.o. G 2 P 1 A 0 at 18w6d weeks gestation. Patient reports her cramping is improved. Denies ctx, lof, vb, fevers, chills. Movement: not yet appreciated. Objective: BP 123/84 Temp(Src) 97.8 ??F Resp 18 Wt 202 lb (91.627 kg) BMI 35.79 kg/m2 Temp (24hrs) Max:98.1 ??F Systolic (30hrs), Av mmHg, Min:123 mmHg, Max:135 mmHg Diastolic (30hrs), Av mmHg, Min:78 mmHg, Max:89 mmHg Physical Exam: General: alert, cooperative, no distress Lungs: clear to auscultation bilaterally Heart: regular rate and rhythm Abdomen: gravid, NT, several bruises across upper and lower abdomen c/w Lovenox injection sites Extremities: normal, non-tender bilaterally NST: See proc note TOCO: Problem List: Patient Active Problem List Diagnosis Date Noted ??? Abdominal cramping complicating 12/22/2013 Assessment: 38 y.o. at 18w6d 1. Abdominal cramping 1. AFVSS 2. Physical exam non-acute 3. UA neg for infection/blood 4. CBC/CMP wnl 5. Likely atypical presentation of round ligament pain 2. cHTN 1. Continue methlydopa 250mg BID 2. BPs 120-130s/70-80s 3. Factor V Leiden 1. Lovenox 40mg qday for DVT ppx 4. Dispo: likely d/c today after seen by attending Roxi Mendes MD 12/23/2013 7:06 AM ER [employer] REPAIRER * Evelyn Horne RN - 12/23/2013 6:47 AM CST Problem: Anxiety Goal: Decreased Anxiety R/T Fear of Unknown Outcome Outcome: Ongoing Problem: Knowledge Deficit Goal: Pt. Able to Describe Risk Factors and Signs/Symptoms of PTL Patient is able to describe risk factors and signs and symptoms of pre-term labor. Outcome: Ongoing [employer] REPAIRER * Evelyn Horne RN - 12/23/2013 6:41 AM CST Shift summary: Ama has slept through night once settled in room. Reports good +FM. Has not had the cramping pains in her abdomen since in this room. Remains afebrile. Denies ctx, LOF, VB, SHAIKH or vision change. No needs expressed at this time. Call light and phone in reach. [employer] REPAIRER documented in this encounter H&P Notes * Petr Gupta MD - 12/22/2013 11:06 PM CST R3 Obstetric H&P CC: I'm having cramping in my stomach HPI: 38 y.o. at 18w5d weeks gestation. Dating by: LMP c/w undoc 1st trimester US Estimated Date of Delivery: 05/20/14 care: is with Dr. Gabriel. Patient's is complicated by: Patient Active Problem List Diagnosis Date Noted ??? Abdominal cramping complicating 12/22/2013 Currently, patient presents with abdominal cramping that started this morning. Pt states that it was located just above the umbilicus. She describes it as cramping in nature and radiated to her back.Pt states that pain has been moderately uncomfortable, but has come and go throughout the day. No ex acerbating factors - pt denies any relationship to movement or worsening with meals. Has not tried any medications or noted any alleviating factors. Of note, the patient does have a h/o GERD, which she does take Prevacid at home for. She has not taken any today. Review of symptoms aside from below is some decrease in appetite from the pain. negative Ctx. negative LOF. Negative vaginal discharge negative VB. Movement negative. Review of Symptoms: No SHAIKH/vision change/RUQ pain No SOB/CP/CT No nausea/ vomitting/ fevers/ chills/ diarrhea No dysuria/ hematuria/ urinary urgency/ irritation Obstetrical History: OB History Para Term AB SAB TAB Ectopic Multiple Living 2 1 0 1 0 0 0 0 0 1 # Outcome Date GA Lbr Esdras/2nd Weight Sex Delivery Anes PTL Lv 2 Current 1 06/22/07 34w0d 1928 g (4 lb 4 oz) M , E Spinal N Y Medical History: Past Medical History Diagnosis Date ??? Clotting disorder ??? History of UTI ??? History of hypertension She denies history of hypertension, diabetes, asthma or bleeding disorders. Psych History: No history of Depression/ Anxiety/ Bipolar D/O/ Schizophrenia Surgeries: Past Surgical History Procedure Laterality Date ??? section Curent Medications: Lovenox 40mg qam Prevacid BID prn Methyldopa 250mg BID Allergies: Allergies Allergen Reactions ??? Sulfa Drugs Mouth sores ??? Latex Itching and Swelling Social History: Social History Smoking Status: Never Smoker Smokeless Status: Not on file Alcohol Use: No Drug Use: No Sexual Activity: Not on file Family History: Family History Problem Relation Age of Onset ??? Diabetes Father ??? Clotting Disorder Mother No history of infants born with defects No history of family members with bleeding disorders No history of breast, ovarian, or uterine cancer Objective: Vitals: 12/22/13 2154 12/22/13 2249 BP: 135/78 Temp: 98.1 ??F Weight: 202 lb (91.627 kg) FHTs: 150 Physical Exam: General: alert, cooperative, no distress Lungs: clear to auscultation bilaterally Heart: regular rate and rhythm Abdomen: Gravid, obese. There are a number of bruises noted across upper abdomen and some in lower abdomen c/w Lovenox injections. soft without mass, tenderness around umbilicus and in lower abdomen in midline, with normal bowel sounds Female Genitalia: external genitalia and intoitus normal; vagina and cervix normal by visualization Extremities: normal, non-tender bilaterally. Edema absent Sterile speculum exam: Bright light exam: Negative Exam for ROM: Pooling: negative Wet Prep: no pathogens Cervical Exam Dilation (cm): 0 Effacement: 0 Station: -3 Current Lab Rewiew: Results for orders placed during the hospital encounter of 12/22/13 URINALYSIS ROUTINE W/REFLEX TO CULTURE Result Value Range Color UA Yellow Straw, Yellow, Dark Yellow Clarity UA Clear Specific [place] UA 1.010 1.005-1.030 pH UA 7.5 5.0-8.0 pH Protein UA Negative Negative Blood UA Negative Negative Leukocyte UA Negative Negative Nitrite UA Negative Negative Glucose UA Negative Negative Ketone UA Negative Negative Bili UA Negative Negative Urobilinogen UA 0.2 0.1-1.0 EU/dL Reflex Status Culture not indicated CBC and CMP pend Assessment/Plan: 38 y.o. @ 18w5d 1. Abdominal cramping - ddx includes round ligament pain, GERD, less likely gastroenteritis or appendicitis 1. Pt is afebrile, VSS 2. Physical exam is non-acute 3. UA neg for infection or blood 4. CBC and CMP pend 2. cHTN 1. Continue Methyldopa 250mg BID 3. Factor V Leiden 1. Lovenox 40mg q daily for DVT ppx 4. Disp: Admit to floor for observation. Exam and history most c/w round ligament pain, but will observe given abnormal presentation of pain. D/w Dr. Gabriel who will see in AM. Petr Gupta MD 12/22/2013 11:06 PM [employer] REPAIRER documented in this encounter Plan of Treatment Scheduled Orders Name Type Priority Associated Diagnoses Orde r Schedule GLUCOSE PROTEIN KETONE URINE - POINT OF CAR Point of Care Testing Routine Supervision of normal first , second trimester Abdominal cramping complicating (HCC) ONCE for 1 Occurrences starting 12/22/2013 until 12/22/2013 documented as of this encounter Procedures Procedure Name Priority Date/Time Associated Diagnosis Comments BLOOD TYPE VERIFICATION Routine 12/23/2013 5:38 AM [employer] REPAIRER TYPE + SCREEN PANEL STAT 12/22/2013 1 1:11 PM [employer] REPAIRER Supervision of normal first , second trimester Abdominal cramping complicating (HCC) CBC W AUTO DIFFERENTIAL STAT 12/22/2013 11:11 PM RU[employer] REPAIRER Supervision of normal first , second trimester Abdominal cramping complicating (HCC) COMPREHENSIVE METABOLIC PANEL STAT 12/22/2013 11:11 PM [employer] REPAIRER Supervision of normal first , second trimester Abdominal cramping complicating (HCC) URINALYSIS REFLEX MICROSCOPIC REFLEX CULTURE STAT 12/22/2013 9:46 PM [employer] REPAIRER Supervision of normal first , second trimester documented in this encounter Results * BLOOD TYPE VERIFICATION (12/23/2013 5:38 AM RU[employer] REPAIRER) ABO A 12/23/2013 6:27 AM [employer] REPAIRER [facility] Rh Type Positive 12/23/2013 6:27 AM RU[employer] REPAIRER [facility] Miscellaneous samples (specimen) BLOOD SPECIMEN / Unknown Lab Venipuncture / Unknown 12/23/2013 5:38 AM [employer] REPAIRER 12/23/2013 5:42 AM [employer] REPAIRER Juana Gabriel MD LAB - BLOOD BANK ORD ERABLES [facility] [address] [place] [address], [facility] * (ABNORMAL) COMPREHENSIVE METABOLIC PANEL (12/22/2013 11:11 PM RU[employer] REPAIRER) Glucose 87 74 - 106 mg/dL 12/22/2013 11:53 PM RU[employer] REPAIRER [facility] Sodium 138 136 - 145 mmol/L 12/22/2013 11:53 PM RU[employer] REPAIRER [facility] Potassium 3.8 3.5 - 5.1 mmol/L 12/22/2013 11:[address] [facility] Chloride 108(H) 98 - 107 mmol/L 12/22/2013 11:[address] [facility] CO2 23 22 - 31 mmol/L 12/22/2013 11:[address] [facility] Calcium 9.1 8.5 - 10.1 mg/dL 12/22/2013 11:[address] [facility] Anion Gap 7 5 - 15 mmol/L 12/22/2013 11:[address] [facility] BUN 10 7 - 21 mg/dL 12/22/2013 11:[address] [facility] Creatinine 0.39(L) 0.50 - 1.30 mg/dL 12/22/2013 11:[address] [facility] eGFR by MDRD >60 >60 mL/min/1.7 3m2 12/22/2013 11:[address] [facility] eGFR by MDRD >60 >60 mL/min/1.7 3m2 12/22/2013 11:[address] [facility] Alkaline Phosphatase 66 38 - 126 U/L 12/22/2013 11:[address] [facility] ALT 58 12 - 78 U/L 12/22/2013 11:[address] [facility] AST 20 5 - 40 U/L 12/22/2013 11:[address] [facility] Protein Total 6.6 6.4 - 8.2 gm/dL 12/22/2013 11:[address] [facility] Albumin 3.0(L) 3.4 - 5.0 gm/dL 12/22/2013 11:[address] [facility] Bilirubin Total 0.4 0.2 - 1.0 mg/dL 12/22/2013 11:[address] [facility] Blood BLOOD SPECIMEN / Unknown Venipuncture / Unknown 12/22/2013 11:11 PM RU[employer]OES REPAIRER 12/22/2013 11:22 PM [facility] Petr Gupta MD LAB - CHEMISTRY MANAV [place] [facility] [address] [place] [address] * TYPE + SCREEN PANEL (12/22/2013 11:11 PM RU[employer] REPAIRER) [facility] ID # 12/23/2013 2:08 AM RU[employer] REPAIRER [facility] Comment:This is a corrected result. Previous result was [id number] on 12/23/2013 at 0023 RU[employer]ER [employer] SHOES REPAIRER ABO 12/23/2013 2:[address] [facility] Comment: This is a corrected result. Previous result was A on 12/23/2013 at 0023 RU[employer]ER [employer] REPAIRER This is a corrected result. Previous result was A on 12/23/2013 at 0207 RU[employer]ER [employer] REPAIRER Rh Type 12/23/2013 2:[address] [facility] Comment: This is a corrected result. Previous result was Positive on 12/23/2013 at 0023 RU[employer]ER [employer] REPAIRER This is a corrected result. Previous result was Positive on 12/23/2013 at 0207 RU[employer]ER [employer] REPAIRER Antibody Screen Negative 12/23/2013 2:[address] [facility] Comment:This is a corrected result. Previous result was Negative on 12/23/2013 at 0023 RU[employer]ER [employer] REPAIRER Miscellaneous samples (specimen) BLOOD SPECIMEN / Unknown Venipuncture / Unknown 12/22/2013 11:11 PM RU[employer] REPAIRER 12/22/2013 11:22 PM RU[employer] REPAIRER Petr Gupta MD LAB - BLOOD BANK ORD ERABLES Performing Organization Address City/State/[facility] Co de Phone Number [facility] [address] * (ABNORMAL) CBC W AUTO DIFFERENTIAL (12/22/2013 11:11 PM RU[employer]ER [employer] REPAIRER) WBC 10.4 4.4 - 10.7 x10^9/L 12/22/2013 11:[address] [facility] RBC 4.26 3.80 - 5.20 x10^12/L 12/22/2013 11:[address] [facility] Hemoglobin 12.6 12.0 - 15.6 gm/dL 12/22/2013 11:[address] [facility] Hematocrit 34.6(L) 35.9 - 45.5 % 12/22/2013 11:[address] [facility] MCV 81.2 80.7 - 98.3 fl 12/22/2013 11:[address] [facility] MCH 29.6 26.7 - 34.0 pg 12/22/2013 11:[address] [facility] MCHC 36.4(H) 30.8 - 35.9 gm/dL 12/22/2013 11:[address] [facility] Platelet Count 267 153 - 416 x10^9/L 12/22/2013 11:[address] [facility] RDW-CV 13.2 12.1 - 14.9 % 12/22/2013 11:[address] [facility] MPV 9.8 9.4 - 12.9 fl 12/22/2013 11:[address] [facility] Neutrophils % 70.6 44.0 - 73.0 % 12/22/2013 11:[address] [facility] Lymphocytes % 19.1(L) 20.0 - 43.0 % 12/22/2013 11:[address] [facility] Monocytes % 7.7 5.0 - 13.0 % 12/22/2013 11:[address] [facility] Eosinophils % 1.6 0.0 - 6.0 % 12/22/2013 11:[address] [facility] Basophils % 0.2 0.0 - 2.0 % 12/22/2013 11:[address] [facility] Immature Granulocytes 0.8 0 - 1 % 12/22/2013 11:[address] [facility] Neutrophil Absolute 7.38(H) 2.01 - 7.14 x10^9/L 12/22/2013 11:[address] [facility] Lymphocytes Absolute 1.99 1.07 - 3.94 x10^9/L 12/22/2013 11:[address] [facility] Monocytes Absolute 0.80 0.26 - 1.07 x10^9/L 12/22/2013 11:[address] [facility] Eosinophils Absolute 0.17 0 - 0.47 x10^9/L 12/22/2013 11:[address] [facility] Basophils Absolute 0.02 0 - 0.08 x10^9/L 12/22/2013 11:[address] [facility] Immature Granulocytes Absolute 0.08(H) 0.00 - 0.06 x10^9/L 12/22/2013 11:[address] [facility] Blood BLOOD SPECIMEN / Unknown Venipuncture / Unknown 12/22/2013 11:11 PM RU[employer] REPAIRER 12/22/2013 11:22 PM RU[employer] REPAIRER Petr Gupta MD LAB - HEMATOLOGY ORD ERABLES [facility] [address] [place] [address] * URINALYSIS ROUTINE W/REFLEX TO CULTURE (12/22/2013 9:46 PM RU[employer] REPAIRER) Color UA Yellow Straw, Yellow, Dark Yellow 12/22/2013 10:[address] [facility] Clarity UA Clear 12/22/2013 10:[address] [facility] Specific [place] UA 1.010 1.005 - 1.030 12/22/2013 10:[address] [facility] pH UA 7.5 5.0 - 8.0 pH 12/22/2013 10:[address] [facility] Protein UA Negative Negative 12/22/2013 10:[address] [facility] Blood UA Negative Negative 12/22/2013 10:[address] [facility] Leukocyte UA Negative Negative 12/22/2013 10:[address] [facility] Nitrite UA Negative Negative 12/22/2013 10:[address] [facility] Glucose UA Negative Negative 12/22/2013 10:[address] [facility] Ketone UA Negative Negative 12/22/2013 10:[address] [facility] Bilirubin UA Negative Negative 12/22/2013 10:[address] [facility] Urobilinogen UA 0.2 0.1 - 1.0 EU/dL 12/22/2013 10:[address] [facility] Reflex Status Culture not indicated 12/22/2013 10:[address] [facility] Urine URINE SPECIMEN OBTAINED BY CLEAN CATCH PROCEDURE / Unknown Collection / Unknown 12/22/2013 9:46 PM RU[employer] REPAIRER 12/22/2013 10:05 PM [facility] Celena Vann MD LAB - URINALYSIS ORD ERABLES Performing Organization Address City/[facility]/ZIP Co de Phone Number [facility] [address] [place] [address] documented in this encounter Visit Diagnoses Diagnosis Abdominal cramping complicating (HCC)- Primary Other specified complication of , unspecified as to episode of care Supervision of normal first , second trimester (HCC) Abdominal cramping complicating (HCC) Other specified complication of , unspecified as to episode of care Factor V Leiden mutation complicating (HCC) Other current maternal conditions classifiable elsewhere, complicating , childbirth, or the puerperium, unspecified as to episode of care Previous delivery affecting (HCC) Previous delivery, unspecified as to episode of care or not applicable documented in this encounter Administered Medications Inactive Administered Medications - up to 3 most recent administrations Medication Order MAR Action Action Date Dose Rate Site 0.9% NaCl injection 10 mL 10 mL, Intracatheter, EVERY 8 HOURS, First dose on Wed12/22/13 at 2345, Until Discontinued, LATEX FREE PRODUCT $ Given 12/23/2013 5:41 AM RU[employer] REPAIRER 10 mL $ Given 12/22/2013 11:56 PM [employer] REPAIRER 10 mL enoxaparin (LOVENOX) injection 40 mg 40 mg, Subcutaneous, DAILY, First dose on Wed12/23/13 at 0800, Until Discontinued, LATEX FREE PRODUCT Remind Patient to not rub injection site. Could cause hematoma. $ Given 12/23/2013 8:11 AM RU[employer] REPAIRER 40 mg Abdominal Tissue famotidine (PEPCID) tablet 20 mg 20 mg, Oral, AT BEDTIME, First dose on Wed12/22/13 at 2345, Until Discontinued $ Given 12/22/2013 11:56 PM RU[employer] REPAIRER 20 mg methyldopa (ALDOMET) tablet 250 mg 250 mg, Oral, 2 TIMES DAILY, First dose on Wed12/23/13 at 0900, Until Discontinued $ Given 12/23/2013 9:53 AM RU[employer] REPAIRER 250 mg vitamin with iron tablet 1 Tab 1 tablet, Oral, DAILY, First dose on Wed12/23/13 at 0900, Until Discontinued $ Given 12/23/2013 9:54 AM RUBBER BOOTS AND SHOES REPAIRER 1 tablet documented in this encounter Active and Recently Administered Medications Times are shown in RU[employer]ER [employer] REPAIRER. Scheduled Medication Order 12/21/2013 12/22/2013 12/23/2013 0.9% NaCl injection 10 mL (CANCELED)(Linked Group 1) 10 mL, Intracatheter, EVERY 8 HOURS, First dose on Wed12/22/13 at 2345, Until Discontinued, LATEX FREE PRODUCT 2356 ($ Given - Provider: Evelyn Horne, RN) 0541 ($ Given - Provider: Evelyn Horne, RN)1400 (Not Administered - Provider: Otilia Nolan RN - Reason: Loss of Access) enoxaparin (LOVENOX) injection 40 mg (CANCELED) 40 mg, Subcutaneous, DAILY, First dose on Wed12/23/13 at 0800, Until Discontinued, LATEX FREE PRODUCT Remind Patient to not rub injection site. Could cause hematoma. 0811 ($ Given - Prov ider: Otilia Nolan RN - Comment: patient gave self with supervision of nurse, patient did well, good technique) famotidine (PEPCID) tablet 20 mg (CANCELED) 20 mg, Oral, AT BEDTIME, First dose on Wed12/22/13 at 2345, Until Discontinued 2356 ($ Given - Provider: Evelyn Horne RN) methyldopa (ALDOMET) tablet 250 mg (CANCELED) 250 mg, Oral, 2 TIMES DAILY, First dose on Wed12/23/13 at 0900, Until Discontinued 0953 ($ Given - Prov ider: Otilia Nolan RN) vitamin with iron tablet 1 Tab (CANCELED) 1 tablet, Oral, DAILY, First dose on Wed12/23/13 at 0900, Until Discontinued 0954 ($ Given - Prov ider: Otilia Nolan RN) Linked Groups Order Group 1: SALINE LOCK, INSERT AND MAINTAIN (CANCELED) Routine, CONTINUOUS, Starting on Wed12/22/13 at 2315, Until Specified, New collection And 0.9% NaCl injection 10 mL (CANCELED)Jump to med 10 mL, Intracatheter, EVERY 8 HOURS, First dose on Wed12/22/13 at 2345, Until Discontinued, LATEX FREE PRODUCT And 0.9% NaCl injection 10 mL (CANCELED) 10 mL, Intracatheter, PRN, Other, peripheral line flush, Starting on Wed12/22/13 at 2309, Until Wed12/23/13 at 1554, LATEX FREE PRODUCT Flush after each use and blood draws. documented in this encounter Care Teams Manager Technology Relationship Specialty Start Date End Date Bowen Field MD PCP - General Internal Medicine 12/22/13 documented as of this encounter
--- OUTSIDE RECORDS SUMMARY | 2024-01-26 06:44 | XMS_ITS | Encounter Summary ---
Author Organization [facility] Healthcare Address [address] [place] [address] Care Team Providers Care Personal Lines Insurance Agent Name Role Phone Bowen Field MD Primary Care Provider Encounter Details Date Type Department Care Team (Late st Contact Info) Description 09/05/2016 1:51 PM CDT - 09/05/2016 11:59 PM CDT Hospital Encounter [facility] Maxim May MD [address] [facility] [address] [place], [place] [id number] Acute right ankle pain Discharge Disposition: Discharge to home or self care Social History Tobacco Use Types Packs/Day Years Used Date Smoking Tobacco: Never Smokeless Tobacco: Never Alcohol Use Standard Drinks/Week Comments Yes 0 (1 standard drink = 0.6 oz pur e alcohol) Comments Unknown Sex and Gender Information Value Date Recorded Sex Assigned at Not on file 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 05/25/2015 11/20/2019 ibuprofen (ADVIL,MOTRIN) 800 mg tabletIndications :Acute right ankle pain Take 1 tablet (800 mg total) by mouth 2 (two) times a day. 60 tablet 09/05/2016 11/20/2019 losartan-hydroCHL OROthiazide (HYZAAR) 100-12.5 mg per tablet 08/26/2016 11/09/2019 PROAIR HFA 90 mcg/actuation inhaler 06/25/2016 12/25/2019 documented as of this encounter Discharge Disposition Disposition Code Departure Means Destination Discharge to home or self care documented in this encounter Plan of Treatment Not on file documented as of this encounter Procedures Procedure Name Priority Date/Time Associated Diagnosis Comments XR ANKLE RIGHT 3 OR MORE VIEWS Schedule Routine, Read Routine (OP Routine) 09/05/2016 7:32 PM CDT Acute right ankle pain documented in this encounter Results * XR Ankle Right 3+ Vw (09/05/2016 7:32 PM CDT) Anatomical Region Laterality Modality Lower Extremities, Ankle Right Radiogr aphic Imaging 09/05/2016 7:32 PM CDT Narrative 09/05/2016 7:32 PM CDT XR Ankle Min 3 Views R ??[id number] ??Acc#: ??[id number] DATE OF EXAM: ??Sep 05 2016 ?? EXAM: XR Ankle Min 3 Views R ??[id number] AP, lateral, oblique HISTORY: acute pain, right ankle. COMPARISON: None FINDINGS: No acute fracture is noted. ??The ankle mortise is maintained. ??The soft tissues over the lateral malleolus are swollen. IMPRESSION: 1. ??No acute fracture. 2. ??Lateral soft tissue swelling. Electronically signed by: Luis Ann M.D. Interpreting Physician: ??LUIS ANN M.D. ??Read on: ??Sep 05 2016 ?? 3:10P Transcribed by: ??PSC ??On: Sep 05 2016 ??3:07P Approved Electronically by: ??LUIS ANN M.D. ??on: ??Sep 05 2016 ?? 3:07P Ordering DR: [facility] Attending DR: DR MAXIM MAY Attending: ??DR MAXIM MAY Requesting: ??[facility] Requesting Fax: ??[phone] Attending Fax: ??[phone] Attending ID: ??[id number] Requesting ID: ??[id number] Report To 1 ID: ??[id number] Report To 1 Name: ??DR MAXIM MAY Report To 1 FAX: ??[phone] [employer] Order #: ??[id number] Procedure Note Miscellaneous, Not In File / Provider, MD Katiana - 09/08/2016 XR Ankle Min 3 Views R [id number] Acc#: [id number] DATE OF EXAM: Sep 05 2016 EXAM: XR Ankle Min 3 Views R [id number] AP, lateral, oblique HISTORY: acute pain, right ankle. COMPARISON: None FINDINGS: No acute fracture is noted. The ankle mortise is maintained. The soft tissues over the lateral malleolus are swollen. IMPRESSION: 1. No acute fracture. 2. Lateral soft tissue swelling. Electronically signed by: Luis Ann M.D. Interpreting Physician: LUIS ANN M.D. Read on: Sep 05 2016 3:10P Transcribed by: [facility] On: Sep 05 2016 3:07P Approved Electronically by: LUIS ANN M.D. on: Sep 05 2016 3:07P Ordering DR: [facility] Attending DR: DR MAXIM MAY Attending: DR MAXIM MAY Requesting: [facility] Requesting Attending Attending ID: [id number] Requesting ID: [id number] Report To 1 ID: [id number] Report To 1 Name: DR MAXIM MAY Report To 1 FAX: [phone] [employer] Order #: [id number] Kaiser Johnston RENOVATION PLANT SUPERVISOR IMG XR PROCEDURES Final R esult documented in this encounter Visit Diagnoses Diagnosis Acute right ankle pain documented in this encounter Care Teams Personal Lines Insurance Agent Relationship Specialty Start Date End Date Bowen Field MD [address] [address] PCP - General Endocrinology Diabetes & Metabolism 09/05/16 11/19/19 documented as of this encounter
--- OUTSIDE RECORDS SUMMARY | 2024-01-26 06:44 | XMS_ITS | Encounter Summary ---
Author Organization [facility] Healthcare Address [address] [place] [address] Care Team Providers Care Physician General Internal Medicine Name Role Phone Bowen Field MD Primary Care Provider Reason for Referral * Diagnostic Imaging (Routine) - Closed Specialty Diagnoses / Procedures Referred By Franko menjivar Referred To Contact Radiology Diagnoses Acute pain of right shoulder Procedures MRI Shoulder Right WO Contrast Francis Darby MD Phone: tel: fax: [address] [phone] Referral ID Status Reason Start Date Expiration Date Visits Re quested Visits Authorized [id number] Closed 03/03/2018 09/12/2019 1 1 ET PREPARER Reason for Visit * Diagnostic Imaging (Routine) - Closed Specialty Diagnoses / Procedures Referred By Franko menjivar Referred To Contact Radiology Diagnoses Acute pain of right shoulder Procedures MRI Shoulder Right WO Contrast Francis Darby MD Phone: tel: fax: [address] [address] Referral ID Status Reason Start Date Expiration Date Visits Re quested Visits Authorized [id number] Closed 03/03/2018 09/12/2019 1 1 Encounter Details Date Type Department Care Team (Latest Contact Info) Description 03/08/2018 6:21 PM JACKET PREPARER - 03/08/2018 11:59 PM JACKET PREPARER Hospital Encounter [facility] [address] [place] [phone] Francis Darby MD [address] [facility] [address] [address] Acute pain of right shoulder Discharge Disposition: Discharge to home or self care Social History Tobacco Use Types Packs/Day Years Used Date Smoking Tobacco: Never Smokeless Tobacco: Never Alcohol Use Standard Drinks/Week Comments Yes 0 (1 standard drink = 0.6 oz pur e alcohol) Comments Unknown Sex and Gender Information Value Date Recorded Sex Assigned at Not on file Legal Sex Female 11:04 AM JACKET PREPARER Gender Identity Not on file Sexual Orientation Not on file documented as of this encounter Medications at Time of Discharge amLODIPine (NORVASC) 2.5 mg tablet 02/23/2018 11/20/2019 ibuprofen (ADVIL,MOTRIN) 600 mg tablet Take 600 [...] Procedure Name Priority Date/Time Associated Diagnosis Comments MRI SHOULDER RIGHT WO CONTRAST Schedule Routine, Read Routine (OP Routine) 03/08/2018 6:57 PM JACKET PREPARER Acute pain of right shoulder documented in this encounter Results * MRI Shoulder Right WO Contrast (03/08/2018 6:57 PM JACKET PREPARER) Anatomical Region Laterality Modality Upper Extremities Right Magnetic Reson ance 03/08/2018 8:05 PM JACKET PREPARER Impressions 03/08/2018 8:14 PM JACKET PREPARER 1. ??NO FOCAL ROTATOR CUFF TEAR. ??TENDINOPATHY TYPE CHANGES ARE NOTED IN THE SUPRASPINATUS TENDON. 2. ??THICKENING OF THE ACROMIOCLAVICULAR JOINT CAPSULE WITHOUT SIGNIFICANT DIRECT IMPINGEMENT ON THE SUPRASPINATUS MUSCLE BODY/TENDON COMPLEX. 3. ??SMALL AMOUNT OF JOINT FLUID. Electronically signed by: Kasi Painting M.D. Narrative 03/08/2018 8:14 PM JACKET PREPARER MRI SHOULDER RIGHT WO CONTRAST HISTORY: ??Acute pain of right shoulder TECHNIQUE: MR imaging of the right shoulder was performed using axial T1 and PD SPAIR, coronal oblique fat sat T2, PD and PD SPAIR and sagittal oblique T2-weighted SPAIR sequences. COMPARISON: None available. FINDINGS: There is no localized bone marrow edema. ??There is a small amount of joint fluid. ??There is mild thickening of the acromioclavicular joint capsule without significant impingement upon the supraspinatus muscle body/tendon complex. ??The proximal biceps tendon is intact. ??The rotator cuff mechanism is intact. ??There are areas of intermediate signal intensity abnormality in the supraspinatus tendon compatible with tendinopathy. ??Motion artifact compromises detail on the PD spair sequence. Procedure Note Kasi Painting MD - 03/08/2018 MRI SHOULDER RIGHT WO CONTRAST HISTORY: Acute pain of right shoulder TECHNIQUE: MR imaging of the right shoulder was performed using axial T1 and PD SPAIR, coronal oblique fat sat T2, PD and PD SPAIR and sagittal oblique T2-weighted SPAIR sequences. COMPARISON: None available. FINDINGS: There is no localized bone marrow edema. There is a small amount of joint fluid. There is mild thickening of the acromioclavicular joint capsule without significant impingement upon the supraspinatus muscle body/tendon complex. The proximal biceps tendon is intact. The rotator cuff mechanism is intact. There are areas of intermediate signal intensity abnormality in the supraspinatus tendon compatible with tendinopathy. Motion artifact compromises detail on the PD spair sequence. IMPRESSION: 1. NO FOCAL ROTATOR CUFF TEAR. TENDINOPATHY TYPE CHANGES ARE NOTED IN THE SUPRASPINATUS TENDON. 2. THICKENING OF THE ACROMIOCLAVICULAR JOINT CAPSULE WITHOUT SIGNIFICANT DIRECT IMPINGEMENT ON THE SUPRASPINATUS MUSCLE BODY/TENDON COMPLEX. 3. SMALL AMOUNT OF JOINT FLUID. Electronically signed by: Kasi Painting M.D. Francis Darby MD IMG MRI PROCEDURES Final Resu lt documented in this encounter Visit Diagnoses Diagnosis Acute pain of right shoulder documented in this encounter Care Teams Physician General Internal Medicine Relationship Specialty Start Date End Date Bowen Field MD [address] [address] PCP - General Endocrinology Diabetes & Metabolism 09/05/16 11/19/19 documented as of this encounter
--- OUTSIDE RECORDS SUMMARY | 2024-01-26 06:44 | XMS_ITS | Encounter Summary ---
Author Organization [facility] Healthcare Address [address] [place] [address] Care Team Providers Care Director Of Agriculture Name Role Phone Kristopher Guzmán MD Primary Care Provider Juana Gabriel MD Unavailable [phone] Encounter Details Date Type Department Care Team (Late st Contact Info) Description 12/25/2019 1:30 PM SOCIETY EDITOR Lab [address] Kristopher Guzmán MD [address] [place] [address] [id number] Chronic hypertension; Factor V Leiden mutation (CMS/HCC); Class 1 obesity due to excess calories with serious comorbidity and body mass index (BMI) of 31.0 to 31.9 in adult; Screening for thyroid disorder; Screening for diabetes mellitus; Screening for lipid disorders Discharge Disposition: Discharge to home or self care Social History Tobacco Use Types Packs/Day Years Used Date Smoking Tobacco: Never Smokeless Tobacco: Never Alcohol Use Standard Drinks/Week Comments Not Currently 0 (1 standard drink = 0.6 oz pur e alcohol) AUDIT-C Answer Date Recorded Q1: How often do you have a drink containing alc ohol? 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 If this was a fully 6-8 hour fasting test her blood glucose is just a bit above where we expect it but not high. Looks like it was the same level about 5 years ago so stable.No anemia, normal kidney function, normal liver enzymes, normal thyroid function, normal magnesium level, cholesterol is okay overall, electrolytes normal the sodium was 134 which is fine - nothing to worry about. ETY EDITOR documented in this encounter Plan of Treatment Not on file documented as of this encounter Procedures Procedure Name Priority Date/Time Associated Diagnosis Comments EGFR Routine 12/25/2019 1:26 PM SOCIETY EDITOR Class 1 obesity due to excess calories with serious comorbidity and body mass index (BMI) of 31.0 to 31.9 in adult Chronic hypertension Screening for diabetes mellitus THYROID FUNCTION CASCADE Routine 12/25/2019 1:26 PM SOCIETY EDITOR Class 1 obesity due to excess calories with serious comorbidity and body mass index (BMI) of 31.0 to 31.9 in adult Screening for thyroid disorder CBC WITHOUT DIFFERENTIAL Routine 12/25/2019 1:26 PM SOCIETY EDITOR Factor V Leiden mutation (CMS/HCC) MAGNESIUM Routine 12/25/2019 1:26 PM SOCIETY EDITOR Chronic hypertension LIPID PANEL Routine 12/25/2019 1:26 PM SOCIETY EDITOR Class 1 obesity due to excess calories with serious comorbidity and body mass index (BMI) of 31.0 to 31.9 in adult Screening for lipid disorders COMPREHENSIVE METABOLIC PANEL Routine 12/25/2019 1:26 PM SOCIETY EDITOR Class 1 obesity due to excess calories with serious comorbidity and body mass index (BMI) of 31.0 to 31.9 in adult Chronic hypertension Screening for diabetes mellitus documented in this encounter Results * eGFR (12/25/2019 1:26 PM SOCIETY EDITOR) Pathologist [facility] eGFR 106 mL/min/1.7 3 m2 [facility] Comment: Interpretive Data Reference Interval Normal ?>/= 90 mL/min/1.73m2 Mildly decreased* ? 60 - 89 mL/min/1.73m2 Mildly to moderately decreased ?45 - 59 mL/min/1.73m2 Moderately to severely decreased ??30 - 44 mL/min/1.73m2 Severely decreased ?15 - 29 mL/min/1.73m2 Kidney Failure ?< 15 ??mL/min/1.73m2 *Relative to young adult level If -[place] multiply value by 1.16. Estimated glomerular filtration rate is determined by the CKD-EPI equation recommended by the National Kidney Foundation (KDIGO 2012 Clinical Practice Guideline for the Evaluation and Management of Chronic Kidney Disease. Kidney Intnl Suppl Feb 2012;3:1). The CKD-EPI equation should not be used for patients with unstable renal function and has not been validated in children and those over 70. Current interpretive data was last reviewed 2015. Blood specimen (specimen) 12/25/2019 1:26 PM SOCIETY EDITOR 12/25/2019 5:21 PM SOCIETY EDITOR us Kristopher Guzmán MD LAB BLOOD ORDERABLES Fi nal Result [facility] 1 [facility] Department [place] [address] * Lipid panel (12/25/2019 1:26 PM SOCIETY EDITOR) Pathologist [facility] Cholesterol 181 30 - 199 mg/dL [facility] ([facility]) Comment: Interpretive Data Ages < or = 19 years ??Acceptable: ? <170 mg/dL ??Borderline high: ??170-199 mg/dL ??High: ? >or= 200 mg/dL Ages > or = 20 years ??Desirable: ?<200 mg/dL ??Borderline high: ??200-239 mg/dL ??High: ? >or= 240 mg/dL Literature References: 1. Expert Panel on Integrated Guidelines for Cardiovascular Health and Risk Reduction in Children and Adolescents. Pediatrics 2011;128:S213 2. NCEP Expert Panel. Circulation 2004;110:227 Current Interpretive Data was last revised on 2017. Triglycerides 96 <=149 mg/dL [facility] ([place]) Comment: Interpretive Data Ages < or = 9 years ??Acceptable: ? <75 mg/dL ??Borderline high: ??75-99 mg/dL ??High: ? >or= 100 mg/dL Ages 10 to 20 years ??Acceptable: ? <90 mg/dL ??Borderline high: ??90-129 mg/dL ??High: ? >or= 130 mg/dL Ages > or = 20 years ??Desirable: ?<150 mg/dL ??Borderline high: ??150-199 mg/dL ??High: ? 200-499 mg/dL ?Very high: ?? >or= 499 mg/dL Literature References: 1. Expert Panel on Integrated Guidelines for Cardiovascular Health and Risk Reduction in Children and Adolescents. Pediatrics 2011;128:S213 2. NCEP Expert Panel. Circulation 2004;110:227 Current Interpretive Data was last revised on 2017. HDL 49 >=40 mg/dL [facility] ([place]) Comment: Interpretive Data Ages < or = 19 years ??Acceptable: ? >45 mg/dL ??Borderline low: ?? 40-45 mg/dL ??Low: ? <40 mg/dL Ages > or = 20 years ??Desirable: ?>or= 60 mg/dL ??Low: ? <40 mg/dL Literature References: 1. Expert Panel on Integrated Guidelines for Cardiovascular Health and Risk Reduction in Children and Adolescents. Pediatrics 2011;128:S213 2. NCEP Expert Panel. Circulation 2004;110:227 Current Interpretive Data was last revised on 2017. LDL, calculated 113 <=129 mg/dL [facility] ([place]) Comment: Interpretive Data Ages < or = 19 years ??Acceptable: ? <110 mg/dL ??Borderline high: ??110-129 mg/dL ??High: ?>or= 130 mg/dL Ages > or = 20 years ??Optimal: ? <100 mg/dL ??Near optimal: ?100-129 mg/dL ??Borderline high: ?? 130-159 mg/dL ??High: ?>160 mg/dL Literature References: 1. Expert Panel on Integrated Guidelines for Cardiovascular Health and Risk Reduction in Children and Adolescents. Pediatrics 2011;128:S213 2. NCEP Expert Panel. Circulation 2004;110:227 Current Interpretive Data was last revised on 2017. Non-HDL Cholesterol 132 mg/dL [facility] ([place]) Comment: Interpretive Data Ages < or = 19 years ??Acceptable: ?<120 mg/dL ??Borderline high: ??120-144 mg/dL ??High: ?>145 mg/dL Ages > or = 20 years ??When triglycerides are >200 mg/dL, Non-HDL cholesterol is a secondary target of ? therapy with treatment goals that are 30 mg/dL greater than the LDL cholesterol target. ? Literature References: 1. Expert Panel on Integrated Guidelines for Cardiovascular Health and Risk Reduction in Children and Adolescents. Pediatrics 2011;128:S213 2. NCEP Expert Panel. Circulation 2004;110:227 Current Interpretive Data was last revised on 2017. Chol/HDL ratio 4 [facility] ([facility]) Blood specimen (specimen) 12/25/2019 1:26 PM SOCIETY EDITOR 12/25/2019 5:21 PM SOCIETY EDITOR Narrative [facility] ([facility]) - 12/25/2019 5:45 PM SOCIETY EDITOR Has the patient been fasting for 8 hours or more?->Yes Kristopher Guzmán MD LAB BLOOD ORDERABLES Fi nal Result [facility] ([facility]) 1 [facility] Department [place] [address] * (ABNORMAL) Comprehensive metabolic panel (12/25/2019 1:26 PM SOCIETY EDITOR) Sodium 134(L) 135 - 145 mmol/L [facility] ([facility]) Potassium, pl 3.8 3.3 - 4.9 mmol/L [facility] ([place]) Chloride 99 97 - 110 mmol/L [facility] ([place]) CO2 25 22 - 32 mmol/L [facility] ([place]) Anion gap 10 2 - 15 mmol/L [facility] ([place]) BUN 11 8 - 25 mg/dL [facility] ([facility]) Creatinine 0.70 0.60 - 1.10 mg/dL [facility] ([facility]) Glucose 104 70 - 199 mg/dL [facility] ([facility]) Comment: Interpretive Data Fasting glucose >/= 126 mg/dl is diagnostic for diabetes. ?? Fasting is defined as no caloric intake for at least 8 hours. Fasting glucose between 100 mg/dl to 125 mg/dl is diagnostic of prediabetes. In a patient with classic symptoms of hyperglycemia or hyperglycemic crisis, a random glucose >/= 200 mg/dl is diagnostic for diabetes. In the absence of unequivocal hyperglycemia, results should be confirmed by repeat testing. The classification and Diagnosis of Diabetes Diabetes Care 2017;40 (Suppl. 1):S11. Current interpretive data was last revised 2016. Calcium 9.5 8.5 - 10.3 mg/dL [facility] ([place]) Bilirubin, total 0.8 0.1 - 1.2 mg/dL [facility] ([place]) Protein, pl 7.0 6.5 - 8.5 g/dL [facility] ([place]) Albumin 4.5 3.5 - 5.0 g/dL [facility] ([facility]) Alk phos 57 40 - 130 Units/L [facility] ([facility]) ALT 22 7 - 45 Units/L [facility] ([facility]) AST 21 10 - 45 Units/L [facility] ([facility]) Blood specimen (specimen) 12/25/2019 1:26 PM SOCIETY EDITOR 12/25/2019 5:21 PM SOCIETY EDITOR Kristopher Guzmán MD LAB BLOOD ORDERABLES Fi nal Result [facility] ([facility]) 1 [facility] [address] * TSH reflex to free T4 (12/25/2019 1:26 PM SOCIETY EDITOR) Pathologist [facility] TSH 0.81 0.30 - 4.20 mcIUnit/mL [facility] Blood specimen (specimen) 12/25/2019 1:26 PM SOCIETY EDITOR 12/25/2019 5:21 PM SOCIETY EDITOR Kristopher Guzmán MD LAB BLOOD ORDERABLES Fi nal Result [facility] ([facility]) 1 [facility] [address] * CBC without differential (12/25/2019 1:26 PM SOCIETY EDITOR) WBC 8.7 3.8 - 9.9 K/cumm [facility] ([facility]) Hgb 14.5 11.9 - 15.5 g/dL [facility] ([facility]) Hct 44.0 35.6 - 45.5 % [facility] ([place]) Plt 361 150 - 400 K/cumm [facility] ([facility]) MPV 10.8 9.1 - 12.3 fL [facility] ([place]) RBC 5.07 3.90 - 5.20 M/cumm [facility] ([facility]) MCV 86.8 81.3 - 96.4 fL [facility] ([place]) MCH 28.6 27.1 - 33.3 pg [facility] ([place]) MCHC 33.0 32.3 - 35.7 g/dL [facility] ([place]) RDW CV 13.2 11.1 - 14.9 % [facility] ([facility]) RDW SD 40.9 35.7 - 48.1 fL [facility] ([facility]) NRBC abs 0.00 0.00 - 0.01 K/cumm [facility] ([facility]) Blood specimen (specimen) 12/25/2019 1:26 PM SOCIETY EDITOR 12/25/2019 5:21 PM SOCIETY EDITOR Kristopher Guzmán MD LAB BLOOD ORDERABLES Fi nal Result [facility] ([place]) 1 [facility] [address] * Magnesium (12/25/2019 1:26 PM SOCIETY EDITOR) Magnesium 2.1 1.4 - 2.5 mg/dL [facility] ([facility]) Blood specimen (specimen) 12/25/2019 1:26 PM SOCIETY EDITOR 12/25/2019 5:21 PM SOCIETY EDITOR Kristopher Guzmán MD LAB BLOOD ORDERABLES Fi nal Result Performing Organization Address City/[facility]/ZIP Co de Phone Number [facility] ([place]) 1 [facility] [address] documented in this encounter Visit Diagnoses Diagnosis Chronic hypertension Factor V Leiden mutation (HCC) Primary hypercoagulable state Class 1 obesity due to excess calories with serious comorbidity and body mass index (BMI) of 31.0 to 31.9 in adult Screening for thyroid disorder Screening for diabetes mellitus Screening for lipid disorders documented in this encounter Care Teams Director Of Agriculture Relationship Specialty Start Date End Date Kristopher Guzmán MD PCP - General Family Medicine 11/20/19 Juana Gabriel MD [address] [address] Consulting Physician Obstetrics and Gynecology 11/20/19 documented as of this encounter
--- OUTSIDE RECORDS SUMMARY | 2024-01-26 06:44 | XMS_ITS | Encounter Summary ---
Author Organization [facility] Healthcare Address [address] [place] [address] Care Team Providers Care Tetryl Nitrator Operator Name Role Phone Bowen Field MD Primary Care Provider [phone] Reason for Referral * Diagnostic Imaging (Routine) - Closed Specialty Diagnoses / Procedures Referred By Franko menjivar Referred To Contact Radiology Diagnoses Altered mental status, unspecified altered mental status type Procedures CT Head WO Contrast Bowen Field MD Phone: tel: fax: [address] [phone] Referral ID Status Reason Start Date Expiration Date Visits Re quested Visits Authorized [id number] Closed 12/07/2018 06/17/2020 1 1 ING TEACHER Reason for Visit * Diagnostic Imaging (Routine) - Closed Specialty Diagnoses / Procedures Referred By Franko menjivar Referred To Contact Radiology Diagnoses Altered mental status, unspecified altered mental status type Procedures CT Head WO Contrast Bowen Field MD Phone: tel: fax: [address] [phone] Referral ID Status Reason Start Date Expiration Date Visits Re quested Visits Authorized [id number] Closed 12/07/2018 06/17/2020 1 1 Encounter Details Date Type Department Care Team (Latest Contact Info) Description 12/16/2018 1:52 PM READING TEACHER - 12/16/2018 11:59 PM READING TEACHER Hospital Encounter [facility] [address] [place] [address] Bowen Field MD [address] [facility] [address] [place] [address] Altered mental status, unspecified altered mental status type Discharge Disposition: Discharge to home or self care Social History Tobacco Use Types Packs/Day Years Used Date Smoking Tobacco: Never Smokeless Tobacco: Never Alcohol Use Standard Drinks/Week Comments Yes 0 (1 standard drink = 0.6 oz pur e alcohol) Comments Unknown Sex and Gender Information Value Date Recorded Sex Assigned at Not on file Legal Sex Female 11:04 AM READING TEACHER Gender Identity Not on file Sexual Orientation [...] times a day. 60 tablet 09/05/2016 11/20/2019 losartan (COZAAR) 100 mg tablet 11/09/2019 losartan-hydroCHL OROthiazide (HYZAAR) 100-12.5 mg per tablet 08/26/2016 11/09/2019 omeprazole (PriLOSEC) 10 mg capsule Take 40 mg by mouth daily 12/19/2019 PROAIR HFA 90 mcg/actuation inhaler 06/25/2016 12/25/2019 sertraline (ZOLOFT) 100 mg tablet 03/23/2018 11/20/2019 sertraline (ZOLOFT) 50 mg tablet Take 50 mg by mouth daily. 11/20/2019 traMADol (ULTRAM) 50 mg tablet 0 04/19/2018 11/20/2019 documented as of this encounter Discharge Disposition Disposition Code Departure Means Destination Discharge to home or self care documented in this encounter Plan of Treatment Not on file documented as of this encounter Procedures Procedure Name Priority Date/Time Associated Diagnosis Comments CT HEAD WO CONTRAST Schedule Routine, Read Routine (OP Routine) 12/16/2018 2:24 PM READING TEACHER Altered mental status, unspecified altered mental status type documented in this encounter Results * CT Head WO Contrast (12/16/2018 2:24 PM READING TEACHER) Anatomical Region Laterality Modality Head and Neck N/A Computed Tomogra phy 12/16/2018 2:53 PM READING TEACHER Impressions 12/16/2018 4:52 PM READING TEACHER No acute intracranial abnormality. Dictated by: Doron Merrill M.D. The radiology attending physician has personally reviewed this study, and had reviewed and/or edited this written report and agrees with it. Electronically signed by: Adrienne Correa M.D. Narrative 12/16/2018 4:52 PM READING TEACHER EXAMINATION: CT head without contrast HISTORY: Mental status changes. TECHNIQUE: Noncontrast CT of the brain was performed with images acquired from skull base to vertex. COMPARISON: None available. FINDINGS: Topogram demonstrates no lytic lesions or fractures. There is no acute intracranial hemorrhage. Ventricles are of normal size and morphology. No mass effect or midline shift is present. The knowles-white matter differentiation is normal. The visualized portions of the orbits are normal. The visualized portions of the mastoids are normal. The visualized portions of the paranasal sinuses are normal. No fractures are identified. Procedure Note Adrienne Correa MD - 12/16/2018 EXAMINATION: CT head without contrast HISTORY: Mental status changes. TECHNIQUE: Noncontrast CT of the brain was performed with images acquired from skull base to vertex. COMPARISON: None available. FINDINGS: Topogram demonstrates no lytic lesions or fractures. There is no acute intracranial hemorrhage. Ventricles are of normal size and morphology. No mass effect or midline shift is present. The knowles-white matter differentiation is normal. The visualized portions of the orbits are normal. The visualized portions of the mastoids are normal. The visualized portions of the paranasal sinuses are normal. No fractures are identified. IMPRESSION: No acute intracranial abnormality. Dictated by: Doron Merrill M.D. The radiology attending physician has personally reviewed this study, and had reviewed and/or edited this written report and agrees with it. Electronically signed by: Adrienne Correa M.D. Bowen Field MD IMG CT PROCEDURES Final Result documented in this encounter Visit Diagnoses Diagnosis Altered mental status, unspecified altered mental status type documented in this encounter Care Teams Tetryl Nitrator Operator Relationship Specialty Start Date End Date Bowen Field MD [address] [address] PCP - General Endocrinology Diabetes & Metabolism 09/05/16 11/19/19 documented as of this encounter
--- OUTSIDE RECORDS SUMMARY | 2024-01-26 06:44 | XMS_ITS | Encounter Summary ---
Author Organization [facility] Address [address] [place] [address] Care Team Providers Care Cathode Ray Tube Assembler Name Role Phone Bowen Field MD Primary Care Provider [phone] Reason for Visit * Reason Comments Ankle Injury Patient rolled her a nkle last night, it is swollen, tigling and feels numb. Encounter Details Date Type Department Care Team (Late st Contact Info) Description 09/05/2016 12:00 PM CDT Office Visit [facility] [address] [place] [address] [place] [id number] Kaiser Johnston NP [address] [place] [address] Acute right ankle pain (Primary Dx) Social History Tobacco Use Types Packs/Day Years Used Date Smoking Tobacco: Never Smokeless Tobacco: Never Alcohol Use Standard Drinks/Week Comments Yes 0 (1 standard drink = 0.6 oz pur e alcohol) Comments Unknown Sex and Gender Information Value Date Recorded Sex Assigned at Not on file Legal Sex Female 11:04 AM DIRECTOR ENERGY Gender Identity Not on file Sexual Orientation Not on file documented as of this encounter Last Filed Vital Signs Vital Sign Reading Time Taken Comments Blood Pressure 134/90 09/05/2016 12:28 PM CDT Pulse 74 09/05/2016 12:28 PM CDT Temperature 36.5 ??C (97.7 ??F) 09/05/2016 12:28 PM C DT Respiratory Rate 18 09/05/2016 12:28 PM CDT Oxygen Saturation 98% 09/05/2016 12:28 PM CDT Inhaled Oxygen Concentration - - Weight 88.9 kg (196 lb) 09/05/2016 12:28 PM CDT Height 160 cm (5' 3 ) 09/05/2016 12:28 PM CDT Body Mass Index 34.72 09/05/2016 12:28 PM CDT documented in this encounter Patient Instructions * Patient Instructions* Kaiser Johnston NP - 09/05/2016 12:00 PM CDT Images from the original note were not included. Ankle Sprain WHAT YOU NEED TO KNOW: An ankle sprain happens when 1 or more ligaments in your ankle joint stretch or tear. Ligaments aretough tissues that connect bones. Ligaments support your joints and keep your bones in place. DISCHARGE INSTRUCTIONS: Return to the emergency department if: ?? You have severe pain in your ankle. ?? Your foot or toes are cold or numb. ?? Your ankle becomes more weak or unstable (wobbly). ?? You are unable to put any weight on your ankle or foot. ?? Your swelling has increased or returned. Contact your healthcare provider if: ?? Your pain does not go away, even after treatment. ?? You have questions or concerns about your condition or care. Medicines: You may need any of the following: ?? NSAIDs , such as ibuprofen, help decrease swelling, pain, and fever. This medicine is available with or without a doctor's order. NSAIDs can cause stomach bleeding or kidney problems in certain people. If you take blood thinner medicine, always ask your healthcare provider if NSAIDs are safe foryou. Always read the medicine label and follow directions. ?? Acetaminophen decreases pain. It is available without a doctor's order. Ask how much to take andhow often to take it. Follow directions. Acetaminophen can cause liver damage if not taken correctly. ?? Prescription pain medicine may be given. Ask how to take this medicine safely. ?? Take your medicine as directed. Contact your healthcare provider if you think your medicine is not helping or if you have side effects. Tell him or her if you are allergic to any medicine. Keep a list of the medicines, vitamins, and herbs you take. Include the amounts, and when and why you take them. Bring the list or the pill bottles to follow-up visits. Carry your medicine list with you in case of an emergency. Self care: ?? Use support devices, such as a brace, cast, or splint, may be needed to limit your movement and protect your joint. You may need to use crutches to decrease your pain as you move around. ?? Go to physical therapy as directed. A physical therapist teaches you exercises to help improve movement and strength, and to decrease pain. ?? Rest your ankle so that it can heal. Return to normal activities as directed. ?? Apply ice on your ankle for 15 to 20 minutes every hour or as directed. Use an ice pack, or put crushed ice in a plastic bag. Cover it with a towel. Ice helps prevent tissue damage and decreases swelling and pain. ?? Compress your ankle. Ask if you should wrap an elastic bandage around your injured ligament. An elastic bandage provides support and helps decrease swelling and movement so your joint can heal. Wear as long as directed. ?? Elevate your ankle above the level of your heart as often as you can. This will help decrease swelling and pain. Prop your ankle on pillows or blankets to keep it elevated comfortably. Prevent another ankle sprain: ?? Let your ankle heal. Find out how long your ligament needs to heal. Do not do any physical activity until your healthcare provider says it is okay. If you start activity too soon, you may develop a more serious injury. ?? Always warm up and stretch before you exercise or play sports. ?? Use the right equipment. Always wear shoes that fit well and are made for the activity that you are doing. You may also need ankle supports, elbow and knee pads, or braces. Follow up with your healthcare provider as directed: Write down your questions so you remember to ask them during your visits. ?? 2016 [employer]. Information is for End User's use only and may not be sold, redistributed or otherwise used for commercial purposes. All illustrations and images included in CareNotes?? are the copyrighted property of [employer] or [employer]. The above information is an teachers aide only. It is not intended as medical advice for individual conditions or treatments. Talk to your doctor, nurse or pharmacist before following any medical regimen to see if it is safe and effective for you. documented in this encounter Ordered Prescriptions Prescription Sig Dispense Quantity Refills Last Filled Start Date End Date ibuprofen (ADVIL,MOTRIN) 800 mg tabletIndications: Acute right ankle pain Take 1 tablet (800 mg total) by mouth 2 (two) times a day. 60 tablet 09/05/2016 11/20/2019 documented in this encounter Progress Notes * Kaiser Johnston NP - 09/05/2016 12:00 PM CDT Subjective/Objective Patient ID: Ama Monzon is a 41 y.o. female. Chief Complaint Ankle Injury (Patient rolled her ankle last night, it is swollen, tigling and feels numb.) Pt states she was starting her grill going down the steps. She rolled her ankle. She placed ice Which did not help Muscle Pain This is a new problem. The current episode started yesterday. The problem occurs constantly. The problem has been gradually worsening since onset. The pain occurs in the context of an injury. Pain location: right ankle. The pain is medium. The symptoms are aggravated by any movement. Associated symptoms include joint swelling. Pertinent negatives include no chest pain, constipation, dysuria, fatigue, fever, nausea, rash, stiffness, shortness of breath, vomiting or wheezing. Past treatments include cold pack and prescription NSAID. The swelling is presently diffuse. Review of Systems Constitutional: Negative for chills, fatigue and fever. Respiratory: Negative for cough, chest tightness, shortness of breath and wheezing. Cardiovascular: Negative for chest pain, palpitations and leg swelling. Gastrointestinal: Negative for constipation, nausea and vomiting. Genitourinary: Negative for dysuria. Musculoskeletal: Positive for joint swelling. Negative for arthralgias, back pain, gait problem andstiffness. Skin: Negative for rash. Physical Exam Constitutional: She is oriented to person, place, and time. She appears well- developed and well-nourished. HENT: Head: Normocephalic. Cardiovascular: Normal rate, regular rhythm and normal heart sounds. Pulmonary/Chest: Effort normal and breath sounds normal. No respiratory distress. She has no wheezes. She exhibits no tenderness. Musculoskeletal: She exhibits edema and tenderness. Right ankle edema +2. Neurological: She is alert and oriented to person, place, and time. Skin: Skin is warm. Psychiatric: She has a normal mood and affect. Assessment/Plan Diagnoses and all orders for this visit: 1. Acute right ankle pain (Primary) Comments: ?ankle sprain Will obtin an xray Will prescribe ibuprofen Follow up with PCP if sym[tpoms worsem Orders: - XR Ankle Right 3+ Vw; Future - ibuprofen (ADVIL,MOTRIN) 800 mg tablet; Take 1 tablet (800 mg total) by mouth 2 (two) times a day. documented in this encounter Plan of Treatment Not on file documented as of this encounter Results * XR Ankle Right 3+ Vw (09/05/2016 7:32 PM CDT) Anatomical Region Laterality Modality Lower Extremities, Ankle Right Radiogr aphic Imaging 09/05/2016 7:32 PM CDT Narrative 09/05/2016 7:32 PM CDT XR Ankle Min 3 Views R ??[id number] ??Acc#: ??[id number] DATE OF EXAM: ??Sep 05 2016 ?? EXAM: XR Ankle Min 3 Views R ??[id number] AP, lateral, oblique HISTORY: acute pain, right [...] Ordering DR: KAISER JOHNSTON Attending DR: DR ROBINA KELLOGG Attending: ??DR ROBINA KELLOGG Requesting: ??KAISER JOHNSTON Requesting Fax: ??[phone] Attending Fax: ??[phone] Attending ID: ??[id number] Requesting ID: ??[id number] Report To 1 ID: ??[id number] Report To 1 Name: ??DR ROBINA KELLOGG Report To 1 FAX: ??[phone] [employer] Order #: ??[id number] Procedure Note Miscellaneous, Not In File / Provider, Katiana, - 09/08/2016 XR Ankle Min 3 Views R [id number] Acc#: [id number] DATE OF EXAM: Sep 05 2016 EXAM: XR Ankle Min 3 Views R [id number] AP, lateral, oblique HISTORY: acute pain, right ankle. COMPARISON: None FINDINGS: No acute fracture is noted. The ankle mortise is maintained. The soft tissues over the lateral malleolus are swollen. IMPRESSION: 1. No acute fracture. 2. Lateral soft tissue swelling. Electronically signed by: Luis Ann M.D. Interpreting Physician: LUIS ANN M.D. Read on: Sep 05 2016 3:10P Transcribed by: [facility] On: Sep 05 2016 3:07P Approved Electronically by: LUIS ANN M.D. on: Sep 05 2016 3:07P Ordering DR: KAISER JOHNSTON Attending DR: DR ROBINA KELLOGG Attending: DR ROBINA KELLOGG Requesting: KAISER JOHNSTON Requesting Attending Attending ID: [id number] Requesting ID: [id number] Report To 1 ID: [id number] Report To 1 Name: DR ROBINA KELLOGG Report To 1 FAX: [phone] [employer] Order #: [id number] Kaiser Johnston CASH SPECIALIST IMG XR PROCEDURES Final R esult documented in this encounter Visit Diagnoses Diagnosis Acute right ankle pain- Primary Acute right ankle pain documented in this encounter Historical Medications * This list may reflect changes made after this encounter. Medication Sig Dispense Quantity Refills Last Filled Start D ate End Date PROAIR HFA 90 mcg/actuation inhaler 06/25/2016 losartan-hydroCHLOROt hiazide (HYZAAR) 100-12.5 mg per tablet 08/26/2016 11/09/2019 added in this encounter Care Teams Cathode Ray Tube Assembler Relationship Specialty Start Date End Date Bowen Field MD [address] [address] PCP - General Endocrinology Diabetes & Metabolism 09/05/16 11/19/19 documented as of this encounter
--- OUTSIDE RECORDS SUMMARY | 2024-01-26 06:44 | XMS_ITS | Encounter Summary ---
Author Organization [facility] Address [address] [place] [address] Care Team Providers Care Glass Setter Name Role Phone Bowen Field MD Primary Care Provider [phone] Reason for Referral * Diagnostic Imaging (Routine) - Closed Specialty Diagnoses / Procedures Referred By Contac t Referred To Contact Diagnoses Muscle weakness (generalized) Procedures XR Spine Cervical Complete 4 or 5 Views Bowen Field MD Phone: tel: fax: [facility] Referral ID Status Reason Start Date Expiration Date Visits Re quested Visits Authorized [id number] Closed 04/18/2018 10/28/2019 1 1 * Diagnostic Imaging (Routine) - Closed Specialty Diagnoses / Procedures Referred By Contac t Referred To Contact Diagnoses Muscle weakness (generalized) Procedures XR Spine Lumbar 2 or 3 Views Bowen Field MD Phone: tel: fax: [facility] Referral ID Status Reason Start Date Expiration Date Visits Re quested Visits Authorized [id number] Closed 04/18/2018 10/28/2019 1 1 Reason for Visit * Diagnostic Imaging (Routine) - Closed Specialty Diagnoses / Procedures Referred By Contac t Referred To Contact Diagnoses Muscle weakness (generalized) Procedures XR Spine Lumbar 2 or 3 Views Bowen Field MD Phone: tel: fax: [facility] Referral ID Status Reason Start Date Expiration Date Visits Re quested Visits Authorized [id number] Closed 04/18/2018 10/28/2019 1 1 Encounter Details Date Type Department Care Team (Latest Contact Info) Description 04/18/2018 3:54 PM CDT - 04/18/2018 11:59 PM CDT Hospital Encounter [facility] [address] [place] [address] Bowen Field MD [address] [facility] [address] [place] [address] Muscle weakness (generalized) Discharge Disposition: Discharge to home or self care Social History Tobacco Use Types Packs/Day Years Used Date Smoking Tobacco: Never Smokeless Tobacco: Never Alcohol Use Standard Drinks/Week Comments Yes 0 (1 standard drink = 0.6 oz pur e alcohol) Comments Unknown Sex and Gender Information Value Date Recorded Sex Assigned at Not on file 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 11/20/2019 documented as of this encounter Discharge Disposition Disposition Code Departure Means Destination Discharge to home or self care documented in this encounter Plan of Treatment Not on file documented as of this encounter Procedures Procedure Name Priority Date/Time Associated Diagnosis Comments XR SPINE LUMBAR 2 OR 3 VIEWS Schedule Routine, Read Routine (OP Routine) 04/18/2018 4:07 PM CDT Muscle weakness (generalized) XR SPINE CERVICAL COMPLETE 4 OR 5 VW Schedule Routine, Read Routine (OP Routine) 04/18/2018 4:07 PM CDT Muscle weakness (generalized) documented in this encounter Results * XR Spine Cervical Complete 4 or 5 Views (04/18/2018 4:07 PM CDT) Anatomical Region Laterality Modality Spine N/A Computed Radiogr aphy 04/18/2018 4:16 PM CDT Impressions 04/18/2018 4:16 PM CDT Normal radiographic examination of the cervical spine. Electronically signed by: Michael Marcus M.D. Narrative 04/18/2018 4:16 PM CDT EXAMINATION: Cervical spine 4 or 5 views HISTORY: Cervical spondylosis FINDINGS: 4 view examination of the cervical spine is performed without comparison. ??Vertebral body heights are normal. ??There are no fractures. ??The disc spaces are normal. ??The prevertebral soft tissues are normal. ??There is no neuroforaminal stenosis. Procedure Note Michael Marcus MD - 04/18/2018 EXAMINATION: Cervical spine 4 or 5 views HISTORY: Cervical spondylosis FINDINGS: 4 view examination of the cervical spine is performed without comparison. Vertebral body heights are normal. There are no fractures. The disc spaces are normal. The prevertebral soft tissues are normal. There is no neuroforaminal stenosis. IMPRESSION: Normal radiographic examination of the cervical spine. Electronically signed by: Michael Marcus M.D. Bowen Field MD IMG XR PROCEDURES Final Result * XR Spine Lumbar 2 or 3 Views (04/18/2018 4:07 PM CDT) Anatomical Region Laterality Modality Spine N/A Computed Radiogr aphy 04/18/2018 4:16 PM CDT Impressions 04/18/2018 4:16 PM CDT Normal radiographic examination of the lumbar spine. Electronically signed by: Michael Marcus M.D. Narrative 04/18/2018 4:16 PM CDT EXAMINATION: Lumbar spine 2 or 3 views HISTORY: Lumbar spondylosis FINDINGS: 2 view examination of the lumbar spine is performed without comparison. ??The vertebral body heights are normal. ??There are no fractures. ??The disc spaces are normal. ??Alignment is normal. Procedure Note Michael Marcus MD - 04/18/2018 EXAMINATION: Lumbar spine 2 or 3 views HISTORY: Lumbar spondylosis FINDINGS: 2 view examination of the lumbar spine is performed without comparison. The vertebral body heights are normal. There are no fractures. The disc spaces are normal. Alignment is normal. IMPRESSION: Normal radiographic examination of the lumbar spine. Electronically signed by: Michael Marcus M.D. Bowen Field MD IMG XR PROCEDURES Final Result documented in this encounter Visit Diagnoses Diagnosis Muscle weakness (generalized) documented in this encounter Care Teams Glass Setter Relationship Specialty Start Date End Date Bowen Field MD [address] [place] [address] PCP - General Endocrinology Diabetes & Metabolism 09/05/16 11/19/19 documented as of this encounter
--- OUTSIDE RECORDS SUMMARY | 2024-01-26 06:44 | XMS_ITS | Encounter Summary ---
Author Organization [facility] Address [address] [place] [address] Care Team Providers Care Fence Repairman Name Role Phone Bowen Field MD Primary Care Provider [phone] Encounter Details Date Type Department Care Team (Late st Contact Info) Description 10/27/2018 Orders Only Internal Medicine Kasi Lock MD [address] [employer] [address] [address] Dyspnea, unspecified type (Primary Dx) Social History Tobacco Use Types Packs/Day Years Used Date Smoking Tobacco: Never Smokeless Tobacco: Never Alcohol Use Standard Drinks/Week Comments Yes 0 (1 standard drink = 0.6 oz pur e alcohol) Comments Unknown Sex and Gender Information Value Date Recorded Sex Assigned at Not on file 

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
--- OUTSIDE RECORDS SUMMARY | 2024-01-26 06:44 | XMS_ITS | Encounter Summary ---
Author Organization [facility] Healthcare Address [address] [place] [address] Care Team Providers Care Riverine Assault Craft Crewman Name Role Phone Unavailable Primary Care Provider Unavailabl e Encounter Details Date Type Department Care Team (Late st Contact Info) Description 10/03/2012 8:53 AM CDT - 10/03/2012 11:59 PM CDT Hospital Encounter [facility] Moises Georges MD [address] [facility] [address] [place] [address] Diarrhea Social History Tobacco Use Types Packs/Day Years Used Date Smoking Tobacco: Never Assessed Comments Unknown Sex and Gender Information Value Date Recorded Sex Assigned at Not on file 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 RESULT: The liver demonstrates normal size and echogenicity with no evidence of mass. ??The gallbladder is normal. ??The extrahepatic bile duct is normal at 3 mm. ??The visualized portions of the pancreas, retroperitoneal vascular structures and right kidney are normal. IMPRESSION: NORMAL RIGHT UPPER QUADRANT ULTRASOUND. Interpreting Physician: ??DR KWAKU MARROQUIN M.D. ??Read on: ??Oct 03 2012 12:21P Transcribed by: ??vam ??On: Oct 03 2012 ??1:39P Approved Electronically by: ??LOPEZ Aguilar, DR AMES ??on: ??Oct 03 2012 3:20P Ordering DR: MOISES GEORGES Attending KELLI GEORGES Procedure Note Provider, MD Katiana - 06/02/2016 US Abd Lmtd Acc#: [id number] DATE OF EXAM: Oct 03 2012 CLINICAL HISTORY: Diarrhea. RESULT: The liver demonstrates normal size and echogenicity with no evidence ofmass. The gallbladder is normal. The extrahepatic bile duct is normal at3 mm. The visualized portions of the pancreas, retroperitoneal vascularstructures and right kidney are normal. IMPRESSION: NORMAL RIGHT UPPER QUADRANT ULTRASOUND. Interpreting Physician: DR KWAKU MARROQUIN M.D. Read on: Oct 03 201212:21P Transcribed by: mary On: Oct 03 2012 1:39P Approved Electronically by: LOPEZ Aguilar, DR AMES on: Oct 03 20123:20P Ordering DR: MOISES GEORGES Attending : MOISES GEORGES us Historical Provider MD [place] US PROCEDURES Final R esult documented in this encounter Visit Diagnoses Diagnosis Diarrhea documented in this encounter
--- OUTSIDE RECORDS SUMMARY | 2024-01-26 06:44 | XMS_ITS | Encounter Summary ---
Author Organization [facility] Address [address] [place] [address] Care Team Providers Care Dry Sand Molder Name Role Phone Kristopher Guzmán MD Primary Care Provider Juana Gabriel MD Unavailable [phone] Reason for Visit * Reason Comments Hypertension 1 mo fu Encounter Details Date Type Department Care Team (Late st Contact Info) Description 12/25/2019 2:00 PM INSURANCE CODER Office Visit [facility] [address] [id number] Kristopher Guzmán MD [address] [place] [address] [address] [phone] Chronic hypertension (Primary Dx); Class 1 obesity due to excess calories with serious comorbidity and body mass index (BMI) of 30.0 to 30.9 in adult; Anxiety; Generalized anxiety disorder; Factor V Leiden mutation (CMS/HCC); Mild intermittent asthma without complication Social History Tobacco Use Types Packs/Day Years Used Date Smoking Tobacco: Never Smokeless Tobacco: Never Alcohol Use Standard Drinks/Week Comments Not Currently 0 (1 standard drink = 0.6 oz pur e alcohol) AUDIT-C Answer Date Recorded Q1: How often do you have a drink containing alc ohol? 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 Not on file Not on file Not on file documented as of this encounter Last Filed Vital Signs Vital Sign Reading Time Taken Comments Blood Pressure 131/76 12/25/2019 1:44 PM INSURANCE CODER Pulse 63 12/25/2019 1:44 PM INSURANCE CODER Temperature 36.3 ??C (97.3 ??F) 12/25/2019 1:44 PM CS T Respiratory Rate - - Oxygen Saturation 97% 12/25/2019 1:44 PM INSURANCE CODER Inhaled Oxygen Concentration - - Weight 80.2 kg (176 lb 14.4 oz) 12/25/2019 1:44 PM INSURANCE CODER Height 162 cm (5' 3.78 ) 12/25/2019 1:44 PM INSURANCE CODER Body Mass Index 30.57 12/25/2019 1:44 PM INSURANCE CODER documented in this encounter Ordered Prescriptions Prescription Sig Dispense Quantity Refills Last Filled Start Date End Date omeprazole (PriLOSEC) 10 mg capsule Take 4 capsules (40 mg total) by mouth daily 90 capsule 3 12/25/2019 sertraline (ZOLOFT) 100 mg tabletIndications: Generalized Anxiety Disorder Take 1 tablet (100 mg total) by mouth daily for 14 days 90 tablet 1 12/25/2019 ProAir HFA 90 mcg/actuation inhalerIndications :Acute Asthma Attack Inhale 2 puffs every 6 (six) hours as needed for wheezing 1 Inhaler 2 12/25/2019 losartan-hydroCHLO ROthiazide (HYZAAR) 100-12.5 mg per tabletIndications: Chronic hypertension Take 1 tablet by mouth daily 90 tablet 1 12/25/2019 1 documented in this encounter Progress Notes * Kristopher Guzmán MD - 12/25/2019 2:00 PM CST Images from the original note were not included. Subjective/Objective Patient ID: Ama Monzon is a 44 y.o. female. Chief Complaint Hypertension (1 mo fu ) HPI Patient is here for follow regarding anxiety as well as hypertension. patient was started on Btisrt05 mg with plan to increase to 100 mg after two weeks. She has seen significant alleviation of her anxiety since the start of the medication. Even her has noticed the effect from the medication in a pleasant way. She also has chronic hypertension. Her BP is currently stable with use of her medications. [id number] - HCTZ 12.5mg once daily. She denies any shortness of breath, chest pain, headaches at this time. She does have allergies which has been bothering her. At times she has to use her albuterol inhalerwhich is prescribed for her asthma. She does use flonase nasal spray and also used Vitamin D daily as well. Review of Systems Constitutional: Negative for chills, fatigue, fever and unexpected weight change (losing weight with lifestyle and diet). HENT: Positive for rhinorrhea and sneezing. Negative for congestion, dental problem, drooling and sore throat. Eyes: Negative for visual disturbance. Respiratory: Negative for cough and shortness of breath. Cardiovascular: Negative for chest pain and leg swelling. Gastrointestinal: Negative for abdominal pain, nausea and vomiting. Genitourinary: Negative for difficulty urinating and dysuria. Skin: Negative for rash and wound. Allergic/Immunologic: Positive for environmental allergies. Negative for immunocompromised state. Neurological: Negative for dizziness, facial asymmetry, speech difficulty and headaches. Psychiatric/Behavioral: Negative for agitation, behavioral problems, dysphoric mood, sleep disturbance and suicidal ideas. The patient is nervous/anxious (better). Vitals: 12/25/19 1344 BP: 131/76 BP Location: Right arm Patient Position: Sitting Pulse: 63 Temp: 36.3 ??C (97.3 ??F) TempSrc: Temporal SpO2: 97% Weight: 80.2 kg (176 lb 14.4 oz) Height: 162 cm (5' 3.78 ) Body mass index is 30.57 kg/m??. Physical Exam Vitals signs reviewed. Constitutional: General: She is not in acute distress. Appearance: Normal appearance. She is obese. She is not ill-appearing. HENT: Head: Normocephalic. Nose: Nose normal. Mouth/Throat: Mouth: Mucous membranes are moist. Eyes: Extraocular Movements: Extraocular movements intact. Pupils: Pupils are equal, round, and reactive to light. Neck: Musculoskeletal: Normal range of motion. Cardiovascular: Rate and Rhythm: Normal rate and regular rhythm. Pulmonary: Effort: Pulmonary effort is normal. No respiratory distress. Breath sounds: Normal breath sounds. No wheezing. Abdominal: General: Abdomen is flat. There is no distension. Palpations: Abdomen is soft. Musculoskeletal: Normal range of motion. Skin: General: Skin is warm and dry. Neurological: General: No focal deficit present. Mental Status: She is alert and oriented to person, place, and time. Mental status is at baseline. Psychiatric: Attention and Perception: She is attentive. She does not perceive auditory or visual hallucinations. Mood and Affect: Mood is anxious. Mood is not depressed or elated. Affect is not labile or blunt. Speech: Speech normal. Behavior: Behavior is not agitated, aggressive or hyperactive. Behavior is cooperative. Thought Content: Thought content normal. Thought content is not paranoid. Thought content does not include homicidal or suicidal ideation. Cognition and Memory: Cognition is not impaired. Memory is not impaired. Data reviewed Assessment/Plan Diagnoses and all orders for this visit: Chronic hypertension (I10) (Primary) Assessment & Plan: - currently stable on current medications - current meds are Losartan 100- HCTZ 12.5mg once daily - refill provided Orders: - losartan-hydroCHLOROthiazide (HYZAAR) 100-12.5 mg per tablet; Take 1 tablet by mouth daily Class 1 obesity due to excess calories with serious comorbidity and body mass index (BMI) of 30.0 to 30.9 in adult (E66.09, Z68.30) Assessment & Plan: - BMI Follow-up includes: nutrition counseling, exercise counseling and education provided - has already noticed some weight loss with change in diet and lifestyle Anxiety (F41.9) Assessment & Plan: - doing well since restarted the Zoloft - currently happy with [id number] zoloft daily - continue with current medication - refill provided Orders: - sertraline (ZOLOFT) 100 mg tablet; Take 1 tablet (100 mg total) by mouth daily for 14 days Generalized anxiety disorder (F41.1) Assessment & Plan: - doing well since restarted the Zoloft - currently happy with [id number] zoloft daily - continue with current medication - refill provided Factor V Leiden mutation (CMS/HCC) (D68.51) Assessment & Plan: - currently taking 81mg x2 of aspirin daily - discussed that she can cut down to 81mg x1 aspirin daily - patient takes Omeprazole for GI protection Mild intermittent asthma without complication (J45.20) Assessment & Plan: - takes vitamin d 5-7000 international units daily - triggers are allergies - she has rescue inhaler for use as needed - she also uses flonase for allergies - well controlled at this time, continue with current therapy - refill provided for albuterol rescue inhaler Orders: - ProAir HFA 90 mcg/actuation inhaler; Inhale 2 puffs every 6 (six) hours as needed for wheezing Other orders - omeprazole (PriLOSEC) 10 mg capsule; Take 4 capsules (40 mg total) by mouth daily Return in about 6 months (around 06/23/2020). Kristopher Guzmán MD December 25, 2019 Voice recognition software [employer] was used dictate and transcribe this document. Record Retrieval Specialist variances may occur. Despite proofreading, typographical errors may occur. RANCE CODER documented in this encounter Miscellaneous Notes * Assessment & Plan Note - Kristopher Guzmán MD - 12/25/2019 2:21 PM INSURANCE CODER Associated Problem(s): Mild intermittent asthma without complication - takes vitamin d 5-7000 international units daily - triggers are allergies - she has rescue inhaler for use as needed - she also uses flonase for allergies - well controlled at this time, continue with current therapy - refill provided for albuterol rescue inhaler RANCE CODER * Assessment & Plan Note - Kristopher Guzmán MD - 12/25/2019 2:20 PM INSURANCE CODER Associated Problem(s): Chronic hypertension - currently stable on current medications - current meds are Losartan 100- HCTZ 12.5mg once daily - refill provided RANCE CODER * Assessment & Plan Note - Kristopher Guzmán MD - 12/25/2019 2:19 PM INSURANCE CODER Associated Problem(s): Class 1 obesity due to excess calories with serious comorbidity and body mass index (BMI) of 30.0 to 30.9 in adult - BMI Follow-up includes: nutrition counseling, exercise counseling and education provided - has already noticed some weight loss with change in diet and lifestyle RANCE CODER * Assessment & Plan Note - Kristopher Guzmán MD - 12/25/2019 2:19 PM INSURANCE CODER Associated Problem(s): Factor V Leiden mutation (HCC) - currently taking 81mg x2 of aspirin daily - discussed that she can cut down to 81mg x1 aspirin daily - patient takes Omeprazole for GI protection RANCE CODER * Assessment & Plan Note - Kristopher Guzmán MD - 12/25/2019 2:18 PM INSURANCE CODER Associated Problem(s): Generalized anxiety disorder - doing well since restarted the Zoloft - currently happy with [id number] zoloft daily - continue with current medication - refill provided RANCE CODER documented in this encounter Plan of Treatment Not on file documented as of this encounter Visit Diagnoses Diagnosis Chronic hypertension- Primary Class 1 obesity due to excess calories with serious comorbidity and body mass index (BMI) of 30.0 to 30.9 in adult Anxiety Anxiety state, unspecified Generalized anxiety disorder Factor V Leiden mutation (HCC) Primary hypercoagulable state Mild intermittent asthma without complication documented in this encounter Discontinued Medications Medication Sig Discontinue Reason Start Date End Da te PROAIR HFA 90 mcg/actuation inhaler Reorder 06/25/2016 12/25/2019 sertraline (ZOLOFT) 50 mg tabletIndications:Gener alized Anxiety Disorder Take 1 tablet (50 mg total) by mouth daily for 14 days, THEN 2 tablets (100 mg total) daily for 14 days. Reorder 11/20/2019 12/25/2019 losartan-hydroCHLOROthi azide (HYZAAR) 100-12.5 mg per tablet Take 1 tablet by mouth daily Reorder 12/13/2019 12/25/2019 omeprazole (PriLOSEC) 10 mg capsule Take 4 capsules (40 mg total) by mouth daily Reorder 12/19/2019 12/25/2019 documented as of this encounter Care Teams Dry Sand Molder Relationship Specialty Start Date End Date Kristopher Guzmán MD PCP - General Family Medicine 11/20/19 Juana Gabriel MD [address] [place] [id number] Consulting Physician Obstetrics and Gynecology 11/20/19 documented as of this encounter
--- OUTSIDE RECORDS SUMMARY | 2024-01-26 06:44 | XMS_ITS | Encounter Summary ---
Author Organization [facility] Healthcare Address [address] [place] [address] Care Team Providers Care Hspt Tutor Name Role Phone Bowen Field MD Primary Care Provider [phone] Reason for Referral * Diagnostic Imaging (Routine) - Closed Specialty Diagnoses / Procedures Referred By Contac t Referred To Contact Radiology Diagnoses Altered mental status, unspecified altered mental status type Procedures CT Head WO Contrast Bowen Field MD Phone: tel: fax: [address] [address] Referral ID Status Reason Start Date Expiration Date Visits Re quested Visits Authorized [id number] Closed 12/07/2018 06/17/2020 1 1 Encounter Details Date Type Department Care Team (Late st Contact Info) Description 12/07/2018 Orders Only Internal Medicine Bowen Field MD [address] [address] Altered mental status, unspecified altered mental status type (Primary Dx) Social History Tobacco Use Types Packs/Day Years Used Date Smoking Tobacco: Never Smokeless Tobacco: Never Alcohol Use Standard Drinks/Week Comments Yes 0 (1 standard drink = 0.6 oz pur e alcohol) Comments Unknown Sex and Gender Information Value Date Recorded Sex Assigned at Not on file Legal Sex Female 11:04 AM REAL ESTATE PARALEGAL Gender Identity Not on file Sexual Orientation Not on file documented as of this encounter Plan of Treatment Not on file documented as of this encounter Results * CT Head WO Contrast (12/16/2018 2:24 PM REAL ESTATE PARALEGAL) Anatomical Region Laterality Modality Head and Neck N/A Computed Tomogra phy 12/16/2018 2:53 PM REAL ESTATE PARALEGAL Impressions 12/16/2018 4:52 PM REAL ESTATE PARALEGAL No acute intracranial abnormality. Dictated by: Doron Merrill M.D. The radiology attending physician has personally reviewed this study, and had reviewed and/or edited this written report and agrees with it. Electronically signed by: Adrienne Correa M.D. Narrative 12/16/2018 4:52 PM REAL ESTATE PARALEGAL EXAMINATION: CT head without contrast HISTORY: Mental [...] Altered mental status, unspecified altered mental status type- Primary Altered mental status, unspecified altered mental status type documented in this encounter Care Teams Hspt Tutor Relationship Specialty Start Date End Date Bowen Field MD [address] [address] PCP - General Endocrinology Diabetes & Metabolism 09/05/16 11/19/19 documented as of this encounter
--- OUTSIDE RECORDS SUMMARY | 2024-01-26 06:44 | XMS_ITS | Clinical Summary ---
Author Organization [facility] Address [address] [place] [address] Care Team Providers Care Supervisor Forming And Tempering Name Role Phone Kristopher Guzmán MD Primary Care Provider Juana Gabriel MD Unavailable Allergies Active Allergy Reactions Criticality Noted Date Comments Latex Swelling Reaction: SWELLING Latex Rash,Itching,Swellin g Medium 12/22/2013 Sulfa (Sulfonamide Antibiotics) Swelling 12/22/2013 Reaction: SWELLING Mouth sores Sulfa (Sulfonamide Antibiotics) Rash Medium 09/05/2016 Sulfasalazine Rash Medium 12/22/2013 Mouth sores Medications magnesium oxide 400 mg magnesium tablet Take 400 mg by mouth Active turmeric root extract 500 mg capsule Take 500 mg by mouth Active cholecalciferol, vitamin D3, (VITAMIN D3 ORAL) Take 150 mcg by mouth Active vitamin b complex tablet Take 1 tablet by mouth daily Active fluticasone propionate (FLONASE) 50 mcg/actuation nasal spray Administer 1 spray into each nostril daily Active ProAir HFA 90 mcg/actuation inhalerIndication s:Acute Asthma Attack Inhale 2 puffs every 6 (six) hours as needed for wheezing 1 Inhaler 2 0 Active sertraline (ZOLOFT) 100 mg tabletIndications :Generalized Anxiety Disorder Take 1 tablet (100 mg total) by mouth daily for 14 days 90 tablet 1 0 Active omeprazole (PriLOSEC) 10 mg capsule Take 4 capsules (40 mg total) by mouth daily 90 capsule 3 0 Active losartan-hydroCHL OROthiazide (HYZAAR) 100-12.5 mg per tabletIndications :Chronic hypertension Take 1 tablet by mouth daily 90 tablet 1 1 Active Active Problems Problem Noted Date Diagnosed Date Mild intermittent asthma without complication Assessment & Plan (12/25/2019 2:22 PM ELECTRONICS TECHNICIAN APPRENTICE): - takes vitamin d 5-7000 international units daily - triggers are allergies - she has rescue inhaler for use as needed - she also uses flonase for allergies - well controlled at this time, continue with current therapy - refill provided for albuterol rescue inhaler Assessment & Plan (11/20/2019 2:50 PM CDT): - diagnosed in 2016 - very infrequent use of the albuterol inhaler a 1-2 times a week - she has been taking vitamin D3 6000 IU on a daily basis and has seen a big improvement in her asthma flare up - triggers for asthma - allergies - she uses Flonase nasal spray on a daily basis Class 1 obesity due to exces s calories with serious comorbidity and body mass index (BMI) of 30.0 to 30.9 in adult 11/20/2019 Assessment & Plan (12/25/2019 2:19 PM ELECTRONICS TECHNICIAN APPRENTICE): - BMI Follow-up includes: nutrition counseling, exercise counseling and education provided - has already noticed some weight loss with change in diet and lifestyle Assessment & Plan (11/20/2019 3:38 PM CDT): - BMI Follow-up includes: nutrition counseling, exercise counseling and education provided Abnormal genetic test during 9 Overview (03/16/2018): Overview: Borderline value on NIPT (EncrypTix)- suspected T21 Confirmed by amniocentesis Prothrombin gene mutation 02/20/2014 Overview (03/16/2018): Overview: Heterozygote for prothrombin gene mutation Chronic hypertension 02/19/2014 Overview (11/20/2019): Patient has been on BP medications since delivery of her first child First diagnosis in 2008, she also had preeclampsia at the time Has been on Methyldopa, Diovan before Assessment & Plan (12/25/2019 2:20 PM ELECTRONICS TECHNICIAN APPRENTICE): - currently stable on current medications - current meds are Losartan 100- HCTZ 12.5mg once daily - refill provided Assessment & Plan (11/20/2019 3:35 PM CDT): - first diagnosis in 2008, she also had preeclampsia at the time - currently on Losartan- HCTZ 100-12.5mg once daily - she was on amlodipine until recently several months ago - compliant with medication, not side effects to it - had will recheck blood pressure on next visit in 1 months and if still elevated plan to restart her amlodipine. Generalized anxiety disorder 02/19/2014 Overview (03/16/2018): Overview: Previously on Zoloft, has been off for several years Assessment & Plan (12/25/2019 2:18 PM ELECTRONICS TECHNICIAN APPRENTICE): - doing well since restarted the Zoloft - currently happy with [id number] zoloft daily - continue with current medication - refill provided Assessment & Plan (11/20/2019 3:08 PM CDT): - she used to be on Zoloft, she has been off of it for several years - hx of anxiety and panic attacks - off of Zoloft for several months when it was abruptly stopped - she had withdrawal symptoms and she did not like it Factor V Leiden mutation 12/23/2013 Overview (11/20/2019): No personal history of blood clots Strong family history of blood clots Heterozygote Assessment & Plan (12/25/2019 2:19 PM ELECTRONICS TECHNICIAN APPRENTICE): - currently taking 81mg x2 of aspirin daily - discussed that she can cut down to 81mg x1 aspirin daily - patient takes Omeprazole for GI protection Assessment & Plan (11/20/2019 3:01 PM CDT): - currently takes 81mg x2 of aspirin on a daily basis - she taken omeprazole due to chronic daily use of aspirin/nsaid Resolved Problems Problem Noted Date Diagnosed Date Resolved Date Obesity affecting 03/16/2018 11/20/2019 Keratosis, senilis 11/23/2016 0 Telangiectasia 11/23/2016 11/20/2019 Lentigo 11/23/2016 11/20/2019 Down syndrome of fetus in current 05/13/2015 11/20/2019 Placental abruption 02/19/2014 11/20/19 20 Overview (03/16/2018): Overview: G1 when she had pre-eclampsia Preeclampsia 02/19/2014 11/20/2019 Overview (03/16/2018): Overview: In G1 with placental abruption and delivery at 34 weeks, was on Magnesium Previous delivery a ffecting 12/23/2013 11/20/2019 Immunizations Name Administration Dates Next Due Influenza, Quadrivalent, Jessica l Culture-based MDCK, Preservative Free, Antibiotic Free, Intramuscular 10/28/2019,12/14/2017 Influenza, Quadrivalent, Spl it, Preservative Free, Intramuscular 11/17/2018 Tdap 04/23/2014 Surgical History Surgery Date Site/Laterality Comments SECTION 06/22/2007 [facility] Medical History Medical History Date Comments Asthma Hypertension Factor 5 Leiden mutation, he terozygous (HCC) Gastric reflux Factor 5 Leiden mutation, he terozygous (HCC) Allergic Anxiety Factor V Leiden (HCC) 2007 Preeclampsia 02/19/2014 Overview: In G1 with placental abruption and delivery at 34 weeks, was on Magnesium Placental abruption 02/19/2014 Overview: G1 when she had pre-eclampsia Family history of autism 03/16/2018 Down syndrome of fetus in cu rrent 05/13/2015 Family History Medical History Relation Name Comments Blood Clot Brother bladder infections Daughter far sighted Daughter Asthma Father Diabetes Father Hypertension Father Anxiety disorder Mother Blood Clot Mother several Hypertension Mother ADD / ADHD Son Autism Son Arthritis Neg Hx Relation Name Status Comments Brother Daughter Alive Father Alive Mother Son Alive Social History Tobacco Use Types Packs/Day Years [...] staff should administer the PHQ-9) 0 12/25/2019 Personal Safety Answer Date Recorded Getting School Help Needed Not on file 04/23 Comments No Sex and Gender Information Value Date Recorded Sex Assigned at Not on file Legal Sex Female 11:04 AM ELECTRONICS TECHNICIAN APPRENTICE Gender Identity Not on file Sexual Orientation Not on file 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 Not on file Not on file Not on file Obstetrics History Last Filed Vital Signs Vital Sign Reading Time Taken Comments Blood Pressure 131/76 12/25/2019 1:44 PM ELECTRONICS TECHNICIAN APPRENTICE Pulse 63 12/25/2019 1:44 PM ELECTRONICS TECHNICIAN APPRENTICE Temperature 36.3 ??C (97.3 ??F) 12/25/2019 1:44 PM CS T Respiratory Rate 18 09/05/2016 12:2 8 PM CDT Oxygen Saturation 97% 12/25/2019 1:44 PM ELECTRONICS TECHNICIAN APPRENTICE Inhaled Oxygen Concentration - - Weight 80.2 kg (176 lb 14.4 oz) 12/25/2019 1:44 PM ELECTRONICS TECHNICIAN APPRENTICE Height 162 cm (5' 3.78 ) 12/25/2019 1:44 PM ELECTRONICS TECHNICIAN APPRENTICE Body Mass Index 30.57 12/25/2019 1:44 PM ELECTRONICS TECHNICIAN APPRENTICE Plan of Treatment Not on file Insurance [employer] [facility] BLUE ACCESS CHOICE [place] Care Teams Supervisor Forming And Tempering Relationship Specialty Start Date End Date Kristopher Guzmán MD PCP - General Family Medicine 11/20/19 Juana Gabriel MD [address] [address] Consulting Physician Obstetrics and Gynecology 11/20/19
--- OUTSIDE RECORDS SUMMARY | 2024-01-26 06:44 | XMS_ITS | Encounter Summary ---
Author Organization [facility] Address [address] [facility] [address] [place] [address] Care Team Providers Care Carrier Loader Name Role Phone Bowen Field MD Primary Care Provider [phone] Reason for Referral * Injectables (Routine) - Closed Specialty Diagnoses / Procedures Referred By Contac t Referred To Contact Diagnoses Strain of right rotator cuff capsule, initial encounter Procedures Large Joint Arthrocentesis Andrew Browning MD Phone: tel: fax: Referral ID Status Reason Start Date Expiration Date Visits Re quested Visits Authorized [id number] Closed 03/16/2018 09/25/2019 1 1 DIRECTOR Reason for Visit * Reason Comments Pain Encounter Details Date Type Department Care Team (Latest Contact Info) Description 03/16/2018 1:15 PM SPA DIRECTOR Office Visit [facility] Medicine [address] [place] [phone] [place] [address] [place] [id number] Strain of right rotator cuff capsule, initial encounter (Primary Dx) Social History Tobacco Use Types Packs/Day Years Used Date Smoking Tobacco: Never Smokeless Tobacco: Never Alcohol Use Standard Drinks/Week Comments Yes 0 (1 standard drink = 0.6 oz pur e alcohol) Comments Unknown Sex and Gender Information Value Date Recorded Sex Assigned at Not on file Legal Sex Female 11:04 AM SPA DIRECTOR Gender Identity Not on file Sexual Orientation Not on file documented as of this encounter Last Filed Vital Signs Vital Sign Reading Time Taken Comments Blood Pressure 130/96 03/16/2018 1:45 PM SPA DIRECTOR Pulse 69 03/16/2018 1:45 PM SPA DIRECTOR Temperature - - Respiratory Rate - - Oxygen Saturation - - Inhaled Oxygen Concentration - - Weight 92.8 kg (204 lb 9.6 oz) 03/16/2018 1:45 P M SPA DIRECTOR Height 160 cm (5' 3 ) 03/16/2018 1:45 PM SPA DIRECTOR Body Mass Index 36.24 03/16/2018 1:45 PM SPA DIRECTOR documented in this encounter Progress Notes * Andrew Browning MD - 03/16/2018 1:15 PM CSTAssociated Order(s): LARGE JOINT ARTHROCENTESIS Post-Procedure Diagnose(s): Strain of right rotator cuff capsule, initial encounter NEW PATIENT VISIT Subjective CHIEF COMPLAINT She had concerns including Pain of the Right Arm. HISTORY OF PRESENT ILLNESS Ama presents today with complaints of right shoulder pain which she has had for 3 years, progressing over last 2 weeks secondary to slipping on some stairs and grabbing the arm rail. She denies feeling a pop. She was seen by her primary care physician who ordered an MRI. The pain is sharp, burning, dull, aching, moderate, continuous, activity related, unpredictable. Using the upper arm makes the pain worse, Motrin, CVD or oil, rest makes the pain better. She has intermittent numbness and tingling in her entire hand was she has had for several years. She is right-hand dominant. Pain Assessment Pain Score: 5 - Moderate pain Pain Descriptors: Aching, Burning, Sharp, Dull Pain Frequency: Constant/continuous (activity related and unpredictable) Date Pain First Started: 03/16/15 Pain Interventions: (steriod dose pack and cbd oil) PAST MEDCIAL HISTORY She has a past medical history of Asthma; Factor 5 Leiden mutation, heterozygous (CMS/HCC); Factor 5 Leiden mutation, heterozygous (CMS/HCC); Gastric reflux; and Hypertension. PAST SURGICAL HISTORY She has a past surgical history that includes section (06/22/2007). MEDICATIONS She has a current medication list which includes the following prescription(s): amlodipine, ibuprofen, losartan, omeprazole, proair hfa, sertraline, ibuprofen, and losartan-hydrochlorothiazide. ALLERGIES She is allergic to latex; sulfa (sulfonamide antibiotics); sulfasalazine; latex; and sulfa (sulfonamide antibiotics). SOCIAL HISTORY She reports that she has never smoked. She has never used smokeless tobacco. She reports that she drinks alcohol. She reports that she does not use drugs. FAMILY HISTORY Her family history includes Diabetes in her father. REVIEW OF SYSTEMS Review of Systems Constitutional: Negative. Negative for activity change, appetite change, chills and fever. HENT: Negative. Negative for congestion, dental problem, ear pain, hearing loss and voice change. Eyes: Negative. Negative for pain and visual disturbance. Glasses/contacts Respiratory: Positive for cough. Negative for apnea, chest tightness and shortness of breath. Cardiovascular: Negative. Negative for chest pain, palpitations and leg swelling. Gastrointestinal: Positive for diarrhea. Negative for blood in stool, constipation, nausea and vomiting. Endocrine: Negative for cold intolerance and heat intolerance. Genitourinary: Negative. Negative for difficulty urinating and hematuria. Musculoskeletal: Negative. Skin: Negative. Negative for color change, rash and wound. Allergic/Immunologic: Positive for environmental allergies. Neurological: Negative. Negative for dizziness, syncope, numbness and headaches. Hematological: Negative for adenopathy. Does not bruise/bleed easily. Psychiatric/Behavioral: Negative for confusion. The patient is nervous/anxious. The patient is not hyperactive. All other systems reviewed and are negative. Objective PHYSICAL EXAM BP 130/96 Pulse 69 Ht 160 cm (5' 3 ) Wt 92.8 kg (204 lb 9.6 oz) BMI 36.24 kg/m?? C Spine C spine exam is normal. Inspection normal inspection Palpation The patient has normal palpation. Range of motion The patient has normal range of motion. Right strength The patient has 5/5 strength throughout. Left strength The patient has 5/5 strength throughout. Right neurovascular Patient has normal light touch sensation. The patient has normal right sided vascular. Left neurovascular The patient has normal left sided vascular. The patient has normal light touch sensation. Right reflexes The patient has normal reflexes on the right side of their body. Left reflexes The patient has normal reflexes on the left side of their body. Right side Spurling's: negative Left side Spurling's: spurling's Right shoulder Inspection The patient has normal inspection of the right shoulder. Palpation The patient has normal palpation of the right shoulder. Range of motion The patient has normal range of motion of the right shoulder. The patient has pain with range of motion of the right shoulder. Stability Th patient has normal stability of the right shoulder. Strength Shoulder abduction: painful and 3/5 Internal rotation: painful and 3/5 External rotation 3/5 Scapular stabilizers: 3/5 Supraspinatus: painful and 3/5 Lower trapezius: 3/5 Deltoid: 3/5 Bicep: 3/5 Neurovascular The patient has normal vascular on the right side of her body. She has normal sensation on the right side of her body. Tests Cross arm: negative Drop arm: negartive Hawkin's test: positive Impingement signs: positive Barbara's: positive Neer's: negative Saint George's: negative Speed's: negative Spurling's: negative Left shoulder The patient has normal inspection, palpation, range of motion, strength, and stability of the left shoulder. Inspection The patient has normal inspection of the left shoulder. Palpation The patient has normal palpation of the left shoulder. Range of motion The patient has normal range of motion of the left shoulder. Stability The patient has normal stability of the left shoulder. Strength The patient has 5/5 strength throughout. Neurovascular The patient has normal vascular on the left side of their body. The patient has normal sensation on the left side of their body. Tests Cross am: negative Drop arm: negative Impingement signs:negative Barbara's: barbara's Neer's: negative Saint George's: negative Speed's: negative Spurling's: negative REVIEW OF X-RAYS/STUDIES/LABS MRI SHOULDER RIGHT WO CONTRAST ?? HISTORY: Acute pain of right shoulder ?? TECHNIQUE: MR imaging of the right shoulder was performed using axial T1 and PD SPAIR, coronal oblique fat sat T2, PD and PD SPAIR and sagittal oblique T2-weighted SPAIR sequences. ?? COMPARISON: None available. ?? FINDINGS: There is no localized bone marrow [...] compromises detail on the PD spair sequence. ?? IMPRESSION: ?? 1. NO FOCAL ROTATOR CUFF TEAR. TENDINOPATHY TYPE CHANGES ARE NOTED IN THE SUPRASPINATUS TENDON. 2. THICKENING OF THE ACROMIOCLAVICULAR JOINT CAPSULE WITHOUT SIGNIFICANT DIRECT IMPINGEMENT ON THE SUPRASPINATUS MUSCLE BODY/TENDON COMPLEX. 3. SMALL AMOUNT OF JOINT FLUID. ?? Electronically signed by: Kasi Painting M.D. Assessment/Plan Ama was seen today for pain. Diagnoses and all orders for this visit: Strain of right rotator cuff capsule, initial encounter Large Joint (Hip, Knee, Shoulder) Injection Date/Time: 03/16/2018 2:34 PM Performed by: ANDREW BROWNING Authorized by: ANDREW BROWNING Large Joint Injection/Aspiration: Consent Given by: Patient Site marked: the procedure site was marked Verbal consent obtained: Yes Supporting Documentation: Indications: Pain Procedure Details: Location: Shoulder Site: R subacromial bursa Prep: patient was prepped using a clean technique Needle Size: 22 G Approach: Posterior Ultrasound guided: No Medications: 3 mL lidocaine 20 mg/mL (2 %); 80 mg methylPREDNISolone acetate 80 mg/mL PLAN Reviewed the MRI images with Ama, referred to [facility] for further evaluation and treatment. She received a steroid injection today, ice shoulder for 20 min every 2-3 hours for thenext 24-48 hours, ADLs only for the next 24-48 hours. Continue current pain regimen as needed. Return to clinic in 6 weeks for repeat evaluation, she should return sooner if she develops worsening ofher symptoms. She is in full understanding and in agreement with the plan, and all of her questionswere answered. FORTINO Mead MD DIRECTOR documented in this encounter Miscellaneous Notes * Addendum Note - Amandeep Haque ATC - 03/16/2018 1:15 PM CSTAddended by: AMANDEEP HAQUE on: 03/16/2018 04:42 PM Modules accepted: Orders DIRECTOR documented in this encounter Plan of Treatment Not on file documented as of this encounter Procedures Procedure Name Priority Date/Time Associated Diagnosis Comments TX ARTHROCENTESIS ASPIR&/INJ MAJOR JT/BURSA W/O US Routine 03/16/2018 1:15 PM SPA DIRECTOR Strain of right rotator cuff capsule, initial encounter documented in this encounter Results * TX ARTHROCENTESIS ASPIR&/INJ MAJOR JT/BURSA W/O US (03/16/2018 1:15 PM SPA DIRECTOR) Narrative Andrew Browning MD - 03/16/2018 1:15 PM SPA DIRECTOR Andrew Browning MD ? 03/16/2018 ??2:35 PM Large Joint (Hip, Knee, Shoulder) Injection Date/Time: 03/16/2018 2:34 PM Performed by: ANDREW BROWNING Authorized by: ANDREW BROWNING Large Joint Injection/Aspiration: ??Consent Given by: ??Patient ??Site marked: the procedure site was marked ?Verbal consent obtained: Yes ?? Supporting Documentation: ??Indications: ??Pain Procedure Details: ??Location: ??Shoulder ??Site: ??R subacromial bursa ??Prep: patient was prepped using a clean technique ?Needle Size: ??22 G ??Approach: ??Posterior ??Ultrasound guided: No ?Medications: ??3 mL lidocaine 20 mg/mL (2 %); 80 mg methylPREDNISolone acetate 80 mg/mL Andrew Browning MD IN CLINIC/BEDSIDE MANAV [facility] Final Result documented in this encounter Visit Diagnoses Diagnosis Strain of right rotator cuff capsule, initial encounter- Primary documented in this encounter Administered Medications Inactive Administered Medications - up to 3 most recent administrations Medication Order MAR Action Action Date Dose Rate Site lidocaine (XYLOCAINE) 20 mg/mL (2 %) injection 3 mL 3 mL, One-Time Injection, Starting on Wed03/16/18 at 1434, For 1 dose, Indications: Administration of Local AnesthesiaIndications:Administratio n of Local Anesthesia Given 03/16/2018 2:34 PM SPA DIRECTOR 3 mL methylPREDNISolone acetate (DEPO-medrol) injection 80 mg 80 mg, intra-articular, One-Time Injection, Starting on Wed03/16/18 at 1434, For 1 doseIndications:Strain of right rotator cuff capsule, initial encounter Given 03/16/2018 2:34 PM SPA DIRECTOR 80 mg documented in this encounter Historical Medications * This list may reflect changes made after this encounter. omeprazole (PriLOSEC) 10 mg capsule Take 40 mg by mouth daily 12/19/2019 sertraline (ZOLOFT) 50 mg tablet Take 50 mg by mouth daily. 11/20/2019 losartan (COZAAR) 100 mg tablet 11/09/2019 ibuprofen (ADVIL,MOTRIN) 600 mg tablet Take 600 mg by mouth every 6 hours. 05/25/2015 11/20/2019 amLODIPine (NORVASC) 2.5 mg tablet 02/23/2018 11/20/2019 added in this encounter Care Teams Carrier Loader Relationship Specialty Start Date End Date Bowen Field MD [address] [address] PCP - General Endocrinology Diabetes & Metabolism 09/05/16 11/19/19 documented as of this encounter
--- OUTSIDE RECORDS SUMMARY | 2024-01-26 06:44 | XMS_ITS | Encounter Summary ---
Author Organization [facility] Address [address] [place] [address] Care Team Providers Care Rental Agent Name Role Phone Bowen Field MD Primary Care Provider [phone] Encounter Details Date Type Department Care Team (Late st Contact Info) Description 12/02/2018 Orders Only Internal Medicine Bowen Field MD [address] [facility] [address] [address] Social History Tobacco Use Types Packs/Day Years Used Date Smoking Tobacco: Never Smokeless Tobacco: Never Alcohol Use Standard Drinks/Week Comments Yes 0 (1 standard drink = 0.6 oz pur e alcohol) Comments Unknown Sex and Gender Information Value Date Recorded Sex Assigned at Not on file Legal Sex Female 11:04 AM TECHNOLOGY ADOPTION MANAGER Gender Identity Not on file Sexual Orientation Not on file documented as of this encounter Plan of Treatment Not on file documented as of this encounter Visit Diagnoses Not on filedocumented in this encounter Care Teams Rental Agent Relationship Specialty Start Date End Date Bowen Field MD [id number], [place] [address] PCP - General Endocrinology Diabetes & Metabolism 09/05/16 11/19/19 documented as of this encounter
--- OUTSIDE RECORDS SUMMARY | 2024-01-26 06:44 | XMS_ITS | Encounter Summary ---
Author Organization [facility] Address [address] [place] [address] Phone Care Team Providers Care Research Rn Spec Name Role Phone Bowen Field MD Primary Care Provider [phone] Kristopher Guzmán MD Primary Care Provider Juana Gabriel MD Unavailable [phone] Encounter Details Date Type Department Care Team (Latest Contact Info) Description 09/08/2016 Orders Only [facility] CONVERSION Scanning, Provider Social History Tobacco Use Types Packs/Day Years Used Date Smoking Tobacco: Never Smokeless Tobacco: Never Alcohol Use Standard Drinks/Week Comments Yes 0 (1 standard drink = 0.6 oz pur e alcohol) Comments Unknown Sex and Gender Information Value Date Recorded Sex Assigned at Not on file Legal Sex Female 11:04 AM PUBLIC HEALTH DOCTOR Gender Identity Not on file Sexual Orientation Not on file documented as of this encounter Plan of Treatment Not on file documented as of this encounter Procedures Procedure Name Priority Date/Time Associated Diagnosis Comments VASCULAR LABORATORY REPORT 09/08/2016 8:05 PM CDT documented in this encounter Results * VASCULAR LABORATORY REPORT (09/08/2016 8:05 PM CDT) Anatomical Region Laterality Modality Ultrasound us Provider Scanning CV VASCULAR PROCEDURES Final R esult documented in this encounter Visit Diagnoses Not on filedocumented in this encounter Care Teams Research Rn Spec Relationship Specialty Start Date End Date Bowen Field MD [address] [facility] [address] [place] [address] PCP - General Endocrinology Diabetes & Metabolism 09/05/16 11/19/19 Kristopher Guzmán MD [address] [facility] [address] [place] [address] PCP - General Family Medicine 11/20/19 Juana Gabriel MD [address] [facility] [address] [place] [address] Consulting Physician Obstetrics and Gynecology 11/20/19 documented as of this encounter
--- OUTSIDE RECORDS SUMMARY | 2024-01-26 06:44 | XMS_ITS | Encounter Summary ---
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 Name Role Phone Unavailable Primary Care Provider Unavailabl e Encounter Details Date Type Department Care Team (Latest Contact Info) Description 10/24/2014 12:47 AM CDT - 10/28/2014 5:39 PM CDT Hospital Encounter [facility] Kyle Enciso MD [facility] [address] [address] Pneumonia due to other Gram-negative bacteria (CMS/HCC); Primary hypercoagulable state (CMS/HCC); Other pulmonary insufficiency, not elsewhere classified (CMS/HCC); Essential hypertension Social History Tobacco Use Types Packs/Day Years Used Date Smoking Tobacco: Never Assessed Comments Unknown Sex and Gender Information Value Date Recorded Sex Assigned at Not on file 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 Gender Identity Not on file Sexual Orientation Not on file documented as of this encounter Last Filed Vital Signs Vital Sign Reading Time Taken Comments Blood Pressure 123/70 10/28/2014 7:01 AM CDT Pulse 104 10/28/2014 1:48 PM CDT Temperature - - Respiratory Rate - - Oxygen Saturation - - Inhaled Oxygen Concentration - - Weight 94.8 kg (208 lb 15.9 oz) 10/24/2014 2:20 AM CDT Height 160 cm (5' 2.99 ) 10/24/2014 2:20 AM CDT Body Mass Index 37.03 10/24/2014 2:20 AM CDT documented in this encounter Discharge Summaries * ProviderKatiana MD - 10/28/2014 12:00 AM CDT DISCHARGE SUMMARY - [facility] Patient: AMA CLAYTON Account: [id number] Room No: 3629-01 : 1975 Patient Type: IP Attend.: Kyle Ferrara M.D. Admit Date: 10/23/2014 Dict.: Kyle Ferrara M.D. Disch. Date: 10/28/2014 PRIMARY CARE PHYSICIAN: Dr. Bowen Field. DISCHARGE DIAGNOSES: 1. Acute respiratory distress secondary to pneumonia, resolved. 2. Community-acquired pneumonia suspected to be gram negative. 3. Hypertension. 4. Factor V Leiden deficiency. REASON FOR HOSPITALIZATION: This is a very pleasant 39-year-old female who presented to hospital emergency room with shortness of breath, cough, severe generalized fatigue going on for several days. HOSPITAL COURSE: She was in acute respiratory distress. She was requiring oxygen first, could not speak in full sentences with me. Had wheezing and cough which is much improved now and she tolerates activity. She is able to speak. Her chest x-ray showed right middle lobe pneumonia and we repeated her chest x-ray which did not show any changes but clinically she improved. She was on Zithromax and ceftriaxone. This was changed to Zosyn and clindamycin subsequently but now since she is improved, no need for more IV antibiotics. She will go home on cefdinir and clindamycin. Patient has hypertension. She is on methyldopa because she was and she wants to continue this medicine. Her blood pressure is controlled. Home medications are chosen the way that this will be category B. Cefdinir and clindamycin are both category B in case she wants to continue breast-feeding. Pro-Air will be category C and all of this is discussed with the patient. IMAGING AND PROCEDURES: Portable chest x-ray repeat on October 26 showing persistent linear opacity in the right mid lung which may indicate pneumonia, mild prominent perihilar opacities seen, unchanged from the October 23. CONSULTS: None. PROCEDURES: None. DISCHARGE PLANNING: Patient is being discharged home in improved and stable condition. Blood pressure 123/70. Pulse 104. Respirations 18. Temperature 36.5. Oxygen saturation 94% on room air. Head, eyes, ears, nose and throat: No pallor, icterus or petechia. Mucous membranes are moist. No neck vein elevation. No lymphadenopathy. Chest: S1, S2 regular, tachycardiac. No murmurs or gallops. Lungs: Mild crackles on the right side, diminished on the left. Abdomen is obese, soft, nontender. Bowel sounds are positive. Extremities: No edema. Neuro examination: Nonfocal. DISCHARGE DESTINATION: Home. DISCHARGE MEDICATIONS: Please refer to med reconciliation form. New medicines will be cefdinir for seven days, clindamycin for seven days, Pro-Air as needed inhalation. ACTIVITY LEVEL: Independent. DIET RECOMMENDATIONS: Normal diet. POST DISCHARGE RECOMMENDATIONS: Follow with primary care physician in two weeks. Have chest x-ray in two weeks for resolution of pneumonia and perihilar opacities. PENDING LABS: None. TIME SPENT: 35 minutes. Electronically Authenticated and Edited by: Kyle Ferrara MD On 10/31/2014 11:36 AM CDT Jeff Xiong/aurelia TD: 10/29/2014 12:53 CC: Bowen Feild M.D. documented in this encounter H&P Notes * Provider, MD Katiana - 10/23/2014 12:00 AM CDT HISTORY AND PHYSICAL Patient: AMA CLAYTON Account: [id number] Room No: 3629-01 : 1975 Patient Type: IP Attend.: Kyle Ferrara M.D. Admit Date: 10/23/2014 Dict.: Kyle Ferrara M.D. Disch. Date: PRIMARY CARE PHYSICIAN: Dr. Bowen Field. CHIEF COMPLAINT: This is a very pleasant 39-year-old female who presented to hospital emergency room with shortness of breath going on for six days. HISTORY OF PRESENT ILLNESS: Patient started getting short of breath and unexplained generalized fatigue, cough with yellow sputum production. She thought she is having sinus drainage. She called her primary care physician and was prescribed amoxicillin. She took about 6 1/2 days without much improvement and this is why she came to the hospital emergency room. REVIEW OF SYSTEMS: She denies having any chills but had some fever 6-7 days ago. She denies any neurological/focal weakness but has generalized fatigue and low energy. Respiratory: Positive for shortness of breath especially she cannot do even minimum activity without getting short of breath. She has cough with yellow sputum production. Denies any chest pain or palpitations but has tachycardia. Denies any nausea or vomiting, diarrhea or constipation or dysuria. Denies significant musculoskeletal pain or endocrine changes or skin changes. PAST MEDICAL HISTORY: 1. Factor V Leiden deficiency. 2. Hypertension. SOCIAL HISTORY: She is , lives with , has two kids, 7-year-old and 5 month old. 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 Denies any smoking or alcohol intake. FAMILY HISTORY: Not significant except for mother has Factor V Leiden deficiency in clots. ALLERGIES: Latex and sulfa. HOME MEDICATIONS: 1. Aspirin 81 mg daily. 2. vitamins daily. 3. Prevacid 15 mg daily. 4. Amoxicillin three x a day. 5. Ibuprofen 600 mg every six hours as needed. 6. Methyldopa 500 mg b.i.d. PHYSICAL EXAMINATION: Vital signs: Blood pressure 134/94. Pulse 95. Respirations 18. Temperature 36.6. Oxygen saturation 95% on room air. Head, eyes, ears, nose and throat: Patient is pale-looking but has no pallor, icterus or petechia. Mucous membranes are moist. No neck vein elevation or thyromegaly. Chest: S1, S2, regular, tachycardiac. No murmurs, gallops. Lungs are diminished bilaterally. Abdomen is soft, nontender. Bowel sounds are positive. Extremities: No edema. Pulses are present. Neuro examination: Nonfocal. ASSESSMENT AND PLAN: 1. Acute respiratory distress. Patient cannot finish sentences in full without getting short of breath. She is short of breath with minimal activity at her room. Did not have any wheezings and have cough which is already improving since admission. She still produces yellow sputum. This is a community-acquired pneumonia. I suspect it to be streptococcal. Her chest x-ray shows right upper lobe and bilateral parahilar infiltrates suggestive of pneumonia. We will continue the regimen started for community-acquired pneumonia, Zithromax and ceftriaxone. We will get her sputum cultures and sensitivity antigen, streptococcal antigen, legionella antigen and give her nebulizer treatments which helps her a lot. 2. Hypertension. Her blood pressure is fairly controlled with methyldopa. We will continue her medicine. This is prescribed to prevent any side effects to her baby. She continues to breast-feed her 5 month old so we will continue same medicine. 3. Factor V Leiden deficiency. Patient did not have any clots in the past except for clots in her womb during the second . She was on Lovenox shots and everything went OK. Her billboard erector helper recommends her to continue aspirin 81 mg and we will continue this. 4. Deep venous thrombosis prophylaxis. She will be also on Lovenox shots now. Patient is admitted as an inpatient. ADMISSION DIAGNOSES: 1. Acute respiratory distress. 2. Community-acquired pneumonia, suspected to be streptococcal. 3. Hypertension. ANTICIPATED LENGTH OF STAY: To exceed two midnights. Electronically Authenticated by: Kyle Ferrara MD On 10/24/2014 04:52 PM CDT Jeff Xiong/aurelia TD: 10/24/2014 13:16 CC: Bowen Field M.D. documented in this encounter Plan of Treatment Not on file documented as of this encounter Procedures Procedure Name Priority Date/Time Associated Diagnosis Comments DISCHARGE LABORATORY CUMULATIVE REPORT 10/28/2014 BLOOD CELL COUNT (CBC), MORPHOLOGIC EXAM Routine 10/27/2014 3:56 AM CDT BLOOD CELL MORPHOLOGIC EXAM Routine 10/27/2014 3:56 AM CDT XR CHEST PA LATERAL 2 VIEWS Routine 10/26/2014 8:34 AM CDT BLOOD CELL COUNT (CBC), MORPHOLOGIC EXAM Routine 10/26/2014 3:50 AM CDT BLOOD CELL MORPHOLOGIC EXAM Routine 10/26/2014 3:50 AM CDT STAPH AUREUS (MRSA/MSSA) CULTURE, CDR Routine 10/24/2014 5:30 AM CDT URINALYSIS Routine 10/24/2014 12:50 AM CDT BLOOD CULTURE, CDR Routine 10/23/2014 11 :31 PM CDT BLOOD CULTURE, CDR Routine 10/23/2014 11 :13 PM CDT SERUM ESTIMATED GLOMERULAR FILTRATION RATE Routine 10/23/2014 11:13 PM CDT PLASMA COMPREHENSIVE METABOLIC PANEL Routine 10/23/2014 11:13 PM CDT BLOOD CELL COUNT (CBC), MORPHOLOGIC EXAM Routine 10/23/2014 11:13 PM CDT BLOOD CELL MORPHOLOGIC EXAM Routine 10/23/2014 11:13 PM CDT BLOOD GAS, ARTERIAL Routine 10/23/2014 1 1:00 PM CDT XR CHEST PA LATERAL 2 VIEWS Routine 10/23/2014 10:28 PM CDT URINE STREPTOCOCCUS PNEUMONIAE ANTIGEN, RAPID Routine 10/23/2014 7:50 PM CDT documented in this encounter Results * DISCHARGE LABORATORY CUMULATIVE REPORT (10/28/2014) Narrative 10/28/2014 Ordered by an unspecified provider. us Historical Provider LAB BLOOD ORDERABLES Christi l Result * (ABNORMAL) Blood cell morphologic exam (10/27/2014 3:56 AM CDT) Neutrophils 60.3 44.0 - 80.0 % HISTORICAL RESULTS Immature granulocytes 1.6(H) 0.0 - 1.0 % HISTORICAL RESULTS Lymphocytes 19.9 13.0 - 44.0 % HISTORICAL RESULTS Monos 5.6 2.0 - 11.0 % HISTORICAL RESULTS Eosinophils 11.7(H) 0.0 - 6.0 % HISTORICAL RESULTS Basophils 0.9 0.0 - 3.0 % HISTORICAL RESULTS Neutrophils, abs 6.9 1.6 - 7.0 K/cumm HISTORICAL RESULTS Immature granulocyte, abs 0.2 0.0 - 0.2 K/cumm HISTORICAL RESULTS Lymphocytes, abs 2.3 0.5 - 4.3 K/cumm HISTORICAL RESULTS Monocytes, absolute 0.6 0.1 - 1.0 K/cumm HISTORICAL RESULTS Eosinophils, abs 1.3(H) 0.0 - 0.6 K/cumm HISTORICAL RESULTS Basophils, abs 0.1 0.0 - 0.3 K/cumm HISTORICAL RESULTS Blood specimen (specimen) 10/27/2014 3:56 AM CDT us Kyle Ferrara MD LAB BLOOD ORDERABLES Final Re sult HISTORICAL RESULTS * (ABNORMAL) Blood cell count (CBC), morphologic exam (10/27/2014 3:56 AM CDT) WBC 11.5(H) 3.8 - 9.8 K/cumm HISTORICAL RESULTS RBC 4.39 3.90 - 5.00 M/cumm HISTORICAL RESULTS Hgb 11.4(L) 12.1 - 15.1 g/dl HISTORICAL RESULTS Hct 34.9(L) 36.1 - 44.3 % HISTORICAL RESULTS MCV 79.5(L) 80.0 - 100.0 fl HISTORICAL RESULTS MCH 26.0(L) 26.7 - 33.7 pg HISTORICAL RESULTS MCHC 32.7 32.7 - 36.0 g/dl HISTORICAL RESULTS Rdw 13.9 11.5 - 14.6 % HISTORICAL RESULTS Platelets 388 140 - 440 K/cumm HISTORICAL RESULTS MPV 9.2 8.0 - 12.0 fl HISTORICAL RESULTS NRBC 0.0 0.0 - 0.0 % HISTORIC AL RESULTS NRBC, abs 0.00 0.00 - 0.00 K/cumm HISTORICAL RESULTS Blood specimen (specimen) 10/27/2014 3:56 AM CDT Kyle Ferrara MD LAB BLOOD ORDERABLES Final Re sult HISTORICAL RESULTS * XR Chest PA Lateral 2 View (10/26/2014 8:34 AM CDT) Anatomical Region Laterality Modality Body, Chest N/A Radiographic La ging 10/26/2014 8:34 AM CDT Narrative 10/26/2014 1:32 PM CDT XR Chest 2 Views ?[id number] ??Acc#: ??[id number] DATE OF EXAM: ??Oct 26 2014 CLINICAL HISTORY: Pneumonia. RESULT: PA and lateral views of the chest were obtained and are compared with a prior study of 10/23/14. ??The linear opacity in the right midlung is unchanged. ??The heart is normal in size. ??Mild elevation of the right hemidiaphragm is seen. ??No pneumothorax or pleural effusion is seen. ??The perihilar structures are prominent. IMPRESSION: 1. ??PERSISTENT LINEAR OPACITY IN THE RIGHT MIDLUNG WHICH MAY INDICATE PNEUMONIA. 2. ??MILDLY PROMINENT PERIHILAR OPACITIES AGAIN SEEN. Interpreting Physician: ??LUIS ANN M.D. ??Read on: ??Oct 26 2014 8:36A Transcribed by: ??psychiatric ??On: Oct 26 2014 11:14A Approved Electronically by: ??LUIS ANN M.D. ??on: ??Oct 26 2014 1:32P Attending: ??KYLE FERRARA Requesting: ??KYLE FERRARA Requesting Fax: ??-- Attending Fax: ??-- Attending ID: ??[id number] Requesting ID: ??[id number] Report To 1 ID: ??[id number] Report To 1 Name: ??ELBA PITTMAN Report To 1 FAX: ??-- NextGen Order #: Procedure Note Provider, MD Katiana - 06/02/2016 XR Chest 2 Views [id number] Acc#: [id number] DATE OF EXAM: Oct 26 2014 CLINICAL HISTORY: Pneumonia. RESULT: PA and lateral views of the chest were obtained and are compared with aprior study of 10/23/14. The linear opacity in the right midlung isunchanged. The heart is normal in size. Mild elevation of the righthemidiaphragm is seen. No pneumothorax or pleural effusion is seen. Theperihilar structures are prominent. IMPRESSION: 1. PERSISTENT LINEAR OPACITY IN THE RIGHT MIDLUNG WHICH MAY INDICATEPNEUMONIA. 2. MILDLY PROMINENT PERIHILAR OPACITIES AGAIN SEEN. Interpreting Physician: LUIS ANN M.D. Read on: Oct 26 [id number] Transcribed by: psychiatric On: Oct 26 2014 11:14A Approved Electronically by: LUIS ANN M.D. on: Oct 26 20141:32P Attending: KYLE FERRARA Requesting: KYLE FERRARA Requesting Fax: -- Attending Fax: -- Attending ID: [id number] Requesting ID: [id number] Report To 1 ID: [id number] Report To 1 Name: ELBA PITTMAN Report To 1 FAX: -- NextGen Order #: us Historical Provider MD [place] XR PROCEDURES Final R esult * (ABNORMAL) Blood cell morphologic exam (10/26/2014 3:50 AM CDT) Neutrophils 61.4 44.0 - 80.0 % HISTORICAL RESULTS Immature granulocytes 1.2(H) 0.0 - 1.0 % HISTORICAL RESULTS Lymphocytes 22.9 13.0 - 44.0 % HISTORICAL RESULTS Monos 5.9 2.0 - 11.0 % HISTORICAL RESULTS Eosinophils 7.7(H) 0.0 - 6.0 % HISTORICAL RESULTS Basophils 0.9 0.0 - 3.0 % HISTORICAL RESULTS Neutrophils, abs 6.9 1.6 - 7.0 K/cumm HISTORICAL RESULTS Immature granulocyte, abs 0.1 0.0 - 0.2 K/cumm HISTORICAL RESULTS Lymphocytes, abs 2.6 0.5 - 4.3 K/cumm HISTORICAL RESULTS Monocytes, absolute 0.7 0.1 - 1.0 K/cumm HISTORICAL RESULTS Eosinophils, abs 0.9(H) 0.0 - 0.6 K/cumm HISTORICAL RESULTS Basophils, abs 0.1 0.0 - 0.3 K/cumm HISTORICAL RESULTS Blood specimen (specimen) 10/26/2014 3:50 AM CDT Kyle Ferrara MD LAB BLOOD ORDERABLES Final Re sult Performing Organization Address [facility] Co de Phone Number HISTORICAL RESULTS * (ABNORMAL) Blood cell count (CBC), morphologic exam (10/26/2014 3:50 AM CDT) WBC 11.0(H) 3.8 - 9.8 K/cumm HISTORICAL RESULTS RBC 4.00 3.90 - 5.00 M/cumm HISTORICAL RESULTS Hgb 10.3(L) 12.1 - 15.1 g/dl HISTORICAL RESULTS Hct 32.1(L) 36.1 - 44.3 % HISTORICAL RESULTS MCV 80.3 80.0 - 100.0 fl HISTORICAL RESULTS MCH 25.8(L) 26.7 - 33.7 pg HISTORICAL RESULTS MCHC 32.1(L) 32.7 - 36.0 g/dl HISTORICAL RESULTS Rdw 13.8 11.5 - 14.6 % HISTORICAL RESULTS Platelets 365 140 - 440 K/cumm HISTORICAL RESULTS MPV 9.2 8.0 - 12.0 fl HISTORICAL RESULTS NRBC 0.0 0.0 - 0.0 % HISTORIC AL RESULTS NRBC, abs 0.00 0.00 - 0.00 K/cumm HISTORICAL RESULTS Blood specimen (specimen) 10/26/2014 3:50 AM CDT Kyle Ferrara MD LAB BLOOD ORDERABLES Final Re sult Performing Organization Address City/State/[facility] Co de Phone Number HISTORICAL RESULTS * Staph aureus (MRSA/MSSA) Culture (10/24/2014 5:30 AM CDT) Nasal (Unknown) 10/24/2014 5 :30 AM CDT Impressions HISTORICAL RESULTS - 10/25/2014 6:37 AM CDT Patient's Nasal specimens are processed for Methicillin-resistant Staphylococcus aureus (MRSA) only. Current interpretive data was last revised on 2014. Narrative HISTORICAL RESULTS - 10/25/2014 6:37 AM CDT No Methicillin Resistant Staph aureus cultured Historical Provider LAB MICROBIOLOGY - GENERA L ORDERABLES Final Result Performing Organization Address [facility] de Phone Number HISTORICAL RESULTS * Urinalysis (10/24/2014 12:50 AM CDT) Color, ur Yellow Yellow HISTORICAL RESULTS Clarity, ur Clear Clear HISTORIC AL RESULTS Specific gravity, ur 1.022 1.003 - 1.030 HISTORICAL RESULTS Comment:Normal Ranges: 1.003 -1.030 pH, ur 5.5 4.5 - 8.0 HISTORICAL RESULTS Comment:Normal ranges: 4.5-8 .0 Protein, ur, quant Negative Negative mg/dl HISTORICAL RESULTS Glucose, ur, quant Negative Negative mg/dl HISTORICAL RESULTS Ketones, ur Negative Negative HISTORIC AL RESULTS Bilirubin, ur Negative Negative HISTOR ICAL RESULTS U Blood Negative Negative HISTORICAL RESULTS Urobilinogen, quant, ur 0.2 0.2 - 1.0 [place] Units/dl HISTORICAL RESULTS Comment:Normal Ranges: 0.2-1 .0 EU/dL Nitrites, ur Negative Negative HISTORI KARTHIK RESULTS Leukocyte esterase, ur Negative Negative HISTORICAL RESULTS Urine 10/24/2014 12:5 0 AM CDT Result [facility] Provider MD LAB BLOOD ORDERABLES Christi l Result Performing Organization Address [facility] Phone Number HISTORICAL RESULTS * Blood culture (10/23/2014 11:31 PM CDT) Blood specimen (specimen) (Antecubital, left) 10/23/2014 11:31 PM CDT Impressions HISTORICAL RESULTS - 10/29/2014 7:01 AM CDT Blood cultures are monitored continuously for 5 days (120 hours). The first negative report is issued within 24 hours of receipt in the laboratory. ??All positive cultures are called as soon as they are detected. Narrative HISTORICAL RESULTS - 10/29/2014 7:01 AM CDT No growth on day 5. Historical Provider LAB MICROBIOLOGY - GENERA L ORDERABLES Final Result Performing Organization Address [facility] de Phone Number HISTORICAL RESULTS * (ABNORMAL) Plasma comprehensive metabolic panel (10/23/2014 11:13 PM CDT) Sodium 141 135 - 145 mmol/L HISTORICAL RESULTS K, pl 3.7 3.5 - 5.1 mmol/L HISTORICAL RESULTS Chloride 102 97 - 110 mmol/L HISTORICAL RESULTS CO2 24 22 - 32 mmol/L HISTORICAL RESULTS A. gap 19(H) 8 - 16 mmol/L HISTORICAL RESULTS Glucose 106 70 - 199 mg/dl HISTORICAL RESULTS Comment: Interpretive Data Note:The glucose is assumed non fasting Fastin-99 mg/dL Random: ??70-199 mg/dL Either a fasting glucose > 126 mg/dL or a random glucose > 200 mg/dL plus symptoms is diagnostic of diabetes when confirmed on another day. Fasting values > 100 mg/dL but < 125 mg/dL are diagnostic of impaired fasting glucose. Current interpretive data was last revised on 2014. BUN 11.5 8.0 - 25.0 mg/dl HISTORICAL RESULTS Creatinine 0.73 0.60 - 1.10 mg/dl HISTORICAL RESULTS BUN/creat ratio 16 10 - 20 HIST ORICAL RESULTS Calcium 9.1 8.6 - 10.2 mg/dl HISTORICAL RESULTS Protein, sr 7.1 6.0 - 8.4 g/dl HISTORICAL RESULTS Alb 3.9 3.6 - 5.0 g/dl HISTORICAL RESULTS Alb/glob ratio 1.2 1.1 - 1.8 ratio HISTORICAL RESULTS Alk phos 121 40 - 130 Units/L HISTORICAL RESULTS ALT 33 5 - 45 Units/L HISTORICAL RESULTS AST 18 10 - 40 Units/L HISTORICAL RESULTS Bilirubin 0.3 <=1.2 mg/dl HISTORICAL RESULTS Plasma 10/23/2014 11:1 3 PM CDT us Historical Provider LAB BLOOD ORDERABLES Christi l Result HISTORICAL RESULTS * (ABNORMAL) Blood cell morphologic exam (10/23/2014 11:13 PM CDT) Neutrophils 65.3 44.0 - 80.0 % HISTORICAL RESULTS Immature granulocytes 1.6(H) 0.0 - 1.0 % HISTORICAL RESULTS Lymphocytes 18.4 13.0 - 44.0 % HISTORICAL RESULTS Monos 6.2 2.0 - 11.0 % HISTORICAL RESULTS Eosinophils 7.7(H) 0.0 - 6.0 % HISTORICAL RESULTS Basophils 0.8 0.0 - 3.0 % HISTORICAL RESULTS Neutrophils, abs 8.1(H) 1.6 - 7.0 K/cumm HISTORICAL RESULTS Immature granulocyte, abs 0.2 0.0 - 0.2 K/cumm HISTORICAL RESULTS Lymphocytes, abs 2.3 0.5 - 4.3 K/cumm HISTORICAL RESULTS Monocytes, absolute 0.8 0.1 - 1.0 K/cumm HISTORICAL RESULTS Eosinophils, abs 1.0(H) 0.0 - 0.6 K/cumm HISTORICAL RESULTS Basophils, abs 0.1 0.0 - 0.3 K/cumm HISTORICAL RESULTS Blood specimen (specimen) 10/23/2014 11:13 PM CDT Historical Provider LAB BLOOD ORDERABLES Christi l Result HISTORICAL RESULTS * (ABNORMAL) Blood cell count (CBC), morphologic exam (10/23/2014 11:13 PM CDT) WBC 12.4(H) 3.8 - 9.8 K/cumm HISTORICAL RESULTS RBC 4.63 3.90 - 5.00 M/cumm HISTORICAL RESULTS Hgb 12.1 12.1 - 15.1 g/dl HISTORICAL RESULTS Hct 36.8 36.1 - 44.3 % HISTORICAL RESULTS MCV 79.5(L) 80.0 - 100.0 fl HISTORICAL RESULTS MCH 26.1(L) 26.7 - 33.7 pg HISTORICAL RESULTS MCHC 32.9 32.7 - 36.0 g/dl HISTORICAL RESULTS Rdw 13.3 11.5 - 14.6 % HISTORICAL RESULTS Platelets 469(H) 140 - 440 K/cumm HISTORICAL RESULTS MPV 9.1 8.0 - 12.0 fl HISTORICAL RESULTS NRBC 0.0 0.0 - 0.0 % HISTORIC AL RESULTS NRBC, abs 0.00 0.00 - 0.00 K/cumm HISTORICAL RESULTS Blood specimen (specimen) 10/23/2014 11:13 PM CDT Historical Provider MD LAB BLOOD ORDERABLES Christi l Result Performing Organization Address [facility] de Phone Number HISTORICAL RESULTS * Serum estimated glomerular filtration rate (10/23/2014 11:13 PM CDT) eGFR >60 ml/min/1.7 3 m2 HISTORICAL RESULTS Comment: Interpretation of Estimated GFR (eGFR): Normal ?>/= 60 mL/min/1.73m2 Possible Chronic Kidney Disease ??15 - 59 mL/min/1.73m2 Possible Kidney Failure ?< 15 ??mL/min/1.73m2 If -[place] multiply value by 1.16. ??Estimated glomerular filtration rate is determined by the CKD-EPI equation recommended by the National Kidney Foundation (KDIGO 2012 Clinical Practice Guideline for the Evaluation and Management of Chronic Kidney Disease. ??Kidney Intnl Suppl Feb 2012;3:1). ??The CKD-EPI equation should not be used in acute renal failure or acute kidney injury and is not valid in children. Serum 10/23/2014 11:1 3 PM CDT Result [facility] Provider MD LAB BLOOD ORDERABLES Christi l Result Performing Organization Address [facility] de Phone Number HISTORICAL RESULTS * Blood culture (10/23/2014 11:13 PM CDT) Blood specimen (specimen) (Antecubital, right) 10/23/2014 11:13 PM CDT Impressions HISTORICAL RESULTS - 10/29/2014 7:01 AM CDT Blood cultures are monitored continuously for 5 days (120 hours). The first negative report is issued within 24 hours of receipt in the laboratory. ??All positive cultures are called as soon as they are detected. Narrative HISTORICAL RESULTS - 10/29/2014 7:01 AM CDT No growth on day 5. Historical Provider LAB MICROBIOLOGY - GENERA L ORDERABLES Final Result Performing Organization Address [facility] de Phone Number HISTORICAL RESULTS * (ABNORMAL) Blood gas, arterial (10/23/2014 11:00 PM CDT) Ph, art 7.43 7.35 - 7.45 HISTORICAL RESULTS PCO2 34(L) 35 - 45 mm Hg HISTORICAL RESULTS PO2, art 151(H) 80 - 100 mm Hg HISTORICAL RESULTS BE, art -1 -2 - 2 mmol/L HISTORICAL RESULTS HCO3, art 23 22 - 26 mmol/L HISTORICAL RESULTS CO2, calc, art 24 23 - 27 mmol/L HISTORICAL RESULTS Hgb estimated, art 12.2 12.1 - 15.1 g/dl HISTORICAL RESULTS O2 sat, art 99 94 - 100 % HISTORI KARTHIK RESULTS Oxygen (O2), inspired fraction (FiO2) 2l liters HISTORICAL RESULTS Referral specimen, collection site Radial Artery HISTORICAL RESULTS Tobin test Yes HISTORICA L RESULTS Arterial blood 10/23/2014 11 :00 PM CDT us Historical Provider LAB BLOOD ORDERABLES Christi l Result HISTORICAL RESULTS * XR Chest PA Lateral 2 View (10/23/2014 10:28 PM CDT) Anatomical Region Laterality Modality Body, Chest N/A Radiographic La ging 10/23/2014 10:2 8 PM CDT Narrative 10/29/2014 9:06 AM CDT XR Chest 2 Views ?[id number] ??Acc#: ??[id number] DATE OF EXAM: ??Oct 23 2014 CLINICAL HISTORY: Shortness of breath. ??High blood pressure. Nonsmoker. RESULT: Erect PA and lateral views demonstrate normal heart size and pulmonary vascularity. There is infiltrate in the anterior segment right upper lobe contiguous with the minor interlobar fissure. ??Very mild parahilar interstitial prominence is also noted. ??Calcified granulomata are suggested in the right hilar and infrahilar regions. ??No other mass or pleural effusion is seen. ??Thoracic aorta is not dilated. ??No acute bony abnormality is seen. IMPRESSION: 1. ??RIGHT UPPER LOBE AND BILATERAL PARAHILAR INFILTRATES SUGGESTIVE OF PNEUMONIA. Interpreting Physician: ??DR TERRELL ANN M.D. ??Read on: ??Oct 23 2014 11:59P Transcribed by: ??ylc ??On: Oct 25 2014 ??7:56A Approved Electronically by: ??DR TERRELL ANN M.D. ??on: ??Oct 29 2014 9:06A Attending: ??KYLE FERRARA Requesting: ??CANDACE MORROW Requesting Fax: ??-- Attending Fax: ??-- Attending ID: ??[id number] Requesting ID: ??[id number] Report To 1 ID: ??[id number] Report To 1 Name: ??ELBA PITTMAN Report To 1 FAX: ??-- NextGen Order #: Procedure Note Provider, Katiana, - 06/02/2016 XR Chest 2 Views [id number] Acc#: [id number] DATE OF EXAM: Oct 23 2014 CLINICAL HISTORY: Shortness of breath. High blood pressure. Nonsmoker. RESULT: Erect PA and lateral views demonstrate normal heart size and pulmonaryvascularity. There is infiltrate in the anterior segment right upper lobecontiguous with the minor interlobar fissure. Very mild parahilarinterstitial prominence is also noted. Calcified granulomata aresuggested in the right hilar and infrahilar regions. No other mass orpleural effusion is seen. Thoracic aorta is not dilated. No acute bonyabnormality is seen. IMPRESSION: 1. RIGHT UPPER LOBE AND BILATERAL PARAHILAR INFILTRATES SUGGESTIVE OFPNEUMONIA. Interpreting Physician: DR TERRELL ANN M.D. Read on: Oct 23 201411:59P Transcribed by: psychiatric On: Oct 25 2014 7:56A Approved Electronically by: DR TERRELL ANN M.D. on: Oct 29 20149:06A Attending: KYLE FERRARA Requesting: CANDACE MORROW Requesting Fax: -- Attending Fax: -- Attending ID: [id number] Requesting ID: [id number] Report To 1 ID: [id number] Report To 1 Name: ELBA PITTMAN Report To 1 FAX: -- NextGen Order #: us Historical Provider MD [place] XR PROCEDURES Final R esult * Urine Streptococcus pneumoniae antigen, rapid (10/23/2014 7:50 PM CDT) Strep pneumoniae ag, ur Negative Negative HISTORICAL RESULTS Comment: Presumptive negative for pneumococcal pneumonia, suggesting no current or recent infection. ??Infection due to S. pneumoniae cannot be ruled out since the antigen present in the sample may be below detection limit of the test. Test Performed by: [facility] - [address] [address] Data Architect Manager: Sam Morrison II, M.D., Ph.D. Urine 10/23/2014 7:50 PM CDT Narrative HISTORICAL RESULTS - 10/25/2014 9:44 AM CDT LEGIONELLA ANTIG us Kyle Ferrara MD LAB BLOOD ORDERABLES Final Re sult HISTORICAL RESULTS documented in this encounter Visit Diagnoses Diagnosis Pneumonia due to other gram-negative bacteria (HCC) Pneumonia due to other gram-negative bacteria Primary hypercoagulable state (HCC) Primary hypercoagulable state Other pulmonary insufficiency, not elsewhere classified Essential hypertension Unspecified essential hypertension documented in this encounter
--- OUTSIDE RECORDS SUMMARY | 2024-01-26 06:44 | XMS_ITS | Encounter Summary ---
Author Organization [facility] Healthcare Address [address] [place] [address] Care Team Providers Care Heel Scorer Name Role Phone Bowen Field MD Primary Care Provider [phone] Reason for Referral * Diagnostic Imaging (Routine) - Closed Specialty Diagnoses / Procedures Referred By Contac t Referred To Contact Diagnoses Cough Procedures XR Chest Pa Lateral 2 Views Kasi Lock MD Phone: tel: fax: [facility] Referral ID Status Reason Start Date Expiration Date Visits Re quested Visits Authorized [id number] Closed 10/26/2018 05/06/2020 1 1 Reason for Visit * Diagnostic Imaging (Routine) - Closed Specialty Diagnoses / Procedures Referred By Contac t Referred To Contact Diagnoses Cough Procedures XR Chest Pa Lateral 2 Views Kasi Lock MD Phone: tel: fax: [facility] Referral ID Status Reason Start Date Expiration Date Visits Re quested Visits Authorized [id number] Closed 10/26/2018 05/06/2020 1 1 Encounter Details Date Type Department Care Team (Latest Contact Info) Description 10/26/2018 2:10 PM CDT - 10/26/2018 11:59 PM CDT Hospital Encounter [facility] [address] [place] [address] Kasi Lock MD [address] [facility] [address] [place] [address] Cough Discharge Disposition: Discharge to home or self care Social History Tobacco Use Types Packs/Day Years Used Date Smoking Tobacco: Never Smokeless Tobacco: Never Alcohol Use Standard Drinks/Week Comments Yes 0 (1 standard drink = 0.6 oz pur e alcohol) Comments Unknown Sex and Gender Information Value Date Recorded Sex Assigned at Not on file 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 Gender Identity Not on file Sexual Orientation [...] Procedure Name Priority Date/Time Associated Diagnosis Comments DIFFERENTIAL AUTO Routine 10/26/2018 2:2 2 PM CDT CBC WITH AUTO DIFFERENTIAL Routine 10/26/2018 2:22 PM CDT D-DIMER, QUANTITATIVE Routine 10/26/2018 2:22 PM CDT XR CHEST PA LATERAL 2 VIEWS Schedule Routine, Read Routine (OP Routine) 10/26/2018 2:19 PM CDT Cough documented in this encounter Results * Differential, auto (10/26/2018 2:22 PM CDT) Neutrophil abs 6.1 1.7 - 6.5 K/cumm [facility] Imm gran abs 0.0 0.0 - 0.1 K/cumm [facility] Lymphocyte abs 2.0 0.8 - 3.3 K/cumm [facility] Monocyte abs 0.6 0.2 - 0.8 K/cumm [facility] Eosinophil abs 0.3 0.0 - 0.5 K/cumm [facility] Basophil abs 0.1 0.0 - 0.1 K/cumm [facility] Neutrophil pct 67.1 % [facility] Comment: Interpretive Data Percent cell count reference ranges are not reported, since discordance with absolute values may lead to misinterpretation of CBC data. Current Interpretive Data was last revised on 2017. Imm gran pct 0.5 % [facility] Comment: Interpretive Data Percent cell count reference ranges are not reported, since discordance with absolute values may lead to misinterpretation of CBC data. Current Interpretive Data was last revised on 2017. Lymphocyte pct 22.4 % [facility] Comment: Interpretive Data Percent cell count reference ranges are not reported, since discordance with absolute values may lead to misinterpretation of CBC data. Current Interpretive Data was last revised on 2017. Monocyte pct 6.0 % [facility] Comment: Interpretive Data Percent cell count reference ranges are not reported, since discordance with absolute values may lead to misinterpretation of CBC data. Current Interpretive Data was last revised on 2017. Eosinophil pct 3.2 % [facility] Comment: Interpretive Data Percent cell count reference ranges are not reported, since discordance with absolute values may lead to misinterpretation of CBC data. Current Interpretive Data was last revised on 2017. Basophil pct 0.8 % [facility] Comment: Interpretive Data Percent cell count reference ranges are not reported, since discordance with absolute values may lead to misinterpretation of CBC data. Current Interpretive Data was last revised on 2017. Blood specimen (specimen) 10/26/2018 2:22 PM CDT 10/26/2018 2:34 PM CDT Kasi Lock MD LAB BLOOD ORDERABLES Final Re sult Performing Organization Address [facility] de Phone Number [address] [address] * (ABNORMAL) D-dimer, quantitative (10/26/2018 2:22 PM CDT) [facility] D-dimer 421(H) 110 - 230 ng/mL D-DU [facility] Comment: Interpretive Data This D-dimer test is approved by the FDA to exclude suspected PE and DVT in outpatients when the result is <230 ng/mL in conjunction with a pre-test probability score of low or moderate using the Wells criteria. Current Interpretive Data was last revised on 2011. Blood specimen (specimen) 10/26/2018 2:22 PM CDT 10/26/2018 2:33 PM CDT Kasi Lock MD LAB BLOOD ORDERABLES Final Re sult Performing Organization Address [facility] de Phone Number [address] [address] * (ABNORMAL) CBC with auto differential (10/26/2018 2:22 PM CDT) [facility] WBC 9.1 3.8 - 9.9 K/cumm [facility] Hgb 14.7 11.9 - 15.5 g/dL [facility] Hct 44.5 35.6 - 45.5 % [facility] Plt 371 150 - 400 K/cumm [facility] MPV 9.8 9.1 - 12.3 fL [facility] RBC 5.35(H) 3.90 - 5.20 M/cumm [facility] MCV 83.2 81.3 - 96.4 fL [facility] MCH 27.5 27.1 - 33.3 pg [facility] MCHC 33.0 32.3 - 35.7 g/dL [facility] RDW CV 13.1 11.1 - 14.9 % [facility] RDW SD 39.3 35.7 - 48.1 fL [facility] NRBC abs 0.00 0.00 - 0.01 K/cumm [facility] Blood specimen (specimen) 10/26/2018 2:22 PM CDT 10/26/2018 2:34 PM CDT us Kasi Lock MD LAB BLOOD ORDERABLES Final Re sult [facility] [address] [place] [address] * XR Chest Pa Lateral 2 Views (10/26/2018 2:19 PM CDT) Anatomical Region Laterality Modality Body, Chest N/A Computed Radiogr aphy 10/26/2018 4:07 PM CDT Impressions 10/26/2018 6:38 PM CDT Comparison is made to prior study dated 10/26/2014. There is no focal opacity suggestive of mass or pneumonia. ??There are no pleural effusions. ??There is no pneumothorax. ??The heart and mediastinal contours are normal. ?? Dictated by: Mahdu Chew M.D. The radiology attending physician has personally reviewed this study, and had reviewed and/or edited this written report and agrees with it. Electronically signed by: Matt Cuello M.D. Narrative 10/26/2018 6:38 PM CDT EXAMINATION: 2 view chest radiograph Procedure Note Matt Cuello MD - 10/26/2018 EXAMINATION: 2 view chest radiograph IMPRESSION: Comparison is made to prior study dated 10/26/2014. There is no focal opacity suggestive of mass or pneumonia. There are no pleural effusions. There is no pneumothorax. The heart and mediastinal contours are normal. Dictated by: Madhu Chew M.D. The radiology attending physician has personally reviewed this study, and had reviewed and/or edited this written report and agrees with it. Electronically signed by: Matt Cuello M.D. us Kasi Lock MD IMG XR PROCEDURES Final Resul t documented in this encounter Visit Diagnoses Diagnosis Cough documented in this encounter Care Teams Heel Scorer Relationship Specialty Start Date End Date Bowen Field MD [address] [facility] [address] [place] [address] PCP - General Endocrinology Diabetes & Metabolism 09/05/16 11/19/19 documented as of this encounter
--- OUTSIDE RECORDS SUMMARY | 2024-01-26 06:44 | XMS_ITS | Encounter Summary ---
Author Organization [facility] Healthcare Address [address] [place] [address] Care Team Providers Care Bag Shop Worker Name Role Phone Bowen Field MD Primary Care Provider [phone] Reason for Referral * Diagnostic Imaging (Routine) - Closed Specialty Diagnoses / Procedures Referred By Contac t Referred To Contact Diagnoses Chest pain, unspecified type Procedures XR Chest PA Lateral 2 Views Bowen Field MD Phone: tel: fax: [facility] Referral ID Status Reason Start Date Expiration Date Visits Re quested Visits Authorized [id number] Closed 12/01/2018 06/11/2020 1 1 Reason for Visit * Diagnostic Imaging (Routine) - Closed Specialty Diagnoses / Procedures Referred By Contac t Referred To Contact Diagnoses Chest pain, unspecified type Procedures XR Chest PA Lateral 2 Views Bowen Field MD Phone: tel: fax: [facility] Referral ID Status Reason Start Date Expiration Date Visits Re quested Visits Authorized [id number] Closed 12/01/2018 06/11/2020 1 1 Encounter Details Date Type Department Care Team (Latest Contact Info) Description 12/01/2018 4:46 PM CDT - 12/01/2018 11:59 PM CDT Hospital Encounter [facility]) [address] [place] [id number] Bowen Field MD [address] [facility] [address] [place] [address] Chest pain, unspecified type Discharge Disposition: Discharge to home or self care Social History Tobacco Use Types Packs/Day Years Used Date Smoking Tobacco: Never Smokeless Tobacco: Never Alcohol Use Standard Drinks/Week Comments Yes 0 (1 standard drink = 0.6 oz pur e alcohol) Comments Unknown Sex and Gender Information Value Date Recorded Sex Assigned at Not on file 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 The lungs are clear without evidence of pneumonia or pulmonary edema. There is no pleural effusion or pneumothorax. Heart size and mediastinal contours within normal limits. Electronically signed by: Nadira Weaver M.D. Narrative 12/02/2018 7:50 AM CDT EXAMINATION: 2 view chest radiograph Procedure Note Nadira Weaver MD - 12/02/2018 EXAMINATION: 2 view chest radiograph IMPRESSION: Comparison made to examination of 10/26/2018. The lungs are clear without evidence of pneumonia or pulmonary edema. There is no pleural effusion or pneumothorax. Heart size and mediastinal contours within normal limits. Electronically signed by: Nadira Weaver M.D. Bowen Field MD IMG XR PROCEDURES Final Result documented in this encounter Visit Diagnoses Diagnosis Chest pain, unspecified type documented in this encounter Care Teams Bag Shop Worker Relationship Specialty Start Date End Date Bowen Field MD [id number] [place] [address] PCP - General Endocrinology Diabetes & Metabolism 09/05/16 11/19/19 documented as of this encounter
--- OUTSIDE RECORDS SUMMARY | 2024-01-26 06:44 | XMS_ITS | Encounter Summary ---
Author Organization 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 ER ENGINEER * Telephone Encounter - Kristopher Guzmán MD - 12/26/2019 12:35 PM REEFER ENGINEER Hey, actually that was when I was startign her. She is doing well on the 100 so tell them to make it 100mg daily for 90 days with 1 refill. ER ENGINEER * Telephone Encounter - Yuliana Simmons MA - 12/25/2019 4:29 PM CST [facility] contacted the office they received the script for the Sertraline 100mg, and thedirections state to take 100mg daily for 14 days, they want to confirm if that is correct? ER ENGINEER documented in this encounter Plan of Treatment Not on file documented as of this encounter Visit Diagnoses Not on filedocumented in this encounter Care Teams Whiting Machine Operator Relationship Specialty Start Date End Date Kristopher Guzmán MD PCP - General Family Medicine 11/20/19 Juana Gabriel MD [address] [place] [address] Consulting Physician Obstetrics and Gynecology 11/20/19 documented as of this encounter
--- OUTSIDE RECORDS SUMMARY | 2024-01-26 06:44 | XMS_ITS | Encounter Summary ---
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 Name Role Phone Unavailable Primary Care Provider Unavailabl e Encounter Details Date Type Department Care Team (Late st Contact Info) Description 04/26/2013 10:27 AM CDT - 04/26/2013 11:59 PM CDT Hospital Encounter [facility] Kera Mckeon MD [address] [address] Routine general medical examination at a health care facility; Essential hypertension; Irritable colon Social History Tobacco Use Types Packs/Day Years Used Date Smoking Tobacco: Never Assessed Comments Unknown Sex and Gender Information Value Date Recorded Sex Assigned at Not on file 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 Gender Identity Not on file Sexual Orientation Not on file documented as of this encounter Plan of Treatment Not on file documented as of this encounter Procedures Procedure Name Priority Date/Time Associated Diagnosis Comments DISCHARGE CUMULATIVE SUMMARY ADDENDUM Routine 04/29/2013 2:43 AM CDT URINALYSIS Routine 04/26/2013 11:00 AM CDT SKIN TUBERCULOSIS Routine 04/26/2013 10: 55 AM CDT SERUM THYROID-STIMULATING HORMONE (TSH) Routine 04/26/2013 10:55 AM CDT SERUM COMPREHENSIVE METABOLIC PANEL Routine 04/26/2013 10:55 AM CDT BLOOD WBC CELL MORPHOLOGIC EXAM, AUTO Routine 04/26/2013 10:55 AM CDT BLOOD CELL COUNT (CBC) Routine 4 10:55 AM CDT SERUM TISSUE TRANSGLUTAMINASE (TTG) AB Routine 04/26/2013 6:15 AM CDT REFERRED TEST, MISCELLANEOUS Routine 04/26/2013 5:55 AM CDT DISCHARGE LABORATORY CUMULATIVE REPORT Routine 04/26/2013 12:00 AM CDT documented in this encounter Results * Discharge Cumulative Summary Addendum (04/29/2013 2:43 AM CDT) 04/29/2013 2:43 AM CDT Narrative HISTORICAL RESULTS - 04/29/2013 2:43 AM CDT Patient No: [id number] ? [facility] Patient Name: ZA JERONIMO ?[facility] Healthcare Age: 37 YRS ?: 1975 ?Sex:F ?[address] )[phone] ?? Adm Dt: 04/26/2013 ?[place], [place] ??[id number] Created: 04/29/2013 ??0243 ?? Pt. Type: R ? Discharge Dt: 04/26/2013 ? Pathologists: Eula Bonilla MD Admit Attend Dr: KERA OLEA MD ?SKIN TESTS ?Collection Date: ?04/26/13 ?Collection Time: ?1055 ? Ref Range: ?? Units: ?TB DATE GIVEN ?TB TIME GIVEN ? 1050 ?TB ARM ?RT ARM ?TB READ BY ?[id number] ?TB DATE TO READ ?[id number] ?TB DATE READ ? [id number] [NEGATIVE] ?TB RESULT ? NEGATIVE ?[facility] ?Collection Date: ?04/26/14 ? //14 ?Collection Time: ?1115 ? 1055 ? Ref Range: ?? Units: ? U/mL ? TTG AB, IGA @ ? <1.2 f ?OROZCO FRIG GO @ ? SEE FN f Footnotes and Symbols: f = Footnote @ = TTG AB, IGA, OROZCO FRIG GO Performed at ??[facility] [place], ?[place] TTG AB, IGA.... 04/26/13 1115 ?? -- REFERENCE VALUE -- ?<4.0 (Negative) OROZCO FRIG GO... 04/26/13 1055 Test ? Result ??Flag ??Unit ?? RefValue Celiac Disease Serology [place] ?? Immunoglobulin A (IgA), S ?182 ? mg/dL ??61 - 356 ?? Celiac Disease Interpretation ?SEE FN ? Negative serology. Celiac disease unlikely. However, ? approximately 10% of patients with celiac disease are ? seronegative. Also, patients who are already adhering to a ? gluten-free diet may be seronegative. If celiac disease is ? highly clinically suspected, consider HLA-DQ typing. ?? END OF CHART ? Page: ?? 1 us Historical Provider LAB MICROBIOLOGY - GENERA L ORDERABLES Final Result Performing Organization Address [facility] Co de Phone Number HISTORICAL RESULTS * Urinalysis (04/26/2013 11:00 AM CDT) Pathologist [facility] [place] Bilirubin, ur Negative NEGATIVE HISTOR ICAL RESULTS Color, ur YELLOW YELLOW HISTORICAL RESULTS U Blood Negative NEGATIVE HISTORICAL RESULTS Clarity, ur CLEAR CLEAR HISTORIC AL RESULTS Specific gravity, ur 1.017 1.000 - 1.030 gu HISTORICAL RESULTS Leukocyte esterase, ur Negative NEGATIVE HISTORICAL RESULTS Nitrites, ur Negative NEGATIVE HISTORI KARTHIK RESULTS pH, ur 5.5 6.0 HISTORICAL RESULTS Protein, ur Negative NEGATIVE HISTORIC AL RESULTS Glucose, ur Negative NEGATIVE HISTORIC AL RESULTS Ketones, ur Trace NEGATIVE HISTORIC AL RESULTS Urobilinogen, quant, ur 1.0 0.2 - 1.0 mg/dl HISTORICAL RESULTS Urine 04/26/2013 11:0 0 AM CDT Kera Olea MD LAB BLOOD ORDERABLES Final Res ult Performing Organization Address [facility] de Phone Number HISTORICAL RESULTS * (ABNORMAL) Serum comprehensive metabolic panel (04/26/2013 10:55 AM CDT) [facility] BUN 10.0 6.0 - 23.0 mg/dl HISTORICAL RESULTS Sodium 136 134 - 143 mmol/L HISTORICAL RESULTS Potassium, sr 3.9 3.4 - 5.0 mmol/L HISTORICAL RESULTS Chloride 103 99 - 108 mmol/L HISTORICAL RESULTS CO2 26 23 - 32 mmol/L HISTORICAL RESULTS Glucose 88 70 - 199 mg/dl HISTORICAL RESULTS Comment: Note:The glucose is assumed non fasting Fastin-99 mg/dl Random: 70-199 mg/dl Either a fasting glucose > 126 mg/dL or a random glucose > 200 mg/dL plus symptoms is diagnostic of diabetes when confirmed on another day. Fasting values > 100 mg/dl but < 125 mg/dL are diagnostic of impaired fasting glucose. New reference ranges implemented 12/19/2012. Creatinine 0.80 0.60 - 1.30 mg/dl HISTORICAL RESULTS Comment: eGFR: >70 ml/min/1.73sq.m if non -[place]. eGFR: >70 ml/min/1.73sq.m if -[place]. AVE GFR for 30-39 yr. age group: 107 ml/min/1.73sq.m Calculated using MDRD Equation BUN/creat ratio 13 10 - 20 HIST ORICAL RESULTS A. gap 11 7 - 14 mmol/L HISTORICAL RESULTS Protein, sr 6.9 6.4 - 8.0 g/dl HISTORICAL RESULTS Alb 3.7 3.3 - 4.5 g/dl HISTORICAL RESULTS Alb/glob ratio 1.2 1.1 - 1.8 HISTO RICAL RESULTS Calcium 9.0 8.6 - 9.8 mg/dl HISTORICAL RESULTS Bilirubin 1.5(H) 0.0 - 1.1 mg/dl HISTORICAL RESULTS Alk phos 77 44 - 125 Units/L HISTORICAL RESULTS AST 14 5 - 40 Units/L HISTORICAL RESULTS Comment:AST - NOTE REFERENCE RANGE CHANGE ALT 34 15 - 70 Units/L HISTORICAL RESULTS Serum 04/26/2013 10:5 5 AM CDT Kera Olea MD LAB BLOOD ORDERABLES Final Res ult Performing Organization Address [facility] de Phone Number HISTORICAL RESULTS * Serum thyroid-stimulating hormone (TSH) (04/26/2013 10:55 AM CDT) TSH 1.06 0.35 - 4.80 mcIUnits/ml HISTORICAL RESULTS Serum 04/26/2013 10:5 5 AM CDT Kera Olea MD LAB BLOOD ORDERABLES Final Res ult Performing Organization Address [facility] Co de Phone Number HISTORICAL RESULTS * Skin Tuberculosis (04/26/2013 10:55 AM CDT) Site tested RTARM HISTORIC AL RESULTS Date given [id number] HISTORICA L RESULTS Time given 1050 HISTORICA L RESULTS Date to be read [id number] HIST ORICAL RESULTS Date read [id number] HISTORICAL RESULTS Read by [id number] HISTORICAL RESULTS Tuberculin ab interpretation Negative NEGATIVE HISTORICAL RESULTS Skin, NOS 04/26/2013 10:5 5 AM CDT Kera Olea MD LAB BLOOD ORDERABLES Final Res ult Performing Organization Address [facility] de Phone Number HISTORICAL RESULTS * Blood cell count (CBC) (04/26/2013 10:55 AM CDT) WBC 7.2 4.0 - 10.5 K/cumm HISTORICAL RESULTS RBC 4.64 4.20 - 5.40 M/cumm HISTORICAL RESULTS Hgb 13.4 12.0 - 16.0 g/dl HISTORICAL RESULTS Hct 39.3 37.0 - 47.0 % HISTORICAL RESULTS MCV 84.7 77.0 - 97.0 fl HISTORICAL RESULTS MCH 28.9 23.0 - 34.0 pg HISTORICAL RESULTS MCHC 34.1 32.0 - 36.0 g/dl HISTORICAL RESULTS Rdw 13.0 11.5 - 14.5 % HISTORICAL RESULTS Platelets 317 150 - 450 K/cumm HISTORICAL RESULTS MPV 9.9 7.4 - 10.4 fl HISTORICAL RESULTS Blood specimen (specimen) 04/26/2013 10:55 AM CDT Kera Olea MD LAB BLOOD ORDERABLES Final Res ult Performing Organization Address [facility] de Phone Number HISTORICAL RESULTS * (ABNORMAL) Blood WBC cell morphologic exam, auto (04/26/2013 10:55 AM CDT) Lymphocytes 25.0 25.0 - 33.0 % HISTORICAL RESULTS Monos 8.3 1.0 - 13.0 % HISTORICAL RESULTS Neutrophils 63.1 53.0 - 69.0 % HISTORICAL RESULTS Eosinophils 3.2 0.0 - 10.0 % HISTORICAL RESULTS Basophils 0.3 0.0 - 1.0 % HISTORICAL RESULTS Immature granulocytes 0.1 0.0 - 1.0 % HISTORICAL RESULTS Lymphocytes, abs 1.8 1.2 - 3.4 K/cumm HISTORICAL RESULTS Monocytes, absolute 0.6(L) 1.1 - 1.9 K/cumm HISTORICAL RESULTS Neutrophils, abs 4.5 1.4 - 6.5 K/cumm HISTORICAL RESULTS Eosinophils, abs 0.2 0.0 - 0.7 cells/cumm HISTORICAL RESULTS Basophils, abs 0.0 0.0 - 0.2 K/cumm HISTORICAL RESULTS Immature granulocyte, abs 0.0 0.0 - 0.0 K/cumm HISTORICAL RESULTS Blood specimen (specimen) 04/26/2013 10:55 AM CDT Kera Olea MD LAB BLOOD ORDERABLES Final Res ult HISTORICAL RESULTS * Serum tissue transglutaminase (TTG) ab (04/26/2013 6:15 AM CDT) TTG ab, IgA <1.2 Units/ml HISTORIC AL RESULTS Serum 04/26/2013 6:15 AM CDT Narrative HISTORICAL RESULTS - 04/28/2013 5:44 PM CDT -- REFERENCE VALUE -- <4.0 (Negative) Kera Olea MD LAB BLOOD ORDERABLES Final Res ult Performing Organization Address [facility] de Phone Number HISTORICAL RESULTS * Referred test, miscellaneous (04/26/2013 5:55 AM CDT) Referral specimen, test result SEEFN HISTORICAL RESULTS Miscellaneous 04/26/2013 5:5 5 AM CDT Narrative HISTORICAL RESULTS - 04/28/2013 5:44 PM CDT [facility] Test ? Result ??Flag ??Unit ?? RefValue Celiac Disease Serology [place] ??Immunoglobulin A (IgA), S ?182 ? mg/dL ??61 - 356 ??Celiac Disease Interpretation ?SEE FN ?Negative serology. Celiac disease unlikely. However, ?approximately 10% of patients with celiac disease are ?seronegative. Also, patients who are already adhering to a ?gluten-free diet may be seronegative. If celiac disease is ?highly clinically suspected, consider HLA-DQ typing. us Kera Olea MD LAB BLOOD ORDERABLES Final Res ult HISTORICAL RESULTS * Discharge Laboratory Cumulative Report (04/26/2013 12:00 AM CDT) 04/26/2013 Narrative HISTORICAL RESULTS - 04/28/2013 12:35 AM CDT Patient No: [id number] ? [facility] Patient Name: ZA JERONIMO ?[facility] Healthcare Age: 37 YRS ?: 1975 ?Sex:F ?[address] )[phone] ?? Adm Dt: 04/26/2013 ?[place], [place] ??[address] Created: 04/28/2013 ??0035 ?? Pt. Type: R ? Discharge Dt: 04/26/2013 ? Pathologists: Eula Bonilla MD Admit Attend Dr: KERA OLEA MD ? BLOOD CELL COUNTS ?Collection Date: ?04/26/13 ?Collection Time: ?1055 ? Ref Range: ?? Units: [4.00-10.50] /CMM ? WBC X 10^3 ?7.19 [4.20-5.40] ??/CMM ? RBC X 10^6 ?4.64 [12.0-16.0] ??G/DL ? HGB ? 13.4 [37.0-47.0] ??% ?HCT ? 39.3 [77.0-97.0] ??FL ? MCV ? 84.7 [23.0-34.0] ??PG ? MCH ? 28.9 [32.0-36.0] ??% ?MCHC ?34.1 [11.5-14.5] ??% ?RDW ? 13.0 [150-450] ?? /CMM ? PLT X 10^3 ? 317 ?BLOOD CELL DIFFERENTIAL ?Collection Date: ?03/19/14 ?Collection Time: ?1055 ? Ref Range: ?? Units: [53.0-69.0] ??% ?NEUTROPHILS ? 63.1 [25.0-33.0] ??% ?LYMPHOCYTES ? 25.0 [1.0-13.0] ??% ?MONOCYTES ?8.3 [0.0-10.0] ??% ?EOSINOPHILS ?3.2 [0.0-1.0] ?? % ?BASOPHILS ?0.3 ? /CMM ? A LYMPHOCYTE ? 1.8 [0.0-1.0] ?? % ?IMM GRAN % ? 0.1 [0.00-0.02] ??/CMM ? A IMM GRAN ?0.01 [1.1-1.9] ?? /CMM ? A MONOCYTE ? 0.6 L [1.4-6.5] ?? /CMM ? A NEUTROPHIL ? 4.5 [0.0-0.7] ?? /CMM ? A EOSINOPHIL ? 0.2 [0.0-0.2] ?? /CMM ? A BASOPHIL ? 0.0 Footnotes and Symbols: L = Low ?? CONTINUED ?Page: ?? 1 Patient No: [id number] ? [facility] Patient Name: ZA JERONIMO ?[facility] Age: 37 YRS ?: 1975 ?Sex:F ?[address] )[phone] ?? Adm Dt: 04/26/2013 ?[place], [place] ??[address] Created: 04/28/2013 ??0035 ?? Pt. Type: R ? Discharge Dt: 04/26/2013 ? Pathologists: Eula Bonilla MD Admit Attend Dr: KERA OLEA MD ? GENERAL CHEMISTRY ?Collection Date: ?04/26/13 ?Collection Time: ?1055 ? Ref Range: ?? Units: [134-143] ?? MMOL/L ? SODIUM ? 136 [3.4-5.0] ?? MMOL/L ? POTASSIUM ?3.9 [99.0-108.0] MMOL/L ? CHLORIDE ? 103.0 [23.0-32.0] ??MMOL/L ? TOTAL CO2 ? 26.2 ?? [7-14] ?MMOL/L ? ANION GAP ? 11 ??[70-199] ?? MG/DL ?GLUCOSE ? 88 f [6.4-8.0] ?? G/DL ? TOTAL PROTEIN ?6.9 [3.3-4.5] ?? G/DL ? ALBUMIN ?3.7 [1.1-1.8] ?A/G RATIO ?1.2 [8.6-9.8] ?? MG/DL ?CALCIUM ?9.0 [0.0-1.1] ?? MG/DL ?BILI TOTAL ? 1.5 H ??[44-125] ?? U/L ?ALK PHOS ?77 ?? [5-40] ?U/L ?AST(SGOT) ? 14 f ??[15-70] ?U/L ?ALT(SGPT) ? 34 f [6.0-23.0] ??MG/DL ?BUN ? 10.0 ??[10-20] ? B/C RATIO ? 13 Footnotes and Symbols: H = High, f = Footnote GLUCOSE (01/10/13 -- Current) Note:The glucose is assumed non fasting Fastin-99 mg/dl Random: 70-199 mg/dl Either a fasting glucose > 126 mg/dL or a random glucose > 200 mg/dL plus symptoms is diagnostic of diabetes when confirmed on another day. Fasting values > 100 mg/dl but < 125 mg/dL are diagnostic of impaired fasting glucose. New reference ranges implemented 12/19/2012. AST(SGOT) (07/20/12 -- Current) AST ??- NOTE REFERENCE RANGE CHANGE ALT(SGPT) (08/30/12 -- Current) ?? CONTINUED ?Page: ?? 2 Patient No: [id number] ? [facility] Patient Name: ZA JERONIMO ?[facility] Healthcare Age: 37 YRS ?: 1975 ?Sex:F ?[address] )[phone] ?? Adm Dt: 04/26/2013 ?[place], [place] ??[address] Created: 04/28/2013 ??0035 ?? Pt. Type: R ? Discharge Dt: 04/26/2013 ? Pathologists: Eula Bonilla MD Admit Attend Dr: KERA OLEA MD ? GENERAL CHEMISTRY ?Collection Date: ?04/26/13 ?Collection Time: ?1055 ? Ref Range: ?? Units: [0.60-1.30] ??MG/DL ?CREATININE ?0.80 f ?04/26/13 1055 eGFR: >70 ml/min/1.73sq.m if non -[place]. eGFR: >70 ml/min/1.73sq.m if -[place]. AVE GFR for 30-39 yr. age group: 107 ml/min/1.73sq.m Calculated using MDRD Equation FOOTNOTE ADDED ON ?? 04/26/13 ?? AT 1227 BY 999 ?THYROID FUNCTION TESTS ?Collection Date: ?04/26/13 ?Collection Time: ?1055 ? Ref Range: ?? Units: [0.35-4.80] ??uIU/ML ? TSH ? 1.06 Footnotes and Symbols: f = Footnote ?? CONTINUED ?Page: ?? 3 Patient No: [id number] ? [facility] Patient Name: ZA JERONIMO ?[facility] Age: 37 YRS ?: 1975 ?Sex:F ?[address] )[phone] ?? Adm Dt: 04/26/2013 ?[place], [place] ??[address] Created: 04/28/2013 ??0035 ?? Pt. Type: R ? Discharge Dt: 04/26/2013 ? Pathologists: Eula oBnilla MD Admit Attend Dr: KERA OLEA MD ?URINALYSIS ?Collection Date: ?04/26/13 ?Collection Time: ?1100 ? Ref Range: ?? Units: [YELLOW] ? U COLOR ? YELLOW ??[CLEAR] ? U APPEARANCE ? CLEAR [1.000-1.030] ? U SPEC GRAVITY ? 1.017 [NEGATIVE] ?U LEUKO ESTRASE ? NEGATIVE [NEGATIVE] ?U NITRITE ? NEGATIVE ?? [6.0] ?U PH ? 5.5 [NEGATIVE] ?U PROTEIN ? NEGATIVE [NEGATIVE] ?U GLUCOSE ? NEGATIVE [NEGATIVE] ?U KETONES ?TRACE [0.2- 1.0] ?UROBILINOGEN ? 1.0 [NEGATIVE] ?U BILIRUBIN ? NEGATIVE [NEGATIVE] ?U BLOOD ? NEGATIVE ?? END OF CHART ? Page: ?? 4 us Historical Provider MD LAB BLOOD ORDERABLES Christi samuel Result HISTORICAL RESULTS documented in this encounter Visit Diagnoses Diagnosis Routine general medical examination at a health care facility Essential hypertension Unspecified essential hypertension Irritable colon documented in this encounter
--- OUTSIDE RECORDS SUMMARY | 2024-01-26 06:44 | XMS_ITS | Encounter Summary ---
Author Organization [facility] Address [address] [place] [address] Care Team Providers Care Conference Center Coordinator Name Role Phone Kristopher Guzmán MD Primary Care Provider Juana Gabriel MD Unavailable [phone] Reason for Referral * Diagnostic Imaging (Routine) - Closed Specialty Diagnoses / Procedures Referred By Franko menjivar Referred To Contact Procedures Screening Mammogram 2D Bilateral [facility] [address] [place] [address] Phone: tel: fax: Referral ID Status Reason Start Date Expiration Date Visits Re quested Visits Authorized [id number] Closed 11/20/2019 12/19/2020 1 1 Reason for Visit * Reason Comments Hypertension new patient Anxiety Encounter Details Date Type Department Care Team (Late st Contact Info) Description 11/20/2019 2:30 PM CDT Office Visit [facility] [address] [place] [address] Kristopher Guzmán MD [address] [place] [address] [address] [place], [place] [id number] Chronic hypertension (Primary Dx); Class 1 obesity due to excess calories with serious comorbidity and body mass index (BMI) of 31.0 to 31.9 in adult; Mild intermittent asthma without complication; Factor V Leiden mutation (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 Not on file Not on file Not on file documented as of this encounter Last Filed Vital Signs Vital Sign Reading Time Taken Comments Blood Pressure 136/85 11/20/2019 2:21 PM CDT Pulse 71 11/20/2019 2:21 PM CDT Temperature 36.4 ??C (97.5 ??F) 11/20/2019 2:21 PM CD T Respiratory Rate - - Oxygen Saturation 98% 11/20/2019 2:21 PM CDT Inhaled Oxygen Concentration - - Weight 81.8 kg (180 lb 6.4 oz) 11/20/2019 2:21 P M CDT Height 162 cm (5' 3.78 ) 11/20/2019 2:21 PM CDT Body Mass Index 31.18 11/20/2019 2:21 PM CDT documented in this encounter Ordered Prescriptions Prescription Sig Dispense Quantity Refills Last Filled Start Date End Date sertraline (ZOLOFT) 50 mg tabletIndications: Generalized Anxiety Disorder Take 1 tablet (50 mg total) by mouth daily for 14 days, THEN 2 tablets (100 mg total) daily for 14 days. 60 tablet 11/20/2019 0 documented in this encounter Progress Notes * Kristopher Guzmán MD - 11/20/2019 2:30 PM CDT Images from the original note were not included. Subjective/Objective Chief Complaint Hypertension (new patient) and Anxiety History of Present Illness HPI Ama Monzon is a 44 y.o. White female who presents here today to establish care with known chronic conditions of factor 5 Leiden deficiency, generalized anxiety disorder, chronic hypertension, intermittent asthma. I have reviewed: allergies, current medications, past family history, past medical history, past social history, past surgical history and problem list. I have updated the relevant sections when necessary. Patient has a history of preeclampsia and prior after which she has had a chronic hypertension. She has been on several medications but for the past few years she has been on losartan-hydrochlorothiazide along with amlodipine. Few months ago due to Roger her as her amlodipine was not refilled and she has only been on the hydrochlorothiazide-losartan medication with blood pressures that are optimal to suboptimally controlled. She has some headaches but denies any chest pain or shortness of breath or vision changes. Patient has a history of anxiety disorder for which she has been on Zoloft. Due to her factor 5 Leiden deficiency she states she cannot take many medications. She was on Zoloft until several months ago which again also due to quicker also has not refilled. 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 She has been having more anxiety and stress over the past few months and is affecting her day-to-day functioning some extent. She denies any depression, feeling down, had only a associated with this. Patient also going to which she calls Kristy menopausal symptoms was night sweats, hot flashes, headaches, dizziness and regular period. Patient's establish with OBGYN plan to follow-up with them. Patient also has factor 5 Leiden deficiency for which she takes 81 mg aspirin twice daily. She alsotakes omeprazole to protect herself from daily NSAID use and also for GERD like symptoms that she gets when she is taking the aspirin. Care Team Providers: Patient Care Team: Kristopher Guzmán MD as PCP - General (Family Medicine) Juana Gabriel MD as Consulting Physician (Obstetrics and Gynecology) Past Medical History Past Medical History: Diagnosis Date ??? Allergic ??? Anxiety ??? Asthma ??? Down syndrome of fetus in current 05/13/2015 ??? Factor 5 Leiden mutation, heterozygous (CMS/HCC) ??? Factor 5 Leiden mutation, heterozygous (CMS/HCC) ??? Factor V Leiden (CMS/HCC) 2007 ??? Family history of autism 03/16/2018 ??? Gastric reflux ??? Hypertension ??? Placental abruption 02/19/2014 Overview: G1 when she had pre-eclampsia ??? Preeclampsia 02/19/2014 Overview: In G1 with placental abruption and delivery at 34 weeks, was on Magnesium Past Surgical History: Procedure Laterality Date ??? SECTION 06/22/[facility] Social History Socioeconomic History ??? Marital status: Spouse name: Not on file ??? Number of children: 2 ??? Years of education: Not on file ??? Highest education level: Not on file Occupational History ??? 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 Financial resource strain: Not on file ??? Food insecurity Worry: Not on file Inability: Not on file ??? Transportation needs Medical: Not on file Non-medical: Not on file Tobacco Use ??? Smoking status: Never Smoker ??? Smokeless tobacco: Never Used Substance and Sexual Activity ??? Alcohol use: Not Currently Frequency: Never ??? Drug use: No ??? Sexual activity: Yes Partners: Male Lifestyle ??? Physical activity Days per week: Not on file Minutes per session: Not on file ??? Stress: Not on file Relationships ??? Social connections Talks on phone: Not on file Gets together: Not on file Attends jainism service: Not on file Active member of club or organization: Not on file Attends meetings of clubs or organizations: Not on file Relationship status: Not on file ??? Intimate partner violence Fear of current or ex partner: Not on file Emotionally abused: Not on file Physically abused: Not on file Forced sexual activity: Not on file Other Topics Concern ??? Not on file Social History Narrative Lives with and two children - 12 and 5 Family History Problem Relation Age of Onset ??? Diabetes Father ??? Hypertension Father ??? Asthma Father ??? Hypertension Mother ??? Blood Clot Mother several ??? Anxiety disorder Mother ??? Blood Clot Brother ??? Autism Son ??? ADD / ADHD Son ??? Other (bladder infections) Daughter ??? Other (far sighted) Daughter ??? Arthritis Neg Hx Allergies Allergen Reactions ??? Latex Rash, Itching and Swelling ??? Sulfa (Sulfonamide Antibiotics) Rash ??? Sulfasalazine Rash Mouth sores ??? Latex Swelling Reaction: SWELLING ??? Sulfa (Sulfonamide Antibiotics) Swelling Reaction: SWELLING Mouth sores Review of Systems Constitutional: Negative for chills, fatigue and fever. HENT: Negative for congestion, sore throat and voice change. Eyes: Negative for visual disturbance. Respiratory: Negative for cough, shortness of breath and wheezing. Cardiovascular: Negative for chest pain, palpitations and leg swelling. Gastrointestinal: Negative for abdominal pain, blood in stool, constipation, diarrhea, nausea and vomiting. Genitourinary: Positive for menstrual problem (irregular period). Negative for difficulty urinating, dysuria and frequency. +hot flashes + night sweats Skin: Negative for rash and wound. Neurological: Positive for headaches. Negative for dizziness, facial asymmetry and speech difficulty. Psychiatric/Behavioral: Positive for sleep disturbance. Negative for agitation, behavioral problems, dysphoric mood, hallucinations and suicidal ideas. The patient is nervous/anxious. Vitals: 11/20/19 1421 BP: 136/85 BP Location: Right arm Patient Position: Sitting Pulse: 71 Temp: 36.4 ??C (97.5 ??F) TempSrc: Temporal SpO2: 98% Weight: 81.8 kg (180 lb 6.4 oz) Height: 162 cm (5' 3.78 ) Body mass index is 31.18 kg/m??. Physical Exam Vitals signs reviewed. Constitutional: [...] baseline. Psychiatric: Attention and Perception: She is inattentive. She does not perceive auditory or visual hallucinations. Mood and Affect: Mood is anxious. Speech: Speech normal. Behavior: Behavior is hyperactive. Behavior is cooperative. Cognition and Memory: Cognition is not impaired. Memory is not impaired. Assessment/Plan Diagnoses and all orders for this visit: Chronic hypertension (I10) (Primary) Assessment & Plan: - first diagnosis in 2008, she also had preeclampsia at the time - currently on Losartan- HCTZ 100-12.5mg once daily - she was on amlodipine until recently several months ago - compliant with medication, not side effects to it - had will recheck blood pressure on next visit in 1 months and if still elevated plan to restart her amlodipine. Orders: - Comprehensive metabolic panel; Future - Magnesium; Future Class 1 obesity due to excess calories with serious comorbidity and body mass index (BMI) of 31.0 to 31.9 in adult (E66.09, Z68.31) Assessment & Plan: - BMI Follow-up includes: nutrition counseling, exercise counseling and education provided Orders: - Lipid panel; Future - Comprehensive metabolic panel; Future - TSH reflex to free T4; Future Mild intermittent asthma without complication (J45.20) Assessment & Plan: - diagnosed in 2016 - very infrequent use of the albuterol inhaler a 1-2 times a week - she has been taking vitamin D3 6000 IU on a daily basis and has seen a big improvement in her asthma flare up - triggers for asthma - allergies - she uses Flonase nasal spray on a daily basis Factor V Leiden mutation ([facility]/HCC) (D68.51) Assessment & Plan: - currently takes 81mg x2 of aspirin on a daily basis - she taken omeprazole due to chronic daily use of aspirin/nsaid Orders: - CBC without differential; Future Anxiety (F41.9) Assessment & Plan: - she used to be on Zoloft, she has been off of it for several years - hx of anxiety and panic attacks - off of Zoloft for several months when it was abruptly stopped - she had withdrawal symptoms and she did not like it Orders: - sertraline (ZOLOFT) 50 mg tablet; Take 1 tablet (50 mg total) by mouth daily for 14 days, THEN 2 tablets (100 mg total) daily for 14 days. Screening for lipid disorders (Z13.220) - Lipid panel; Future Screening for thyroid disorder (Z13.29) - TSH reflex to free T4; Future Screening for diabetes mellitus (Z13.1) - Comprehensive metabolic panel; Future Return in about 1 month (around 12/21/2019). Kristopher Guzmán MD November 20, 2019 Voice recognition software madvertise Direct was used dictate and transcribe this document. Ed Tech variances may occur. Despite proofreading, typographical errors may occur. documented in this encounter Miscellaneous Notes * Assessment & Plan Note - Kristopher Guzmán MD - 11/20/2019 3:38 PM CDT Associated Problem(s): Class 1 obesity due to excess calories with serious comorbidity and body mass index (BMI) of 30.0 to 30.9 in adult - BMI Follow-up includes: nutrition counseling, exercise counseling and education provided * Assessment & Plan Note - Kristopher Guzmán MD - 11/20/2019 3:04 PM CDT Associated Problem(s): Generalized anxiety disorder - she used to be on Zoloft, she has been off of it for several years - hx of anxiety and panic attacks - off of Zoloft for several months when it was abruptly stopped - she had withdrawal symptoms and she did not like it * Assessment & Plan Note - Kristopher Guzmán MD - 11/20/2019 3:00 PM CDT Associated Problem(s): Factor V Leiden mutation (HCC) - currently takes 81mg x2 of aspirin on a daily basis - she taken omeprazole due to chronic daily use of aspirin/nsaid * Assessment & Plan Note - Kristopher Guzmán MD - 11/20/2019 2:50 PM CDT Associated Problem(s): Chronic hypertension - first diagnosis in 2008, she also had preeclampsia at the time - currently on Losartan- HCTZ 100-12.5mg once daily - she was on amlodipine until recently several months ago - compliant with medication, not side effects to it - had will recheck blood pressure on next visit in 1 months and if still elevated plan to restart her amlodipine. * Assessment & Plan Note - Kristopher Guzmán MD - 11/20/2019 2:47 PM CDT Associated Problem(s): Mild intermittent asthma without complication - diagnosed in 2015 - very infrequent use of the albuterol inhaler a 1-2 times a week - she has been taking vitamin D3 6000 IU on a daily basis and has seen a big improvement in her asthma flare up - triggers for asthma - allergies - she uses Flonase nasal spray on a daily basis documented in this encounter Plan of Treatment Not on file documented as of this encounter Procedures Procedure Name Priority Date/Time Associated Diagnosis Comments SCREENING MAMMOGRAM 2D BILATERAL Schedule Routine, Read Routine (OP Routine) 06/24/2017 documented in this encounter Results * Magnesium (12/25/2019 1:26 PM PLASTER MACHINE OPERATOR) Magnesium 2.1 1.4 - 2.5 mg/dL PABLO HUSTON (ROBERTO) Blood specimen (specimen) 12/25/2019 1:26 PM PLASTER MACHINE OPERATOR 12/25/2019 5:21 PM PLASTER MACHINE OPERATOR us Kristopher Guzmán MD LAB BLOOD ORDERABLES Fi nal Result PABLO DowningROBERTO) 1 [facility] Department [place] [address] * CBC without differential (12/25/2019 1:26 PM PLASTER MACHINE OPERATOR) WBC 8.7 3.8 - 9.9 K/cumm CERNER [...] (ROBERTO) Blood specimen (specimen) 12/25/2019 1:26 PM PLASTER MACHINE OPERATOR 12/25/2019 5:21 PM PLASTER MACHINE OPERATOR Kristopher Guzmán MD LAB BLOOD ORDERABLES Fi nal Result [facility] (ROBERTO) 1 [facility] Department [place] [address] * TSH reflex to free T4 (12/25/2019 1:26 PM PLASTER MACHINE OPERATOR) TSH 0.81 0.30 - 4.20 mcIUnit/mL [facility] (ROBERTO) Blood specimen (specimen) 12/25/2019 1:26 PM PLASTER MACHINE OPERATOR 12/25/2019 5:21 PM PLASTER MACHINE OPERATOR Kristopher Guzmán MD LAB BLOOD ORDERABLES Fi nal Result [facility] (ROBERTO) 1 [facility] Department [place] [address] * (ABNORMAL) Comprehensive metabolic panel (12/25/2019 1:26 PM PLASTER MACHINE OPERATOR) Sodium 134(L) 135 - 145 mmol/L CERNER [...] 0.70 0.60 - 1.10 mg/dL [facility] (ROBERTO) Glucose 104 70 - 199 mg/dL CERNER [...] (ROBERTO) Blood specimen (specimen) 12/25/2019 1:26 PM PLASTER MACHINE OPERATOR 12/25/2019 5:21 PM PLASTER MACHINE OPERATOR us Kristopher Guzmán MD LAB BLOOD ORDERABLES Fi nal Result PABLO HUSTON (ROBERTO) 1 [facility] Department [place] [address] * Lipid panel (12/25/2019 1:26 PM PLASTER MACHINE OPERATOR) Cholesterol 181 30 - 199 mg/dL PABLO [...] last revised on 2017. Chol/HDL ratio 4 HOLA HUSTON (TRIDELL) Blood specimen (specimen) 12/25/2019 1:26 PM PLASTER MACHINE OPERATOR 12/25/2019 5:21 PM PLASTER MACHINE OPERATOR Narrative PABLO HUSTON (ROBERTO) - 12/25/2019 5:45 PM PLASTER MACHINE OPERATOR Has the patient been fasting for 8 hours or more?->Yes Kristopher Guzmán MD LAB BLOOD ORDERABLES Fi nal Result PABLO HUSTON (TRIDELL) 1 [facility] Department [place] [address] * Screening Mammogram 2D Bilateral (06/24/2017) Anatomical Region Laterality Modality Breast Bilateral Mammography Historical Provider MD [facility] Result documented in this encounter Visit Diagnoses Diagnosis Chronic hypertension- Primary Class 1 obesity due to excess calories with serious comorbidity and body mass index (BMI) of 31.0 to 31.9 in adult Mild intermittent asthma without complication Factor V Leiden mutation (HCC) Primary hypercoagulable state Anxiety Anxiety state, unspecified Screening for lipid disorders Screening for thyroid disorder Screening for diabetes mellitus Chronic hypertension Factor V Leiden mutation (HCC) Primary hypercoagulable state Class 1 obesity due to excess calories with serious comorbidity and body mass index (BMI) of 31.0 to 31.9 in adult Screening for thyroid disorder Screening for diabetes mellitus Screening for lipid disorders documented in this encounter Discontinued Medications Medication Sig Discontinue Reason Start Date End Da te traMADol (ULTRAM) 50 mg tablet Therapy completed 04/19/2018 11/20/2019 sertraline (ZOLOFT) 50 mg tablet Take 50 mg by mouth daily. Therapy completed 11/20/2019 sertraline (ZOLOFT) 100 mg tablet Therapy completed 03/23/2018 11/20/2019 amLODIPine (NORVASC) 2.5 mg tablet Therapy completed 02/23/2018 11/20/2019 ibuprofen (ADVIL,MOTRIN) 600 mg tablet Take 600 mg by mouth every 6 hours. Therapy completed 05/25/2015 11/20/2019 ibuprofen (ADVIL,MOTRIN) 800 mg tabletIndications:Acute right ankle pain Take 1 tablet (800 mg total) by mouth 2 (two) times a day. Therapy completed 09/05/2016 11/20/2019 documented as of this encounter Historical Medications * This list may reflect changes made after this encounter. fluticasone propionate (FLONASE) 50 mcg/actuation nasal spray Administer 1 spray into each nostril daily vitamin b complex tablet Take 1 tablet by mouth daily cholecalciferol, vitamin D3, (VITAMIN D3 ORAL) Take 150 mcg by mouth turmeric root extract 500 mg capsule Take 500 mg by mouth magnesium oxide 400 mg magnesium tablet Take 400 mg by mouth added in this encounter Care Teams Conference Center Coordinator Relationship Specialty Start Date End Date Kristopher Guzmán MD PCP - General Family Medicine 11/20/19 Juana Gabriel MD [address] [address] Consulting Physician Obstetrics and Gynecology 11/20/19 documented as of this encounter
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
--- OUTSIDE RECORDS SUMMARY | 2024-01-26 06:44 | XMS_ITS | Encounter Summary ---
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
--- OUTSIDE RECORDS SUMMARY | 2024-01-26 06:44 | XMS_ITS | Encounter Summary ---
Author Organization [facility] Address [address] [place] [address] Care Team Providers Care Spool Maker Name Role Phone Bowen Field MD Primary Care Provider [phone] Reason for Visit * Reason Comments Follow-up Encounter Details Date Type Department Care Team (Latest Contact Info) Description 04/27/2018 1:00 PM CDT Office Visit [facility] Orthopedics and Sports Medicine [address] [place] [phone] Kristy Byers MD [address] [place] [address] Rotator cuff strain, right, subsequent encounter (Primary Dx); Paresthesia of arm Social History Tobacco Use Types Packs/Day Years Used Date Smoking Tobacco: Never Smokeless Tobacco: Never Alcohol Use Standard Drinks/Week Comments Yes 0 (1 standard drink = 0.6 oz pur e alcohol) Comments Unknown Sex and Gender Information Value Date Recorded Sex Assigned at Not on file Legal Sex 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 Gender Identity Not on file Sexual Orientation Not on file documented as of this encounter Last Filed Vital Signs Vital Sign Reading Time Taken Comments Blood Pressure 125/83 04/27/2018 1:29 PM CDT Pulse 75 04/27/2018 1:29 PM CDT Temperature - - Respiratory Rate - - Oxygen Saturation - - Inhaled Oxygen Concentration - - Weight 89.4 kg (197 lb) 04/27/2018 1:29 PM CDT Height 160 cm (5' 3 ) 04/27/2018 1:29 PM CDT Body Mass Index 34.9 04/27/2018 1:29 PM CDT documented in this encounter Progress Notes * Kristy Byers MD - 04/27/2018 1:00 PM CDT FOLLOW UP VISIT Subjective CHIEF COMPLAINT She had concerns including Follow-up of the Right Shoulder. HISTORY OF PRESENT ILLNESS Ama presents today for follow-up of right rotator cuff strain, she has been in physical therapy for the last 4 weeks and has had significant improvement. The pain started with lifting a car seat. She now complains of numbness and tingling in the right arm, she saw her primary care physician who ordered x-rays of her neck which per patient were normal. She continues to have pain that travels up a nd down her spine and numbness and tingling in the right shoulder. She states her primary care physician put her on tramadol for this. She states the physical therapist perform some traction on her spine which would leave the tingling in her right arm. She is doing a home exercise program 3 times per week. Pain Assessment Pain Descriptors: Aching Pain Frequency: Constant/continuous Result of Injury: (lifting car seat) Pain Interventions: Physical Therapy, Exercise(anti-inflammatories) MEDICATIONS She has a current medication list which includes the following prescription(s): amlodipine, ibuprofen, ibuprofen, losartan, losartan-hydrochlorothiazide, omeprazole, proair hfa, sertraline, sertraline, and tramadol. REVIEW OF SYSTEMS Review of Systems Constitutional: Positive for appetite change and unexpected weight change. Negative for activity change, chills and fever. HENT: Negative. Negative for congestion, dental problem, ear pain, hearing loss and voice change. Eyes: Negative. Negative for pain and visual disturbance. Respiratory: Negative. Negative for apnea, cough, chest tightness and shortness of breath. Cardiovascular: Negative. Negative for chest pain, palpitations and leg swelling. Gastrointestinal: Positive for diarrhea. Negative for blood in stool, constipation, nausea and vomiting. Endocrine: Negative for cold intolerance and heat intolerance. Genitourinary: Negative. Negative for difficulty urinating and hematuria. Musculoskeletal: Negative. Skin: Negative. Negative for color change, rash and wound. Allergic/Immunologic: Positive for environmental allergies. Neurological: Positive for headaches. Negative for dizziness, syncope and numbness. Hematological: Negative for adenopathy. Does not bruise/bleed easily. Psychiatric/Behavioral: Negative for confusion. The patient is nervous/anxious. The patient is not hyperactive. All other systems reviewed and are negative. Objective PHYSICAL EXAM BP 125/83 Pulse 75 Ht 160 cm (5' 3 ) Wt 89.4 kg (197 lb) BMI 34.90 kg/m?? Right shoulder Inspection The patient has normal inspection of the right shoulder. Palpation The patient has normal palpation of the right shoulder. Range of motion The patient has normal range of motion of the right shoulder. Stability Th patient has normal stability of the right shoulder. Strength Shoulder abduction: 4/5 Internal rotation: 4/5 External rotation 4/5 Scapular stabilizers: 4/5 Supraspinatus: 4/5 Lower trapezius: 4/5 Deltoid: 4/5 Bicep: 4/5 Neurovascular The patient has normal vascular on the right side of her body. She has normal sensation on the right side of her body. Left shoulder Inspection The patient has normal inspection of the left shoulder. Palpation The patient has normal palpation of the left shoulder. Range of motion The patient has normal range of motion of the left shoulder. Stability The patient has normal stability of the left shoulder. Strength Abduction: 4/5 Internal rotation: 4/5 External rotation: 4/5 Scapular stabilizers: 4/5 Supraspinatus: 4/5 Lower trapezius: 4/5 Deltoid: 4/5 Bicep: 4/5 Neurovascular The patient has normal vascular on the left side of their body. The patient has normal sensation on the left side of their body. REVIEW OF X-RAYS/STUDIES/LABS Assessment/Plan Ama was seen today for follow-up. Diagnoses and all orders for this visit: Rotator cuff strain, right, subsequent encounter Paresthesia of arm PLAN Continue with the home exercise program given by physical therapy. Follow up with her primary care physician regarding pain management for the headaches and pain traveling up and down her spine. Recommend she follow up with her primary care physician regarding the numbness and tingling she is having in her right arm, she may need further evaluation by an orthopedic spine surgeon. As long as she is doing well with her shoulder I will see her back as needed, if her symptoms recur she should return to clinic for repeat evaluation. She is in full understanding and in agreement with the plan, and all of her questions were answered. Quality Tester completed by using M*Modal Fluency Direct speaking software, therefore, transcriptionvariances may occur. Amandeep Porter, FORTINO Byers MD documented in this encounter Plan of Treatment Not on file documented as of this encounter Visit Diagnoses Diagnosis Rotator cuff strain, right, subsequent encounter- Primary Paresthesia of arm documented in this encounter Historical Medications * This list may reflect changes made after this encounter. Medication Sig Dispense Quantity Refills Last Filled Start D ate End Date sertraline (ZOLOFT) 100 mg tablet 03/23/2018 11/20/2019 traMADol (ULTRAM) 50 mg tablet 0 04/19/2018 11/20/2019 added in this encounter Care Teams Spool Maker Relationship Specialty Start Date End Date Bowen Field MD [address] [address] PCP - General Endocrinology Diabetes & Metabolism 09/05/16 11/19/19 documented as of this encounter
--- OUTSIDE RECORDS SUMMARY | 2024-01-26 06:44 | XMS_ITS | Referral Summary ---
Author Organization [facility] Address [address] [place] [address] Care Team Providers Care Pharmacist Helper Name Role Phone Kristopher Guzmán MD Primary Care Provider Juana Gabriel MD Unavailable [phone] Allergies Active Allergy Reactions Criticality Noted Date [...] complication Assessment & Plan (12/25/2019 2:22 PM ADDICTION COUNSELOR): - takes vitamin d 5-7000 international units [...] 11/20/2019 Assessment & Plan (12/25/2019 2:19 PM ADDICTION COUNSELOR): - BMI Follow-up includes: nutrition counseling, exercise counseling and education provided - has already noticed some weight loss with change in diet and lifestyle Assessment & Plan (11/20/2019 3:38 PM CDT): - BMI Follow-up includes: nutrition counseling, exercise counseling and education provided Abnormal genetic test during 9 Overview (03/16/2018): Overview: Borderline value on NIPT ([facility])- suspected T21 Confirmed by amniocentesis Prothrombin gene mutation 02/20/2014 Overview (03/16/2018): Overview: Heterozygote for prothrombin gene mutation Chronic hypertension 02/19/2014 Overview (11/20/2019): Patient has been on BP medications since delivery of her first child First diagnosis in 2008, she also had preeclampsia at the time Has been on Methyldopa, Diovan before Assessment & Plan (12/25/2019 2:20 PM ADDICTION COUNSELOR): - currently stable on current medications - [...] years Assessment & Plan (12/25/2019 2:18 PM ADDICTION COUNSELOR): - doing well since restarted the Zoloft - currently happy with [id number] zoloft daily - continue with current medication [...] Heterozygote Assessment & Plan (12/25/2019 2:19 PM ADDICTION COUNSELOR): - currently taking 81mg x2 of aspirin [...] it, Preservative Free, Intramuscular 11/17/2018 Tdap 04/23/2014 Social History Tobacco Use Types Packs/Day [...] on file Legal Sex Female 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 COUNSELOR Gender Identity Not on file Sexual Orientation Not on file 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 Not on file Not on file Last Filed Vital Signs Vital Sign Reading Time Taken Comments Blood Pressure 131/76 12/25/2019 1:44 PM ADDICTION COUNSELOR Pulse 63 12/25/2019 1:44 PM ADDICTION COUNSELOR Temperature 36.3 ??C (97.3 ??F) 12/25/2019 1:44 PM CS T Respiratory Rate 18 09/05/2016 12:2 8 PM CDT Oxygen Saturation 97% 12/25/2019 1:44 PM ADDICTION COUNSELOR Inhaled Oxygen Concentration - - Weight 80.2 kg (176 lb 14.4 oz) 12/25/2019 1:44 PM ADDICTION COUNSELOR Height 162 cm (5' 3.78 ) 12/25/2019 1:44 PM ADDICTION COUNSELOR Body Mass Index 30.57 12/25/2019 1:44 PM ADDICTION COUNSELOR Plan of Treatment Not on file Insurance [employer] [place] [employer] [place] Care Teams Pharmacist Helper Relationship Specialty Start Date End Date Kristopher Guzmán MD PCP - General Family Medicine 11/20/19 Juana Gabriel MD [address] [place] [id number] Consulting Physician Obstetrics and Gynecology 11/20/19
--- OUTSIDE RECORDS SUMMARY | 2024-01-26 06:44 | XMS_ITS | Encounter Summary ---
Author Organization [facility] Address [address] [place] [address] Care Team Providers Care Supervisory Geographer Name Role Phone Bowen Field MD Primary Care Provider [phone] Reason for Referral * Diagnostic Imaging (Routine) - Closed Specialty Diagnoses / Procedures Referred By Contac t Referred To Contact Radiology Diagnoses Acute pain of right shoulder Procedures MRI Shoulder Right WO Contrast Francis Darby MD Phone: tel: fax: [address] [address] Referral ID Status Reason Start Date Expiration Date Visits Re quested Visits Authorized [id number] Closed 03/03/2018 09/12/2019 1 1 E RIGGER Encounter Details Date Type Department Care Team (Late st Contact Info) Description 03/03/2018 Orders Only Internal Medicine Francis Darby MD [address] [address] Acute pain of right shoulder (Primary Dx) Social History Tobacco Use Types Packs/Day Years Used Date Smoking Tobacco: Never Smokeless Tobacco: Never Alcohol Use Standard Drinks/Week Comments Yes 0 (1 standard drink = 0.6 oz pur e alcohol) Comments Unknown Sex and Gender Information Value Date Recorded Sex Assigned at Not on file 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 ??NO FOCAL ROTATOR CUFF TEAR. ??TENDINOPATHY TYPE CHANGES ARE NOTED IN THE SUPRASPINATUS TENDON. 2. ??THICKENING OF THE ACROMIOCLAVICULAR JOINT CAPSULE WITHOUT SIGNIFICANT DIRECT IMPINGEMENT ON THE SUPRASPINATUS MUSCLE BODY/TENDON COMPLEX. 3. ??SMALL AMOUNT OF JOINT FLUID. Electronically signed by: Kasi Painting M.D. Narrative 03/08/2018 8:14 PM STONE RIGGER MRI SHOULDER RIGHT WO CONTRAST HISTORY: ??Acute [...] Visit Diagnoses Diagnosis Acute pain of right shoulder- Primary Acute pain of right shoulder documented in this encounter Care Teams Supervisory Geographer Relationship Specialty Start Date End Date Bowen Field MD [address] [facility] [address] [place] [address] PCP - General Endocrinology Diabetes & Metabolism 09/05/16 11/19/19 documented as of this encounter
== END 2024-01-22 10:51 | disposition home or self-care (01) ==
DX: E61.1 Iron deficiency (principal)
CPT/HCPCS: 82272

== ENCOUNTER 2024-07-19 10:03 | Outpatient (CLI) | payer BC, SELFPAY ==
--- OUTSIDE RECORDS SUMMARY | 2024-07-19 11:27 | XMS_ITS | Referral Summary ---
Author Organization [facility] Address [address] [place] [address] Care Team Providers Care Atv Mechanic Name Role Phone Kristopher Guzmán MD Primary Care Provider Juana Gabriel MD Unavailable [phone] Allergies Active Allergy Reactions Criticality Noted Date [...] complication Assessment & Plan (12/25/2019 2:22 PM ASSISTANT PRINCIPAL): - takes vitamin d 5-7000 international units [...] 11/20/2019 Assessment & Plan (12/25/2019 2:19 PM ASSISTANT PRINCIPAL): - BMI Follow-up includes: nutrition counseling, exercise counseling and education provided - has already noticed some weight loss with change in diet and lifestyle Assessment & Plan (11/20/2019 3:38 PM CDT): - BMI Follow-up includes: nutrition counseling, exercise counseling and education provided Abnormal genetic test during 9 Overview (03/16/2018): Overview: Borderline value on NIPT ([facility])- suspected T21 Confirmed by amniocentesis Prothrombin gene mutation 02/20/2014 Overview (03/16/2018): Overview: Heterozygote for prothrombin gene mutation Chronic hypertension 02/19/2014 Overview (11/20/2019): Patient has been on BP medications since delivery of her first child First diagnosis in 2008, she also had preeclampsia at the time Has been on Methyldopa, Diovan before Assessment & Plan (12/25/2019 2:20 PM ASSISTANT PRINCIPAL): - currently stable on current medications - [...] years Assessment & Plan (12/25/2019 2:18 PM ASSISTANT PRINCIPAL): - doing well since restarted the Zoloft - currently happy with [id number] zoloft daily - continue with current medication [...] Heterozygote Assessment & Plan (12/25/2019 2:19 PM ASSISTANT PRINCIPAL): - currently taking 81mg x2 of aspirin [...] Previous delivery a ffecting 12/23/2013 11/20/2019 Immunizations Immunization Administration Dates Next Due Influenza, Quadrivalent, Jessica [...] on file Legal Sex Female 11:04 AM ASSISTANT PRINCIPAL Gender Identity Not on file Sexual Orientation Not on file 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 Not on file Not on file Last Filed Vital Signs Vital Sign Reading Time Taken Comments Blood Pressure 131/76 12/25/2019 1:44 PM ASSISTANT PRINCIPAL Pulse 63 12/25/2019 1:44 PM ASSISTANT PRINCIPAL Temperature 36.3 C (97.3 F) 12/25/2019 1:44 PM ASSISTANT PRINCIPAL Respiratory Rate 18 09/05/2016 12:2 8 PM CDT Oxygen Saturation 97% 12/25/2019 1:44 PM ASSISTANT PRINCIPAL Inhaled Oxygen Concentration - - Weight 80.2 kg (176 lb 14.4 oz) 12/25/2019 1:44 PM ASSISTANT PRINCIPAL Height 162 cm (5' 3.78) 12/25/2019 1:44 PM ASSISTANT PRINCIPAL Body Mass Index 30.57 12/25/2019 1:44 PM ASSISTANT PRINCIPAL Plan of Treatment Not on file Insurance [employer] [place] [employer] [place] Care Teams Atv Mechanic Relationship Specialty Start Date End Date Kristopher Guzmán MD PCP - General Family Medicine 11/20/19 Juana Gabriel MD [address] [place] [id number] Consulting Physician Obstetrics and Gynecology 11/20/19
--- OUTSIDE RECORDS SUMMARY | 2024-07-19 11:27 | XMS_ITS | Clinical Summary ---
Author Organization [facility] Address [address] [place] [address] Care Team Providers Care Lathe Spotter Name Role Phone Kristopher Guzmán MD Primary Care Provider Juana Gabriel MD Unavailable [phone] Allergies Active Allergy Reactions Criticality Noted Date [...] complication Assessment & Plan (12/25/2019 2:22 PM STACKER): - takes vitamin d 5-7000 international units [...] 11/20/2019 Assessment & Plan (12/25/2019 2:19 PM STACKER): - BMI Follow-up includes: nutrition counseling, exercise counseling and education provided - has already noticed some weight loss with change in diet and lifestyle Assessment & Plan (11/20/2019 3:38 PM CDT): - BMI Follow-up includes: nutrition counseling, exercise counseling and education provided Abnormal genetic test during 9 Overview (03/16/2018): Overview: Borderline value on NIPT ([facility])- suspected T21 Confirmed by amniocentesis Prothrombin gene mutation 02/20/2014 Overview (03/16/2018): Overview: Heterozygote for prothrombin gene mutation Chronic hypertension 02/19/2014 Overview (11/20/2019): Patient has been on BP medications since delivery of her first child First diagnosis in 2008, she also had preeclampsia at the time Has been on Methyldopa, Diovan before Assessment & Plan (12/25/2019 2:20 PM STACKER): - currently stable on current medications - [...] years Assessment & Plan (12/25/2019 2:18 PM STACKER): - doing well since restarted the Zoloft - currently happy with [id number] zoloft daily - continue with current medication [...] Heterozygote Assessment & Plan (12/25/2019 2:19 PM STACKER): - currently taking 81mg x2 of aspirin [...] History Surgery Date Site/Laterality Comments SECTION 06/22/2007 [facility] Medical History Medical History Date Comments Asthma Hypertension Factor 5 Leiden mutation, heterozygous Gastric reflux Factor 5 Leiden mutation, heterozygous Allergic Anxiety Factor V Leiden 2007 Preeclampsia 02/19/2014 Overview: In G1 with [...] on file Legal Sex Female 11:04 AM STACKER Gender Identity Not on file Sexual Orientation Not on file 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 Not on file Not on file Obstetrics History Last Filed Vital Signs Vital Sign Reading Time Taken Comments Blood Pressure 131/76 12/25/2019 1:44 PM STACKER Pulse 63 12/25/2019 1:44 PM STACKER Temperature 36.3 C (97.3 F) 12/25/2019 1:44 PM STACKER Respiratory Rate 18 09/05/2016 12:2 8 PM CDT Oxygen Saturation 97% 12/25/2019 1:44 PM STACKER Inhaled Oxygen Concentration - - Weight 80.2 kg (176 lb 14.4 oz) 12/25/2019 1:44 PM STACKER Height 162 cm (5' 3.78) 12/25/2019 1:44 PM STACKER Body Mass Index 30.57 12/25/2019 1:44 PM STACKER Plan of Treatment Not on file Insurance [facility] [facility] BLUE ACCESS CHOICE CT BLUE ACCESS CHOICE CT Care Teams Lathe Spotter Relationship Specialty Start Date End Date Kristopher Guzmán MD PCP - General Family Medicine 11/20/19 Juana Gabriel MD [address] [place] [id number] Consulting Physician Obstetrics and Gynecology 11/20/19
--- OUTSIDE RECORDS SUMMARY | 2024-07-19 11:28 | XMS_ITS | Clinical Summary ---
Author Organization [facility] Address [address] [place] [address] Care Team Providers Care Finance Insurance Manager Name Role Phone Bowen Field MD Primary Care Provider [phone] Source Comments [facility],non-owned Affiliates and Associated Physician Practices is amultiple site organization consisting of ambulatory clinics and hospital sitesin [place], [place], [place] and [place]. This disclosure is being madepursuant to the Care Everywhere program and may not contain all information available regarding this patient. Last updated 17.[facility] Allergies Active Allergy Reactions Criticality Noted Date Comments Latex Itching,Swelling 12/22/2013 Sulfa Drugs 12/22/2013 Mouth sores Medications * Be aware that medications may not be up to date on this document. Alwaysverify current medications with the patient. Vit-Fe Fumarate-FA ( VITAMIN) 28-0.8 MG tabletIndications: Take 1 Tab by mouth once daily. Indications: Active lansoprazole (PREVACID) 15 MG capsuleIndications :Gastroesophageal Reflux Disease Take 15 mg by mouth daily before breakfast. Indications: Gastroesophageal Reflux Disease Active enoxaparin (LOVENOX) injection Inject 40 mg subcutaneously once daily. Continue for at least six weeks 30 Syringe 2 015 Active methyldopa (ALDOMET) 500 MG tabletIndications: Hypertension Take 1 Tab by mouth 2 times daily. Indications: High Blood Pressure 60 Tab 3 015 Active iron polysaccharides (NIFEREX 150) 150 MG capsule Take 1 Cap by mouth once daily. 30 Cap 3 015 Active oxyCODONE-acetamin ophen (PERCOCET) 5-325 MG tablet Take 1 Tab by mouth every 6 hours as needed for Pain 50 Tab 0 016 Active docusate sodium (COLACE) 100 MG capsule Take 1 Cap by mouth 2 times daily 60 Cap 3 016 Active ibuprofen (MOTRIN) 600 MG tablet Take 1 Tab by mouth every 6 hours as needed for Pain 40 Tab 0 016 Active Active Problems Patient Care Coordination No te Formatting of this note migh t be different from the original. [facility] 2014 Please see care plan in problem [...] during Overview (05/13/2015): Borderline value on NIPT (progenity)- suspected T21 Confirmed by amniocentesis Obesity affecting Resolved Problems Problem Noted Date Diagnosed Date Resolved Date abnormality in - Trisomy 21 05/13/2015 05/24/2015 Overview (05/13/2015): Images from the original note were not included. CUSTODIAL PATIENT--PLEASE CALL [phone] IF TRIAGED OR ADMITTED Care Provider: Dr. Bagley- OB; referred from [facility] [place] consultants involved: Maria Victoria KRAUS Diagnosis: Trisomy 21 care needed at : [facility] care after delivery: Chemistry Instructor: Planned surveillance: Planned delivery location: Planned [place] at delivery: Planned mode of delivery: Placenta Instructions: Autopsy indicated: Genetics note: Negotiations Director Concerns: This care plan is based on [...] disorder 02/19/2014 Overview (02/19/2014): factor 5 Immunizations Immunization Administration Dates Next Due TDAP (7yrs+) 04/23/2014 [...] = 0.6 oz pur e alcohol) Comments No Sex and Gender Information Value Date Recorded Sex Assigned at Not on file Legal Sex Female 6:38 AM PAINT STOCKMAN Gender Identity Not on file Sexual Orientation Not on file Last Filed Vital Signs Vital Sign Reading Time Taken Comments Blood Pressure 136/93 05/25/2015 2:00 PM CDT Pulse 88 05/25/2015 2:00 PM CDT Temperature 36.6 C (97.8 F) 05/25/2015 2:00 PM CDT Respiratory Rate 18 05/25/2015 2:00 PM CDT Oxygen Saturation 100% 05/12/2014 12:00 AM CDT Inhaled Oxygen Concentration 99% 02/19/2014 8 :11 PM PAINT STOCKMAN Weight 99.3 kg (219 lb) 05/24/2015 1:03 PM CDT Height 160 cm (5' 3) 05/24/2015 1:03 PM CDT Body Mass Index [...] COLON CA SCREENING 1976 LIPID TESTING 1976 HIV SCREENING 08/09/1991 HEPATITIS C SCREENING 08/04/1994 HEPATITIS B VACCINE (1 of 3 - 19+ 3-dose series) 08/09/1995 MAMMOGRAM 06/15/2019 06/14/2017, 06/08/2016 COVID-19 VACCINE (1 - 2023-2 5 season) 2023 DEPRESSION SCREENING 02/09/2024 DTAP/TDAP/TD VACCINES (2 - T d or Tdap) 04/23/2024 04/23/2014 INFLUENZA VACCINE (Season Ended) 2024 ZOSTER VACCINE (1 of 2) 2026 HIB VACCINE Aged Out No longer eligi ble based on patient's age to complete this topic HPV VACCINE Aged Out No longer eligi ble based on patient's age to complete this topic MENINGOCOCCAL (Group B) VACCINE SHARED DECISION-MAKING Aged Out No longer eligible based on patient's age to complete this topic MENINGOCOCCAL GROUPS A/C/Y/W VACCINE Aged Out No longer eligible b ased on patient's age to complete this topic [...] participate in the care of your patient. [facility] utilizes [employer] as a reminder system to notify patients of their next recommended mammogram. Dictated by Anirudh Bartlett M.D. (professor of radiology) I, Alyx Brooke, have personally reviewed the [...] have been scanned as a document/letter in Epic electronic medical record (media tab). Please note this information is only as accurate as the data entered by the patient. FINDINGS: No suspicious masses, areas of architectural distortion or microcalcifications are evident on synthetic 2D mammogram or tomosynthesis images. There has been no significant interval change since the prior examination. us Juana Gabriel MD MAMMO ORDERABLES Final Result from Last 3 Months or Most Recently Relevant to Health Maintenance Insurance ANTHEM ANTHEM MEDICAID - OUT OF STATE Advance Directives * Full Code (Latest Code [...] 11:09 PM 12/23/2013 3:54 PM Care Teams Finance Insurance Manager Relationship Specialty Start Date End Date Bowen Field MD PCP - General Internal Medicine 12/22/13
--- OUTSIDE RECORDS SUMMARY | 2024-07-19 11:28 | XMS_ITS | Encounter Summary ---
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
[2024-07-19 11:31] LABS: Free T4 Free Thyroxine 0.94 ng/dL (0.78-2.19)
[2024-07-19 11:45] LABS: Thyroid Stimulating Hormone 0.685 uIU/mL (0.465-4.680)
[2024-07-19 12:17] LABS: Free T3 2.91 pg/mL (2.18-3.98)
[2024-07-20 16:13] LABS: T4 Thyroxine 5.6 mcg/dL (5.1-11.9)
[2024-07-24 11:24] LABS: Thyroid Peroxidase Antibodies <1 IU/mL (<9)
== END 2024-07-19 10:04 | disposition home or self-care (01) ==
LOC: CHSLAB 10:06
DX: R53.82 Chronic fatigue, unspecified (principal)
CPT/HCPCS: 36415; 84436; 84439; 84443; 84481; 86376; 86800

== ENCOUNTER 2024-08-03 13:37 | Outpatient (CLI) | payer BC, SELFPAY ==
[2024-08-03 14:30] LABS: Alanine Aminotransferase 18 U/L (6-35); Albumin Level 4.4 g/dL (3.5-5.1); Alkaline Phosphatase 37 U/L (38-126); Anion Gap 6 mmol/L (4-12); Aspartate Amino Transferase 22 U/L (14-36); Bilirubin,Total 0.7 mg/dL (0.2-1.3); Blood Urea Nitrogen 16 mg/dL (7-17); Calcium 9.4 mg/dL (8.4-10.2); Carbon Dioxide 29 mmol/L (22-30); Chloride 104 mmol/L (98-107); Estimated Glomerular Filt Rate > 60; Glucose 87 mg/dL (65-110); Osmolality Calculated 288 mOsm/kg (285-295); Potassium 4.3 mmol/L (3.4-5.0); Sodium 139 mmol/L (137-145); Total Protein 6.8 g/dL (6.3-8.2)
== END 2024-08-03 13:38 | disposition home or self-care (01) ==
LOC: CHSLAB 13:41
DX: D50.9 Iron deficiency anemia, unspecified (principal); I10 Essential (primary) hypertension; E03.9 Hypothyroidism, unspecified
CPT/HCPCS: 36415; 80053; 82728